=== PATIENT | male | born 1960 | race Caucasian/White ===

== ENCOUNTER 2016-06-17 09:37 | Inpatient (IN) | payer OTHER ==
[2016-06-17 11:39] LABS: Hematocrit 47 % (42-52); Hemoglobin 15.7 g/dl (14.0-18.0); Mean Corpuscular HGB Conc 33 g/dl (31-36); Mean Corpuscular Hemoglobin 30 pg (27-31); Mean Corpuscular Volume 91 fL (80-94); Mean Platelet Volume 9 um3 (7.4-10.4); Red Blood Count 5.21 10^6/ul (4.0-5.4); Red Cell Distribution Width 14 % (10.5-15)
[2016-06-17 11:49] LABS: Urine Bacteria Absent (Absent); Urine Bilirubin Negative (Negative); Urine Glucose 2+(150 mg/dL) (Negative); Urine Nitrite Negative (Negative); Urine Sperm Present (Absent)
[2016-06-17 11:50] LABS: BUN/Creatinine Ratio 20.6 (8-20); Calcium 9.5 mg/dL (8.6-10.3); EGFR African American 76.4 (>60); EGFR Non-African American 59.4 (>60); Globulin 3.2 g/dL (2-4); Potassium 3.8 mmol/L (3.5-5.0); Total Bilirubin 0.9 mg/dL (0.2-1.0); Total Protein 7.2 g/dL (6.4-8.9)
[2016-06-17] MEDS ORDERED: HYDROcodone/ACETAMIN 5-325 MG* 1 TAB PO ONE (11:52)
[2016-06-17] MEDS ORDERED: Vancomycin(*) 1,250 MG in NS 0.9% 250 ML* 250 ML IVPB ONE (11:52)
[2016-06-17] MEDS ORDERED: NS 0.9% 250 ML* 0 ML ONE (12:29)
[2016-06-17] MEDS ORDERED: Dextrose 50% Syringe 50 ML* 25 GM/50 ML SYRINGE IV PUSH PRN (15:23)
--- NOTE | 2016-06-17 15:52 | RAD ---
INDICATION: Diabetic foot. Multiple amputations COMPARISON: January 26, 2016 TECHNIQUE: AP, lateral, and oblique views were obtained. FINDINGS: The bony structures are very osteopenic. There are neuropathic changes about the midfoot. There is tibiotalar fusion. There are amputations of the fourth and fifth digits at the level of the mid metatarsals. The postsurgical and degenerative changes are stable.. IMPRESSION: DEGENERATIVE AND POSTSURGICAL CHANGES ABOUT THE FOOT. NO ACUTE PLAIN RADIOGRAPHIC FINDINGS
[2016-06-17] MEDS ORDERED: Vancomycin per Pharmacy* NOTE FOLLOW UP PRN (16:21)
[2016-06-17] MEDS ORDERED: Acetaminophen TAB* 325 MG PO PRN (17:07)
[2016-06-17] MEDS: Cefepime(*) 2 GM in NS 0.9% 50 ML* 50 ML IVPB SCH (17:16)
[2016-06-17] MEDS: Insulin GLARGINE(*) 1 UNITS UNIT SUBCUT SCH (18:17)
[2016-06-17] MEDS: Insulin LISPRO* 1 UNITS UNIT SUBCUT SCH (18:18)
[2016-06-17] MEDS: oxyCODONE/Acetamin 5/325 MG* TAB PO PRN (18:23)
[2016-06-17] MEDS: Vancomycin(*) 1,000 MG in NS 0.9% 250 ML* 250 ML IVPB SCH (20:38)
[2016-06-17] MEDS: Ticagrelor* 90 MG TAB PO SCH (20:38)
[2016-06-17] MEDS: Heparin VIAL(*) 5000 UNITS/ML VIAL (FIVE THOUSAND) SUBCUT SCH (22:05)
--- NOTE | 2016-06-18 00:03 | HP ---
HISTORY AND PHYSICAL: DATE OF ADMISSION: 06/17/16 PRIMARY CARE PROVIDER: Dr. Emiliano Clark. ATTENDING PHYSICIAN: Dr. Js Mccall *(dictated by Ni Kam NP). CHIEF COMPLAINT: Right foot wound with redness. HISTORY OF PRESENT ILLNESS: Mr. Kam is a 56-year-old male with past medical history significant for type 1 diabetes mellitus, hypothyroidism, peripheral neuropathy, Charcot foot on the right, hyperlipidemia, coronary artery disease, status post ST-elevated KS in May 2015 with stent placement, and peripheral artery disease who presents to the emergency department today with complaints of right foot redness. The patient states that he is being followed at the wound clinic regarding diabetic right foot wound since December 2015. The patient states that he was last seen last week at the wound clinic. The patient reports noticing that the top part of his foot was red yesterday and that he was having sore muscles especially in the right leg and generalized body aches. The patient denies any fever, chest pain, cough, shortness of breath, nausea, vomiting, or diarrhea. He reports chills, poor appetite, and generally not eating well recently due to not feeling well. Due to these findings, the patient started to present to the emergency room for further evaluation of his symptoms. While in the emergency room, the patient had labs that were significant for white blood cell count of 14.0, lactic acid of 1.3. He had a right foot x-ray showing degenerative and postsurgical changes about the foot with no acute plain film radiographic findings. The patient received vancomycin while in the emergency room. Due to concern that the patient's diabetic foot ulcer could represent osteomyelitis, the Hospitalists were asked to evaluate the patient for admission. PAST MEDICAL HISTORY: 1. Hypothyroidism. 2. Type 1 diabetes mellitus. 3. Peripheral neuropathy. 4. Charcot foot on the right. 5. Hyperlipidemia. 6. Peripheral artery disease. 7. Coronary artery disease, status post ST elevated KS in May 2015. PAST SURGICAL HISTORY: 1. Status post right common femoral artery angioplasty in January 2016. 2. Status post cardiac catheterization with stent placement in May 2015. 3. Status post right fourth and fifth toe amputation in 2013. 4. Status post ORIF of the left tib-fib in 2007. 5. Status post ankle fusion for Charcot foot in 1997. 6. Status post partial amputation of the right index finger as a child due to a traumatic injury. HOME MEDICATIONS: Include: 1. Lantus 60 units subcutaneous every evening. 2. Atorvastatin 80 mg oral daily. 3. Aspirin 81 mg oral daily. 4. Levothyroxine 225 mcg oral daily. 5. Lispro sliding scale subcutaneous 3 times daily. 6. Metoprolol succinate 100 mg oral daily. 7. Lisinopril 10 mg oral daily. 8. Brilinta 90 mg oral twice daily. 9. Nitro 0.4 mg sublingual every 5 minutes as needed for chest pain. ALLERGIES: The patient has a sensitivity to SIMVASTATIN. FAMILY HISTORY: The patient's father had a history of cerebrovascular accident. The patient's mother and 2 siblings have a history of diabetes mellitus. He denies family history of cancer or coronary artery disease. SOCIAL HISTORY: The patient is a former smoker. He quit smoking 6 weeks ago. Prior to that, he smoked a half a pack a day for the last 35 years. The patient occasionally drinks alcoholic beverages. He denies recreational drug use. He is disabled. He lives alone and is from his , but his , Maribel Kam, would be his surrogate decision maker in the event he is unable to make decisions for himself. REVIEW OF SYSTEMS: I performed a 14-point review of systems. All the pertinent positives and negatives are mentioned in the history of present illness. The remaining review of systems are negative. PHYSICAL EXAMINATION GENERAL APPEARANCE: The patient is alert, pleasant, and appears to be in no acute distress. VITAL SIGNS: Temperature 99.7, heart rate 90, respiratory rate 14, O2 sat 96% on room air, blood pressure 100/48. HEENT: Normocephalic, atraumatic. Pupils are equal and reactive to light. Extraocular movements are intact. NECK: Supple. There is no lymphadenopathy noted. RESPIRATORY: There is no accessory muscle use and the lungs are clear to auscultation bilaterally. CARDIOVASCULAR: Regular rate and rhythm. S1, S2 present. There are no murmurs , rubs, or gallops heard. ABDOMEN: Soft, nontender, nondistended. There are bowel sounds present x4. EXTREMITIES: There is no lower extremity edema. DP and PT pulses are 2+ and symmetric. The patient has a right fourth and fifth toe amputation. MUSCULOSKELETAL: There is no clubbing or cyanosis noted. The patient exhibits good strength in all extremities. NEUROLOGICAL: The patient is alert and oriented x4. Cranial nerves II through XII are grossly intact. PSYCHOLOGICAL: The patient is calm and cooperative. SKIN: The patient has a dressing to his right medial ankle. There is also a deep, open wound below the middle toe on the ball of the right foot. The top of the right foot has redness extending into the middle toe. There is also an intact blister noted on the second toe. DIAGNOSTIC STUDIES/LABORATORY DATA: Sodium 132, potassium 3.8, chloride 97, CO2 25, BUN 26, creatinine 1.26, glucose 173. Lactic acid 1.3. White blood cell count 14.0, hemoglobin 15.7, hematocrit 47, and platelet count 210. Right foot x-ray from today. Radiologist's impression: Degenerative and postsurgical changes about the foot. No acute plain radiographic findings. IMPRESSION: Mr. Kam is a 56-year-old male with past medical history significant for peripheral artery disease, coronary artery disease, Charcot foot on the right, peripheral neuropathy, and type 1 diabetes mellitus who has a chronic right foot wound and presents to the emergency room with redness and associated general body aches and chills. He will be admitted as an inpatient for diabetic foot ulcer and possible osteomyelitis. ASSESSMENT: 1. Right foot diabetic ulcer: Question whether this is osteomyelitis. At this time, we are unable to get an MRI due to an equipment issue. The patient did have a plain film x-ray of the right foot showing no acute findings. The patient received his first dose of vancomycin in the emergency room. We will continue him on vancomycin and cefepime. Blood cultures have been obtained. The patient also had a wound culture of his foot that had an MRSA and MSSA PCRs that were negative. The Gram stain shows 2+ neutrophils, 3+ epithelial cells, 3 + gram-positive cocci, 2+ gram- positive bacilli, and 1+ gram-negative bacilli. Final wound cultures are pending at this time. I have asked Infectious Disease to consult on the patient. For now, we will continue Santyl dressing changes daily to the right foot wound. SIRS criteria 0 and qSofa 0 at admission. 2. Acute kidney injury: I suspect this is related to the patient not eating or drinking well. We will give him IV fluids overnight. Recheck his labs in the morning. 3. History of coronary artery disease: The patient will be continued on his Brilinta, statin, aspirin, and metoprolol. 4. Diabetes mellitus: The patient will have fingersticks a.c. and h.s. He will be continued on his home dose of Lantus and we will place him on a lispro sliding scale. 5. Hypothyroidism: The patient will be continued on his home levothyroxine. 6. Fluids, electrolytes, and nutrition: The patient will be on a consistent carbohydrate and heart healthy diet. 7. Code status: Full code. 8. DVT prophylaxis: The patient is at moderate risk and will be placed on subcu heparin. 9. Disposition: Inpatient for diabetic foot ulcer. TIME SPENT: The time spent for this admission was 60 minutes and 35 minutes were spent [id number] with the patient, discussing past medical history, medications, and the events leading up to his arrival today and performing the physical examination. The case has been reviewed with the attending, Dr. Mccall, who agrees with the plan of care. Reviewed by ANMOL VERA-Zach 06/21/161955 CC: Dr. Emiliano Clark* [id number]/[facility] #: [id number] SARA
[2016-06-18] MEDS: Cefepime(*) 2 GM in NS 0.9% 50 ML* 50 ML IVPB SCH ×2 (04:42→17:41)
[2016-06-18] MEDS: Levothyroxine TAB* 100 MCG TAB PO SCH (05:29)
[2016-06-18] MEDS: Vancomycin(*) 1,000 MG in NS 0.9% 250 ML* 250 ML IVPB SCH ×3 (05:30→21:18)
[2016-06-18] MEDS: Heparin VIAL(*) 5000 UNITS/ML VIAL (FIVE THOUSAND) SUBCUT SCH ×3 (05:30→21:18)
[2016-06-18] MEDS: Levothyroxine TAB* 25 MCG TAB PO SCH (05:30)
[2016-06-18 07:18] LABS: Hematocrit 39 % (42-52); Hemoglobin 13.3 g/dl (14.0-18.0); Mean Corpuscular HGB Conc 34 g/dl (31-36); Mean Corpuscular Hemoglobin 31 pg (27-31); Mean Corpuscular Volume 90 fL (80-94); Mean Platelet Volume 9 um3 (7.4-10.4); Red Blood Count 4.36 10^6/ul (4.0-5.4); Red Cell Distribution Width 13 % (10.5-15); White Blood Count 6.3 10^3/ul (3.5-10.8)
[2016-06-18 07:36] LABS: Calcium 8.2 mg/dL (8.6-10.3); EGFR African American 99.8 (>60); EGFR Non-African American 77.6 (>60); Potassium 3.7 mmol/L (3.5-5.0)
[2016-06-18] MEDS: oxyCODONE/Acetamin 5/325 MG* TAB PO PRN ×3 (08:03→21:25)
[2016-06-18] MEDS: Ticagrelor* 90 MG TAB PO SCH ×2 (08:03→21:17)
[2016-06-18] MEDS: Aspirin EC Low Dose* 81 MG TAB.EC PO SCH (08:03)
[2016-06-18] MEDS: Metoprolol Succinate XL TAB* 100 MG PO SCH (08:03)
[2016-06-18] MEDS: Atorvastatin* 80 MG TAB PO SCH (08:03)
[2016-06-18] MEDS: Lisinopril TAB* 10 MG PO SCH (08:03)
[2016-06-18] MEDS: Insulin LISPRO* 1 UNITS UNIT SUBCUT SCH ×3 (08:28→18:23)
[2016-06-18] MEDS: NS 0.9% 1000 ML* 1,000 ML IV SCH (11:16)
[2016-06-18] MEDS ORDERED: Vancomycin Trough Check NOTE FOLLOW UP ONE (12:30)
[2016-06-18] MEDS ORDERED: Insulin LISPRO* 1 UNITS UNIT SUBCUT ONE ×2 (13:30→18:22)
[2016-06-18] MEDS ORDERED: Insulin REGULAR(*) 1 UNITS UNIT SUBCUT SCH (16:30)
[2016-06-18] MEDS: Insulin GLARGINE(*) 1 UNITS UNIT SUBCUT SCH (17:41)
[2016-06-18] MEDS: Collagenase 250 MG/GM OINT* 30 GM TOPICAL SCH (18:03)
[2016-06-19] MEDS: Vancomycin(*) 1,000 MG in NS 0.9% 250 ML* 250 ML IVPB SCH ×4 (02:35→20:50)
[2016-06-19] MEDS: Cefepime(*) 2 GM in NS 0.9% 50 ML* 50 ML IVPB SCH ×2 (04:21→17:17)
[2016-06-19] MEDS: Levothyroxine TAB* 25 MCG TAB PO SCH (05:28)
[2016-06-19] MEDS: Levothyroxine TAB* 100 MCG TAB PO SCH (05:28)
[2016-06-19] MEDS: Heparin VIAL(*) 5000 UNITS/ML VIAL (FIVE THOUSAND) SUBCUT SCH ×3 (05:28→20:54)
[2016-06-19] MEDS: NS 0.9% 1000 ML* 1,000 ML IV SCH (07:00)
[2016-06-19 08:20] LABS: BUN/Creatinine Ratio 16.7 (8-20); C Reactive Protein 91.87 mg/L (< 5.00); Calcium 8.6 mg/dL (8.6-10.3); EGFR African American 112.7 (>60); EGFR Non-African American 87.6 (>60); Potassium 3.2 mmol/L (3.5-5.0)
[2016-06-19] MEDS: oxyCODONE/Acetamin 5/325 MG* TAB PO PRN ×3 (09:18→21:02)
[2016-06-19] MEDS: Aspirin EC Low Dose* 81 MG TAB.EC PO SCH (09:18)
[2016-06-19] MEDS: Atorvastatin* 80 MG TAB PO SCH (09:19)
[2016-06-19] MEDS: Lisinopril TAB* 10 MG PO SCH (09:19)
[2016-06-19] MEDS: Ticagrelor* 90 MG TAB PO SCH ×2 (09:19→20:55)
[2016-06-19] MEDS: Metoprolol Succinate XL TAB* 100 MG PO SCH (09:19)
[2016-06-19] MEDS: Insulin LISPRO* 1 UNITS UNIT SUBCUT SCH ×3 (09:20→17:36)
[2016-06-19] MEDS: Collagenase 250 MG/GM OINT* 30 GM TOPICAL SCH (09:20)
[2016-06-19] MEDS: Potassium Chlor TAB* 20 MEQ TAB.ER PO SCH ×2 (15:19→20:55)
[2016-06-19] MEDS: Insulin GLARGINE(*) 1 UNITS UNIT SUBCUT SCH (17:35)
--- NOTE | 2016-06-20 00:50 | CONS ---
ORTHOPEDIC CONSULTATION: DATE OF CONSULT: 06/19/16 HISTORY OF PRESENT ILLNESS: Mr. Kam is a pleasant 56-year-old type 1 diabetic who has had some vasculopathy as well in the lower extremity. He is status post 4th and 5th ray excision of the right foot and now presents with recent gangrene of his middle toes in the same foot. He has also had a chronic half Dollar-sized ulcer in the forefoot area. This has been attended to at the Wound [facility], but they have been unable to achieve wound healing. At this point , Mr. Kam is in the hospital for IV antibiotics and further evaluation. Evidently back in January, he did have a vascular evaluation by Dr. Sanchez. We will try to update that evaluation or at least consultation with him, but at this point, Mr. Kam is interested in some type of definitive solution to the infection and ulceration of his right foot. He does run a [employer] and is interested in restoring function to the limb and becoming infection free. PAST MEDICAL HISTORY: He does have extensive issues including hypothyroidism, type 1 diabetes, peripheral neuropathy, hyperlipidemia, and peripheral artery disease. He had a STEMI previously. MEDICATIONS: Outlined in the chart. SOCIAL HISTORY: The patient quit smoking 6 weeks ago, but had an extensive pack year history before that. PHYSICAL EXAM: He is a pleasant, alert male. There is some calf atrophy. He has a small dime-sized superficial ulcer at the medial malleolus and then a half dollar-sized ulcer in the forefoot, which probes deep with serous drainage. There is erythema to the mid tarsal level. He has had a previous 4th and 5th ray amputation and he has gangrenous changes of his remaining toes. DIAGNOSTIC STUDIES/LAB DATA: His radiographs show that he has had an intramedullary hind foot arthrodesis, which he says was performed in [place] a decade ago, that appears well healed. IMPRESSION: Mr. Kam is a candidate either for Chopart disarticulation or transtibial amputation. He will need some imaging of the right tibia to see how far up the nail goes before we try to do the BK amputation, but I also have explained to him the advantages of possibly saving his heel and since he is already fused, he would not have issues with equinus or instability. He is going to have an MRI in the morning. I have asked him to be n.p.o. and also, we will try to touch base with Dr. Sanchez to get a vascular update or at least an opinion. [id number]/[facility] #: [id number] SARA
[2016-06-20] MEDS: Vancomycin(*) 1,000 MG in NS 0.9% 250 ML* 250 ML IVPB SCH ×4 (02:38→22:34)
[2016-06-20] MEDS: Cefepime(*) 2 GM in NS 0.9% 50 ML* 50 ML IVPB SCH ×2 (05:05→22:31)
[2016-06-20] MEDS: Heparin VIAL(*) 5000 UNITS/ML VIAL (FIVE THOUSAND) SUBCUT SCH ×3 (06:15→22:37)
[2016-06-20] MEDS: Levothyroxine TAB* 25 MCG TAB PO SCH (06:16)
[2016-06-20] MEDS: Levothyroxine TAB* 100 MCG TAB PO SCH (06:17)
--- NOTE | 2016-06-20 07:30 | PN ---
Subjective - Subjective Reason for Note: Progress Note History: Wenceslao Kam has been a patient at my office since 1993. He has had poorly controlled diabetes mellitus for most of that time and a Charcot joint right foot. In recent years he has had multiple corrective surgeries to the right foot, including amputation of the lateral 2 toes. He has attended the Wound Clinic for many months for ulceration and infection of this right foot. He presents with osteomyelitis. He is ready for a right below knee amputation as he believes this is inevitable and he is sick of going to the Wound Clinic and having chronic pain. This is the case even if there is a chance of salvage to the right heel. This morning he has no fevers/sweats. He has 5/10 pain which he feels is adequately addressed. He is otherwise feeling fine. He has not attended my medical office since 11/19/2015 and has not seen the panama hat blocker ("my neighbor") in 1 year. Active Problems: Active Problems Diabetic ulcer of right foot (Acute 10/02/13) E11.621, L97.519 Osteomyelitis of toe of right foot (Acute) M86.9 Charcot's joint of right foot (Chronic) M14.671 History of diabetic retinopathy (Chronic) Z86.39 History of myocardial infarction (Chronic) I25.2 Hypercholesterolemia (Chronic) E78.0 Peripheral neuropathy (Chronic) G62.9 Presence of stent in coronary artery (Chronic) Z95.5 Primary hypothyroidism (Chronic) E03.9 Type 1 diabetes mellitus with neurological manifestations, uncontrolled (Chronic ) E10.49, E10.65 Current Medications: Current Medications Acetaminophen (Tylenol Tab*) 650 mg PO Q4H PRN PRN Reason: FEVER/PAIN Aspirin (Aspirin Ec Low Dose*) 81 mg PO DAILY [facility] Last Admin: 06/19/16 09:18 Dose: 81 mg Atorvastatin Calcium (Lipitor*) 80 mg PO DAILY [facility] Last Admin: 06/19/16 09:19 Dose: 80 mg Collagenase (Santyl 250 Mg/Gm Oint*) 1 applic TOPICAL DAILY [facility] Last Admin: 06/19/16 09:20 Dose: 1 applic Dextrose (D50w Syringe 50 Ml*) 12.5 gm IV PUSH .FOR FS < 60 - SS PRN PRN Reason: FS < 60 Heparin Sodium (Porcine) (Heparin Vial(*)) 5,000 units SUBCUT Q8HR [facility] Last Admin: 06/20/16 06:15 Dose: Not Given Cefepime HCl 2 gm/ Sodium (Chloride) 50 mls @ 100 mls/hr IVPB Q12H [facility] Last Admin: 06/20/16 05:05 Dose: 100 mls/hr Vancomycin HCl 1,000 mg/ (Sodium Chloride) 250 mls @ 166.667 mls/hr IVPB Q6H [facility] PRN Reason: Protocol Last Admin: 06/20/16 02:38 Dose: 166.667 mls/hr Insulin Glargine (Lantus(*)) 60 units SUBCUT QPM [facility] Last Admin: 06/19/16 17:35 Dose: 60 unit Insulin Human Lispro (Humalog*) 0 - 10 units SUBCUT AC [facility] PRN Reason: Protocol Last Admin: 06/19/16 17:36 Dose: 4 unit Levothyroxine Sodium (Synthroid Tab*) 200 mcg PO DAILY@0600 [facility] Last Admin: 06/20/16 06:17 Dose: 200 mcg Levothyroxine Sodium (Synthroid Tab*) 25 mcg PO DAILY@0600 [facility] Last Admin: 06/20/16 06:16 Dose: 25 mcg Lisinopril (Prinivil Tab*) 10 mg PO DAILY [facility] Last Admin: 06/19/16 09:19 Dose: 10 mg Metoprolol Succinate (Toprol Xl Tab*) 100 mg PO DAILY [facility] Last Admin: 06/19/16 09:19 Dose: 100 mg Oxycodone/Acetaminophen (Percocet 5/325 Tab*) 1 tab PO Q4H PRN PRN Reason: PAIN - MILD TO MODERATE Last Admin: 06/19/16 15:13 Dose: 1 tab Oxycodone/Acetaminophen (Percocet 5/325 Tab*) 2 tab PO Q4H PRN PRN Reason: PAIN - MODERATE TO SEVERE Last Admin: 06/19/16 21:02 Dose: 2 tab Pharmacy Consult (Vancomycin Per Pharmacy*) 1 note FOLLOW UP . PRN PRN Reason: PER PROTOCOL Pharmacy Profile Note (Vancomycin Trough Check) 1 note FOLLOW UP ONCE ONE Stop: 06/20/16 08:31 Ticagrelor (Brilinta*) 90 mg PO BID [facility] Last Admin: 06/19/16 20:55 Dose: 90 mg - Review of Systems Constitutional Symptoms: No: Fever, Night Sweats Pulmonary: Negative: Cough, Sputum, Respiratory Distress, Home Oxygen Cardiology: Positive: Peripheral Vascular Dis Negative: Chest Pain, Shortness of Breath, Palpitations, Swelling of Ankles Gastroenterology: Negative: Abdominal Pain, Nausea, Vomiting, Difficulty Swallowing, Change in Bowel Habits - He has had a colonoscopy Genital - Urinary: Negative: Dysuria, Hematuria Home Medications: Home Medications Medication Instructions Recorded Confirmed Type Insulin Glargine [Lantus] 60 unit SUBCUT QPM #0 06/04/15 06/17/16 History Atorvastatin* [Lipitor 80 MG*] 80 mg PO DAILY #30 tab 06/07/15 06/17/16 Rx Lisinopril TAB* [Prinivil TAB 10 10 mg PO DAILY tab 06/07/15 06/17/16 Rx MG*] Metoprolol Succinate XL TAB* 100 mg PO DAILY #30 tab.xl 06/07/15 06/17/16 Rx [Toprol XL TAB*] Nitroglycerin TAB 0.4 MG* 0.4 mg SL Q5M PRN #20 tab 06/07/15 06/17/16 Rx Ticagrelor* [Brilinta 90 MG*] 90 mg PO BID #60 tab 06/07/15 06/17/16 Rx Aspirin EC Low Dose* [Ecotrin EC 81 mg PO DAILY 02/15/16 06/17/16 History Low Dose 81 MG*] Insulin Lispro [Humalog] 0 - 100 units SUBCUT TID 02/15/16 06/17/16 History Levothyroxine TAB* [Synthroid TAB*] 25 mcg PO DAILY 06/17/16 06/17/16 History Levothyroxine TAB* [Synthroid TAB*] 200 mcg PO DAILY 06/17/16 06/17/16 History Allergies: Allergies Allergy/AdvReac Type Severity Reaction Status Date / Time No Known Drug Allergy Allergy See Comment Verified 06/17/16 17:57 Simvastatin AdvReac Unknown Fatigue Verified 06/17/16 13:44 Objective - Vital Signs Vital Signs: Vital Signs 06/19/16 06/19/16 06/19/16 07:29 08:00 09:18 Temperature 98.4 F Pulse Rate 82 Respiratory 16 16 16 Rate Blood Pressure 125/66 (mmHg) O2 Sat by Pulse 95 97 Oximetry 06/19/16 06/19/16 06/19/16 11:31 15:13 15:33 Temperature 98.3 F 98.1 F Pulse Rate 78 81 Respiratory 16 16 16 Rate Blood Pressure 136/62 140/63 (mmHg) O2 Sat by Pulse 97 97 Oximetry 06/19/16 06/19/16 06/19/16 17:13 20:07 21:02 Temperature 98.1 F Pulse Rate 77 Respiratory 16 16 20 Rate Blood Pressure 134/67 (mmHg) O2 Sat by Pulse 98 Oximetry 06/19/16 06/19/16 06/19/16 21:15 22:52 23:28 Temperature 98.4 F Pulse Rate 73 Respiratory 20 20 16 Rate Blood Pressure 114/53 (mmHg) O2 Sat by Pulse 98 100 Oximetry - Intake and Output Intake and Output: Intake & Output 06/17/16 06/18/16 06/19/16 06/20/16 11:59 11:59 11:59 11:59 Intake Total 2655 3085 3145 Output Total 0 0 Balance 2655 3085 3145 Weight 191 lb Intake: IV Fluids 985 590 ABX - CEFEPIME 50 ABX - VANCOMYCIN 500 NS (0.9%) 985 40 IVPB 350 305 815 ABX - CEFEPIME 100 55 55 ABX - VANCOMYCIN 250 250 760 Oral 1320 2780 1740 Output: Urine 0 0 Other: Estimated Void Large # Bowel Movements 0 0 0 # Voids 3 2 2 ADLs: Meal Record Start: 06/17/16 16: 01 Freq: DAILY@0900,1400,1800 Status: Active Document 06/17/16 18:00 [id number] (Rec: 06/17/16 18:34 [id number] [facility]-M08) Document 06/18/16 09:00 [id number] (Rec: 06/18/16 09:45 [id number] MED-C11) Document 06/18/16 14:00 [id number] (Rec: 06/18/16 14:45 [id number] MED-C11) Document 06/18/16 18:00 [id number] (Rec: 06/18/16 18:28 [id number] MED-C09) Document 06/19/16 09:00 [id number] (Rec: 06/19/16 15:05 [id number] MED-C09) Document 06/19/16 14:00 [id number] (Rec: 06/19/16 15:06 [id number] MED-C09) Document 06/19/16 18:00 [id number] (Rec: 06/19/16 22:47 [id number] MED-C11) Intake and Output Start: 06/17/16 16: 01 Freq: DAILY@0600,1400,2200 Status: Active Document 06/17/16 21:54 [id number] (Rec: 06/17/16 21:55 [id number] MED-C11) Document 06/18/16 05:43 [id number] (Rec: 06/18/16 05:45 [id number] MED-C42) Document 06/18/16 14:00 [id number] (Rec: 06/18/16 14:46 [id number] MED-C11) Document 06/18/16 21:22 [id number] (Rec: 06/18/16 21:22 [id number] MED-C09) Document 06/19/16 06:00 [id number] (Rec: 06/19/16 06:11 [id number] MED-C26) Document 06/19/16 14:00 [id number] (Rec: 06/19/16 15:06 [id number] MED-C09) Document 06/19/16 22:00 [id number] (Rec: 06/19/16 22:47 [id number] MED-C11) Document 06/20/16 05:55 [id number] (Rec: 06/20/16 05:55 [id number] MED-C26) - Physical Exam General Physical Exam Comment: Right foot - red, swollen 2nd toe. Edema of proximal right foot. He has a mostly healed ulcer over left medial malleolus. Charcot right foot. Left foot - posterior tibial pulse present, dorsalis pedis absent. No ulcers, callouses or infections General: No Cyanosis, No Anemia, No Jaundice, No Clubbing Lungs and Chest: Yes: Chest Expansion Full, Chest Expansion Symetrica, Percussion Note Resonant, Vessicular Breath Sounds. No: Crackles, Wheezes Heart Rate and Rhythm: Regular JVP: Not Elevated Additional Cardiovascular: Yes: Normal Heart Sounds. No: Heart Murmur, Pedal Edema Abdominal Exam: Yes: Soft, Bowel Sounds Present. No: Distention, Abdominal Mass , Hepatomegaly, Abdominal Tenderness Results - Results Lab Results: Laboratory Results - last 24 hr 06/19/16 06/19/16 06/19/16 07:21 07:25 07:25 ESR 33 H Sodium 137 Potassium 3.2 L Chloride 105 Carbon Dioxide 24 Anion Gap 8 BUN 15 Creatinine 0.90 Est GFR ( Amer) 112.7 Est GFR (Non-Af Amer) 87.6 BUN/Creatinine Ratio 16.7 Glucose 61 L POC Glucose (mg/dL) 63 L Calcium 8.6 C-Reactive Protein 91.87 H 06/19/16 06/19/16 06/19/16 12:02 17:20 21:38 ESR Sodium Potassium Chloride Carbon Dioxide Anion Gap BUN Creatinine Est GFR ( Amer) Est GFR (Non-Af Amer) BUN/Creatinine Ratio Glucose POC Glucose (mg/dL) 295 H 155 H 145 H Calcium C-Reactive Protein Radiology Results: Patient Name: BRODY KAM Medical Record#: [id number] Ordering Physician: Agus Moon MD Acct.#: [id number] : 1960 Age: 56 Sex: M Location: EMERGENCY DEPARTMENT Exam Date: 06/17/161519 ADM Status: REG ER Order Information: FOOT RIGHT 3+ VWS Accession Number: [id number] CPT: 35033 INDICATION: Diabetic foot. Multiple amputations COMPARISON: January 26, 2016 TECHNIQUE: AP, lateral, and oblique views were obtained. FINDINGS: The bony structures are very osteopenic. There are neuropathic changes about the midfoot. There is tibiotalar fusion. There are amputations of the fourth and fifth digits at the level of the mid metatarsals. The postsurgical and degenerative changes are stable.. IMPRESSION: DEGENERATIVE AND POSTSURGICAL CHANGES ABOUT THE FOOT. NO ACUTE PLAIN RADIOGRAPHIC FINDINGS <Electronically signed by Jude Cardona MD in OV> 06/17/16 154 Dictated By: Jude Cardona MD Dictated Date/Time: 06/17/161548 Transcribed Date/Time: 06/17/161546 Copy to: CC:Emiliano Clark MD; Agus Moon MD Imaging - [facility] Imaging - [facility] Imaging - [facility] [address] [address] ph ([phone]) ph ([phone]) ph ([phone]) Assessment - Problem List Assessment: Patient Problems Diabetic ulcer of right foot (Acute 10/02/13) Osteomyelitis of toe of right foot (Acute) Charcot's joint of right foot (Chronic) History of diabetic retinopathy (Chronic) History of myocardial infarction (Chronic) Hypercholesterolemia (Chronic) Peripheral neuropathy (Chronic) Presence of stent in coronary artery (Chronic) Primary hypothyroidism (Chronic) Type 1 diabetes mellitus with neurological manifestations, uncontrolled (Chronic ) Plan: Diabetic ulcer of right foot (Acute 10/02/13)Osteomyelitis of toe of right foot (Acute)Charcot's joint of right foot (Chronic) I spoke to the patient and Dr. Lewis. He is having an MRI of the foot this morning. Dr. Lewis would like to consider surgery to spare his heel. Brody would like a below knee amputation. I will leave this to Dr. Lewis. He would like an opinion from Dr. Sanchez - his scientist electronics - as to the state of the peripheral vascular disease. History of diabetic retinopathy (Chronic) Due for ophthalmological examination. History of myocardial infarction (Chronic) for EKG Hypercholesterolemia (Chronic) continue current Rx Peripheral neuropathy (Chronic) ongoing Presence of stent in coronary artery (Chronic) Primary hypothyroidism (Chronic) secondary diagnosis Type 1 diabetes mellitus with neurological manifestations, uncontrolled (Chronic ) He has a high A1c. This morning his glucose is 67 mg/dl as he is NPO. I will start a D5/0.5 NS infusion. I discussed the above with the patient. He accepts the above plan, but remains skeptical of more conservative foot surgery.
[2016-06-20] MEDS: oxyCODONE/Acetamin 5/325 MG* TAB PO PRN ×3 (07:40→19:10)
[2016-06-20] MEDS: Aspirin EC Low Dose* 81 MG TAB.EC PO SCH (07:42)
[2016-06-20] MEDS: Metoprolol Succinate XL TAB* 100 MG PO SCH (07:42)
[2016-06-20] MEDS: Atorvastatin* 80 MG TAB PO SCH (07:42)
[2016-06-20] MEDS: Lisinopril TAB* 10 MG PO SCH (07:42)
[2016-06-20] MEDS: Insulin LISPRO* 1 UNITS UNIT SUBCUT SCH ×5 (07:54→22:30)
[2016-06-20] MEDS ORDERED: D5W 1/2 NS KCl 20 Meq 1000 ML* 1,000 ML IV SCH (08:00)
[2016-06-20] MEDS: Collagenase 250 MG/GM OINT* 30 GM TOPICAL SCH (08:01)
[2016-06-20] MEDS ORDERED: Vancomycin Trough Check NOTE FOLLOW UP ONE (08:30)
--- NOTE | 2016-06-20 10:37 | RAD ---
Indication: Diabetic with RIGHT foot ulcer. Previous partial RIGHT foot amputation. Previous ankle fusion. Assess for osteomyelitis. Comparison: June 17, 2016 radiographs demonstrating previous ankle fusion, advanced Charcot arthropathy, and amputation of the fourth and fifth digits at the level of the metatarsal diaphyses. February 05, 2016 MRI. Technique: [employer] 1.5 Iraida [id number] with GEM suite. Noncontrast MRI RIGHT ankle. Report: Artifact from talocrural joint effusion. Stigmata of advanced neuropathic arthropathy with intertarsal fusions. Post dilatation of the fourth and fifth digits at the level of the metatarsal diaphyses. Soft tissue ulcer along the plantar aspect of the foot centered inferior to the second metatarsal phalangeal joint. Grossly contiguous with the soft tissue ulcer there is circumferential soft tissue hyperintensity surrounding the second toe proximal phalanx and head of the second metatarsal. The middle and distal phalanges of the second toe are not included in the [id number]. There is a small region of T2 hyperintense marrow edema involving the plantar aspect of the head of the second metatarsal with corresponding decreased T1 marrow hyperintensity consistent with osteomyelitis. Only trace fluid at the second metatarsal phalangeal joint. No compelling additional region of osteomyelitis evident within the [id number]. Chronic postsurgical tract noted within the calcaneal tuberosity. IMPRESSION: Contiguous with the plantar soft tissue ulcer there is evidence for osteomyelitis involving the plantar aspect of the head of the IVC second metatarsal. This represents a new finding compared with the February 05, 2016 exam.
[2016-06-20] MEDS ORDERED: Midazolam* 1 MG/ML 2 ML VIAL (2 MG) ONE (14:58)
[2016-06-20] MEDS ORDERED: fentaNYL* 50 MCG/ML 2 ML VIAL (100 MCG VIAL) ONE ×2 (14:58→17:37)
[2016-06-20] MEDS ORDERED: Scopolamine 1.5 mg* PATCH ONE (14:59)
[2016-06-20] MEDS ORDERED: Bupivacaine 0.5% SDV PF* 30 ML VIAL ONE (15:37)
[2016-06-20] MEDS ORDERED: Vancomycin(*) 1,000 MG in NS 0.9% 250 ML* 250 ML IVPB SCH (16:00)
[2016-06-20] MEDS ORDERED: Lidocaine 2% PF * 5 ML VIAL ONE (16:23)
[2016-06-20] MEDS ORDERED: Propofol* 10 MG/ML 20 ML BTL IV PUSH ONE (16:23)
[2016-06-20] MEDS ORDERED: Dexamethasone IV* 4 MG/ML 1 ML (4 MG) ONE (16:23)
[2016-06-20] MEDS ORDERED: Ondansetron INJ* 2 MG/ML VIAL ONE (16:23)
[2016-06-20] MEDS ORDERED: Phenylephrine IV* 40 MCG/ML 10 ML SYRINGE ONE (16:34)
[2016-06-20] MEDS ORDERED: Metoclopramide IV* 5 MG/ML 2 ML VIAL IV PRN (17:29)
[2016-06-20] MEDS ORDERED: HYDROmorphone* 1 MG/ML 1 ML SYR ONE (17:37)
[2016-06-20] MEDS: fentaNYL* 50 MCG/ML 2 ML VIAL (100 MCG VIAL) IV PRN ×2 (17:38→17:44)
--- NOTE | 2016-06-20 17:47 | CONS ---
CONSULTATION REPORT: DATE OF CONSULT: 06/20/16 REQUESTING PHYSICIAN: Dr. Clark. CONSULTING SERVICE: Infectious Disease. REASON FOR CONSULT: Right foot infection. IMPRESSION: 1. Type 1 diabetes with neuropathy and bilateral Charcot joints in the ankle and foot, now with gangrene of the right second toe and associated cellulitis. 2. Chronic non-pressure related, diabetes-related plantar forefoot ulceration with underlying osteomyelitis of the second metatarsal head seen on MRI. This is a chronic osteomyelitis, the organisms that were cultured from the swab grew group B strep, klebsiella, and enterobacter. 3. Peripheral vascular disease, history of right below the knee angioplasty. RECOMMENDATION: Agree with broad-spectrum antibiotics while awaiting surgical therapy, which he is in favor of and he is going to pursue below the knee amputation. We discussed that he would not need long-term IV antibiotics after surgery where the site is so proximal to the area of active infection, but I agree that with underlying structural and hardware abnormalities of his ankle plus the chronic wound of his forefoot that more limited procedure is likely to lead to recurrence. HISTORY OF PRESENT ILLNESS: This is a 56-year-old male with neuropathy, micro and macrovascular disease, admitted with right foot infection. He has been following with the wound clinic for a plantar forefoot ulcer for the last few months, it first showed up in November, drains fluid from time to time. At the end of last week, he developed redness in forefoot and purplish discoloration of the second and third toes. He already has had amputation of the fourth and fifth toes. He had some chills and nausea along with the foot abnormality that led him seek care in the emergency room. He was started on vancomycin and cefepime. Culture was taken as above. Blood cultures taken were negative. An MRI was done today with findings as above. He has been seen by Dr. Lewis and plans for surgery. The redness is receding back down the foot towards the toes again. His chills and anorexia resolved. PAST MEDICAL HISTORY: 1. Type 1 diabetes with peripheral neuropathy. 2. Peripheral vascular disease, history of below the knee intervention, angioplasty, in 2015. 3. Charcot foot with right foot ankle fusion. 4. Hyperlipidemia. 5. Coronary artery disease, history of an DC in 2015. 6. Status post right fourth and fifth toe amputation, 2013. 7. Left ankle fracture, status post open reduction internal fixation of the left tibia and fibula, 2007. 8. Status post partial amputation of right index finger due to trauma. MEDICATIONS: 1. Tylenol. 2. Aspirin. 3. Lipitor. 4. Insulin glargine. 5. Levothyroxine. 6. Lisinopril. 7. Cefepime 2 g every 12 hours. 8. Vancomycin 1 g every 6 hours. ALLERGIES: SIMVASTATIN. FAMILY HISTORY: No recurrent infections. SOCIAL HISTORY: He lives in [place]. His work is in [employer]. REVIEW OF SYSTEMS: All negative except as noted above. PHYSICAL EXAM: Vitals Signs: Temperature 36, heart rate 70, respiratory rate 16, blood pressure 140/60, O2 sat 99% on room air. In general, he is awake, non - distressed. Neurologic: Oriented x3, follows all commands. No sensation to light touch in the feet bilaterally. HEENT: There is no conjunctival hemorrhage. Oropharynx is without lesions. Neck is supple without nuchal rigidity. Lymph Nodes: There is no cervical, supraclavicular, inguinal, axillary, or epitrochlear lymphadenopathy. Heart has regular rate and rhythm without murmurs, rubs, or gallops. Lungs are clear to auscultation bilaterally. Abdomen is soft, nontender, and nondistended. Skin: There is no rash or splinter hemorrhages. Musculoskeletal: In the right foot, there is no palpable pulse in the right foot, that is warm. There is a plantar forefoot 1.5-cm ulcer with underlying granulation tissue over the second metatarsal head , second toe is black and purple and edematous, the third toe is edematous with mild purplish discoloration, erythema at the base of the toes. There is no fluctuance or crepitus. LABORATORY DATA: Creatinine is 0.9. CRP 90. White blood cell count 6, hemoglobin 13, platelets 159. Please see impressions and recommendations as outlined above. Thanks for asking me to see Mr. Kam in consultation. [id number]/CPS #: [id number] MTDD
[2016-06-20] MEDS: HYDROmorphone* 1 MG/ML 1 ML SYR IV PRN ×5 (17:51→23:48)
[2016-06-20] MEDS ORDERED: Insulin LISPRO* 1 UNITS UNIT SUBCUT SCH ×2 (21:00→21:20)
[2016-06-20] MEDS: Insulin GLARGINE(*) 1 UNITS UNIT SUBCUT SCH (21:27)
[2016-06-21] MEDS: oxyCODONE/Acetamin 5/325 MG* TAB PO PRN ×5 (03:08→20:14)
[2016-06-21] MEDS: Vancomycin(*) 1,000 MG in NS 0.9% 250 ML* 250 ML IVPB SCH ×3 (04:56→10:19)
[2016-06-21] MEDS: HYDROmorphone* 1 MG/ML 1 ML SYR IV PRN ×9 (05:52→22:35)
[2016-06-21] MEDS: Heparin VIAL(*) 5000 UNITS/ML VIAL (FIVE THOUSAND) SUBCUT SCH ×3 (05:54→22:36)
[2016-06-21] MEDS: Levothyroxine TAB* 100 MCG TAB PO SCH (05:55)
[2016-06-21 05:56] LABS: Hematocrit 39 % (42-52); Mean Corpuscular HGB Conc 34 g/dl (31-36); Mean Corpuscular Hemoglobin 30 pg (27-31); Mean Corpuscular Volume 90 fL (80-94); Mean Platelet Volume 9 um3 (7.4-10.4); Red Blood Count 4.28 10^6/ul (4.0-5.4); Red Cell Distribution Width 13 % (10.5-15); White Blood Count 10.3 10^3/ul (3.5-10.8)
[2016-06-21] MEDS: Levothyroxine TAB* 25 MCG TAB PO SCH (05:56)
[2016-06-21 06:06] LABS: BUN/Creatinine Ratio 16.5 (8-20); Calcium 8.4 mg/dL (8.6-10.3); EGFR African American 111.2 (>60); EGFR Non-African American 86.5 (>60); Potassium 4.4 mmol/L (3.5-5.0)
[2016-06-21] MEDS: Cefepime(*) 2 GM in NS 0.9% 50 ML* 50 ML IVPB SCH ×2 (07:28→17:28)
[2016-06-21] MEDS: Lisinopril TAB* 10 MG PO SCH (08:14)
[2016-06-21] MEDS: Aspirin EC Low Dose* 81 MG TAB.EC PO SCH (08:14)
[2016-06-21] MEDS: Atorvastatin* 80 MG TAB PO SCH (08:14)
[2016-06-21] MEDS: Metoprolol Succinate XL TAB* 100 MG PO SCH (08:14)
[2016-06-21] MEDS: Insulin LISPRO* 1 UNITS UNIT SUBCUT SCH ×8 (08:18→21:45)
--- NOTE | 2016-06-21 08:48 | PN ---
Subjective - Subjective Reason for Note: Progress Note History: He is day 1 post right below knee amputation. He has 7/10 pain of amputation site - it was 5/10 prior to the amputation. He would like better pain control. He is managing well otherwise. His blood glucose has been running high. Otherwise, he has been stable. He ate a meal last night. He has no chest pain , palpitations or dyspnea. He has no nausea or vomiting or abdo pain, diarrhea. Active Problems: Active Problems Complete below knee amputation of right lower extremity (Acute) S88.111A History of diabetic retinopathy (Chronic) Z86.39 History of myocardial infarction (Chronic) I25.2 Hypercholesterolemia (Chronic) E78.0 Peripheral neuropathy (Chronic) G62.9 Presence of stent in coronary artery (Chronic) Z95.5 Primary hypothyroidism (Chronic) E03.9 Type 1 diabetes mellitus with neurological manifestations, uncontrolled (Chronic ) E10.49, E10.65 Current Medications: Current Medications Acetaminophen (Tylenol Tab*) 650 mg PO Q4H PRN PRN Reason: FEVER/PAIN Aspirin (Aspirin Ec Low Dose*) 81 mg PO DAILY [facility] Last Admin: 06/21/16 08:14 Dose: 81 mg Atorvastatin Calcium (Lipitor*) 80 mg PO DAILY [facility] Last Admin: 06/21/16 08:14 Dose: 80 mg Collagenase (Santyl 250 Mg/Gm Oint*) 1 applic TOPICAL DAILY [facility] Last Admin: 06/20/16 08:01 Dose: 1 applic Dextrose (D50w Syringe 50 Ml*) 12.5 gm IV PUSH .FOR FS < 60 - SS PRN PRN Reason: FS < 60 Heparin Sodium (Porcine) (Heparin Vial(*)) 5,000 units SUBCUT Q8HR [facility] Last Admin: 06/21/16 05:54 Dose: 5,000 units Hydromorphone HCl (Dilaudid Iv*) 1 mg IV Q2H PRN PRN Reason: PAIN Last Admin: 06/21/16 08:13 Dose: 1 mg Cefepime HCl 2 gm/ Sodium (Chloride) 50 mls @ 100 mls/hr IVPB Q12H [facility] Last Admin: 06/21/16 07:28 Dose: 100 mls/hr Potassium Chloride/Dextrose (D5w 1/2 Ns Kcl 20 Meq 1000 Ml*) 1,000 mls @ 100 mls/hr IV PER RATE [facility] Last Admin: 06/20/16 07:54 Dose: 100 mls/hr Vancomycin HCl 1,000 mg/ (Sodium Chloride) 250 mls @ 166.667 mls/hr IVPB Q6H [facility] PRN Reason: Protocol Last Admin: 06/21/16 04:56 Dose: 166.667 mls/hr Insulin Glargine (Lantus(*)) 60 units SUBCUT QPM [facility] Last Admin: 06/20/16 21:27 Dose: 60 unit Insulin Human Lispro (Humalog*) 0 units SUBCUT TID WITH MEALS [facility] PRN Reason: Protocol Insulin Human Lispro (Humalog*) 0 - 20 units SUBCUT 0730,1130,1630,2100 [facility] PRN Reason: Protocol Last Admin: 06/21/16 08:18 Dose: 16 unit Levothyroxine Sodium (Synthroid Tab*) 200 mcg PO DAILY@0600 [facility] Last Admin: 06/21/16 05:55 Dose: 200 mcg Levothyroxine Sodium (Synthroid Tab*) 25 mcg PO DAILY@0600 [facility] Last Admin: 06/21/16 05:56 Dose: 25 mcg Lisinopril (Prinivil Tab*) 10 mg PO DAILY [facility] Last Admin: 06/21/16 08:14 Dose: 10 mg Metoprolol Succinate (Toprol Xl Tab*) 100 mg PO DAILY [facility] Last Admin: 06/21/16 08:14 Dose: 100 mg Oxycodone/Acetaminophen (Percocet 5/325 Tab*) 1 tab PO Q4H PRN PRN Reason: PAIN - MILD TO MODERATE Last Admin: 06/19/16 15:13 Dose: 1 tab Oxycodone/Acetaminophen (Percocet 5/325 Tab*) 2 tab PO Q4H PRN PRN Reason: PAIN - MODERATE TO SEVERE Last Admin: 06/21/16 08:14 Dose: 2 tab Pharmacy Consult (Vancomycin Per Pharmacy*) 1 note FOLLOW UP . PRN PRN Reason: PER PROTOCOL Pharmacy Profile Note (Vancomycin Trough Check) 1 note FOLLOW UP 1530 ONE Stop: 06/21/16 15:31 Home Medications: Home Medications Medication Instructions Recorded Confirmed Type Insulin Glargine [Lantus] 60 unit SUBCUT QPM #0 06/04/15 06/17/16 History Atorvastatin* [Lipitor 80 MG*] 80 mg PO DAILY #30 tab 06/07/15 06/17/16 Rx Lisinopril TAB* [Prinivil TAB 10 10 mg PO DAILY tab 06/07/15 06/17/16 Rx MG*] Metoprolol Succinate XL TAB* 100 mg PO DAILY #30 tab.xl 06/07/15 06/17/16 Rx [Toprol XL TAB*] Nitroglycerin TAB 0.4 MG* 0.4 mg SL Q5M PRN #20 tab 06/07/15 06/17/16 Rx Ticagrelor* [Brilinta 90 MG*] 90 mg PO BID #60 tab 06/07/15 06/17/16 Rx Aspirin EC Low Dose* [Ecotrin EC 81 mg PO DAILY 02/15/16 06/17/16 History Low Dose 81 MG*] Insulin Lispro [Humalog] 0 - 100 units SUBCUT TID 02/15/16 06/17/16 History Levothyroxine TAB* [Synthroid TAB*] 25 mcg PO DAILY 06/17/16 06/17/16 History Levothyroxine TAB* [Synthroid TAB*] 200 mcg PO DAILY 06/17/16 06/17/16 History Allergies: Allergies Allergy/AdvReac Type Severity Reaction Status Date / Time No Known Drug Allergy Allergy See Comment Verified 06/17/16 17:57 Simvastatin AdvReac Unknown Fatigue Verified 06/17/16 13:44 Objective - Vital Signs Vital Signs: Vital Signs 06/20/16 06/20/16 06/20/16 11:51 12:23 17:30 Temperature 97.8 F 97.2 F Pulse Rate 68 72 Respiratory 16 16 16 Rate Blood Pressure 125/64 145/72 (mmHg) O2 Sat by Pulse 97 98 Oximetry 06/20/16 06/20/16 06/20/16 17:35 17:38 17:40 Temperature Pulse Rate 76 76 Respiratory 14 16 16 Rate Blood Pressure 140/69 147/74 (mmHg) O2 Sat by Pulse 98 98 Oximetry 06/20/16 06/20/16 06/20/16 17:44 17:45 17:51 Temperature Pulse Rate 68 Respiratory 16 16 16 Rate Blood Pressure 146/68 (mmHg) O2 Sat by Pulse 98 Oximetry 06/20/16 06/20/16 06/20/16 18:00 18:02 18:15 Temperature Pulse Rate 68 69 Respiratory 16 16 16 Rate Blood Pressure 147/73 131/71 (mmHg) O2 Sat by Pulse 97 95 Oximetry 06/20/16 06/20/16 06/20/16 18:21 18:30 18:38 Temperature Pulse Rate 68 Respiratory 16 16 16 Rate Blood Pressure 139/68 (mmHg) O2 Sat by Pulse 95 Oximetry 06/20/16 06/20/16 06/20/16 18:39 18:44 18:51 Temperature 97.7 F Pulse Rate 68 Respiratory 16 16 16 Rate Blood Pressure 127/68 (mmHg) O2 Sat by Pulse 98 Oximetry 06/20/16 06/20/16 06/20/16 19:02 19:10 19:21 Temperature Pulse Rate Respiratory 16 16 16 Rate Blood Pressure (mmHg) O2 Sat by Pulse Oximetry 06/20/16 06/20/16 06/20/16 19:43 20:00 20:38 Temperature 97.9 F 98.0 F Pulse Rate 70 74 Respiratory 16 16 16 Rate Blood Pressure 128/69 129/68 (mmHg) O2 Sat by Pulse 97 100 100 Oximetry 06/20/16 06/20/16 06/20/16 21:00 21:03 21:08 Temperature Pulse Rate Respiratory 16 16 16 Rate Blood Pressure (mmHg) O2 Sat by Pulse Oximetry 06/20/16 06/20/16 06/20/16 22:03 22:28 23:45 Temperature 97.6 F 97.9 F Pulse Rate 72 72 Respiratory 16 17 16 Rate Blood Pressure 120/66 119/64 (mmHg) O2 Sat by Pulse 92 96 Oximetry 06/20/16 06/21/16 06/21/16 23:48 00:48 03:08 Temperature Pulse Rate Respiratory 18 16 16 Rate Blood Pressure (mmHg) O2 Sat by Pulse Oximetry 06/21/16 06/21/16 06/21/16 03:42 05:08 05:52 Temperature 98.0 F Pulse Rate 70 Respiratory 16 16 16 Rate Blood Pressure 122/61 (mmHg) O2 Sat by Pulse 94 Oximetry 06/21/16 06/21/16 06/21/16 06:52 07:39 08:13 Temperature 98.1 F Pulse Rate 66 Respiratory 16 16 Rate Blood Pressure 111/52 (mmHg) O2 Sat by Pulse 91 Oximetry 06/21/16 08:14 Temperature Pulse Rate Respiratory 16 Rate Blood Pressure (mmHg) O2 Sat by Pulse Oximetry - Intake and Output Intake and Output: Intake & Output 06/18/16 06/19/16 06/20/16 06/21/16 11:59 11:59 11:59 11:59 Intake Total 2655 3085 3145 3335 Output Total 0 0 1575 Balance 2655 3085 3145 1760 Weight 191 lb 191 lb Intake: IV Fluids 188 619 5950 ABX - CEFEPIME 50 50 ABX - VANCOMYCIN 500 510 D5W 1/2 NS 20 meq KCL 595 LR 1200 NS (0.9%) 985 40 50 NS 250ML, Vancomycin 250 1000MG IVPB 350 305 815 ABX - CEFEPIME 100 55 55 ABX - VANCOMYCIN 250 250 760 Oral 1320 2780 1740 680 Output: Urine 0 0 1575 Other: Estimated Void Large Medium # Bowel Movements 0 0 0 0 # Voids 3 2 1 ADLs: Meal Record Start: 06/17/16 16: 01 Freq: DAILY@0900,1400,1800 Status: Inactive Document 06/17/16 18:00 [id number] (Rec: 06/17/16 18:34 [id number] [facility]-M08) Document 06/18/16 09:00 [id number] (Rec: 06/18/16 09:45 [id number] MED-C11) Document 06/18/16 14:00 [id number] (Rec: 06/18/16 14:45 [id number] MED-C11) Document 06/18/16 18:00 [id number] (Rec: 06/18/16 18:28 [id number] MED-C09) Document 06/19/16 09:00 [id number] (Rec: 06/19/16 15:05 [id number] MED-C09) Document 06/19/16 14:00 [id number] (Rec: 06/19/16 15:06 [id number] MED-C09) Document 06/19/16 18:00 [id number] (Rec: 06/19/16 22:47 [id number] MED-C11) Document 06/20/16 09:00 [id number] (Rec: 06/20/16 10:07 [id number] MED-C11) Document 06/20/16 13:44 [id number] (Rec: 06/20/16 13:44 [id number] MED-C11) ADLs: Meal Record Start: 06/20/16 18: 54 Freq: Status: Active Created 06/20/16 18:54 [id number] (Rec: 06/20/16 18:54 [id number] [facility]-M02) Intake and Output Start: 06/17/16 16: 01 Freq: DAILY@0600,1400,2200 Status: Inactive Document 06/17/16 21:54 [id number] (Rec: 06/17/16 21:55 [id number] MED-C11) Document 06/18/16 05:43 [id number] (Rec: 06/18/16 05:45 [id number] MED-C42) Document 06/18/16 14:00 [id number] (Rec: 06/18/16 14:46 [id number] MED-C11) Document 06/18/16 21:22 [id number] (Rec: 06/18/16 21:22 [id number] MED-C09) Document 06/19/16 06:00 [id number] (Rec: 06/19/16 06:11 [id number] MED-C26) Document 06/19/16 14:00 [id number] (Rec: 06/19/16 15:06 [id number] MED-C09) Document 06/19/16 22:00 [id number] (Rec: 06/19/16 22:47 [id number] MED-C11) Document 06/20/16 05:55 [id number] (Rec: 06/20/16 05:55 [id number] MED-C26) Document 06/20/16 10:58 [id number] (Rec: 06/20/16 10:59 [id number] MED-C11) Intake and Output Start: 06/20/16 18: 54 Freq: DAILY@0600,1400,2200 Status: Active Created 06/20/16 18:54 [id number] (Rec: 06/20/16 18:54 [id number] SSU-M02) Document 06/20/16 22:30 [id number] (Rec: 06/20/16 23:36 [id number] SSU-C12) Document 06/20/16 23:14 [id number] (Rec: 06/20/16 23:15 [id number] SSU-C19) Document 06/21/16 03:13 [id number] (Rec: 06/21/16 03:13 [id number] SSU-M02) Document 06/21/16 06:00 [id number] (Rec: 06/21/16 06:17 [id number] SSU-C11) - Physical Exam General: No Cyanosis, No Anemia, No Jaundice, No Clubbing Lungs and Chest: Yes: Chest Expansion Full, Chest Expansion Symetrica, Percussion Note Resonant, Vessicular Breath Sounds. No: Crackles, Wheezes Heart Rate and Rhythm: Regular Additional Cardiovascular: Yes: Normal Heart Sounds. No: Heart Murmur, Pedal Edema Abdominal Exam: Yes: Soft, Bowel Sounds Present. No: Distention, Abdominal Mass , Abdominal Tenderness - Neuro Orientation: A/O x3 Speech: Normal Results - Results Lab Results: Laboratory Results - last 24 hr 06/20/16 06/20/16 06/20/16 11:23 11:23 11:33 WBC RBC Hgb Hct MCV MCH MCHC RDW Plt Count MPV Neut % (Auto) Lymph % (Auto) [place] % (Auto) Eos % (Auto) Baso % (Auto) Absolute Neuts (auto) Absolute Lymphs (auto) Absolute Monos (auto) Absolute Eos (auto) Absolute Basos (auto) Absolute Nucleated RBC Nucleated RBC % Sodium Potassium Chloride Carbon Dioxide Anion Gap BUN Creatinine Est GFR ( Amer) Est GFR (Non-Af Amer) BUN/Creatinine Ratio Glucose POC Glucose (mg/dL) 131 H Hemoglobin A1c 10.9 H Calcium Vancomycin Trough 15.6 Random Vancomycin 06/20/16 06/20/16 06/20/16 14:20 17:33 19:39 WBC RBC Hgb Hct MCV MCH MCHC RDW Plt Count MPV Neut % (Auto) Lymph % (Auto) [place] % (Auto) Eos % (Auto) Baso % (Auto) Absolute Neuts (auto) Absolute Lymphs (auto) Absolute Monos (auto) Absolute Eos (auto) Absolute Basos (auto) Absolute Nucleated RBC Nucleated RBC % Sodium Potassium Chloride Carbon Dioxide Anion Gap BUN Creatinine Est GFR ( Amer) Est GFR (Non-Af Amer) BUN/Creatinine Ratio Glucose POC Glucose (mg/dL) 131 H 79 Hemoglobin A1c Calcium Vancomycin Trough Random Vancomycin 18.4 06/20/16 06/21/16 06/21/16 21:09 03:12 05:29 WBC 10.3 RBC 4.28 Hgb 13.0 L Hct 39 L MCV 90 MCH 30 MCHC 34 RDW 13 Plt Count 191 MPV 9 Neut % (Auto) 86.3 H Lymph % (Auto) 7.2 L [place] % (Auto) 6.0 Eos % (Auto) 0.1 Baso % (Auto) 0.4 Absolute Neuts (auto) 8.9 H Absolute Lymphs (auto) 0.7 L Absolute Monos (auto) 0.6 Absolute Eos (auto) 0 Absolute Basos (auto) 0 Absolute Nucleated RBC 0.01 Nucleated RBC % 0.1 Sodium Potassium Chloride Carbon Dioxide Anion Gap BUN Creatinine Est GFR ( Amer) Est GFR (Non-Af Amer) BUN/Creatinine Ratio Glucose POC Glucose (mg/dL) 380 H 301 H Hemoglobin A1c Calcium Vancomycin Trough Random Vancomycin 06/21/16 05:29 WBC RBC Hgb Hct MCV MCH MCHC RDW Plt Count MPV Neut % (Auto) Lymph % (Auto) [place] % (Auto) Eos % (Auto) Baso % (Auto) Absolute Neuts (auto) Absolute Lymphs (auto) Absolute Monos (auto) Absolute Eos (auto) Absolute Basos (auto) Absolute Nucleated RBC Nucleated RBC % Sodium 133 Potassium 4.4 Chloride 103 Carbon Dioxide 26 Anion Gap 4 BUN 15 Creatinine 0.91 Est GFR ( Amer) 111.2 Est GFR (Non-Af Amer) 86.5 BUN/Creatinine Ratio 16.5 Glucose 331 H POC Glucose (mg/dL) Hemoglobin A1c Calcium 8.4 L Vancomycin Trough Random Vancomycin Assessment - Problem List Assessment: Patient Problems Complete below knee amputation of right lower extremity (Acute) History of diabetic retinopathy (Chronic) History of myocardial infarction (Chronic) Hypercholesterolemia (Chronic) Peripheral neuropathy (Chronic) Presence of stent in coronary artery (Chronic) Primary hypothyroidism (Chronic) Type 1 diabetes mellitus with neurological manifestations, uncontrolled (Chronic ) Plan: Complete below knee amputation of right lower extremity (Acute) We are waiting to evaluate whether the infection from the foot is completely gone. He may have systemic infection. We will watch his CRP/CBC and diff. He has inadequate pain control - I will adjust his medication Type 1 diabetes mellitus with neurological manifestations, uncontrolled (Chronic ) for basal/bolus regimen History of diabetic retinopathy (Chronic) secondary diagnosis History of myocardial infarction (Chronic) no signs of any cardiac issues following surgery Hypercholesterolemia (Chronic) secondary diagnosis Peripheral neuropathy (Chronic) secondary diagnosis Presence of stent in coronary artery (Chronic) Primary hypothyroidism (Chronic) secondary diagnosis I discussed the above with the patient. He will need PT/OT for safe discharge.
[2016-06-21] MEDS ORDERED: HYDROmorphone PCA* 20 MG/20 ML PCA.SYRING PCA SCH (09:00)
[2016-06-21] MEDS: Collagenase 250 MG/GM OINT* 30 GM TOPICAL SCH (09:09)
[2016-06-21] MEDS ORDERED: Vancomycin Trough Check NOTE FOLLOW UP ONE (09:30)
--- NOTE | 2016-06-21 10:08 | PN ---
Progress Note - Progress Note SOAP: Subjective: []Patient seen OOB in chair. Pain better managed now on a regular schedule of Percocet and Dilaudid. He is understanding the need for IV abx treatment. Objective: [] Vital Signs Temp 98.1 F 06/21/16 07:39 Pulse 66 06/21/16 07:39 Resp 16 06/21/16 09:13 BP 111/52 06/21/16 07:39 Pulse Ox 91 06/21/16 07:39 Intake & Output 06/20/16 06/21/16 06/21/16 18:59 06:59 18:59 Intake Total 1450 1530 355 Output Total 1275 300 Balance 1450 255 55 Weight 191 lb Intake: IV Fluids 1450 850 355 ABX - CEFEPIME 50 ABX - VANCOMYCIN 255 255 D5W 1/2 NS 20 meq KCL 595 LR 1200 NS (0.9%) 50 NS 250ML, Vancomycin 250 1000MG Oral 0 680 Output: Urine 1275 300 Other: Estimated Void Medium # Bowel Movements 0 0 # Voids 1 Laboratory Results - last 24 hr 06/20/16 06/20/16 06/20/16 11:23 11:23 11:33 WBC RBC Hgb Hct MCV MCH MCHC RDW Plt Count MPV Neut % (Auto) Lymph % (Auto) [place] % (Auto) Eos % (Auto) Baso % (Auto) Absolute Neuts (auto) Absolute Lymphs (auto) Absolute Monos (auto) Absolute Eos (auto) Absolute Basos (auto) Absolute Nucleated RBC Nucleated RBC % Sodium Potassium Chloride Carbon Dioxide Anion Gap BUN Creatinine Est GFR ( Amer) Est GFR (Non-Af Amer) BUN/Creatinine Ratio Glucose POC Glucose (mg/dL) 131 H Hemoglobin A1c 10.9 H Calcium Vancomycin Trough 15.6 Random Vancomycin 06/20/16 06/20/16 06/20/16 14:20 17:33 19:39 WBC RBC Hgb Hct MCV MCH MCHC RDW Plt Count MPV Neut % (Auto) Lymph % (Auto) [place] % (Auto) Eos % (Auto) Baso % (Auto) Absolute Neuts (auto) Absolute Lymphs (auto) Absolute Monos (auto) Absolute Eos (auto) Absolute Basos (auto) Absolute Nucleated RBC Nucleated RBC % Sodium Potassium Chloride Carbon Dioxide Anion Gap BUN Creatinine Est GFR ( Amer) Est GFR (Non-Af Amer) BUN/Creatinine Ratio Glucose POC Glucose (mg/dL) 131 H 79 Hemoglobin A1c Calcium Vancomycin Trough Random Vancomycin 18.4 06/20/16 06/21/16 06/21/16 21:09 03:12 05:29 WBC 10.3 RBC 4.28 Hgb 13.0 L Hct 39 L MCV 90 MCH 30 MCHC 34 RDW 13 Plt Count 191 MPV 9 Neut % (Auto) 86.3 H Lymph % (Auto) 7.[address] [place] % (Auto) 6.0 Eos % (Auto) 0.1 Baso % (Auto) 0.4 Absolute Neuts (auto) 8.9 H Absolute Lymphs (auto) 0.7 L Absolute Monos (auto) 0.6 Absolute Eos (auto) 0 Absolute Basos (auto) 0 Absolute Nucleated RBC 0.01 Nucleated RBC % 0.1 Sodium Potassium Chloride Carbon Dioxide Anion Gap BUN Creatinine Est GFR ( Amer) Est GFR (Non-Af Amer) BUN/Creatinine Ratio Glucose POC Glucose (mg/dL) 380 H 301 H Hemoglobin A1c Calcium Vancomycin Trough Random Vancomycin 06/21/16 05:29 WBC RBC Hgb Hct MCV MCH MCHC RDW Plt Count MPV Neut % (Auto) Lymph % (Auto) [place] % (Auto) Eos % (Auto) Baso % (Auto) Absolute Neuts (auto) Absolute Lymphs (auto) Absolute Monos (auto) Absolute Eos (auto) Absolute Basos (auto) Absolute Nucleated RBC Nucleated RBC % Sodium 133 Potassium 4.4 Chloride 103 Carbon Dioxide 26 Anion Gap 4 BUN 15 Creatinine 0.91 Est GFR ( Amer) 111.2 Est GFR (Non-Af Amer) 86.5 BUN/Creatinine Ratio 16.5 Glucose 331 H POC Glucose (mg/dL) Hemoglobin A1c Calcium 8.4 L Vancomycin Trough Random Vancomycin Microbiology 06/20/16 16:50 Gram Stain - Final Wound - Right 06/17/16 12:13 Aerobic Blood Culture - Preliminary Blood Venous No Growth Day 3 Anaerobic Blood Culture - Preliminary No Growth Day 3 Blood Culture - Final 06/17/16 11:20 Aerobic Blood Culture - Preliminary Blood Venous No Growth Day 3 Anaerobic Blood Culture - Preliminary No Growth Day 3 Blood Culture - Final 06/17/16 12:18 Skin and Soft Tissue MRSA/MSSA (PCR - Final Foot Right Mrsa Negative S.aureus Negative Gram Stain - Final Wound Culture - Final Strep Agalactiae - (Group B) Klebsiella Oxytoca Enterobacter Cloacae Normal Vei 06/17/16 15:55 Nasal Screen MRSA (PCR)(CLEMENT) - Final Nasal Mrsa Negative right LE BKA stump/TRAVIS dressing is dry and intact Assessment: []s/p right BKA s/p prior ankle fusion/ longstanding infection, POD #1 Plan: []Currently on IV Cefepime and Vanco Continue to follow, final abx regimen per Dr. Hightower.
--- NOTE | 2016-06-21 13:55 | OP ---
DATE OF OPERATION: 06/20/16 - ROOM #352 DATE OF : 62 SURGEON: Paco Lewis MD [employer] M[employer]INE TENDER: Pamela Pablo PA-C ANESTHESIOLOGIST: Melonie Trinh MD ANESTHESIA: General PRE-OP DIAGNOSIS: Chronic osteomyelitis, right forefoot and midfoot. POST-OP DIAGNOSIS: Chronic osteomyelitis, right forefoot and midfoot. OPERATIVE PROCEDURE: Right transtibial amputation. DESCRIPTION OF PROCEDURE: The patient was taken to the operating room where a thigh tourniquet was employed. We isolated the right forefoot area with a Aristides bag and then made transverse fish mouth incision over the proximal portion of the mid calf. We divided the anterior soft tissues to allow visualization of the tibia and fibula at this level, which were divided a handbreadth below the tibial tubercle. I beveled the anterior aspect of the tibia and divided the fibula 1 cm proximally. By flexing through the osteotomy site, we were able to expose the posterior flap, which was divided with a 10 blade. The leg was then delivered to Pathology. Local cultures were sent from this level and 3 L irrigation performed. Local hemostasis was obtained with interrupted 0 Vicryl suture ligatures and then the front to back closure was performed using #1 Vicryl for the crural fascia, 2-0 Vicryl for the subcu, and then 2-0 Surgipro interrupted sutures for the skin, a compression dressing, plaster was then applied with the knee in extension. [id number] #: [id number] MTDD
[2016-06-21] MEDS: Insulin GLARGINE(*) 1 UNITS UNIT SUBCUT SCH (18:23)
[2016-06-22] MEDS: HYDROmorphone* 1 MG/ML 1 ML SYR IV PRN ×2 (04:19→06:30)
[2016-06-22] MEDS: Levothyroxine TAB* 100 MCG TAB PO SCH (05:34)
[2016-06-22] MEDS: Levothyroxine TAB* 25 MCG TAB PO SCH (05:34)
[2016-06-22] MEDS: Heparin VIAL(*) 5000 UNITS/ML VIAL (FIVE THOUSAND) SUBCUT SCH ×3 (05:36→21:41)
[2016-06-22] MEDS: Cefepime(*) 2 GM in NS 0.9% 50 ML* 50 ML IVPB SCH (05:42)
[2016-06-22 06:16] LABS: Hematocrit 36 % (42-52); Hemoglobin 12.3 g/dl (14.0-18.0); Mean Corpuscular HGB Conc 34 g/dl (31-36); Mean Corpuscular Hemoglobin 30 pg (27-31); Mean Corpuscular Volume 90 fL (80-94); Mean Platelet Volume 9 um3 (7.4-10.4); Red Blood Count 4.05 10^6/ul (4.0-5.4); Red Cell Distribution Width 14 % (10.5-15); White Blood Count 8.6 10^3/ul (3.5-10.8)
[2016-06-22] MEDS: oxyCODONE/Acetamin 5/325 MG* TAB PO PRN ×4 (06:27→20:47)
[2016-06-22 06:32] LABS: BUN/Creatinine Ratio 17.3 (8-20); C Reactive Protein 49.09 mg/L (< 5.00); Calcium 8.6 mg/dL (8.6-10.3); EGFR African American 95.4 (>60); EGFR Non-African American 74.1 (>60); Potassium 3.8 mmol/L (3.5-5.0)
--- NOTE | 2016-06-22 07:48 | PN ---
Subjective - Subjective Reason for Note: Progress Note History: He has had improved pain control and is feeling improved today. He has had no fevers and his right wound site is less painful. He denies dyspnea, cough, sputum, chest pain or palpitations. His appetite is good and his diabetes appears to be controlled. Active Problems: Active Problems Complete below knee amputation of right lower extremity (Acute) S88.111A History of diabetic retinopathy (Chronic) Z86.39 History of myocardial infarction (Chronic) I25.2 Hypercholesterolemia (Chronic) E78.0 Peripheral neuropathy (Chronic) G62.9 Presence of stent in coronary artery (Chronic) Z95.5 Primary hypothyroidism (Chronic) E03.9 Type 1 diabetes mellitus with neurological manifestations, uncontrolled (Chronic ) E10.49, E10.65 Current Medications: Current Medications Acetaminophen (Tylenol Tab*) 650 mg PO Q4H PRN PRN Reason: FEVER/PAIN Aspirin (Aspirin Ec Low Dose*) 81 mg PO DAILY [facility] Last Admin: 06/21/16 08:14 Dose: 81 mg Atorvastatin Calcium (Lipitor*) 80 mg PO DAILY [facility] Last Admin: 06/21/16 08:14 Dose: 80 mg Collagenase (Santyl 250 Mg/Gm Oint*) 1 applic TOPICAL DAILY [facility] Last Admin: 06/21/16 09:09 Dose: Not Given Dextrose (D50w Syringe 50 Ml*) 12.5 gm IV PUSH .FOR FS < 60 - SS PRN PRN Reason: FS < 60 Heparin Sodium (Porcine) (Heparin Vial(*)) 5,000 units SUBCUT Q8HR [facility] Last Admin: 06/22/16 05:36 Dose: 5,000 units Hydromorphone HCl (Dilaudid Iv*) 1 mg IV Q2H PRN PRN Reason: PAIN Last Admin: 06/22/16 06:30 Dose: 1 mg Cefepime HCl 2 gm/ Sodium (Chloride) 50 mls @ 100 mls/hr IVPB Q12H [facility] Last Admin: 06/22/16 05:42 Dose: 100 mls/hr Hydromorphone HCl (Dilaudid Manager New Product*) 20 mg in 20 mls @ 0 mls/hr [employer]IP[employer] CURATOR .change Q24H [facility]; Per Protocol PRN Reason: Protocol Insulin Glargine (Lantus(*)) 60 units SUBCUT QPM [facility] Last Admin: 06/21/16 18:23 Dose: 60 unit Insulin Human Lispro (Humalog*) 0 units SUBCUT TID WITH MEALS [facility] PRN Reason: Protocol Last Admin: 06/21/16 18:28 Dose: Not Given Insulin Human Lispro (Humalog*) 0 - 20 units SUBCUT 0730,1130,1630,2100 [facility] PRN Reason: Protocol Last Admin: 06/21/16 21:45 Dose: Not Given Levothyroxine Sodium (Synthroid Tab*) 200 mcg PO DAILY@0600 [facility] Last Admin: 06/22/16 05:34 Dose: 200 mcg Levothyroxine Sodium (Synthroid Tab*) 25 mcg PO DAILY@0600 [facility] Last Admin: 06/22/16 05:34 Dose: 25 mcg Lisinopril (Prinivil Tab*) 10 mg PO DAILY [facility] Last Admin: 06/21/16 08:14 Dose: 10 mg Metoprolol Succinate (Toprol Xl Tab*) 100 mg PO DAILY [facility] Last Admin: 06/21/16 08:14 Dose: 100 mg Oxycodone/Acetaminophen (Percocet 5/325 Tab*) 1 tab PO Q4H PRN PRN Reason: PAIN - MILD TO MODERATE Last Admin: 06/19/16 15:13 Dose: 1 tab Oxycodone/Acetaminophen (Percocet 5/325 Tab*) 2 tab PO Q4H PRN PRN Reason: PAIN - MODERATE TO SEVERE Last Admin: 06/22/16 06:27 Dose: 2 tab Home Medications: Home Medications Medication Instructions Recorded Confirmed Type Insulin Glargine [Lantus] 60 unit SUBCUT QPM #0 06/04/15 06/17/16 History Atorvastatin* [Lipitor 80 MG*] 80 mg PO DAILY #30 tab 06/07/15 06/17/16 Rx Lisinopril TAB* [Prinivil TAB 10 10 mg PO DAILY tab 06/07/15 06/17/16 Rx MG*] Metoprolol Succinate XL TAB* 100 mg PO DAILY #30 tab.xl 06/07/15 06/17/16 Rx [Toprol XL TAB*] Nitroglycerin TAB 0.4 MG* 0.4 mg SL Q5M PRN #20 tab 06/07/15 06/17/16 Rx Ticagrelor* [Brilinta 90 MG*] 90 mg PO BID #60 tab 06/07/15 06/17/16 Rx Aspirin EC Low Dose* [Ecotrin EC 81 mg PO DAILY 02/15/16 06/17/16 History Low Dose 81 MG*] Insulin Lispro [Humalog] 0 - 100 units SUBCUT TID 02/15/16 06/17/16 History Levothyroxine TAB* [Synthroid TAB*] 25 mcg PO DAILY 06/17/16 06/17/16 History Levothyroxine TAB* [Synthroid TAB*] 200 mcg PO DAILY 06/17/16 06/17/16 History Allergies: Allergies Allergy/AdvReac Type Severity Reaction Status Date / Time No Known Drug Allergy Allergy See Comment Verified 06/17/16 17:57 Simvastatin AdvReac Unknown Fatigue Verified 06/17/16 13:44 Objective - Vital Signs Vital Signs: Vital Signs 06/21/16 06/21/16 06/21/16 08:00 08:13 08:14 Temperature Pulse Rate Respiratory 16 16 16 Rate Blood Pressure (mmHg) O2 Sat by Pulse 91 Oximetry 06/21/16 06/21/16 06/21/16 09:13 10:14 10:19 Temperature Pulse Rate Respiratory 16 16 16 Rate Blood Pressure (mmHg) O2 Sat by Pulse Oximetry 06/21/16 06/21/16 06/21/16 11:19 11:32 12:18 Temperature 97.9 F Pulse Rate 65 Respiratory 16 13 16 Rate Blood Pressure 106/56 (mmHg) O2 Sat by Pulse 98 Oximetry 06/21/16 06/21/16 06/21/16 13:18 14:18 14:22 Temperature Pulse Rate Respiratory 16 16 16 Rate Blood Pressure (mmHg) O2 Sat by Pulse Oximetry 06/21/16 06/21/16 06/21/16 15:22 15:29 16:19 Temperature 97.7 F Pulse Rate 65 Respiratory 16 17 16 Rate Blood Pressure 114/60 (mmHg) O2 Sat by Pulse 93 Oximetry 06/21/16 06/21/16 06/21/16 17:19 18:19 18:25 Temperature Pulse Rate Respiratory 16 16 16 Rate Blood Pressure (mmHg) O2 Sat by Pulse Oximetry 06/21/16 06/21/16 06/21/16 19:25 19:31 20:00 Temperature 97.6 F Pulse Rate 64 Respiratory 16 14 16 Rate Blood Pressure 106/56 (mmHg) O2 Sat by Pulse 94 94 Oximetry 06/21/16 06/21/16 06/21/16 20:14 20:15 21:15 Temperature Pulse Rate Respiratory 16 16 16 Rate Blood Pressure (mmHg) O2 Sat by Pulse Oximetry 06/21/16 06/21/16 06/21/16 22:14 22:35 23:35 Temperature Pulse Rate Respiratory 16 16 16 Rate Blood Pressure (mmHg) O2 Sat by Pulse Oximetry 06/21/16 06/22/16 06/22/16 23:53 04:19 05:19 Temperature 97.9 F 98.2 F Pulse Rate 64 75 Respiratory 16 16 16 Rate Blood Pressure 116/60 137/67 (mmHg) O2 Sat by Pulse 97 96 Oximetry 06/22/16 06/22/16 06/22/16 06:27 06:30 07:30 Temperature Pulse Rate Respiratory 16 16 18 Rate Blood Pressure (mmHg) O2 Sat by Pulse Oximetry - Intake and Output Intake and Output: Intake & Output 06/19/16 06/20/16 06/21/16 06/22/16 11:59 11:59 11:59 11:59 Intake Total 3085 3145 3660 2470 Output Total 0 0 1575 800 Balance 3085 3145 2085 1670 Weight 191 lb Intake: IV Fluids 590 2655 80 ABX - CEFEPIME 50 50 55 ABX - VANCOMYCIN 500 510 D5W 1/2 NS 20 meq KCL 595 LR 1200 NS (0.9%) 40 50 25 NS 250ML, Vancomycin 250 1000MG IVPB 305 815 ABX - CEFEPIME 55 55 ABX - VANCOMYCIN 250 760 Oral 2780 1740 1005 2390 Output: Urine 0 0 1575 800 Other: Estimated Void Medium Large # Bowel Movements 0 0 0 1 Estimated Stool Amount Large # Voids 2 1 2 ADLs: Meal Record Start: 06/17/16 16: 01 Freq: DAILY@0900,1400,1800 Status: Inactive Document 06/17/16 18:00 [id number] (Rec: 06/17/16 18:34 [id number] [facility]-M08) Document 06/18/16 09:00 [id number] (Rec: 06/18/16 09:45 [id number] MED-C11) Document 06/18/16 14:00 [id number] (Rec: 06/18/16 14:45 [id number] MED-C11) Document 06/18/16 18:00 [id number] (Rec: 06/18/16 18:28 [id number] MED-C09) Document 06/19/16 09:00 [id number] (Rec: 06/19/16 15:05 [id number] MED-C09) Document 06/19/16 14:00 [id number] (Rec: 06/19/16 15:06 [id number] MED-C09) Document 06/19/16 18:00 [id number] (Rec: 06/19/16 22:47 [id number] MED-C11) Document 06/20/16 09:00 [id number] (Rec: 06/20/16 10:07 [id number] MED-C11) Document 06/20/16 13:44 [id number] (Rec: 06/20/16 13:44 [id number] MED-C11) ADLs: Meal Record Start: 06/20/16 18: 54 Freq: Status: Active Created 06/20/16 18:54 [id number] (Rec: 06/20/16 18:54 [id number] SSU-M02) Document 06/21/16 11:05 [id number] (Rec: 06/21/16 11:06 [id number] SSU-M03) Document 06/21/16 13:40 [id number] (Rec: 06/21/16 13:40 [id number] SSU-C01) Intake and Output Start: 06/17/16 16: 01 Freq: DAILY@0600,1400,2200 Status: Inactive Document 06/17/16 21:54 [id number] (Rec: 06/17/16 21:55 [id number] MED-C11) Document 06/18/16 05:43 [id number] (Rec: 06/18/16 05:45 [id number] MED-C42) Document 06/18/16 14:00 [id number] (Rec: 06/18/16 14:46 [id number] MED-C11) Document 06/18/16 21:22 [id number] (Rec: 06/18/16 21:22 [id number] MED-C09) Document 06/19/16 06:00 [id number] (Rec: 06/19/16 06:11 [id number] MED-C26) Document 06/19/16 14:00 [id number] (Rec: 06/19/16 15:06 [id number] MED-C09) Document 06/19/16 22:00 [id number] (Rec: 06/19/16 22:47 [id number] MED-C11) Document 06/20/16 05:55 [id number] (Rec: 06/20/16 05:55 [id number] MED-C26) Document 06/20/16 10:58 [id number] (Rec: 06/20/16 10:59 [id number] MED-C11) Intake and Output Start: 06/20/16 18: 54 Freq: DAILY@0600,1400,2200 Status: Active Created 06/20/16 18:54 [id number] (Rec: 06/20/16 18:54 [id number] SSU-M02) Document 06/20/16 22:30 [id number] (Rec: 06/20/16 23:36 [id number] SSU-C12) Document 06/20/16 23:14 [id number] (Rec: 06/20/16 23:15 [id number] SSU-C19) Document 06/21/16 03:13 [id number] (Rec: 06/21/16 03:13 [id number] SSU-M02) Document 06/21/16 06:00 [id number] (Rec: 06/21/16 06:17 [id number] SSU-C11) Document 06/21/16 14:00 [id number] (Rec: 06/21/16 14:03 [id number] SSU-M03) Document 06/21/16 14:24 [id number] (Rec: 06/21/16 14:25 [id number] SSU-C01) Document 06/21/16 22:38 [id number] (Rec: 06/21/16 22:41 [id number] SSU-C11) Document 06/22/16 06:00 [id number] (Rec: 06/22/16 06:17 [id number] SSU-C10) - Physical Exam General: No Cyanosis, No Anemia, No Jaundice, No Clubbing Lungs and Chest: Yes: Chest Expansion Full, Chest Expansion Symetrica, Percussion Note Resonant, Vessicular Breath Sounds. No: Crackles, Wheezes Heart Rate and Rhythm: Regular Additional Cardiovascular: Yes: Normal Heart Sounds. No: Heart Murmur, Pedal Edema Abdominal Exam: Yes: Soft, Bowel Sounds Present. No: Distention, Abdominal Mass , Abdominal Tenderness Results - Results Lab Results: Laboratory Results - last 24 hr 06/21/16 06/21/16 06/21/16 12:24 16:51 21:30 WBC RBC Hgb Hct MCV MCH MCHC RDW Plt Count MPV Neut % (Auto) Lymph % (Auto) [place] % (Auto) Eos % (Auto) Baso % (Auto) Absolute Neuts (auto) Absolute Lymphs (auto) Absolute Monos (auto) Absolute Eos (auto) Absolute Basos (auto) Absolute Nucleated RBC Nucleated RBC % Sodium Potassium Chloride Carbon Dioxide Anion Gap BUN Creatinine Est GFR ( Amer) Est GFR (Non-Af Amer) BUN/Creatinine Ratio Glucose POC Glucose (mg/dL) 157 H 72 L 149 H Calcium C-Reactive Protein 06/22/16 06/22/16 05:32 05:32 WBC 8.6 RBC 4.05 Hgb 12.3 L Hct 36 L MCV 90 MCH 30 MCHC 34 RDW 14 Plt Count 209 MPV 9 Neut % (Auto) 68.9 Lymph % (Auto) 20.2 L [place] % (Auto) 8.2 Eos % (Auto) 2.1 Baso % (Auto) 0.6 Absolute Neuts (auto) 5.9 Absolute Lymphs (auto) 1.7 Absolute Monos (auto) 0.7 Absolute Eos (auto) 0.2 Absolute Basos (auto) 0.1 Absolute Nucleated RBC 0 Nucleated RBC % 0 Sodium 136 Potassium 3.8 Chloride 102 Carbon Dioxide 29 Anion Gap 5 BUN 18 Creatinine 1.04 Est GFR ( Amer) 95.4 Est GFR (Non-Af Amer) 74.1 BUN/Creatinine Ratio 17.3 Glucose 207 H POC Glucose (mg/dL) Calcium 8.6 C-Reactive Protein 49.09 H Assessment - Problem List Assessment: Patient Problems Complete below knee amputation of right lower extremity (Acute) History of diabetic retinopathy (Chronic) History of myocardial infarction (Chronic) Hypercholesterolemia (Chronic) Peripheral neuropathy (Chronic) Presence of stent in coronary artery (Chronic) Primary hypothyroidism (Chronic) 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 I spoke with Dr. Lewis - there is no plan to take off the dressing for 1 week and he advises coverage with bactrim DS for 1 week. I therefore plan to mobilize him today, change him to oral analgesics only and discharge him tomorrow. He will require the following: * Bactrim DS prescription * Wheelchair for home * Training on transfers * Home PT/VNS * Outpatient follow up with Dr. Lewis He lives in a 2 story house - but plans to be on ground floor - has shower that has low lip and hence will work well. Has grab bars. History of diabetic retinopathy (Chronic) ongoing Type 1 diabetes mellitus with neurological manifestations, uncontrolled (Chronic ) Reasonably controlled - patient understands the importance of tight control I discussed the above with the patient, who agrees with the plan
--- NOTE | 2016-06-22 09:46 | PN ---
Progress Note - Progress Note SOAP: Subjective: DOS: 06/22/16 CC: right foot infection HPI: 56 yo diabetic w neuropathy and gangrene of right toes and cellulitis of forefoot, s/p BKA. Feels well, no fever, rash, or diarrhea. Objective: [] Vital Signs Temp 36.8 C 06/22/16 07:21 Pulse 71 06/22/16 07:21 Resp 18 06/22/16 08:27 BP 139/69 06/22/16 07:21 Pulse Ox 95 06/22/16 07:21 Intake & Output 06/21/16 06/22/16 06/22/16 18:59 06:59 18:59 Intake Total 1320 1830 Output Total 700 400 Balance 620 1430 Intake: IV Fluids 355 80 ABX - CEFEPIME 50 55 ABX - VANCOMYCIN 255 NS (0.9%) 50 25 Oral 965 1750 Output: Urine 700 400 Other: Estimated Void Medium Large Medium # Bowel Movements 1 Estimated Stool Amount Large # Voids 2 1 Gen:Awake, no distress HEENT:PERRL, MMM Neck:supple Heart:RRR no murmur Lungs:CTA BL Abd:+BS NTND soft Skin: No rash MSK: R stump wrapped Laboratory Results - last 24 hr 06/21/16 06/21/16 06/21/16 12:24 16:51 21:30 WBC RBC Hgb Hct MCV MCH MCHC RDW Plt Count MPV Neut % (Auto) Lymph % (Auto) [place] % (Auto) Eos % (Auto) Baso % (Auto) Absolute Neuts (auto) Absolute Lymphs (auto) Absolute Monos (auto) Absolute Eos (auto) Absolute Basos (auto) Absolute Nucleated RBC Nucleated RBC % Sodium Potassium Chloride Carbon Dioxide Anion Gap BUN Creatinine Est GFR ( Amer) Est GFR (Non-Af Amer) BUN/Creatinine Ratio Glucose POC Glucose (mg/dL) 157 H 72 L 149 H Calcium C-Reactive Protein 06/22/16 06/22/16 05:32 05:32 WBC 8.6 RBC 4.05 Hgb 12.3 L Hct 36 L MCV 90 MCH 30 MCHC 34 RDW 14 Plt Count 209 MPV 9 Neut % (Auto) 68.9 Lymph % (Auto) 20.2 L [place] % (Auto) 8.2 Eos % (Auto) 2.1 Baso % (Auto) 0.6 Absolute Neuts (auto) 5.9 Absolute Lymphs (auto) 1.7 Absolute Monos (auto) 0.7 Absolute Eos (auto) 0.2 Absolute Basos (auto) 0.1 Absolute Nucleated RBC 0 Nucleated RBC % 0 Sodium 136 Potassium 3.8 Chloride 102 Carbon Dioxide 29 Anion Gap 5 BUN 18 Creatinine 1.04 Est GFR ( Amer) 95.4 Est GFR (Non-Af Amer) 74.1 BUN/Creatinine Ratio 17.3 Glucose 207 H POC Glucose (mg/dL) Calcium 8.6 C-Reactive Protein 49.09 H Assessment: 1. Right foot chronic osteomyelitis, cellulitis, ganrene s/p BKA 2. IDDM with neuropathy 3. elevated CRP due to recent infection and surgery Plan: 1. change cefepime to ceftriaxone while here (ordered) and agree with short course oral antibiotics for discharge.
[2016-06-22] MEDS: Insulin LISPRO* 1 UNITS UNIT SUBCUT SCH ×7 (09:49→21:15)
[2016-06-22] MEDS: Lisinopril TAB* 10 MG PO SCH (09:50)
[2016-06-22] MEDS: Metoprolol Succinate XL TAB* 100 MG PO SCH (09:51)
[2016-06-22] MEDS: Atorvastatin* 80 MG TAB PO SCH (09:51)
[2016-06-22] MEDS: Aspirin EC Low Dose* 81 MG TAB.EC PO SCH (09:51)
[2016-06-22] MEDS ORDERED: Vancomycin Trough Check NOTE FOLLOW UP ONE (10:00)
[2016-06-22] MEDS: HYDROmorphone TAB* 2 MG PO PRN ×4 (10:30→23:56)
--- NOTE | 2016-06-22 10:40 | PN ---
Progress Note - Progress Note SOAP: Subjective: []Patient seen OOB in chair. Pain a little worse today after the IV dilaudid has been discontinued. He is willing to try the po dilaudid alternating with the percocet and determine po analgesic course on discharge Objective: [] Vital Signs Temp 98.2 F 06/22/16 07:21 Pulse 71 06/22/16 07:21 Resp 18 06/22/16 10:30 BP 139/69 06/22/16 07:21 Pulse Ox 95 06/22/16 07:21 Intake & Output 06/21/16 06/22/16 06/22/16 18:59 06:59 18:59 Intake Total 1320 1830 520 Output Total 700 400 Balance 620 1430 520 Intake: IV Fluids 355 80 ABX - CEFEPIME 50 55 ABX - VANCOMYCIN 255 NS (0.9%) 50 25 Oral 965 1750 520 Output: Urine 700 400 Other: Estimated Void Medium Large Medium # Bowel Movements 1 Estimated Stool Amount Large # Voids 2 1 Laboratory Results - last 24 hr 06/21/16 06/21/16 06/21/16 12:24 16:51 21:30 WBC RBC Hgb Hct MCV MCH MCHC RDW Plt Count MPV Neut % (Auto) Lymph % (Auto) [place] % (Auto) Eos % (Auto) Baso % (Auto) Absolute Neuts (auto) Absolute Lymphs (auto) Absolute Monos (auto) Absolute Eos (auto) Absolute Basos (auto) Absolute Nucleated RBC Nucleated RBC % Sodium Potassium Chloride Carbon Dioxide Anion Gap BUN Creatinine Est GFR ( Amer) Est GFR (Non-Af Amer) BUN/Creatinine Ratio Glucose POC Glucose (mg/dL) 157 H 72 L 149 H Calcium C-Reactive Protein 06/22/16 06/22/16 05:32 05:32 WBC 8.6 RBC 4.05 Hgb 12.3 L Hct 36 L MCV 90 MCH 30 MCHC 34 RDW 14 Plt Count 209 MPV 9 Neut % (Auto) 68.9 Lymph % (Auto) 20.2 L [place] % (Auto) 8.2 Eos % (Auto) 2.1 Baso % (Auto) 0.6 Absolute Neuts (auto) 5.9 Absolute Lymphs (auto) 1.7 Absolute Monos (auto) 0.7 Absolute Eos (auto) 0.2 Absolute Basos (auto) 0.1 Absolute Nucleated RBC 0 Nucleated RBC % 0 Sodium 136 Potassium 3.8 Chloride 102 Carbon Dioxide 29 Anion Gap 5 BUN 18 Creatinine 1.04 Est GFR ( Amer) 95.4 Est GFR (Non-Af Amer) 74.1 BUN/Creatinine Ratio 17.3 Glucose 207 H POC Glucose (mg/dL) Calcium 8.6 C-Reactive Protein 49.09 H Right LE stump dressing remains dry and intact Assessment: []s/p right BKA POD #2 Plan: []IV abx changed to Ceftriaxone, possibly home on PO Bactrim per Dr. Hightower Follow up with Dr. Lewis 7-10 days in office.
[2016-06-22] MEDS: Collagenase 250 MG/GM OINT* 30 GM TOPICAL SCH (10:49)
[2016-06-22] MEDS: Insulin GLARGINE(*) 1 UNITS UNIT SUBCUT SCH (20:12)
[2016-06-23] MEDS: oxyCODONE/Acetamin 5/325 MG* TAB PO PRN ×3 (03:53→15:50)
[2016-06-23] MEDS: Heparin VIAL(*) 5000 UNITS/ML VIAL (FIVE THOUSAND) SUBCUT SCH (05:29)
[2016-06-23] MEDS: Levothyroxine TAB* 100 MCG TAB PO SCH (05:29)
[2016-06-23] MEDS: Levothyroxine TAB* 25 MCG TAB PO SCH (05:29)
--- NOTE | 2016-06-23 08:50 | PN ---
Subjective - Subjective Reason for Note: Discharge Note History: He is feeling much improved - he is still requiring some opioid analgesia. No fevers, has some night sweats. Active Problems: Active Problems Complete below knee amputation of right lower extremity (Acute) S88.111A History of diabetic retinopathy (Chronic) Z86.39 History of myocardial infarction (Chronic) I25.2 Hypercholesterolemia (Chronic) E78.0 Peripheral neuropathy (Chronic) G62.9 Presence of stent in coronary artery (Chronic) Z95.5 Primary hypothyroidism (Chronic) E03.9 Type 1 diabetes mellitus with neurological manifestations, uncontrolled (Chronic ) E10.49, E10.65 Current Medications: Current Medications Acetaminophen (Tylenol Tab*) 650 mg PO Q4H PRN PRN Reason: FEVER/PAIN Aspirin (Aspirin Ec Low Dose*) 81 mg PO DAILY [facility] Last Admin: 06/22/16 09:51 Dose: 81 mg Atorvastatin Calcium (Lipitor*) 80 mg PO DAILY [facility] Last Admin: 06/22/16 09:51 Dose: 80 mg Collagenase (Santyl 250 Mg/Gm Oint*) 1 applic TOPICAL DAILY [facility] Last Admin: 06/22/16 10:49 Dose: Not Given Dextrose (D50w Syringe 50 Ml*) 12.5 gm IV PUSH .FOR FS < 60 - SS PRN PRN Reason: FS < 60 Hydromorphone HCl (Dilaudid Tab*) 2 mg PO Q4H PRN PRN Reason: PAIN Last Admin: 06/22/16 23:56 Dose: 2 mg Insulin Glargine (Lantus(*)) 60 units SUBCUT QPM [facility] Last Admin: 06/22/16 20:12 Dose: 60 unit Insulin Human Lispro (Humalog*) 0 units SUBCUT TID WITH MEALS [facility] PRN Reason: Protocol Last Admin: 06/22/16 20:16 Dose: 5 unit Insulin Human Lispro (Humalog*) 0 - 20 units SUBCUT 0730,1130,1630,2100 [facility] PRN Reason: Protocol Last Admin: 06/22/16 21:15 Dose: Not Given Levothyroxine Sodium (Synthroid Tab*) 200 mcg PO DAILY@0600 [facility] Last Admin: 06/23/16 05:29 Dose: 200 mcg Levothyroxine Sodium (Synthroid Tab*) 25 mcg PO DAILY@0600 [facility] Last Admin: 06/23/16 05:29 Dose: 25 mcg Lisinopril (Prinivil Tab*) 10 mg PO DAILY [facility] Last Admin: 06/22/16 09:50 Dose: 10 mg Metoprolol Succinate (Toprol Xl Tab*) 100 mg PO DAILY [facility] Last Admin: 06/22/16 09:51 Dose: 100 mg Oxycodone/Acetaminophen (Percocet 5/325 Tab*) 1 tab PO Q4H PRN PRN Reason: PAIN - MILD TO MODERATE Last Admin: 06/19/16 15:13 Dose: 1 tab Oxycodone/Acetaminophen (Percocet 5/325 Tab*) 2 tab PO Q4H PRN PRN Reason: PAIN - MODERATE TO SEVERE Last Admin: 06/23/16 03:53 Dose: 2 tab Trimethoprim/Sulfamethoxazole (Bactrim Ds 800/160 Tab*) 1 tab PO BID [facility] - Review of Systems Pulmonary: Negative: Cough, Sputum, Respiratory Distress, Shortness of Breath Cardiology: Negative: Chest Pain, Shortness of Breath, Palpitations Gastroenterology: Negative: Abdominal Pain, Nausea, Vomiting, Change in Bowel Habits Genital - Urinary: Negative: Dysuria, Hematuria Home Medications: Home Medications Medication Instructions Recorded Confirmed Type Insulin Glargine [Lantus] 60 unit SUBCUT QPM #0 06/04/15 06/17/16 History Atorvastatin* [Lipitor 80 MG*] 80 mg PO DAILY #30 tab 06/07/15 06/17/16 Rx Lisinopril TAB* [Prinivil TAB 10 10 mg PO DAILY tab 06/07/15 06/17/16 Rx MG*] Metoprolol Succinate XL TAB* 100 mg PO DAILY #30 tab.xl 06/07/15 06/17/16 Rx [Toprol XL TAB*] Nitroglycerin TAB 0.4 MG* 0.4 mg SL Q5M PRN #20 tab 06/07/15 06/17/16 Rx Ticagrelor* [Brilinta 90 MG*] 90 mg PO BID #60 tab 06/07/15 06/17/16 Rx Aspirin EC Low Dose* [Ecotrin EC 81 mg PO DAILY 02/15/16 06/17/16 History Low Dose 81 MG*] Insulin Lispro [Humalog] 0 - 100 units SUBCUT TID 02/15/16 06/17/16 History Levothyroxine TAB* [Synthroid 100 200 mcg PO DAILY 06/17/16 06/17/16 History MCG TAB*] Levothyroxine TAB* [Synthroid 25 25 mcg PO DAILY 06/17/16 06/17/16 History MCG TAB*] HYDROmorphone TAB* [Dilaudid TAB*] 2 mg PO Q4H PRN #0 tab MDD 6 06/23/16 Rx Sulfamethox/Trimethoprim DS* 1 tab PO BID #20 tab 06/23/16 Rx [Bactrim DS 800/160 TAB*] oxyCODONE/Acetamin 5/325 MG* 2 tab PO Q4H PRN #48 tab MDD 6 06/23/16 Rx [Percocet 5/325 TAB*] Allergies: Allergies Allergy/AdvReac Type Severity Reaction Status Date / Time No Known Drug Allergy Allergy See Comment Verified 06/17/16 17:57 Simvastatin AdvReac Unknown Fatigue Verified 06/17/16 13:44 Objective - Vital Signs Vital Signs: Vital Signs 06/22/16 06/22/16 06/22/16 10:30 11:40 12:30 Temperature 98.3 F Pulse Rate 70 Respiratory 18 16 18 Rate Blood Pressure 135/64 (mmHg) O2 Sat by Pulse 98 Oximetry 06/22/16 06/22/16 06/22/16 12:55 14:36 14:37 Temperature Pulse Rate Respiratory 18 18 18 Rate Blood Pressure (mmHg) O2 Sat by Pulse Oximetry 06/22/16 06/22/16 06/22/16 15:18 16:36 16:50 Temperature 98.7 F Pulse Rate 73 Respiratory 18 17 18 Rate Blood Pressure 125/62 (mmHg) O2 Sat by Pulse 96 Oximetry 06/22/16 06/22/16 06/22/16 18:49 18:50 18:52 Temperature Pulse Rate Respiratory 18 18 18 Rate Blood Pressure (mmHg) O2 Sat by Pulse Oximetry 06/22/16 06/22/16 06/22/16 19:34 20:47 20:49 Temperature 99.6 F Pulse Rate 72 Respiratory 15 18 18 Rate Blood Pressure 128/54 (mmHg) O2 Sat by Pulse 95 Oximetry 06/22/16 06/22/16 06/22/16 21:30 22:47 23:52 Temperature 98.7 F Pulse Rate 74 Respiratory 18 16 16 Rate Blood Pressure 119/57 (mmHg) O2 Sat by Pulse 95 Oximetry 06/22/16 06/23/16 06/23/16 23:56 01:56 03:34 Temperature 98.9 F Pulse Rate 76 Respiratory 16 16 18 Rate Blood Pressure 140/57 (mmHg) O2 Sat by Pulse 96 Oximetry 06/23/16 06/23/16 06/23/16 03:53 05:53 08:34 Temperature 98.5 F Pulse Rate 67 Respiratory 18 16 16 Rate Blood Pressure 130/62 (mmHg) O2 Sat by Pulse Oximetry - Intake and Output Intake and Output: Intake & Output 06/20/16 06/21/16 06/22/16 06/23/16 11:59 11:59 11:59 11:59 Intake Total 3145 3660 2990 1100 Output Total 0 1575 800 300 Balance 3145 2085 2190 800 Weight 191 lb Intake: IV Fluids 590 2655 80 30 ABX - CEFEPIME 50 50 55 30 ABX - VANCOMYCIN 500 510 D5W 1/2 NS 20 meq KCL 595 LR 1200 NS (0.9%) 40 50 25 NS 250ML, Vancomycin 250 1000MG IVPB 815 100 ABX - CEFEPIME 55 100 ABX - VANCOMYCIN 760 Oral 1740 1005 2910 970 Output: Urine 0 1575 800 300 Other: Estimated Void Medium Medium Medium # Bowel Movements 0 0 1 1 Estimated Stool Amount Large Medium # Voids 1 1 2 ADLs: Meal Record Start: 06/17/16 16: 01 Freq: DAILY@0900,1400,1800 Status: Inactive Document 06/17/16 18:00 [id number] (Rec: 06/17/16 18:34 [id number] [place] [id number]) Document 06/18/16 09:00 [id number] (Rec: 06/18/16 09:45 [id number] MED-C11) Document 06/18/16 14:00 [id number] (Rec: 06/18/16 14:45 [id number] MED-C11) Document 06/18/16 18:00 [id number] (Rec: 06/18/16 18:28 [id number] MED-C09) Document 06/19/16 09:00 [id number] (Rec: 06/19/16 15:05 [id number] MED-C09) Document 06/19/16 14:00 [id number] (Rec: 06/19/16 15:06 [id number] MED-C09) Document 06/19/16 18:00 [id number] (Rec: 06/19/16 22:47 [id number] MED-C11) Document 06/20/16 09:00 [id number] (Rec: 06/20/16 10:07 [id number] MED-C11) Document 06/20/16 13:44 [id number] (Rec: 06/20/16 13:44 [id number] MED-C11) ADLs: Meal Record Start: 06/20/16 18: 54 Freq: Status: Active Created 06/20/16 18:54 [id number] (Rec: 06/20/16 18:54 [id number] SSU-M02) Document 06/21/16 11:05 [id number] (Rec: 06/21/16 11:06 [id number] SSU-M03) Document 06/21/16 13:40 [id number] (Rec: 06/21/16 13:40 [id number] SSU-C01) Document 06/22/16 10:35 [id number] (Rec: 06/22/16 10:35 [id number] SSU-C01) Document 06/22/16 18:44 [id number] (Rec: 06/22/16 18:44 [id number] SSU-C19) Intake and Output Start: 06/17/16 16: 01 Freq: DAILY@0600,1400,2200 Status: Inactive Document 06/17/16 21:54 [id number] (Rec: 06/17/16 21:55 [id number] MED-C11) Document 06/18/16 05:43 [id number] (Rec: 06/18/16 05:45 [id number] MED-C42) Document 06/18/16 14:00 [id number] (Rec: 06/18/16 14:46 [id number] MED-C11) Document 06/18/16 21:22 [id number] (Rec: 06/18/16 21:22 [id number] MED-C09) Document 06/19/16 06:00 [id number] (Rec: 06/19/16 06:11 [id number] MED-C26) Document 06/19/16 14:00 [id number] (Rec: 06/19/16 15:06 [id number] MED-C09) Document 06/19/16 22:00 [id number] (Rec: 06/19/16 22:47 [id number] MED-C11) Document 06/20/16 05:55 [id number] (Rec: 06/20/16 05:55 [id number] MED-C26) Document 06/20/16 10:58 [id number] (Rec: 06/20/16 10:59 [id number] MED-C11) Intake and Output Start: 06/20/16 18: 54 Freq: DAILY@0600,1400,2200 Status: Active Created 06/20/16 18:54 [id number] (Rec: 06/20/16 18:54 [id number] SSU-M02) Document 06/20/16 22:30 [id number] (Rec: 06/20/16 23:36 [id number] SSU-C12) Document 06/20/16 23:14 [id number] (Rec: 06/20/16 23:15 [id number] SSU-C19) Document 06/21/16 03:13 [id number] (Rec: 06/21/16 03:13 [id number] SSU-M02) Document 06/21/16 06:00 [id number] (Rec: 06/21/16 06:17 [id number] SSU-C11) Document 06/21/16 14:00 [id number] (Rec: 06/21/16 14:03 [id number] SSU-M03) Document 06/21/16 14:24 [id number] (Rec: 06/21/16 14:25 [id number] SSU-C01) Document 06/21/16 22:38 [id number] (Rec: 06/21/16 22:41 WAS0001 SSU-C11) Document 06/22/16 06:00 UWN1054 (Rec: 06/22/16 06:17 [id number] SSU-C10) Document 06/22/16 13:59 [id number] (Rec: 06/22/16 14:00 [id number] SSU-C03) Document 06/22/16 21:30 [id number] (Rec: 06/23/16 00:28 [id number] SSU-C20) Document 06/22/16 21:30 [id number] (Rec: 06/23/16 00:34 [id number] SSU-C20) Document 06/23/16 04:58 [id number] (Rec: 06/23/16 04:58 [id number] SSU-C11) - Physical Exam General Physical Exam Comment: right amputation site dressed General: No Cyanosis, No Anemia, No Jaundice, No Clubbing Lungs and Chest: Yes: Chest Expansion Full, Chest Expansion Symetrica, Percussion Note Resonant, Vessicular Breath Sounds. No: Crackles, Wheezes Heart Rate and Rhythm: Regular JVP: Not Elevated Additional Cardiovascular: Yes: Normal Heart Sounds. No: Heart Murmur, Pedal Edema Abdominal Exam: Yes: Soft, Bowel Sounds Present. No: Distention, Abdominal Mass , Abdominal Tenderness Results - Results Lab Results: Laboratory Results - last 24 hr 06/22/16 06/23/16 17:32 08:34 POC Glucose (mg/dL) 145 H 49 L Assessment - Problem List Assessment: Patient Problems Complete below knee amputation of right lower extremity (Acute) History of diabetic retinopathy (Chronic) History of myocardial infarction (Chronic) Hypercholesterolemia (Chronic) Peripheral neuropathy (Chronic) Presence of stent in coronary artery (Chronic) Primary hypothyroidism (Chronic) Type 1 diabetes mellitus with neurological manifestations, uncontrolled (Chronic ) Plan: Complete below knee amputation of right lower extremity (Acute) Home today on bactrim DS twice daily for 10 days. Pain control. 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 I discussed the above with the patient and he agrees with the discharge plan
[2016-06-23] MEDS ORDERED: Sulfamethox/Trimethoprim DS 800/160* TAB PO SCH (09:00)
[2016-06-23] MEDS: Lisinopril TAB* 10 MG PO SCH (09:21)
[2016-06-23] MEDS: Metoprolol Succinate XL TAB* 100 MG PO SCH (09:21)
[2016-06-23] MEDS: Atorvastatin* 80 MG TAB PO SCH (09:22)
[2016-06-23] MEDS: HYDROmorphone TAB* 2 MG PO PRN (09:23)
[2016-06-23] MEDS: Aspirin EC Low Dose* 81 MG TAB.EC PO SCH (09:25)
[2016-06-23] MEDS: Insulin LISPRO* 1 UNITS UNIT SUBCUT SCH ×4 (10:16→14:14)
[2016-06-23] MEDS: Collagenase 250 MG/GM OINT* 30 GM TOPICAL SCH (10:17)
[2016-06-23 16:13] VITALS: BP 98/48
== END 2016-06-23 16:40 | disposition home health service (06) | DRG 617 ==
LOC: ED 09:37 → MED 13:10 → SSU 06-20 18:48
PROVIDERS: ADMIT Hospitalist; ATTEND Internal Medicine
PROC: 0Y6H0Z1 Detachment at Right Lower Leg, High, Open Approach (ICD-10-PCS; principal; 2016-06-17)
DX: E10.69 Type 1 diabetes mellitus with other specified complication (principal); E10.52 Type 1 diabetes mellitus with diabetic peripheral angiopathy with gangrene; N17.9 Acute kidney failure, unspecified; E10.40 Type 1 diabetes mellitus with diabetic neuropathy, unspecified; L03.115 Cellulitis of right lower limb; M86.671 Other chronic osteomyelitis, right ankle and foot; E10.621 Type 1 diabetes mellitus with foot ulcer; E10.51 Type 1 diabetes mellitus with diabetic peripheral angiopathy without gangrene; E03.9 Hypothyroidism, unspecified; E78.5 Hyperlipidemia, unspecified; I25.10 Atherosclerotic heart disease of native coronary artery without angina pectoris; I25.2 Old myocardial infarction; Z95.5 Presence of coronary angioplasty implant and graft; Z89.421 Acquired absence of other right toe(s); Z98.1 Arthrodesis status; Z89.021 Acquired absence of right finger(s); Z88.8 Allergy status to other drugs, medicaments and biological substances; Z83.3 Family history of diabetes mellitus; Z82.49 Family history of ischemic heart disease and other diseases of the circulatory system; Z82.3 Family history of stroke; E10.610 Type 1 diabetes mellitus with diabetic neuropathic arthropathy; E10.65 Type 1 diabetes mellitus with hyperglycemia; M85.871 Other specified disorders of bone density and structure, right ankle and foot; E10.319 Type 1 diabetes mellitus with unspecified diabetic retinopathy without macular edema; B95.1 Streptococcus, group B, as the cause of diseases classified elsewhere; B96.1 Klebsiella pneumoniae [K. pneumoniae] as the cause of diseases classified elsewhere; B96.89 Other specified bacterial agents as the cause of diseases classified elsewhere
CPT/HCPCS: 36415; 80048; 80053; 80202; 81003; 81015; 83036; 83605; 85025; 85610; 85652; 85730; 86140; 87040; 87070; 87073; 87077; 87184; 87186; 87205; 87640; 87641; 93005; A9270-GY; J0692; J0696; J1100; J1170; J1644; J2250; J2405; J2704; J3010; J3370

== ENCOUNTER 2017-03-20 16:55 | Inpatient (IN) | payer OTHER ==
[2017-03-20] MEDS ORDERED: Vancomycin(*) 1,500 MG in NS 0.9% 250 ML* 250 ML IVPB ONE ×2 (17:16→19:45)
[2017-03-20] MEDS ORDERED: Dextrose 50% Syringe 50 ML* 25 GM/50 ML SYRINGE IV PUSH PRN ×2 (17:22→17:24)
[2017-03-20] MEDS ORDERED: Piperacillin/Tazobac (*) 3.375 GM BAG IVPB SCH (18:00)
[2017-03-20] MEDS ORDERED: oxyCODONE TAB* 5 MG TAB ONE (18:30)
[2017-03-20] MEDS ORDERED: Zosyn per Pharmacy* NOTE FOLLOW UP PRN (19:35)
[2017-03-20 19:46] LABS: EGFR Non-African American 45.1 (>60)
[2017-03-20] MEDS ORDERED: ZOSYN 3.375 GM x ONE DOSE over 30 miuntes IVPB ×2 (21:15)
--- NOTE | 2017-03-20 21:42 | RAD ---
Indication: Evaluate for osteomyelitis. CT of the knee was obtained with evaluation of the stump. There is erosion of the inferior stump at the level of the mid tibia. There is soft tissue edema adjacent to this area. There is suggestion of edema extending into the bone marrow. Osteomyelitis should be considered. Additionally there is marked soft tissue swelling at the stump consistent with inflammatory change. Degenerative changes in the patellofemoral joint is noted. IMPRESSION: There is erosion of the tibial stump at the level of the amputation with suggestion of some edema extending into the bone marrow. This is consistent with osteomyelitis. Adjacent soft tissue swelling is present.
[2017-03-20] MEDS: oxyCODONE TAB* 5 MG TAB PO PRN (22:02)
[2017-03-20] MEDS: Atorvastatin* 40 MG TAB PO SCH (22:02)
[2017-03-20] MEDS: Insulin LISPRO* 1 UNITS UNIT SUBCUT SCH (22:03)
[2017-03-20] MEDS: Heparin VIAL(*) 5000 UNITS/ML VIAL (FIVE THOUSAND) SUBCUT SCH (22:03)
[2017-03-20] MEDS: Ticagrelor* 90 MG TAB PO SCH (22:04)
--- NOTE | 2017-03-20 22:42 | HP ---
HISTORY AND PHYSICAL: DATE OF ADMISSION: 03/20/[address] Clark's medical office. REASON FOR ADMISSION: Cellulitis of right below knee amputation stump secondary to abrasion from prosthesis plus possible collection, abscess or even osteomyelitis. HISTORY OF PRESENT ILLNESS: Mr. Wenceslao Kam a 56-year-old right-handed white male. 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 He presented to my outpatient office on 03/17/17 with a history of abrasion and cellulitis of his right below knee amputation site. At that time, I empirically started him on cefdinir and clindamycin as he wished to give this a chance of treatment with oral antibiotics, I also marked the area. At that time , we roxie blood and the investigations showed a C-reactive protein of 137.24, chemistry profile abnormals were sodium 132, potassium 94, glucose 172, alkaline phosphatase of 130. CBC showed a white count of 13.9, hemoglobin 15.7 , hematocrit 48, platelets 294 with coagulocyte percentage of 86.6%. He returned to my medical office today with worsening of his symptoms. He now has 8/10 pain in the right leg extending upwards from the knee. He also has had fevers, chills, sweats particularly at night. The swelling has increased in that leg, the discharge continues as a serosanguineous discharge from an eschar and it is extended over the site we marked at his previous visit. He is now asking to be admitted to the [facility] for parenteral antibiotics and investigation. PAST SURGICAL HISTORY: He had had multiple surgeries to both his legs resulting in a right below knee amputation. Right transtibial above knee amputation on 06/16/16. Prior to that, he had Charcot joint multiple procedures to try and spare his right foot. He has also had a surgery on his left leg in 2007 for fracture of his tibia and fibula. He has had arterial surgery January 2016 when he had a right common femoral artery angioplasty. CONTINUATION ADDENDUM: PREVIOUS MEDICAL HISTORY: Type 1 diabetes mellitus since childhood with complications including diabetic retinopathy with requiring laser photocoagulation, severe peripheral neuropathy with Charcot joint in his right joint, followed later by below knee amputation. He had a ST-elevation myocardial infarction followed by stent placements on 06/04/15 with drug- eluting stent. Peripheral vascular disease, hypercholesterolemia, primary hypothyroidism, history of below knee amputation of the right leg. CURRENT MEDICATIONS: 1. Aspirin 81 mg daily. 2. Atorvastatin 80 mg q.h.s. 3. Brilinta 90 mg twice daily. 4. Cefdinir 300 mg q.12 hours. 5. Clindamycin 300 mg q.6 hours. 6. Lantus insulin 46 units daily. 7. Levothyroxine 200 mcg daily. 8. Lisinopril 10 mg daily. 9. Metoprolol succinate extended release 100 mg daily. 10. Nitroglycerin 0.4 mg sublingual tablets as needed. ALLERGIES: SIMVASTATIN causes fatigue. FAMILY HISTORY: Mother, type 2 diabetes. Father, CVA and hypertension. SOCIAL HISTORY: He is disabled. Former tobacco user. Drinks occasional alcohol. from his . He has a son. REVIEW OF SYSTEMS: Review of systems x14: Cardiovascular System: No chest pain, shortness of breath, or palpitations. Respiratory System: No productive cough or hemoptysis. Gastrointestinal System: Anorexia for 2 weeks. No nausea , vomiting. He has had some loose stools since starting the antibiotics. Genitourinary Systems: No problems. Nervous System: Occasional headache, change in his vision. No symptoms of stroke or seizures. PHYSICAL EXAMINATION GENERAL: No cyanosis, anemia, jaundice, clubbing, or lymphadenopathy. VITAL SIGNS: 6 feet 2 inches, weight when last recorded on 01/04/17, 206 pounds. Blood pressure 110/68, temperature 99.5 degrees Fahrenheit, pulse 80. RESPIRATORY SYSTEM: Chest expansion full and symmetrical. Percussion note resonant. Breath sounds vesicular. No crackles or wheezes. CARDIOVASCULAR SYSTEM: Pulse regular, normal character and volume. Venous pressure not elevated. Heart sounds normal. He had a soft systolic murmurs. No edema of the left leg. No carotid bruits. ABDOMINAL EXAMINATION: No distention, masses, tenderness, or organomegaly. EXTREMITIES: Examination of right lower extremity, he has had a right below knee amputation. There is an extensive area of erythema and swelling and warmth looking like cellulitis. It is extended beyond the margines from his last office visit particularly proximally. The area is around 12 cm in its maximum dimension and extends into the popliteal fossa. There is essential eschar, which is draining serosanguineous fluid. NERVOUS SYSTEM: He is alert and oriented. Conjugate eye movements. Fundi showed previous laser photocoagulation scars. Cranial nerves II through XII are intact. Arms and legs, full power, normal tone. Left foot examination, no ulcers, calluses, or infections, diminished pedal pulses. ASSESSMENT AND PLAN: 1. Cellulitis and swelling of the right below knee amputation stump. He has an extending cellulitis. Swelling is fairly marked. There is a serosanguineous drainage from an eschar. This could represent an abscess or even osteomyelitis. He has had failed outpatient treatments with cefdinir and clindamycin. He requires inpatient management. I am directly admitting him from my medical office. I will check both Gram stain and culture of the purulent drainage from his wound and also perform blood cultures. We will start him on IV vancomycin and Zosyn. I will obtain a CAT scan of his right amputation stump area to look for abscesses and osteomyelitis and they had to order either a 3-phase bone scan or an MRI depending upon the results from the CT scan. Depending on the response to antibiotic treatment, may require Infectious Disease consultation, plus or minus General Surgery to debride the area if indeed there is an abscess. He needs pain relief. He has 8/10 pain in that leg. I will give him oxycodone 10 mg for mild to moderate pain and hydromorphone 2 mg every 4 hours for severe pain. He will be on bed rest. 2. Type 1 diabetes mellitus, poor control. His A1c in the medical office was 10.6%, but his fingerstick glucose was 175 mg/dL. He feels dehydrated, so I will give him some IV lactated Ringer's solution overnight. I will draw blood for CMP, CBC. He will receive his usual insulin basal bolus regimen and we will place him on a consisting carbohydrate diet. 3. Coronary artery disease. He has no symptoms suggestive of an acute ischemic insult. I will check an EKG. I will maintain his usual antiplatelet therapy. 4. Primary hypothyroidism. We will continue on his current medication. 5. He agrees to DVT prophylaxis with subcutaneous heparin and graduated support hose on his left leg. 6. He wishes to be full code. [id number]/CPS #: [id number]/CPS #: [id number] SARA
--- NOTE | 2017-03-20 23:24 | HP ---
HISTORY AND PHYSICAL: ADDENDUM: PREVIOUS MEDICAL HISTORY: Type 1 diabetes mellitus since childhood with complications including diabetic retinopathy with requiring laser photocoagulation, severe peripheral neuropathy with Charcot joint in his right joint, followed later by below knee amputation. He had a ST-elevation myocardial infarction followed by stent placements on 06/04/15 with drug- eluting stent. Peripheral vascular disease, hypercholesterolemia, primary hypothyroidism, history of below knee amputation of the right leg. CURRENT MEDICATIONS: 1. Aspirin 81 mg daily. 2. Atorvastatin 80 mg q.h.s. 3. Brilinta 90 mg twice daily. 4. Cefdinir 300 mg q.12 hours. 5. Clindamycin 300 mg q.6 hours. 6. Lantus insulin 46 units daily. 7. Levothyroxine 200 mcg daily. 8. Lisinopril 10 mg daily. 9. Metoprolol succinate extended release 100 mg daily. 10. Nitroglycerin 0.4 mg sublingual tablets as needed. ALLERGIES: SIMVASTATIN causes fatigue. FAMILY HISTORY: Mother, type 2 diabetes. Father, CVA and hypertension. SOCIAL HISTORY: He is disabled. Former tobacco user. Drinks occasional alcohol. from his . He has a son. REVIEW OF SYSTEMS: Review of systems x14: Cardiovascular System: No chest pain, shortness of breath, or palpitations. Respiratory System: No productive cough or hemoptysis. Gastrointestinal System: Anorexia for 2 weeks. No nausea , vomiting. He has had some loose stools since starting the antibiotics. Genitourinary Systems: No problems. Nervous System: Occasional headache, change in his vision. No symptoms of stroke or seizures. PHYSICAL EXAMINATION GENERAL: No cyanosis, anemia, jaundice, clubbing, or lymphadenopathy. VITAL SIGNS: 6 feet 2 inches, weight when last recorded on 01/04/17, 206 pounds. Blood pressure 110/68, temperature 99.5 degrees Fahrenheit, pulse 80. RESPIRATORY SYSTEM: Chest expansion full and symmetrical. Percussion note resonant. Breath sounds vesicular. No crackles or wheezes. CARDIOVASCULAR SYSTEM: Pulse regular, normal character and volume. Venous pressure not elevated. Heart sounds normal. He had a soft systolic murmurs. No edema of the left leg. No carotid bruits. ABDOMINAL EXAMINATION: No distention, masses, tenderness, or organomegaly. EXTREMITIES: Examination of right lower extremity, he has had a right below knee amputation. There is an extensive area of erythema and swelling and warmth looking like cellulitis. It is extended beyond the margines from his last office visit particularly proximally. The area is around 12 cm in its maximum dimension and extends into the popliteal fossa. There is essential eschar, which is draining serosanguineous fluid. NERVOUS SYSTEM: He is alert and oriented. Conjugate eye movements. Fundi showed previous laser photocoagulation scars. Cranial nerves II through XII are intact. Arms and legs, full power, normal tone. Left foot examination, no ulcers, calluses, or infections, diminished pedal pulses. ASSESSMENT AND PLAN: 1. Cellulitis and swelling of the right below knee amputation stump. He has an extending cellulitis. Swelling is fairly marked. There is a serosanguineous drainage from an eschar. This could represent an abscess or even osteomyelitis. He has had failed outpatient treatments with cefdinir and clindamycin. He requires inpatient management. I am directly admitting him from my medical office. I will check both Gram stain and culture of the purulent drainage from his wound and also perform blood cultures. We will start him on IV vancomycin and Zosyn. I will obtain a CAT scan of his right amputation stump area to look for abscesses and osteomyelitis and they had to order either a 3-phase bone scan or an MRI depending upon the results from the CT scan. Depending on the response to antibiotic treatment, may require Infectious Disease consultation, plus or minus General Surgery to debride the area if indeed there is an abscess. He needs pain relief. He has 8/10 pain in that leg. I will give him oxycodone 10 mg for mild to moderate pain and hydromorphone 2 mg every 4 hours for severe pain. He will be on bed rest. 2. Type 1 diabetes mellitus, poor control. His A1c in the medical office was 10.6%, but his fingerstick glucose was 175 mg/dL. He feels dehydrated, so I will give him some IV night. I will draw blood for CMP, CBC. He will receive his usual insulin basal bolus regimen and we will place him on a consisting carbohydrate diet. 3. Coronary artery disease. He has no symptoms suggestive of an acute ischemic insult. I will check an EKG. I will maintain his usual antiplatelet therapy. 4. Primary hypothyroidism. We will continue on his current medication. 5. He agrees to DVT prophylaxis with subcutaneous heparin and graduated support hose on his left leg. 6. He wishes to be full code. [id number]/CPS #: [id number] SARA
[2017-03-21] MEDS: ZOSYN 3.375 GM Q8H per EXTENDED INFUSION IVPB SCH ×6 (01:18→17:40)
[2017-03-21] MEDS: oxyCODONE TAB* 5 MG TAB PO PRN ×6 (02:07→21:14)
[2017-03-21 05:24] LABS: ABS Basophils 0.1 10^3/ul (0-0.2); ABS Eosinophils 0.1 10^3/ul (0-0.6); ABS Lymphocytes 1.1 10^3/ul (1.0-4.8); ABS Monocytes 1.1 10^3/ul (0-0.8); ABS Neutrophils 9.9 10^3/ul (1.5-7.7); ABS Nucleated RBC 0 10^3/ul; Eosinophil % 0.6 % (0-6); Hematocrit 40 % (42-52); Hemoglobin 13.2 g/dl (14.0-18.0); Lymphocyte % 9.1 % (25-47); Mean Corpuscular HGB Conc 33 g/dl (31-36); Mean Corpuscular Hemoglobin 30 pg (27-31); Mean Corpuscular Volume 90 fL (80-94); Mean Platelet Volume 9 um3 (7.4-10.4); Nucleated Red Blood Cells % 0; Platelet Count 277 10^3/ul (150-450); Red Cell Distribution Width 13 % (10.5-15); White Blood Count 12.2 10^3/ul (3.5-10.8)
[2017-03-21] MEDS: HYDROmorphone INJ* 2 MG/ML CARPUJECT SYRINGE IV SLOW PU PRN ×2 (05:36→22:02)
[2017-03-21] MEDS: Levothyroxine TAB* 100 MCG TAB PO SCH (05:36)
[2017-03-21] MEDS: Heparin VIAL(*) 5000 UNITS/ML VIAL (FIVE THOUSAND) SUBCUT SCH ×3 (05:38→22:01)
[2017-03-21] MEDS ORDERED: Insulin GLARGINE(*) 1 UNITS UNIT SUBCUT ONE (07:00)
--- NOTE | 2017-03-21 08:15 | PN ---
Subjective - Subjective Reason for Note: Progress Note History: He has had continued pain in his right BKA site and drainage. His glucose levels are running high and he is thirsty. He has no other new symptoms. 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, uncontrolled (Chronic ) E10.49, E10.65 Current Medications: Current Medications Aspirin (Aspirin Ec Low Dose*) 81 mg PO DAILY [facility] Atorvastatin Calcium (Lipitor*) 80 mg PO 2100 [facility] Last Admin: 03/20/17 22:02 Dose: 80 mg Dextrose (D50w Syringe 50 Ml*) 12.5 gm IV PUSH .FOR FS < 60 - SS PRN PRN Reason: FS < 60 Heparin Sodium (Porcine) (Heparin Vial(*)) 5,000 units SUBCUT Q8HR [facility] Last Admin: 03/21/17 05:38 Dose: 5,000 units Hydromorphone HCl (Dilaudid Inj*) 2 mg IV SLOW PU Q4H PRN PRN Reason: PAIN Last Admin: 03/21/17 05:36 Dose: 2 mg Piperacillin Sod/Tazobactam (Sod 3.375 gm/ Sodium Chloride) 100 mls @ 25 mls/ hr IVPB Q8H [facility] Last Admin: 03/21/17 01:18 Dose: 25 mls/hr Lactated Ringer's (Lactated Ringers 1000 Ml Bag*) 500 mls @ 75 mls/hr IV PER RATE [facility] Insulin Human Lispro (Humalog*) 0 units SUBCUT AC [facility] PRN Reason: Protocol Insulin Human Lispro (Humalog*) 0 - 10 units SUBCUT ACHS [facility] PRN Reason: Protocol Last Admin: 03/20/17 22:03 Dose: 8 units Levothyroxine Sodium (Synthroid Tab*) 200 mcg PO DAILY@0600 [facility] Last Admin: 03/21/17 05:36 Dose: 200 mcg Lisinopril (Prinivil Tab*) 10 mg PO DAILY [facility] Metoprolol Succinate (Toprol Xl Tab*) 100 mg PO DAILY [facility] Oxycodone HCl (Roxycodone Tab*) 10 mg PO Q4H PRN PRN Reason: PAIN - MILD TO MODERATE Last Admin: 03/21/17 06:50 Dose: 10 mg Pharmacy Consult ([place] Per Pharmacy*) 1 note FOLLOW UP . PRN PRN Reason: PER PROTOCOL Ticagrelor (Brilinta*) 90 mg PO BID [facility] Last Admin: 03/20/17 22:04 Dose: 90 mg Home Medications: Home Medications Medication Instructions Recorded Confirmed Type Insulin Glargine [Lantus] 60 unit SUBCUT QPM #0 06/04/15 06/17/16 History Atorvastatin* [Lipitor 80 MG*] 80 mg PO DAILY #30 tab 06/07/15 06/17/16 Rx Lisinopril TAB* [Prinivil TAB 10 10 mg PO DAILY tab 06/07/15 06/17/16 Rx MG*] Metoprolol Succinate XL TAB* 100 mg PO DAILY #30 tab.xl 06/07/15 06/17/16 Rx [Toprol XL TAB*] Nitroglycerin TAB 0.4 MG* 0.4 mg SL Q5M PRN #20 tab 06/07/15 06/17/16 Rx Ticagrelor* [Brilinta 90 MG*] 90 mg PO BID #60 tab 06/07/15 06/17/16 Rx Aspirin EC Low Dose* [Ecotrin EC 81 mg PO DAILY 02/15/16 06/17/16 History Low Dose 81 MG*] Insulin Lispro [Humalog] 0 - 100 units SUBCUT TID 02/15/16 06/17/16 History Levothyroxine TAB* [Synthroid 100 200 mcg PO DAILY 06/17/16 06/17/16 History MCG TAB*] Levothyroxine TAB* [Synthroid 25 25 mcg PO DAILY 06/17/16 06/17/16 History MCG TAB*] HYDROmorphone TAB* [Dilaudid TAB*] 2 mg PO Q4H PRN #0 tab MDD 6 06/23/16 Rx Sulfamethox/Trimethoprim DS* 1 tab PO BID #20 tab 06/23/16 Rx [Bactrim DS 800/160 TAB*] oxyCODONE/Acetamin 5/325 MG* 2 tab PO Q4H PRN #48 tab MDD 6 06/23/16 Rx [Percocet 5/325 TAB*] Allergies: Allergies Allergy/AdvReac Type Severity Reaction Status Date / Time No Known Drug Allergy Allergy See Comment Verified 06/17/16 17:57 Objective - Vital Signs Vital Signs: Vital Signs 03/20/17 03/20/17 03/20/17 18:24 18:25 18:36 Temperature 99.4 F 99.4 F Pulse Rate 88 88 Respiratory 16 16 16 Rate Blood Pressure 106/69 106/69 (mmHg) O2 Sat by Pulse 99 99 Oximetry 03/20/17 03/20/17 03/20/17 18:38 20:00 22:02 Temperature Pulse Rate Respiratory 16 16 18 Rate Blood Pressure (mmHg) O2 Sat by Pulse Oximetry 03/20/17 03/21/17 03/21/17 22:08 01:20 02:07 Temperature 99.2 F Pulse Rate 87 Respiratory 18 16 16 Rate Blood Pressure 114/49 (mmHg) O2 Sat by Pulse 99 Oximetry 03/21/17 03/21/17 03/21/17 03:13 04:17 05:36 Temperature 100.1 F Pulse Rate 89 Respiratory 16 16 16 Rate Blood Pressure 110/52 (mmHg) O2 Sat by Pulse 90 Oximetry 03/21/17 03/21/17 03/21/17 05:45 06:50 07:31 Temperature 99.3 F 98.5 F Pulse Rate 83 Respiratory 16 17 Rate Blood Pressure 123/57 (mmHg) O2 Sat by Pulse 95 Oximetry 03/21/17 07:42 Temperature Pulse Rate Respiratory 17 Rate Blood Pressure (mmHg) O2 Sat by Pulse 95 Oximetry - Intake and Output Intake and Output: Intake & Output 03/18/17 03/19/17 03/20/17 03/21/17 11:59 11:59 11:59 11:59 Intake Total 200 Output Total 550 Balance -350 Weight 205 lb Intake: Oral 200 Output: Urine 550 Other: # Bowel Movements 0 ADLs: Meal Record Start: 03/20/17 18: 06 Freq: Status: Active Protocol: Created 03/20/17 18:06 System (Rec: 03/20/17 18:06 System [id number]) Intake and Output Start: 03/20/17 18: 06 Freq: DAILY@0600,1400,2200 Status: Active Protocol: Created 03/20/17 18:06 System (Rec: 03/20/17 18:06 System [id number]) Document 03/20/17 22:00 [id number] (Rec: 03/20/17 22:27 [id number]) Document 03/21/17 04:22 [id number] (Rec: 03/21/17 04:22 [id number] [id number]) Document 03/21/17 05:26 [id number] (Rec: 03/21/17 05:26 [id number] [id number]) - Physical Exam General Physical Exam Comment: He has drainage from the ulcer over the amputation site, the cellulitis/tissue swelling remains unchanged from yesterday General: No Cyanosis, No Anemia, No Jaundice, No Clubbing Lungs and Chest: Yes: Chest Expansion Full, Chest Expansion Symetrica, Percussion Note Resonant, Vessicular Breath Sounds. No: Crackles, Wheezes Heart Rate and Rhythm: Regular JVP: Not Elevated Additional Cardiovascular: Yes: Normal Heart Sounds. No: Heart Murmur, Pedal Edema Abdominal Exam: Yes: Soft, Bowel Sounds Present. No: Distention, Abdominal Mass , Abdominal Tenderness - Extremities Cranial Nerves II-XII Intact: Yes Limbs: Normal Power, Normal Tone - Neuro Orientation: A/O x3 Speech: Normal Results - Results Lab Results: Laboratory Results - last 24 hr 03/20/17 03/20/17 03/21/17 18:40 21:32 05:07 WBC 12.2 H RBC 4.40 Hgb 13.2 L Hct 40 L MCV 90 MCH 30 MCHC 33 RDW 13 Plt Count 277 MPV 9 Neut % (Auto) 80.7 Lymph % (Auto) 9.1 L [place] % (Auto) 8.8 Eos % (Auto) 0.6 Baso % (Auto) 0.8 Absolute Neuts (auto) 9.9 H Absolute Lymphs (auto) 1.1 Absolute Monos (auto) 1.1 H Absolute Eos (auto) 0.1 Absolute Basos (auto) 0.1 Absolute Nucleated RBC 0 Nucleated RBC % 0 Sodium 130 L Potassium 3.8 Chloride 96 L Carbon Dioxide 26 Anion Gap 8 BUN 30 H Creatinine 1.60 H Est GFR ( Amer) 58.0 Est GFR (Non-Af Amer) 45.1 BUN/Creatinine Ratio 18.8 Glucose 253 H POC Glucose (mg/dL) 310 H Calcium 8.4 L Total Bilirubin 0.90 AST 40 H ALT 30 Alkaline Phosphatase 168 H C-Reactive Protein 151.60 H Total Protein 5.6 L Albumin 2.6 L Globulin 3.0 Albumin/Globulin Ratio 0.9 L Radiology Results: Patient Name: ILYA BAIN Medical Record#: [id number] Ordering Physician: Emiliano Clark MD Acct.#: [id number] : 1960 Age: 56 Sex: M Location: SURGICAL STAY UNIT Exam Date: 03/20/171711 ADM Status: ADM IN Order Information: CT EXTREMITY LOWER RIGHT W/O Accession Number: [id number] CPT: 05496 Indication: Evaluate for osteomyelitis. CT of the knee was obtained with evaluation of the stump. There is erosion of the inferior stump at the level of the mid tibia. There is soft tissue edema adjacent to this area. There is suggestion of edema extending into the bone marrow. Osteomyelitis should be considered. Additionally there is marked soft tissue swelling at the stump consistent with inflammatory change. Degenerative changes in the patellofemoral joint is noted. IMPRESSION: There is erosion of the tibial stump at the level of the amputation with suggestion of some edema extending into the bone marrow. This is consistent with osteomyelitis. Adjacent soft tissue swelling is present. <Electronically signed by Therese Marks MD in OV> 03/20/172137 Dictated By: Therese Marks MD Dictated Date/Time: 03/20/172137 Transcribed Date/Time: 03/20/172131 Copy to: CC:Emiliano Clark MD Imaging - [facility] Imaging - [facility] Imaging - [facility] [address] [address] ph [phone]) ph ([phone]) ph ([phone]) 1 of 1 EKG Report: Sinus rhythm: 86 RI 139 QTc 444 QRS axis [address]-T wave changes Other Results/Reports: RUN DATE: 03/21/17 [facility] LAB LIVE PAGE 1 RUN TIME: [address] [place] [id number] Specimen Inquiry Name: ILYA BAIN : [address]: Emiliano Clark MD Acct: [id number] Unit: [id number] AGE: 56 Location: [place] [address] Re03/20/17 SEX: M Status: ADM IN SPEC: [id number] DESIRAE: 03/20/17-[address]: Emiliano Clark MD REQ: [id number] RECD: 03/20/17 _ STATUS: RES SOURCE: LEG, RIGHT SPDESC: ORDERED: MRSA/SA SSTI, Culture & Stain COMMENTS: Verbal to [id number] by [id number] at 2142 on 03/20/17. Results read back accurately. Procedure Result Reported Site MRSA/S. aureus SSTI PCR Final 03/20/17- 2141 ML Organism 1 MRSA NEGATIVE Organism 2 S.AUREUS POSITIVE Wound/Misc Gram Stain Final 03/21/17- 735 ML 3+ Neutrophils 2+ Epithelial Cells 2+ Gram Positive Cocci in Clusters, resembling Staph Wound/Misc Culture PENDING * ML - MAIN LAB (PSC1) . END OF REPORT * ML = Testing performed at Main Lab DEPARTMENT OF PATHOLOGY, [address] [place] [address] Gamal Zaldivar M.D. 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 I spoke with Dr. Paco Lewis who performed the original right BKA. He advises an MRI for better definition. He will consult. I will maintain zosyn for the moment in case of a polymicrobial infection, as this will also cover Staph aureus. 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 I will up his lantus insulin to 40 units twice daily History of myocardial infarction (Chronic) Presence of stent in coronary artery (Chronic)He has no symptoms and his EKG shows normal sinus rhythm Hypercholesterolemia (Chronic) continue current Rx Peripheral neuropathy (Chronic) comorbidity Primary hypothyroidism (Chronic) continue current Rx I spoke with the patient and he agrees with the management plan
[2017-03-21] MEDS: Ticagrelor* 90 MG TAB PO SCH ×2 (09:13→22:01)
[2017-03-21] MEDS: Lisinopril TAB* 10 MG PO SCH (09:13)
[2017-03-21] MEDS: Aspirin EC Low Dose* 81 MG TAB.EC PO SCH (09:13)
[2017-03-21] MEDS: Metoprolol Succinate XL TAB* 100 MG PO SCH (09:13)
[2017-03-21] MEDS: Insulin GLARGINE(*) 1 UNITS UNIT SUBCUT SCH ×2 (09:17→22:02)
[2017-03-21] MEDS: Insulin LISPRO* 1 UNITS UNIT SUBCUT SCH ×7 (09:59→22:10)
--- NOTE | 2017-03-21 12:16 | RAD ---
Indication: Type I diabetic with severe peripheral neuropathy and peripheral vascular disease post RIGHT transtibial below-knee amputation June 16, 2016. Cellulitis at the level of the RIGHT below-knee amputation stump secondary to abrasion from prosthesis. Assess for abscess and potential osteomyelitis. Comparison: March 20, [address] Technique: Noncontrast MRI of the RIGHT lower extremity with the [id number] extending from the subtrochanteric region of the femur through the below-knee amputation stump distally. [email or web address] 1.5 [place] [id number] with GEM suite. Report: There is bone marrow edema at the level of the amputation stump at the proximal diaphysis of the RIGHT tibia with extension cephalad along the anterior aspect to the tibial plateau with associated partial loss of normal T1 marrow hyperintensity. Normal bone marrow signal at the adjacent fibula. Additional bone marrow edema at the lateral tibial plateau, lateral femoral condyle, and RIGHT femoral condyle supracondylar region without significant loss of normal T1 marrow hyperintensity. Extensive edema within the subcutaneous tissue plane as well as skeletal musculature about the stump and extending as far proximal as the pelvis with involvement of the hamstring muscles. Infiltrative T2 hyperintense fluid extends from the level of the knee to the hamstring tendon origins along the peripheral fascia plane of the biceps femoris measuring up to 6.4 cm AP by 1.6 cm transverse by 40 cm cephalocaudal. While well marginated this collection without a suspicious thickened wall to strongly favor abscess. Smaller loculated fluid collection with fluid fluid level at the medial margin of the stump measures up to 2.4 cm AP by 2.3 cm transverse by 2.8 cm cephalocaudal and also fails to demonstrate a suspicious thickened wall. Small knee joint effusion. The contralateral lower extremity including the [id number] on the coronal series is remarkable for internal fixation hardware at the proximal tibia and subcutaneous edema laterally. IMPRESSION: 1. The constellation of findings is consistent with extensive cellulitis involving the superficial and deep soft tissue planes as well as a dominant loculated although thin-walled fluid collection extending from level of the RIGHT below-knee amputation stump to the proximal thigh with early abscess collection not excluded. The differential includes postoperative seroma or hematoma. Additional smaller loculated fluid collection at the medial margin of the stump may represent an additional abscess collection. The fluid collections are unchanged compared with the CT of one day prior. 2. Noted bone marrow signal changes at the residual tibia and represent reactive edema or early osteomyelitis. Correlate with clinical and laboratory data. Ultimately tissue sampling may be needed for Gram stain and culture.
--- NOTE | 2017-03-21 21:06 | CONS ---
ORTHOPEDIC CONSULTATION: DATE OF CONSULT: 03/21/17 REQUESTING SERVICE: Medical. CONSULTING SERVICE: Orthopedics. CHIEF COMPLAINT: Right leg pain and infection. HISTORY OF PRESENT ILLNESS: Brody is a 56-year-old man with type 1 diabetes, who previously had a right below the knee amputation on 06/20/[address] Lewis. He is doing well, but thinks his prosthesis is not fitting correctly and he thinks that because of this he developed an ulcer around the right lateral stump. This was about a week ago. He started having pain, drainage, and redness around the area of the skin break, so he came in for an evaluation to his primary care doctor. He was then admitted to the hospital. Orthopedics was consulted for help with care of this infection. He reports that the pain is daily, moderate, burning, and is located in the lateral leg. It is worse with dependency and improved with elevation. PAST MEDICAL HISTORY: Type 1 diabetes, diabetic retinopathy, peripheral neuropathy, coronary artery disease, and peripheral vascular disease. PAST SURGICAL HISTORY: Right BKA by Dr. Lewis in 2017 as above, he also had surgery on his left leg in the past, he had right-sided vascular surgery in 2016. MEDICATIONS: 1. Aspirin. 2. Atorvastatin. 3. Brilinta. 4. Cefdinir. 5. Clindamycin. 6. Lantus. 7. Levothyroxine. 8. Lisinopril. 9. Metoprolol. 10. Nitroglycerin. ALLERGIES: SIMVASTATIN. FAMILY HISTORY: Diabetes, cardiovascular disease, and hypertension. SOCIAL HISTORY: Former tobacco user. He is not working. He is disabled. Occasional alcohol use. REVIEW OF SYSTEMS: Negative for recent changes in vision, difficulty swallowing , chest pain, shortness of breath, abdominal pain, hematuria, easy bruising, diffuse weakness, or lack of coordination or diffuse rash. PHYSICAL EXAM: General: He is well-appearing today, and in no apparent distress. Vital Signs: 98.1 temperature, pulse rate 74, respiratory rate 16, oxygen saturation 95% on room air, blood pressure 112/54. Cardiovascular: Pulse examination reveals palpable radial pulses and no varicosities in the legs. Lymphatic: No lymphadenopathy appreciated. Skin: Bilateral upper and contralateral lower extremity did not reveal ulcerative lesions. Psychiatric/ Neurological: Alert and oriented to person, place, and time. Appropriate affect. No significant abnormality in coordination appreciated. Normal reflexes with deep tendon reflex in the affected extremity. Musculoskeletal: Bilateral upper extremity and contralateral lower extremity show full range of motion without evidence of instability and no tenderness to palpation and 5/5 strength. There is no gross deformity. He has good strength with knee flexion and extension and no pain with knee range of motion. He does have a break in the skin and 2 small ulcers at the lateral leg with surrounding erythema and induration. No active drainage at this time. The BKA wound is well-healed without any erythema or opening. There is no focal tenderness to palpation distally, but there is tenderness around the ulcers. DIAGNOSTIC STUDIES/LAB DATA: Imaging: MRI was reviewed and does show fluid collection, which is concerning for an abscess as well as osteomyelitis of the distal fibula stump. Labs: CRP 151. White blood count 12.2. IMPRESSION AND PLAN: A 56-year-old man with a right below knee amputation stump infection. I had a long discussion with him about this today, we discussed both operative and nonoperative options at length. Given the fluid collection and osteomyelitis in the distal fibula stump, I did recommend an irrigation and debridement to decompress this area as well as a likely revision below knee amputation to remove some of the osteomyelitic stump. We discussed the pros/cons, and risks/benefits of both of this as well as nonoperative treatment simply by using antibiotics. He did express his desire to move forward with the surgery and I will discuss with Dr. Lewis and coordinate this for him. In the mean-time, he should continue on the IV antibiotics as directed by the infectious disease service and remain nonweightbearing on the right lower extremity. [id number]/[facility] #: [id number] SARA
[2017-03-21] MEDS: Atorvastatin* 40 MG TAB PO SCH (22:00)
[2017-03-22] MEDS: oxyCODONE TAB* 5 MG TAB PO PRN ×6 (00:14→18:54)
[2017-03-22] MEDS: ZOSYN 3.375 GM Q8H per EXTENDED INFUSION IVPB SCH ×4 (01:48→10:01)
[2017-03-22 04:46] LABS: ABS Basophils 0.1 10^3/ul (0-0.2); ABS Eosinophils 0.3 10^3/ul (0-0.6); ABS Lymphocytes 1.7 10^3/ul (1.0-4.8); ABS Monocytes 1.2 10^3/ul (0-0.8); ABS Nucleated RBC 0 10^3/ul; Eosinophil % 2.1 % (0-6); Hematocrit 42 % (42-52); Hemoglobin 14.1 g/dl (14.0-18.0); Mean Corpuscular HGB Conc 34 g/dl (31-36); Mean Corpuscular Hemoglobin 31 pg (27-31); Mean Corpuscular Volume 90 fL (80-94); Mean Platelet Volume 9 um3 (7.4-10.4); Nucleated Red Blood Cells % 0; Platelet Count 337 10^3/ul (150-450); Red Blood Count 4.61 10^6/ul (4.0-5.4); Red Cell Distribution Width 13 % (10.5-15); White Blood Count 14.2 10^3/ul (3.5-10.8)
[2017-03-22 05:21] LABS: EGFR Non-African American 38.4 (>60)
[2017-03-22] MEDS: Levothyroxine TAB* 100 MCG TAB PO SCH (06:17)
[2017-03-22] MEDS: Heparin VIAL(*) 5000 UNITS/ML VIAL (FIVE THOUSAND) SUBCUT SCH ×3 (06:17→21:13)
--- NOTE | 2017-03-22 07:56 | PN ---
Subjective - Subjective Reason for Note: Progress Note History: I spoke with Dr. Paco Lewis and reviewed Dr. Royce Joshua's consultation note. Brody Kam agrees with their plan for surgical correction of the osteomyelitis and debridement of this infection. His pain is well controlled. He has had no further chills or night sweats. He is tolerating the zosyn well and has not had a bowel movement. His major concern is the pain that he feels up the lateral aspect of his right thigh. He had hypoglycemia yesterday after having been hyperglycemic. He has labile diabetic control usually. 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, uncontrolled (Chronic ) E10.49, E10.65 Current Medications: Current Medications Aspirin (Aspirin Ec Low Dose*) 81 mg PO DAILY [facility] Last Admin: 03/21/17 09:13 Dose: 81 mg Atorvastatin Calcium (Lipitor*) 80 mg PO 2100 [facility] Last Admin: 03/21/17 22:00 Dose: 80 mg Dextrose (D50w Syringe 50 Ml*) 12.5 gm IV PUSH .FOR FS < 60 - SS PRN PRN Reason: FS < 60 Heparin Sodium (Porcine) (Heparin Vial(*)) 5,000 units SUBCUT Q8HR [facility] Last Admin: 03/22/17 06:17 Dose: 5,000 units Hydromorphone HCl (Dilaudid Inj*) 2 mg IV SLOW PU Q4H PRN PRN Reason: PAIN Last Admin: 03/21/17 22:02 Dose: 2 mg Piperacillin Sod/Tazobactam (Sod 3.375 gm/ Sodium Chloride) 100 mls @ 25 mls/ hr IVPB Q8H [facility] Last Admin: 03/22/17 01:48 Dose: 25 mls/hr Insulin Glargine (Lantus(*)) 40 units SUBCUT Q12H [facility] Last Admin: 03/21/17 22:02 Dose: 40 units Insulin Human Lispro (Humalog*) 0 units SUBCUT AC [facility] PRN Reason: Protocol Last Admin: 03/21/17 18:47 Dose: Not Given Insulin Human Lispro (Humalog*) 0 - 10 units SUBCUT ACHS [facility] PRN Reason: Protocol Last Admin: 03/21/17 22:10 Dose: Not Given Levothyroxine Sodium (Synthroid Tab*) 200 mcg PO DAILY@0600 [facility] Last Admin: 03/22/17 06:17 Dose: 200 mcg Lisinopril (Prinivil Tab*) 10 mg PO DAILY [facility] Last Admin: 03/21/17 09:13 Dose: 10 mg Metoprolol Succinate (Toprol Xl Tab*) 100 mg PO DAILY [facility] Last Admin: 03/21/17 09:13 Dose: 100 mg Oxycodone HCl (Roxycodone Tab*) 10 mg PO Q3H PRN PRN Reason: PAIN - MILD TO MODERATE Last Admin: 03/22/17 06:30 Dose: 10 mg Pharmacy Consult ([facility] Per Pharmacy*) 1 note FOLLOW UP . PRN PRN Reason: PER PROTOCOL Ticagrelor (Brilinta*) 90 mg PO BID [facility] Last Admin: 03/21/17 22:01 Dose: 90 mg Home Medications: Home Medications Medication Instructions Recorded Confirmed Type Insulin Glargine [Lantus] 60 unit SUBCUT QPM #0 06/04/15 06/17/16 History Atorvastatin* [Lipitor 80 MG*] 80 mg PO DAILY #30 tab 06/07/15 06/17/16 Rx Lisinopril TAB* [Prinivil TAB 10 10 mg PO DAILY tab 06/07/15 06/17/16 Rx MG*] Metoprolol Succinate XL TAB* 100 mg PO DAILY #30 tab.xl 06/07/15 06/17/16 Rx [Toprol XL TAB*] Nitroglycerin TAB 0.4 MG* 0.4 mg SL Q5M PRN #20 tab 06/07/15 06/17/16 Rx Ticagrelor* [Brilinta 90 MG*] 90 mg PO BID #60 tab 06/07/15 06/17/16 Rx Aspirin EC Low Dose* [Ecotrin EC 81 mg PO DAILY 02/15/16 06/17/16 History Low Dose 81 MG*] Insulin Lispro [Humalog] 0 - 100 units SUBCUT TID 02/15/16 06/17/16 History Levothyroxine TAB* [Synthroid 100 200 mcg PO DAILY 06/17/16 06/17/16 History MCG TAB*] Levothyroxine TAB* [Synthroid 25 25 mcg PO DAILY 06/17/16 06/17/16 History MCG TAB*] HYDROmorphone TAB* [Dilaudid TAB*] 2 mg PO Q4H PRN #0 tab MDD 6 06/23/16 Rx Sulfamethox/Trimethoprim DS* 1 tab PO BID #20 tab 06/23/16 Rx [Bactrim DS 800/160 TAB*] oxyCODONE/Acetamin 5/325 MG* 2 tab PO Q4H PRN #48 tab MDD 6 06/23/16 Rx [Percocet 5/325 TAB*] Allergies: Allergies Allergy/AdvReac Type Severity Reaction Status Date / Time No Known Drug Allergy Allergy See Comment Verified 06/17/16 17:57 Objective - Vital Signs Vital Signs: Vital Signs 03/21/17 03/21/17 03/21/17 09:12 10:11 12:19 Temperature 98.4 F Pulse Rate 77 Respiratory 18 18 17 Rate Blood Pressure 109/57 (mmHg) O2 Sat by Pulse 96 Oximetry 03/21/17 03/21/17 03/21/17 12:55 13:44 15:38 Temperature 98.1 F Pulse Rate 74 Respiratory 18 18 16 Rate Blood Pressure 112/54 (mmHg) O2 Sat by Pulse 95 Oximetry 03/21/17 03/21/17 03/21/17 16:16 17:40 19:38 Temperature 97.8 F Pulse Rate 80 Respiratory 18 20 18 Rate Blood Pressure 117/49 (mmHg) O2 Sat by Pulse 96 Oximetry 03/21/17 03/21/17 03/21/17 21:14 21:15 22:02 Temperature Pulse Rate Respiratory 20 20 18 Rate Blood Pressure (mmHg) O2 Sat by Pulse Oximetry 03/21/17 03/21/17 03/22/17 22:12 23:34 00:06 Temperature 98.0 F Pulse Rate 76 Respiratory 19 16 16 Rate Blood Pressure 114/54 (mmHg) O2 Sat by Pulse 96 93 Oximetry 03/22/17 03/22/17 03/22/17 00:07 00:14 03:23 Temperature 98.6 F Pulse Rate 79 Respiratory 16 17 16 Rate Blood Pressure 128/60 (mmHg) O2 Sat by Pulse 93 Oximetry 03/22/17 03/22/17 03/22/17 03:30 04:28 06:19 Temperature Pulse Rate Respiratory 17 15 19 Rate Blood Pressure (mmHg) O2 Sat by Pulse Oximetry 03/22/17 06:30 Temperature Pulse Rate Respiratory 18 Rate Blood Pressure (mmHg) O2 Sat by Pulse Oximetry - Intake and Output Intake and Output: Intake & Output 03/19/17 03/20/17 03/21/17 03/22/17 11:59 11:59 11:59 11:59 Intake Total 425 1945 Output Total 750 1250 Balance -325 695 Weight 205 lb Intake: Oral 425 1945 Output: Urine 750 1250 Other: # Bowel Movements 0 ADLs: Meal Record Start: 03/20/17 18: 06 Freq: Status: Active Protocol: Created 03/20/17 18:06 System (Rec: 03/20/17 18:06 System [id number]) Document 03/21/17 14:00 [id number] (Rec: 03/21/17 14:24 [id number] SSU-C03) Document 03/21/17 20:42 [id number] (Rec: 03/21/17 20:43 [id number] SSU-C22) Intake and Output Start: 03/20/17 18: 06 Freq: DAILY@0600,1400,2200 Status: Active Protocol: Created 03/20/17 18:06 System (Rec: 03/20/17 18:06 System SSU-C05) Document 03/20/17 22:00 [id number] (Rec: 03/20/17 22:27 [id number] SSU-C06) Document 03/21/17 04:22 [id number] (Rec: 03/21/17 04:22 [id number] SSU-C12) Document 03/21/17 05:26 [id number] (Rec: 03/21/17 05:26 [id number] SSU-C01) Document 03/21/17 08:14 [id number] (Rec: 03/21/17 08:15 [id number] SSU-C03) Document 03/21/17 14:00 [id number] (Rec: 03/21/17 14:23 [id number] [facility]-C03) Document 03/21/17 15:40 [id number] (Rec: 03/21/17 15:47 [id number] U-C09) Document 03/21/17 22:00 [id number] (Rec: 03/21/17 22:42 [id number] SSU-C09) Document 03/22/17 01:51 [id number] (Rec: 03/22/17 01:51 [id number] U-M14) Document 03/22/17 04:52 [id number] (Rec: 03/22/17 04:52 [id number] [facility]-C09) - Physical Exam General Physical Exam Comment: The cellulitis has regressed to well within the marked area. General: No Cyanosis, No Anemia, No Jaundice, No Clubbing Lungs and Chest: Yes: Chest Expansion Full, Chest Expansion Symetrica, Percussion Note Resonant, Vessicular Breath Sounds. No: Crackles, Wheezes Heart Rate and Rhythm: Regular Additional Cardiovascular: Yes: Normal Heart Sounds. No: Heart Murmur, Pedal Edema Abdominal Exam: Yes: Soft, Bowel Sounds Present. No: Distention, Hepatomegaly, Abdominal Tenderness Results - Results Lab Results: Laboratory Results - last 24 hr 03/21/17 03/21/17 03/21/17 07:56 12:09 17:34 WBC RBC Hgb Hct MCV MCH MCHC RDW Plt Count MPV Neut % (Auto) Lymph % (Auto) [place] % (Auto) Eos % (Auto) Baso % (Auto) Absolute Neuts (auto) Absolute Lymphs (auto) Absolute Monos (auto) Absolute Eos (auto) Absolute Basos (auto) Absolute Nucleated RBC Nucleated RBC % Sodium Potassium Chloride Carbon Dioxide Anion Gap BUN Creatinine Est GFR ( Amer) Est GFR (Non-Af Amer) BUN/Creatinine Ratio Glucose POC Glucose (mg/dL) 290 H 233 H 68 L Calcium C-Reactive Protein 03/21/17 03/21/17 03/21/17 17:58 18:19 18:42 WBC RBC Hgb Hct MCV MCH MCHC RDW Plt Count MPV Neut % (Auto) Lymph % (Auto) [place] % (Auto) Eos % (Auto) Baso % (Auto) Absolute Neuts (auto) Absolute Lymphs (auto) Absolute Monos (auto) Absolute Eos (auto) Absolute Basos (auto) Absolute Nucleated RBC Nucleated RBC % Sodium Potassium Chloride Carbon Dioxide Anion Gap BUN Creatinine Est GFR ( Amer) Est GFR (Non-Af Amer) BUN/Creatinine Ratio Glucose POC Glucose (mg/dL) 58 L 53 L 63 L Calcium C-Reactive Protein 03/21/17 03/21/17 03/22/17 19:15 21:25 04:34 WBC 14.2 H RBC 4.61 Hgb 14.1 Hct 42 MCV 90 MCH 31 MCHC 34 RDW 13 Plt Count 337 MPV 9 Neut % (Auto) 77.1 Lymph % (Auto) 12.0 L [place] % (Auto) 8.2 Eos % (Auto) 2.1 Baso % (Auto) 0.6 Absolute Neuts (auto) 11.0 H Absolute Lymphs (auto) 1.7 Absolute Monos (auto) 1.2 H Absolute Eos (auto) 0.3 Absolute Basos (auto) 0.1 Absolute Nucleated RBC 0 Nucleated RBC % 0 Sodium Potassium Chloride Carbon Dioxide Anion Gap BUN Creatinine Est GFR ( Amer) Est GFR (Non-Af Amer) BUN/Creatinine Ratio Glucose POC Glucose (mg/dL) 81 168 H Calcium C-Reactive Protein 03/22/17 04:34 WBC RBC Hgb Hct MCV MCH MCHC RDW Plt Count MPV Neut % (Auto) Lymph % (Auto) [place] % (Auto) Eos % (Auto) Baso % (Auto) Absolute Neuts (auto) Absolute Lymphs (auto) Absolute Monos (auto) Absolute Eos (auto) Absolute Basos (auto) Absolute Nucleated RBC Nucleated RBC % Sodium 131 L Potassium 3.9 Chloride 97 L Carbon Dioxide 28 Anion Gap 6 BUN 42 H Creatinine 1.84 H Est GFR ( Amer) 49.4 Est GFR (Non-Af Amer) 38.4 BUN/Creatinine Ratio 22.8 H Glucose 162 H POC Glucose (mg/dL) Calcium 8.6 C-Reactive Protein 183.23 H Radiology Results: Patient Name: BRODY KAM Medical Record#: [id number] Ordering Physician: Emiliano Clark MD Acct.#: [id number] : 1960 Age: 56 Sex: M Location: SURGICAL STAY UNIT Exam Date: 03/21/17825 ADM Status: ADM IN Order Information: MRI LOWER EXTREMITY RIGHT W/O Accession Number: [id number] CPT: 60095 Indication: Type I diabetic with severe peripheral neuropathy and peripheral vascular disease post RIGHT transtibial below-knee amputation June 16, 2016. Cellulitis at the level of the RIGHT below-knee amputation stump secondary to abrasion from prosthesis. Assess for abscess and potential osteomyelitis. Comparison: March 20, [address] Technique: Noncontrast MRI of the RIGHT lower extremity with the [id number] extending from the subtrochanteric region of the femur through the below-knee amputation stump distally. Mobilioa 1.5 Iraida BL282G with GEM suite. Report: There is bone marrow edema at the level of the amputation stump at the proximal diaphysis of the RIGHT tibia with extension cephalad along the anterior aspect to the tibial plateau with associated partial loss of normal T1 marrow hyperintensity. Normal bone marrow signal at the adjacent fibula. Additional bone marrow edema at the lateral tibial plateau, lateral femoral condyle, and RIGHT femoral condyle supracondylar region without significant loss of normal T1 marrow hyperintensity. Extensive edema within the subcutaneous tissue plane as well as skeletal musculature about the stump and extending as far proximal as the pelvis with involvement of the hamstring muscles. Infiltrative T2 hyperintense fluid extends from the level of the knee to the hamstring tendon origins along the peripheral fascia plane of the biceps femoris measuring up to 6.4 cm AP by 1.6 cm transverse by 40 cm cephalocaudal. While well marginated this collection without a suspicious thickened wall to strongly favor abscess. Smaller loculated fluid collection with fluid fluid level at the medial margin of the stump measures up to 2.4 cm AP by 2.3 cm transverse by 2.8 cm cephalocaudal and also fails to demonstrate a suspicious thickened wall. Small knee joint effusion. The contralateral lower extremity including the [id number] on the coronal series is remarkable for internal fixation hardware at the proximal tibia and subcutaneous edema laterally. IMPRESSION: 1. The constellation of findings is consistent with extensive cellulitis involving the superficial and deep soft tissue planes as well as a dominant loculated although thin-walled fluid collection extending from level of the RIGHT below-knee amputation stump to the proximal thigh with early abscess collection not excluded. The differential includes postoperative seroma or hematoma. Additional smaller loculated fluid collection at the medial margin of the stump may represent an additional abscess collection. The fluid collections are unchanged compared with the CT of one day prior. 2. Noted bone marrow signal changes at the residual tibia and represent reactive edema or early osteomyelitis. Correlate with clinical and laboratory data. Ultimately tissue sampling may be needed for Gram stain and culture. <Electronically signed by Uriel Mckay MD in [place]> 03/21/17 1213 Dictated By: Uriel Mckay MD Dictated Date/Time: 03/21/17 1213 Transcribed Date/Time: 03/21/17 1154 1 of 2 Assessment - Problem List Assessment: Patient Problems Acute renal failure (Acute) MSSA (methicillin susceptible Staphylococcus aureus) infection (Acute) Osteomyelitis of right tibia (Acute) Status post below knee amputation of right lower extremity (Acute) History of diabetic retinopathy (Chronic) History of myocardial infarction (Chronic) Hypercholesterolemia (Chronic) Peripheral neuropathy (Chronic) Presence of stent in coronary artery (Chronic) Primary hypothyroidism (Chronic) 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 He will have surgery tomorrow with Dr. Lewis to drain, debride and revise the affected soft tissue and bone. Brody Kam understands this and agrees to the procedure. He was concerned we have chosen the correct antibacterial - I will ask for Dr. 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 He will have D5/0.5 NS before his procedure. Acute renal failure - he is thirsty and drinking plenty of fluid. I will check his fractional sodium excretion and also check his urine for eosinophils in case of an interstitial nephritis. History of myocardial infarction (Chronic)/Presence of stent in coronary artery (Chronic) I note he is taking ticagrelor (brilinta). I will stop this until after the surgery. I discussed the above with the patient and he agrees with the management plan.
[2017-03-22] MEDS ORDERED: Insulin LISPRO* 1 UNITS UNIT SUBCUT SCH (08:11)
[2017-03-22] MEDS: Insulin LISPRO* 1 UNITS UNIT SUBCUT SCH ×7 (09:48→20:50)
[2017-03-22] MEDS: Metoprolol Succinate XL TAB* 100 MG PO SCH (10:01)
[2017-03-22] MEDS: Aspirin EC Low Dose* 81 MG TAB.EC PO SCH (10:01)
[2017-03-22] MEDS: Lisinopril TAB* 10 MG PO SCH (10:01)
[2017-03-22] MEDS: Insulin GLARGINE(*) 1 UNITS UNIT SUBCUT SCH ×2 (10:02→21:13)
--- NOTE | 2017-03-22 12:18 | PN ---
Progress Note - Progress Note Date of Service: 03/22/17 SOAP: Subjective: []Patient seen OOB in chir. Fever and chills resolved last night. Confirms continued RLE pain that starts at the distal aspect of his stump and radiates up the lateral aspect of his leg. Objective: []General: OOB in chair. Well appearing, NAD. RLE: Hx right BKA. Dressing soaked through with purulent drainage. Dressing changed, two < 1 cm ulcerations of the distal lateral leg with purulent drainage and surrounding erythema. Fluctuance of distal posterior aspect. Tenderness of distal RLE Vital Signs Temp 98.1 F 03/22/17 11:16 Pulse 80 03/22/17 11:16 Resp 15 03/22/17 11:16 BP 107/64 03/22/17 11:16 Pulse Ox 95 03/22/17 11:16 Intake & Output 03/21/17 03/22/17 03/22/17 18:59 06:59 18:59 Intake Total 770 1400 450 Output Total 1000 450 400 Balance -230 950 50 Weight 205 lb Intake: Oral 770 1400 450 Output: Urine 1000 450 400 Laboratory Last Values WBC 14.2 10^3/ul (3.5-10.8) H 03/22/17 04:34 RBC 4.61 10^6/ul (4.0-5.4) 03/22/17 04:34 Hgb 14.1 g/dl (14.0-18.0) 03/22/17 04:34 Hct 42 % (42-52) 03/22/17 04:34 MCV 90 fL (80-94) 03/22/17 04:34 MCH 31 pg (27-31) 03/22/17 04:34 MCHC 34 g/dl (31-36) 03/22/17 04:34 RDW 13 % (10.5-15) 03/22/17 04:34 Plt Count 337 10^3/ul (150-450) 03/22/17 04:34 MPV 9 um3 (7.4-10.4) 03/22/17 04:34 Neut % (Auto) 77.1 % (38-83) 03/22/17 04:34 Lymph % (Auto) 12.0 % (25-47) L 03/22/17 04:34 [place] % (Auto) 8.2 % (1-9) 03/22/17 04:34 Eos % (Auto) 2.1 % (0-6) 03/22/17 04:34 Baso % (Auto) 0.6 % (0-2) 03/22/17 04:34 Absolute Neuts (auto) 11.0 10^3/ul (1.5-7.7) H 03/22/17 04:34 Absolute Lymphs (auto) 1.7 10^3/ul (1.0-4.8) 03/22/17 04:34 Absolute Monos (auto) 1.2 10^3/ul (0-0.8) H 03/22/17 04:34 Absolute Eos (auto) 0.3 10^3/ul (0-0.6) 03/22/17 04:34 Absolute Basos (auto) 0.1 10^3/ul (0-0.2) 03/22/17 04:34 Absolute Nucleated RBC 0 10^3/ul 03/22/17 04:34 Nucleated RBC % 0 03/22/17 04:34 Eosinophil Smear None seen 03/22/17 10:40 Sodium 133 mmol/L (133-145) 03/22/17 10:40 Potassium 3.9 mmol/L (3.5-5.0) 03/22/17 04:34 Chloride 97 mmol/L (101-111) L 03/22/17 04:34 Carbon Dioxide 28 mmol/L (22-32) 03/22/17 04:34 Anion Gap 6 mmol/L (2-11) 03/22/17 04:34 BUN 42 mg/dL (6-24) H 03/22/17 04:34 Creatinine 1.77 mg/dL (0.51-0.95) H 03/22/17 10:40 Est GFR ( Amer) 49.4 (>60) 03/22/17 04:34 Est GFR (Non-Af Amer) 38.4 (>60) 03/22/17 04:34 BUN/Creatinine Ratio 22.8 (8-20) H 03/22/17 04:34 Glucose 162 mg/dL (70-100) H 03/22/17 04:34 POC Glucose (mg/dL) 87 mg/dL (70-100) 03/22/17 11:44 Calcium 8.6 mg/dL (8.6-10.3) 03/22/17 04:34 Total Bilirubin 0.90 mg/dL (0.2-1.0) 03/20/17 18:40 AST 40 U/L (13-39) H 03/20/17 18:40 ALT 30 U/L (7-52) 03/20/17 18:40 Alkaline Phosphatase 168 U/L (34-104) H 03/20/17 18:40 C-Reactive Protein 183.23 mg/L (< 5.00) H 03/22/17 04:34 Total Protein 5.6 g/dL (6.4-8.9) L 03/20/17 18:40 Albumin 2.6 g/dL (3.2-5.2) L 03/20/17 18:40 Globulin 3.0 g/dL (2-4) 03/20/17 18:40 Albumin/Globulin Ratio 0.9 (1-3) L 03/20/17 18:40 Ur Random Creatinine 222.97 mg/dL 03/22/17 10:40 Ur Random Sodium 19 mmol/L 03/22/17 10:40 Renal Sodium Excretion 0.11 % 03/22/17 10:40 Assessment: []RLE osteomyelitis of distal stump Plan: []NWB RLE IV abx per ID Plan for RLE I&D, stump revision 03/[address] Joshua. Hold heparin and NPO after midnight
[2017-03-22] MEDS ORDERED: Buffered Lidocaine 0.9% SYRIN* 5 ML/SYR SYRINGE INTRADERM ONE (12:37)
[2017-03-22] MEDS: Piperacillin/Tazobactam 13.5 GM IV 24 hour continuous infusion IVPB SCH ×2 (17:15)
--- NOTE | 2017-03-22 17:57 | CONS ---
CONSULTATION REPORT: DATE OF CONSULT: 03/22/17 HISTORY OF PRESENT ILLNESS: Brody is a pleasant 56-year-old gentleman with type 1 diabetes who is status post right below knee amputation. He did quite well but claims that he has had a new prosthetic fitting and now has broken down the stump. The breakdown is unusual. It is not so much at the distal end. It is more along the lateral proximal leg, sort of perifibular, and this is where his drainage is and he complains of pain up the lateral thigh. Indeed, his exam is similar with erythema and swelling laterally. He does have a small soft tissue collection near the end of the stump on the MRI and some uptake in the distal tibia at the cut, but I will have review the MRI to more carefully assess this more lateral proximal extension. At any rate, he is going to need revision of this and will be scheduled tomorrow. I hope to achieve this after my office hours. I cannot guarantee how much of the leg we are going to keep for him but we will have to open up this lateral extent to see if there is tracking or any involvement of the fibula itself. [id number]/[facility] #: [id number] SARA
--- NOTE | 2017-03-22 19:04 | CONS ---
CONSULTATION REPORT: DATE OF CONSULT: 03/22/17 REQUESTING PHYSICIAN: Dr. Clark. CONSULTING SERVICE: Infectious Disease. REASON FOR CONSULT: Right leg infection. IMPRESSION: 1. History of right below the knee amputation, May 2016, now with a lateral lower leg ulcer and associated cellulitis and abscess up into the upper leg confirmed by MRI as well as acute osteomyelitis of the distal tibia. A wound culture was taken and Gram-stain showed gram-positive cocci with PCR for methicillin-resistant Staphylococcus aureus was positive. It could be polymicrobial, but I suspect Staphylococcus aureus is the main pathogen here. 2. Type 1 diabetes with severe neuropathy, history of right Charcot foot, right lower extremity infection, eventual below the knee amputation. 3. Coronary disease and history of myocardial infarction. 4. Peripheral vascular disease. RECOMMENDATION: Agree with Zosyn which will be continuous infusion and I suspect a reasonably long course of IV antibiotics will be important for eradicating any remaining infection after the surgery. We will await operative cultures before making any final decisions on discharge antibiotics. HISTORY OF PRESENT ILLNESS: This is a 56-year-old diabetic with a history of right tqlsv-fhk-tamh amputation. He has had a couple of weeks of wound on the lateral amputation site, which otherwise has been well healed. He thinks maybe there was a rubbing from his prosthesis initially. It was about a dime-sized wound. He developed some swelling and pain around it, saw Dr. Clark, and was started on cefdinir and clindamycin. Despite that, he had progression of pain and swelling up into his upper leg in the lateral area of the leg. He developed some chills and fevers at home. Because of the progression of the symptoms, he came to the hospital on 03/20/17, was seen by Dr. Clark, who started him on Zosyn, obtained an MRI that showed likely osteomyelitis of the tibia, diffuse cellulitis, and loculated thin-walled collection from the right bunion amputation to the proximal thigh. Since he has been here, he has had only low- grade fevers. His appetite is good. No diarrhea. He is going to have incision and debridement this week. PAST MEDICAL HISTORY: 1. Type 1 diabetes, complicated by neuropathy, retinopathy. 2. Coronary disease, history of an AR. 3. Peripheral vascular disease. 4. Status post right above the knee amputation, May 2016. 5. Left ankle reduction and fixation in 2007. 6. Status post right common femoral angioplasty, January 2016. 7. Hyperlipidemia. 8. Hypothyroidism. 9. Chronic kidney disease. MEDICATIONS: 1. Aspirin. 2. Lipitor. 3. Heparin subcutaneous injection. 4. Dilaudid as needed. 5. Insulin lispro. 6. Levothyroxine. 7. Lisinopril. 8. Zosyn 3.375 g. ALLERGIES: SIMVASTATIN. FAMILY HISTORY: Mother had type 2 diabetes. Father with stroke and hypertension. SOCIAL HISTORY: He lives in [place]. He is a past smoker. Occasional alcohol use. He is . REVIEW OF SYSTEMS: A 14-point review of systems was negative except as noted above in history of present illness. PHYSICAL EXAM: Vital Signs: Temperature 36.6, heart rate 78, respiratory rate 15, blood pressure 126/56, oxygen saturation 95% on room air. In general, he is awake, not in distress. Neurologic: He is oriented x3. Moves all extremities. Answer questions appropriately. HEENT: There is no conjunctival hemorrhage. Oropharynx without lesions. Neck: Supple. Lymph Nodes: There is no inguinal, axillary, or epitrochlear lymphadenopathy. Heart has regular rate and rhythm without murmurs, rubs, or gallops. Lungs: Clear to auscultation bilaterally. Abdomen: Soft, nontender, nondistended. There are bowel sounds present. Skin: There is no rash or splinter hemorrhages. Musculoskeletal: There is a right below the knee amputation site, which is well healed, but lateral and proximal to that, there is a 1.5-cm ulceration with some serous drainage and from there up until the distal thigh, there is diffuse warmth, tenderness, and edema. There is no crepitus or fluctuance. LABORATORY DATA: White blood cell count 14, hemoglobin 14, platelets 337. Creatinine is 1.8. CRP 183. Thank you for asking me to see Mr. Kam in consultation. [id number]/[facility] #: [id number] SARA
[2017-03-22] MEDS: HYDROmorphone INJ* 2 MG/ML CARPUJECT SYRINGE IV SLOW PU PRN (21:12)
[2017-03-22] MEDS: Atorvastatin* 40 MG TAB PO SCH (21:13)
[2017-03-22] MEDS ORDERED: D5W 1/2 NS KCl 20 Meq 1000 ML* 1,000 ML IV SCH (22:00)
[2017-03-23] MEDS: HYDROmorphone INJ* 2 MG/ML CARPUJECT SYRINGE IV SLOW PU PRN ×4 (02:29→22:29)
[2017-03-23 05:27] LABS: ABS Basophils 0 10^3/ul (0-0.2); ABS Eosinophils 0.2 10^3/ul (0-0.6); ABS Lymphocytes 1.3 10^3/ul (1.0-4.8); ABS Monocytes 1.3 10^3/ul (0-0.8); ABS Neutrophils 9.2 10^3/ul (1.5-7.7); ABS Nucleated RBC 0 10^3/ul; Eosinophil % 1.8 % (0-6); Hematocrit 39 % (42-52); Lymphocyte % 10.6 % (25-47); Mean Corpuscular HGB Conc 34 g/dl (31-36); Mean Corpuscular Hemoglobin 30 pg (27-31); Mean Corpuscular Volume 90 fL (80-94); Mean Platelet Volume 9 um3 (7.4-10.4); Nucleated Red Blood Cells % 0.1; Platelet Count 311 10^3/ul (150-450); Red Blood Count 4.31 10^6/ul (4.0-5.4); Red Cell Distribution Width 13 % (10.5-15); White Blood Count 11.9 10^3/ul (3.5-10.8)
[2017-03-23] MEDS: Levothyroxine TAB* 100 MCG TAB PO SCH (05:34)
[2017-03-23] MEDS: Heparin VIAL(*) 5000 UNITS/ML VIAL (FIVE THOUSAND) SUBCUT SCH ×3 (05:34→22:25)
[2017-03-23 05:42] LABS: EGFR Non-African American 42.1 (>60)
[2017-03-23] MEDS ORDERED: Sodium Citrate/Citric Acid* 15 ML UDC PO ONE (06:00)
[2017-03-23] MEDS ORDERED: Acetaminophen IV 1GM/100ML * 1,000 MG/100 ML VIAL IVPB ONE (06:00)
[2017-03-23] MEDS: Insulin LISPRO* 1 UNITS UNIT SUBCUT SCH ×7 (07:25→21:42)
--- NOTE | 2017-03-23 07:49 | PN ---
Subjective - Subjective Reason for Note: Progress Note History: He is NPO and finds the 3 hour limit on oxymorphone too infrequent for pain control. He has had no fevers/sweats. He continues to feel dry. His glycemic control has been on target. 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, uncontrolled (Chronic ) E10.49, E10.65 Current Medications: Current Medications Aspirin (Aspirin Ec Low Dose*) 81 mg PO DAILY [facility] Last Admin: 03/22/17 10:01 Dose: 81 mg Atorvastatin Calcium (Lipitor*) 80 mg PO 2100 [facility] Last Admin: 03/22/17 21:13 Dose: 80 mg Dextrose (D50w Syringe 50 Ml*) 12.5 gm IV PUSH .FOR FS < 60 - SS PRN PRN Reason: FS < 60 Heparin Sodium (Porcine) (Heparin Vial(*)) 5,000 units SUBCUT Q8HR [facility] Last Admin: 03/23/17 05:34 Dose: Not Given Hydromorphone HCl (Dilaudid Inj*) 2 mg IV SLOW PU Q4H PRN PRN Reason: PAIN Last Admin: 03/23/17 02:29 Dose: 2 mg Potassium Chloride/Dextrose (D5w 1/2 Ns Kcl 20 Meq 1000 Ml*) 1,000 mls @ 100 mls/hr IV PER RATE [facility] Last Admin: 03/23/17 02:37 Dose: 100 mls/hr Piperacillin Sod/Tazobactam (Sod 13.5 gm/ Sodium Chloride) 500 mls @ 20.833 mls /hr IVPB Q24H [facility] Last Admin: 03/22/17 17:15 Dose: 20.833 mls/hr Lactated Ringer's (Lactated Ringers 1000 Ml Bag*) 1,000 mls @ 125 mls/hr IV PER RATE [facility] Insulin Glargine (Lantus(*)) 30 units SUBCUT Q12H [facility] Last Admin: 03/22/17 21:13 Dose: 30 units Insulin Human Lispro (Humalog*) 0 - 10 units SUBCUT ACHS [facility] PRN Reason: Protocol Last Admin: 03/23/17 07:25 Dose: Not Given Insulin Human Lispro (Humalog*) 0 units SUBCUT AC [facility] PRN Reason: Protocol Last Admin: 03/23/17 07:26 Dose: Not Given Levothyroxine Sodium (Synthroid Tab*) 200 mcg PO DAILY@0600 [facility] Last Admin: 03/23/17 05:34 Dose: 200 mcg Lisinopril (Prinivil Tab*) 10 mg PO DAILY [facility] Last Admin: 03/22/17 10:01 Dose: 10 mg Metoprolol Succinate (Toprol Xl Tab*) 100 mg PO DAILY [facility] Last Admin: 03/22/17 10:01 Dose: 100 mg Oxycodone HCl (Roxycodone Tab*) 10 mg PO Q3H PRN PRN Reason: PAIN - MILD TO MODERATE Last Admin: 03/22/17 18:54 Dose: 10 mg Pharmacy Consult ([place] Per Pharmacy*) 1 note FOLLOW UP . PRN PRN Reason: PER PROTOCOL Home Medications: Home Medications Medication Instructions Recorded Confirmed Type Insulin Glargine [Lantus] 60 unit SUBCUT QPM #0 06/04/15 06/17/16 History Atorvastatin* [Lipitor 80 MG*] 80 mg PO DAILY #30 tab 06/07/15 06/17/16 Rx Lisinopril TAB* [Prinivil TAB 10 10 mg PO DAILY tab 06/07/15 06/17/16 Rx MG*] Metoprolol Succinate XL TAB* 100 mg PO DAILY #30 tab.xl 06/07/15 06/17/16 Rx [Toprol XL TAB*] Nitroglycerin TAB 0.4 MG* 0.4 mg SL Q5M PRN #20 tab 06/07/15 06/17/16 Rx Ticagrelor* [Brilinta 90 MG*] 90 mg PO BID #60 tab 06/07/15 06/17/16 Rx Aspirin EC Low Dose* [Ecotrin EC 81 mg PO DAILY 02/15/16 06/17/16 History Low Dose 81 MG*] Insulin Lispro [Humalog] 0 - 100 units SUBCUT TID 02/15/16 06/17/16 History Levothyroxine TAB* [Synthroid 100 200 mcg PO DAILY 06/17/16 06/17/16 History MCG TAB*] Levothyroxine TAB* [Synthroid 25 25 mcg PO DAILY 06/17/16 06/17/16 History MCG TAB*] HYDROmorphone TAB* [Dilaudid TAB*] 2 mg PO Q4H PRN #0 tab MDD 6 06/23/16 Rx Sulfamethox/Trimethoprim DS* 1 tab PO BID #20 tab 06/23/16 Rx [Bactrim DS 800/160 TAB*] oxyCODONE/Acetamin 5/325 MG* 2 tab PO Q4H PRN #48 tab MDD 6 06/23/16 Rx [Percocet 5/325 TAB*] Allergies: Allergies Allergy/AdvReac Type Severity Reaction Status Date / Time No Known Drug Allergy Allergy See Comment Verified 06/17/16 17:57 Objective - Vital Signs Vital Signs: Vital Signs 03/22/17 03/22/17 03/22/17 08:00 10:10 10:17 Temperature Pulse Rate Respiratory 18 20 18 Rate Blood Pressure (mmHg) O2 Sat by Pulse Oximetry 03/22/17 03/22/17 03/22/17 11:16 14:13 15:19 Temperature 98.1 F Pulse Rate 80 Respiratory 15 18 18 Rate Blood Pressure 107/64 (mmHg) O2 Sat by Pulse 95 Oximetry 03/22/17 03/22/17 03/22/17 15:24 16:24 18:54 Temperature 98.5 F Pulse Rate 77 Respiratory 16 18 18 Rate Blood Pressure 128/69 (mmHg) O2 Sat by Pulse 96 Oximetry 03/22/17 03/22/17 03/22/17 19:20 20:50 21:12 Temperature 99.2 F Pulse Rate 77 Respiratory 20 18 18 Rate Blood Pressure 124/61 (mmHg) O2 Sat by Pulse 97 Oximetry 03/22/17 03/22/17 03/22/17 21:26 22:02 23:30 Temperature 98.6 F Pulse Rate 74 Respiratory 18 16 15 Rate Blood Pressure 106/56 (mmHg) O2 Sat by Pulse 94 Oximetry 03/23/17 03/23/17 03/23/17 02:29 03:19 03:37 Temperature 98.8 F Pulse Rate 74 Respiratory 16 14 18 Rate Blood Pressure 132/65 (mmHg) O2 Sat by Pulse 98 Oximetry - Intake and Output Intake and Output: Intake & Output 03/20/17 03/21/17 03/22/17 03/23/17 11:59 11:59 11:59 11:59 Intake Total 425 2395 850 Output Total 750 1650 500 Balance -325 745 350 Weight 205 lb Intake: Oral 425 2395 850 Output: Urine 750 1650 500 Other: # Bowel Movements 0 ADLs: Meal Record Start: 03/20/17 18: 06 Freq: Status: Active Protocol: Created 03/20/17 18:06 System (Rec: 03/20/17 18:06 System SSU-C05) Document 03/21/17 14:00 [id number] (Rec: 03/21/17 14:24 [id number] SSU-C03) Document 03/21/17 20:42 [id number] (Rec: 03/21/17 20:43 [id number] SSU-C22) Document 03/22/17 10:13 [id number] (Rec: 03/22/17 10:13 [id number] SSU-C08) Intake and Output Start: 03/20/17 18: 06 Freq: DAILY@0600,1400,2200 Status: Active Protocol: Created 03/20/17 18:06 System (Rec: 03/20/17 18:06 System SSU-C05) Document 03/20/17 22:00 [id number] (Rec: 03/20/17 22:27 [id number] S[facility]-C06) Document 03/21/17 04:22 [id number] (Rec: 03/21/17 04:22 [id number] SSU-C12) Document 03/21/17 05:26 [id number] (Rec: 03/21/17 05:26 [id number] [facility]-C01) Document 03/21/17 08:14 [id number] (Rec: 03/21/17 08:15 [id number] SSU-C03) Document 03/21/17 14:00 [id number] (Rec: 03/21/17 14:23 [id number] SSU-C03) Document 03/21/17 15:40 [id number] (Rec: 03/21/17 15:47 [id number] SSU-C09) Document 03/21/17 22:00 [id number] (Rec: 03/21/17 22:42 [id number] U-C09) Document 03/22/17 01:51 [id number] (Rec: 03/22/17 01:51 [id number] U-M14) Document 03/22/17 04:52 [id number] (Rec: 03/22/17 04:52 [id number] [facility]-C09) Document 03/22/17 11:45 [id number] (Rec: 03/22/17 11:45 [id number] U-C08) Document 03/22/17 17:20 [id number] (Rec: 03/22/17 17:20 [id number] U-M07) Document 03/22/17 22:00 [id number] (Rec: 03/22/17 22:02 [id number] U-C01) Document 03/23/17 06:34 [id number] (Rec: 03/23/17 06:34 [id number] U-C08) - Physical Exam General: No Cyanosis, No Anemia, No Jaundice, No Clubbing Lungs and Chest: Yes: Chest Expansion Full, Chest Expansion Symetrica, Percussion Note Resonant, Vessicular Breath Sounds. No: Crackles, Wheezes Heart Rate and Rhythm: Regular JVP: Not Elevated Additional Cardiovascular: Yes: Normal Heart Sounds. No: Heart Murmur, Pedal Edema Abdominal Exam: Yes: Soft. No: Distention, Abdominal Tenderness Results - Results Lab Results: Laboratory Results - last 24 hr 03/22/17 03/22/17 03/22/17 07:46 10:40 10:40 WBC RBC Hgb Hct MCV MCH MCHC RDW Plt Count MPV Neut % (Auto) Lymph % (Auto) Stevens % (Auto) Eos % (Auto) Baso % (Auto) Absolute Neuts (auto) Absolute Lymphs (auto) Absolute Monos (auto) Absolute Eos (auto) Absolute Basos (auto) Absolute Nucleated RBC Nucleated RBC % Eosinophil Smear None seen Sodium 133 Potassium Chloride Carbon Dioxide Anion Gap BUN Creatinine 1.77 H Est GFR ( Amer) Est GFR (Non-Af Amer) BUN/Creatinine Ratio Glucose POC Glucose (mg/dL) 122 H Calcium C-Reactive Protein Ur Random Creatinine 222.97 Ur Random Sodium 19 Renal Sodium Excretion 0.11 03/22/17 03/22/17 03/22/17 11:44 17:15 20:57 WBC RBC Hgb Hct MCV MCH MCHC RDW Plt Count MPV Neut % (Auto) Lymph % (Auto) Stevens % (Auto) Eos % (Auto) Baso % (Auto) Absolute Neuts (auto) Absolute Lymphs (auto) Absolute Monos (auto) Absolute Eos (auto) Absolute Basos (auto) Absolute Nucleated RBC Nucleated RBC % Eosinophil Smear Sodium Potassium Chloride Carbon Dioxide Anion Gap BUN Creatinine Est GFR ( Amer) Est GFR (Non-Af Amer) BUN/Creatinine Ratio Glucose POC Glucose (mg/dL) 87 102 H 75 Calcium C-Reactive Protein Ur Random Creatinine Ur Random Sodium Renal Sodium Excretion 03/23/17 03/23/17 05:05 05:05 WBC 11.9 H RBC 4.31 Hgb 13.0 L Hct 39 L MCV 90 MCH 30 MCHC 34 RDW 13 Plt Count 311 MPV 9 Neut % (Auto) 76.6 Lymph % (Auto) 10.6 L Stevens % (Auto) 10.7 H Eos % (Auto) 1.8 Baso % (Auto) 0.3 Absolute Neuts (auto) 9.2 H Absolute Lymphs (auto) 1.3 Absolute Monos (auto) 1.3 H Absolute Eos (auto) 0.2 Absolute Basos (auto) 0 Absolute Nucleated RBC 0 Nucleated RBC % 0.1 Eosinophil Smear Sodium 132 L Potassium 3.9 Chloride 99 L Carbon Dioxide 27 Anion Gap 6 BUN 43 H Creatinine 1.70 H Est GFR ( Amer) 54.1 Est GFR (Non-Af Amer) 42.1 BUN/Creatinine Ratio 25.3 H Glucose 116 H POC Glucose (mg/dL) Calcium 8.4 L C-Reactive Protein 121.73 H Ur Random Creatinine Ur Random Sodium Renal Sodium Excretion Assessment - Problem List Assessment: Patient Problems Acute renal failure (Acute) MSSA (methicillin susceptible Staphylococcus aureus) infection (Acute) Osteomyelitis of right tibia (Acute) Status post below knee amputation of right lower extremity (Acute) History of diabetic retinopathy (Chronic) History of myocardial infarction (Chronic) Hypercholesterolemia (Chronic) Peripheral neuropathy (Chronic) Presence of stent in coronary artery (Chronic) Primary hypothyroidism (Chronic) 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 I reviewed Dr. Hightower's consultation note - I will follow his lead. Acute renal failure (Acute) The fractional sodium excretion shows this is pre- renal. I will add some extra LF to his current IVF Status post below knee amputation of right lower extremity (Acute) History of diabetic retinopathy (Chronic) Type 1 diabetes mellitus with neurological manifestations, uncontrolled (Chronic) Tightly controlled - currently on IVF of 5% dextrose/0.5 NS at 100 mls per hour I discussed the above with the patient. From the medical point of view he is optimized for surgery
[2017-03-23] MEDS: Metoprolol Succinate XL TAB* 100 MG PO SCH (08:48)
[2017-03-23] MEDS: Lisinopril TAB* 10 MG PO SCH (08:48)
[2017-03-23] MEDS: Insulin GLARGINE(*) 1 UNITS UNIT SUBCUT SCH ×2 (08:48→20:09)
[2017-03-23] MEDS: Aspirin EC Low Dose* 81 MG TAB.EC PO SCH (08:48)
[2017-03-23] MEDS: oxyCODONE TAB* 5 MG TAB PO PRN ×3 (09:32→23:02)
[2017-03-23] MEDS ORDERED: Lidocaine 2% PF * 5 ML VIAL ONE (12:43)
[2017-03-23] MEDS ORDERED: Propofol* 10 MG/ML 20 ML BTL IV PUSH ONE (12:45)
[2017-03-23] MEDS ORDERED: Midazolam* 1 MG/ML 2 ML VIAL (2 MG) ONE (12:46)
[2017-03-23] MEDS ORDERED: fentaNYL* 50 MCG/ML 2 ML VIAL (100 MCG VIAL) ONE ×4 (12:46→16:49)
[2017-03-23] MEDS ORDERED: Esmolol* 10 MG/ML 10 ML (100 mg) ONE (12:54)
[2017-03-23] MEDS ORDERED: Famotidine IV* 10 MG/ML 2 ML (20 mg) ONE (13:52)
[2017-03-23] MEDS ORDERED: Scopolamine 1.5 mg* PATCH ONE (13:52)
[2017-03-23] MEDS ORDERED: Ondansetron INJ* 2 MG/ML VIAL ONE (13:52)
[2017-03-23] MEDS ORDERED: HYDROmorphone INJ* 1 MG/ML CARPUJECT SYRINGE IV PRN (13:54)
[2017-03-23] MEDS ORDERED: oxyCODONE/Acetamin 5/325 MG* TAB PO PRN (13:54)
[2017-03-23] MEDS ORDERED: HYDROcodone/ACETAMIN 5-325 MG* 1 TAB PO PRN (13:54)
[2017-03-23] MEDS ORDERED: Ondansetron INJ* 2 MG/ML VIAL IV PRN (13:54)
[2017-03-23] MEDS ORDERED: Naloxone* 0.4 MG/ML 1 ML VIAL IV PRN (13:54)
[2017-03-23] MEDS ORDERED: PROCHLORPERAZINE INJ 5 MG/ML 2 ML VIAL IV PRN (13:54)
[2017-03-23] MEDS ORDERED: EPHEDrine (Pressors)* 50 MG/ML VIAL ONE (14:46)
[2017-03-23] MEDS: fentaNYL* 50 MCG/ML 2 ML VIAL (100 MCG VIAL) IV PRN ×3 (16:12→16:50)
[2017-03-23] MEDS: Piperacillin/Tazobactam 13.5 GM IV 24 hour continuous infusion IVPB SCH ×2 (17:36)
[2017-03-23] MEDS: Atorvastatin* 80 MG TAB PO SCH (20:07)
--- NOTE | 2017-03-24 04:16 | OP ---
DATE OF OPERATION: 03/23/17 - ROOM #332 DATE OF : 62 ATTENDING SURGEON: Paco Lewis MD DIRECTOR ELECTRONICS: Pamela Pablo PA-C. ANESTHESIOLOGIST: Jasmyn Daigle MD ANESTHESIA: General PRE-OP DIAGNOSES: Right below knee amputation, sepsis, and dehiscence. POST-OP DIAGNOSES: Right below knee amputation, sepsis and dehiscence with large abscess all the way up to the mid thigh. DESCRIPTION OF PROCEDURE: The patient was taken to the operating room where we opened up along the anterior transverse incision at the BKA stump, but then tracing to an abscess which was pretty much near the fibular head. Gross purulence was obtained from this area, which was free flowing. This was sent for culture. We incised then along the lateral thigh tracing this large abscess which to the mid thigh along the posterior and lateral area of the thigh itself. We also raised the flap off the anterior aspect of the tibial crest and removed 3 cm of distal tibia as well as fibula to be sent for pathology. We dropped the tourniquet to allow us then to further irrigate the proximal thigh. Hemostasis was obtained with some suture ligatures, but also electrocautery. 9 L of pulsatile lavage was used to clean the area. We did close with #1 PDS sutures and an interrupted 0 Prolene for the skin. There was a Hemovac placed along the lateral thigh wound. Compression dressing was then applied. Blood loss was about 200 cc. [id number]/CPS #: [id number] MTDD
[2017-03-24] MEDS: Levothyroxine TAB* 100 MCG TAB PO SCH (06:08)
[2017-03-24] MEDS: Heparin VIAL(*) 5000 UNITS/ML VIAL (FIVE THOUSAND) SUBCUT SCH ×3 (06:13→22:11)
[2017-03-24] MEDS: Insulin LISPRO* 1 UNITS UNIT SUBCUT SCH ×7 (08:07→22:04)
[2017-03-24] MEDS: Metoprolol Succinate XL TAB* 100 MG PO SCH (08:12)
[2017-03-24] MEDS: oxyCODONE TAB* 5 MG TAB PO PRN ×3 (08:12→23:20)
[2017-03-24] MEDS: Aspirin EC Low Dose* 81 MG TAB.EC PO SCH (08:12)
[2017-03-24] MEDS: Lisinopril TAB* 10 MG PO SCH (08:12)
--- NOTE | 2017-03-24 08:31 | PN ---
Progress Note - Progress Note Date of Service: 03/24/17 SOAP: Subjective: 56 y/o male s/p R BKA by Dr. Lewis 03/23. VSS afebrile overnight. Patient reports feeling well, no complaints. Objective: General- Well appearing, NAD, sitting comfortably in bed. MSK- Dressing on stump c/d/i, no odor, drain with serousang output, dark red, no induration of upper thigh. Vital Signs Temp 98.9 F 03/24/17 11:12 Pulse 85 03/24/17 11:12 Resp 18 03/24/17 11:12 BP 108/45 03/24/17 11:12 Pulse Ox 92 03/24/17 11:12 Intake & Output 03/23/17 03/24/17 03/24/17 18:59 06:59 18:59 Intake Total 1842 680 240 Output Total 750 280 400 Balance 1092 400 -160 Intake: IV Fluids 1692 D5W 1/2 NS 20 meq KCL 586 LR 1106 IVPB 100 D5W 1/2 NS 20 meq KCL 100 Oral 50 680 240 Output: Urine 500 280 400 Estimated Blood Loss 250 Other: # Bowel Movements 0 Assessment: Stable 56 y/o male s/p R BKA by Dr. Lewis 03/23. Plan: - creatining 1.70 stable, - IV- Zosyn - DVT prophylaxis- heparin - CRP continuing to decrease, follow loosely Active Medications Generic Name Dose Route Start Last Admin Trade Name Freq PRN Reason Stop Dose Admin Aspirin 81 mg 03/21/17 09:00 03/24/17 08:12 Aspirin Ec Low Dose* PO 81 mg DAILY [facility] Administration Atorvastatin Calcium 80 mg 03/23/17 21:00 03/23/17 20:07 Lipitor* PO 80 mg 2100 [facility] Administration Dextrose 12.5 gm 03/20/17 17:24 D50w Syringe 50 Ml* IV PUSH .FOR FS < 60 - SS PRN FS < 60 Heparin Sodium (Porcine) 5,000 units 03/20/17 22:00 03/24/17 06:13 Heparin Vial(*) SUBCUT 5,000 units Q8HR [facility] Administration Hydromorphone HCl 2 mg 03/20/17 17:30 03/23/17 22:29 Dilaudid Inj* IV SLOW PU 2 mg Q4H PRN Administration PAIN Potassium Chloride/Dextrose 1,000 mls @ 100 mls/hr 03/22/17 22:00 03/23/17 02 :37 D5w 1/2 Ns Kcl 20 Meq 1000 Ml* IV 100 mls/hr PER RATE [facility] Administration Piperacillin Sod/Tazobactam 500 mls @ 20.833 mls/hr 03/22/17 17:15 03/23/17 17:36 Sod 13.5 gm/ Sodium Chloride IVPB 20.833 mls/hr Q24H [facility] Administration Insulin Glargine 20 units 03/24/17 08:30 03/24/17 09:26 Lantus(*) SUBCUT 20 unit Q12H [facility] Administration Insulin Human Lispro 0 - 10 units 03/20/17 22:00 03/24/17 12:07 Humalog* SUBCUT Not Given ACHS [facility] Protocol Insulin Human Lispro 0 units 03/22/17 08:13 03/24/17 09:53 Humalog* SUBCUT Not Given AC [facility] Protocol Levothyroxine Sodium 200 mcg 03/21/17 06:00 03/24/17 06:08 Synthroid Tab* PO 200 mcg DAILY@0600 [facility] Administration Lisinopril 10 mg 03/21/17 09:00 03/24/17 08:12 Prinivil Tab* PO 10 mg DAILY [facility] Administration Metoprolol Succinate 100 mg 03/21/17 09:00 03/24/17 08:12 Toprol Xl Tab* PO 100 mg DAILY [facility] Administration Oxycodone HCl 10 mg 03/21/17 08:30 03/24/17 08:12 Roxycodone Tab* PO 10 mg Q3H PRN Administration PAIN - MILD TO MODERATE Pharmacy Consult 1 note 03/20/17 19:35 Zosyn Per Pharmacy* FOLLOW UP . PRN PER PROTOCOL Ticagrelor 90 mg 03/24/17 09:00 03/24/17 09:22 Brilinta* PO 90 mg BID [facility] Administration
--- NOTE | 2017-03-24 08:36 | PN ---
Subjective - Subjective Reason for Note: Progress Note History: He tolerated surgery well and has had good pain control since. He is eating and drinking - continues to feel thirsty. His glycemic control is very tight - no hypoglycemia. He has no cough, sputum or dyspnea. His has an appetite and a call to stool today. No other new symptoms of adverse effects to zosyn. 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, uncontrolled (Chronic ) E10.49, E10.65 Current Medications: Current Medications Aspirin (Aspirin Ec Low Dose*) 81 mg PO DAILY [facility] Last Admin: 03/24/17 08:12 Dose: 81 mg Atorvastatin Calcium (Lipitor*) 80 mg PO 2100 [facility] Last Admin: 03/23/17 20:07 Dose: 80 mg Dextrose (D50w Syringe 50 Ml*) 12.5 gm IV PUSH .FOR FS < 60 - SS PRN PRN Reason: FS < 60 Heparin Sodium (Porcine) (Heparin Vial(*)) 5,000 units SUBCUT Q8HR [facility] Last Admin: 03/24/17 06:13 Dose: 5,000 units Hydromorphone HCl (Dilaudid Inj*) 2 mg IV SLOW PU Q4H PRN PRN Reason: PAIN Last Admin: 03/23/17 22:29 Dose: 2 mg Potassium Chloride/Dextrose (D5w 1/2 Ns Kcl 20 Meq 1000 Ml*) 1,000 mls @ 100 mls/hr IV PER RATE [facility] Last Admin: 03/23/17 02:37 Dose: 100 mls/hr Piperacillin Sod/Tazobactam (Sod 13.5 gm/ Sodium Chloride) 500 mls @ 20.833 mls /hr IVPB Q24H [facility] Last Admin: 03/23/17 17:36 Dose: 20.833 mls/hr Insulin Glargine (Lantus(*)) 30 units SUBCUT Q12H [facility] Last Admin: 03/23/17 20:09 Dose: 30 units Insulin Human Lispro (Humalog*) 0 - 10 units SUBCUT ACHS [facility] PRN Reason: Protocol Last Admin: 03/24/17 08:07 Dose: Not Given Insulin Human Lispro (Humalog*) 0 units SUBCUT AC [facility] PRN Reason: Protocol Last Admin: 03/23/17 17:31 Dose: Not Given Levothyroxine Sodium (Synthroid Tab*) 200 mcg PO DAILY@0600 [facility] Last Admin: 03/24/17 06:08 Dose: 200 mcg Lisinopril (Prinivil Tab*) 10 mg PO DAILY [facility] Last Admin: 03/24/17 08:12 Dose: 10 mg Metoprolol Succinate (Toprol Xl Tab*) 100 mg PO DAILY [facility] Last Admin: 03/24/17 08:12 Dose: 100 mg Oxycodone HCl (Roxycodone Tab*) 10 mg PO Q3H PRN PRN Reason: PAIN - MILD TO MODERATE Last Admin: 03/24/17 08:12 Dose: 10 mg Pharmacy Consult ([facility] Per Pharmacy*) 1 note FOLLOW UP . PRN PRN Reason: PER PROTOCOL Home Medications: Home Medications Medication Instructions Recorded Confirmed Type Insulin Glargine [Lantus] 60 unit SUBCUT QPM #0 06/04/15 06/17/16 History Atorvastatin* [Lipitor 80 MG*] 80 mg PO DAILY #30 tab 06/07/15 06/17/16 Rx Lisinopril TAB* [Prinivil TAB 10 10 mg PO DAILY tab 06/07/15 06/17/16 Rx MG*] Metoprolol Succinate XL TAB* 100 mg PO DAILY #30 tab.xl 06/07/15 06/17/16 Rx [Toprol XL TAB*] Nitroglycerin TAB 0.4 MG* 0.4 mg SL Q5M PRN #20 tab 06/07/15 06/17/16 Rx Ticagrelor* [Brilinta 90 MG*] 90 mg PO BID #60 tab 06/07/15 06/17/16 Rx Aspirin EC Low Dose* [Ecotrin EC 81 mg PO DAILY 02/15/16 06/17/16 History Low Dose 81 MG*] Insulin Lispro [Humalog] 0 - 100 units SUBCUT TID 02/15/16 06/17/16 History Levothyroxine TAB* [Synthroid 100 200 mcg PO DAILY 06/17/16 06/17/16 History MCG TAB*] Levothyroxine TAB* [Synthroid 25 25 mcg PO DAILY 06/17/16 06/17/16 History MCG TAB*] HYDROmorphone TAB* [Dilaudid TAB*] 2 mg PO Q4H PRN #0 tab MDD 6 06/23/16 Rx Sulfamethox/Trimethoprim DS* 1 tab PO BID #20 tab 06/23/16 Rx [Bactrim DS 800/160 TAB*] oxyCODONE/Acetamin 5/325 MG* 2 tab PO Q4H PRN #48 tab MDD 6 06/23/16 Rx [Percocet 5/325 TAB*] Allergies: Allergies Allergy/AdvReac Type Severity Reaction Status Date / Time Atorvastatin Allergy Fatigue Verified 03/23/17 10:30 Objective - Vital Signs Vital Signs: Vital Signs 03/23/17 03/23/17 03/23/17 08:45 08:47 09:32 Temperature Pulse Rate Respiratory 16 16 16 Rate Blood Pressure (mmHg) O2 Sat by Pulse Oximetry 03/23/17 03/23/17 03/23/17 10:28 11:27 12:24 Temperature 97.6 F Pulse Rate 71 Respiratory 16 17 16 Rate Blood Pressure 139/72 (mmHg) O2 Sat by Pulse 99 Oximetry 03/23/17 03/23/17 03/23/17 15:50 15:55 16:00 Temperature 97.0 F Pulse Rate 88 86 88 Respiratory 16 13 12 Rate Blood Pressure 145/75 154/72 156/76 (mmHg) O2 Sat by Pulse 97 96 96 Oximetry 03/23/17 03/23/17 03/23/17 16:05 16:12 16:15 Temperature Pulse Rate 86 82 Respiratory 12 14 12 Rate Blood Pressure 142/75 156/72 (mmHg) O2 Sat by Pulse 95 96 Oximetry 03/23/17 03/23/17 03/23/17 16:30 16:32 16:45 Temperature Pulse Rate 83 82 Respiratory 14 12 12 Rate Blood Pressure 153/74 144/75 (mmHg) O2 Sat by Pulse 96 96 Oximetry 03/23/17 03/23/17 03/23/17 16:50 17:25 17:26 Temperature 98.1 F 98.1 F Pulse Rate 87 87 Respiratory 14 16 16 Rate Blood Pressure 153/75 153/75 (mmHg) O2 Sat by Pulse 98 98 Oximetry 03/23/17 03/23/17 03/23/17 17:32 17:35 18:24 Temperature Pulse Rate Respiratory 16 16 16 Rate Blood Pressure (mmHg) O2 Sat by Pulse Oximetry 03/23/17 03/23/17 03/23/17 18:46 19:29 20:12 Temperature 98.3 F 98.7 F Pulse Rate 81 82 Respiratory 16 18 16 Rate Blood Pressure 123/66 114/57 (mmHg) O2 Sat by Pulse 95 97 Oximetry 03/23/17 03/23/17 03/23/17 21:23 22:29 23:02 Temperature 98.8 F Pulse Rate 87 Respiratory 18 16 16 Rate Blood Pressure 130/67 (mmHg) O2 Sat by Pulse 94 Oximetry 03/23/17 03/24/17 03/24/17 23:21 03:20 07:31 Temperature 99.4 F 98.1 F 98.6 F Pulse Rate 89 91 84 Respiratory 16 16 18 Rate Blood Pressure 122/53 122/52 119/55 (mmHg) O2 Sat by Pulse 96 96 94 Oximetry 03/24/17 08:12 Temperature Pulse Rate Respiratory 18 Rate Blood Pressure (mmHg) O2 Sat by Pulse Oximetry - Intake and Output Intake and Output: Intake & Output 03/21/17 03/22/17 03/23/17 03/24/17 11:59 11:59 11:59 11:59 Intake Total 425 2395 1536 1836 Output Total 750 9786 442 5348 Balance -325 745 986 456 Weight 205 lb Intake: IV Fluids 586 1106 D5W 1/2 NS 20 meq KCL 586 LR 1106 IVPB 100 D5W 1/2 NS 20 meq KCL 100 Oral 425 2395 850 730 Output: Urine 750 4931 739 3929 Estimated Blood Loss 250 Other: # Bowel Movements 0 0 ADLs: Meal Record Start: 03/20/17 18: 06 Freq: Status: Active Protocol: Created 03/20/17 18:06 System (Rec: 03/20/17 18:06 System SSU-C05) Document 03/21/17 14:00 [id number] (Rec: 03/21/17 14:24 SSU-C03) Document 03/21/17 20:42 [id number] (Rec: 03/21/17 20:43 [id number] SSU-C22) Document 03/22/17 10:13 [id number] (Rec: 03/22/17 10:13 [id number] SSU-C08) Intake and Output Start: 03/20/17 18: 06 Freq: DAILY@0600,1400,2200 Status: Active Protocol: Created 03/20/17 18:06 System (Rec: 03/20/17 18:06 System SSU-C05) Document 03/20/17 22:00 [id number] (Rec: 03/20/17 22:27 [id number] SSU-C06) Document 03/21/17 04:22 [id number] (Rec: 03/21/17 04:22 [id number] SSU-C12) Document 03/21/17 05:26 [id number] (Rec: 03/21/17 05:26 [id number] SSU-C01) Document 03/21/17 08:14 [id number] (Rec: 03/21/17 08:15 [id number] SSU-C03) Document 03/21/17 14:00 [id number] (Rec: 03/21/17 14:23 [id number] SSU-C03) Document 03/21/17 15:40 [id number] (Rec: 03/21/17 15:47 [id number] SSU-C09) Document 03/21/17 22:00 [id number] (Rec: 03/21/17 22:42 [id number] SSU-C09) Document 03/22/17 01:51 [id number] (Rec: 03/22/17 01:51 [id number] SSU-M14) Document 03/22/17 04:52 [id number] (Rec: 03/22/17 04:52 [id number] SSU-C09) Document 03/22/17 11:45 [id number] (Rec: 03/22/17 11:45 [id number] SSU-C08) Document 03/22/17 17:20 [id number] (Rec: 03/22/17 17:20 [id number] SSU-M07) Document 03/22/17 22:00 [id number] (Rec: 03/22/17 22:02 [id number] SSU-C01) Document 03/23/17 06:34 [id number] (Rec: 03/23/17 06:34 [id number] SSU-C08) Document 03/23/17 22:31 [id number] (Rec: 03/23/17 22:33 [id number] SSU-M12) Document 03/24/17 05:30 [id number] (Rec: 03/24/17 05:30 [id number] U-C08) - Physical Exam General: No Cyanosis, No Anemia, No Jaundice, No Clubbing Lungs and Chest: Yes: Chest Expansion Full, Chest Expansion Symetrica, Percussion Note Resonant, Vessicular Breath Sounds, Crackles - some scattered fine crackles . No: Wheezes, Respiratory Distress, Use of Accessory Muscles Heart Rate and Rhythm: Regular JVP: Not Elevated Additional Cardiovascular: Yes: Normal Heart Sounds. No: Heart Murmur, Pedal Edema Abdominal Exam: Yes: Soft. No: Distention, Abdominal Tenderness - Neuro Orientation: A/O x3 Speech: Normal Results - Results Lab Results: Laboratory Results - last 24 hr 03/23/17 03/23/17 03/23/17 04:15 12:09 12:53 POC Glucose (mg/dL) 127 H 163 H 162 H 03/23/17 03/23/17 03/24/17 16:03 20:46 08:06 POC Glucose (mg/dL) 167 H 117 H 79 Assessment - Problem List Assessment: Patient Problems Acute renal failure (Acute) MSSA (methicillin susceptible Staphylococcus aureus) infection (Acute) Osteomyelitis of right tibia (Acute) Status post below knee amputation of right lower extremity (Acute) History of diabetic retinopathy (Chronic) History of myocardial infarction (Chronic) Hypercholesterolemia (Chronic) Peripheral neuropathy (Chronic) Presence of stent in coronary artery (Chronic) Primary hypothyroidism (Chronic) 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 Paco Lewis's operative note. He found a large abscess near the fibula head with purulent, free flowing fluid and he cultured this. He resected 3 cm of fibula and tibia. He has left a drain in situ. Today, he continues his zosyn antibacterial treatment. We are awaiting C and S to establish if this is a polymicrobial infection (or at least whether there are some non-fastidious other bacteria that culture indicating a polymicrobial infection). We will maintain the zosyn for wide coverage. I will draw blood cultures tomorrow and if these are negative place a PICC in a couple of days. Acute renal failure (Acute) I will recheck his BMP tomorrow. Status post below knee amputation of right lower extremity (Acute) see above Type 1 diabetes mellitus - I will reduce his lantus as his glycemic control is a little too tight. I discussed the above with the patient and he agrees to this management plan
[2017-03-24] MEDS: Insulin GLARGINE(*) 1 UNITS UNIT SUBCUT SCH ×3 (08:43→20:20)
[2017-03-24] MEDS: Ticagrelor* 90 MG TAB PO SCH ×2 (09:22→22:09)
[2017-03-24] MEDS: HYDROmorphone INJ* 2 MG/ML CARPUJECT SYRINGE IV SLOW PU PRN ×2 (13:02→20:21)
--- NOTE | 2017-03-24 14:55 | PN ---
Progress Note - Progress Note Date of Service: 03/24/17 SOAP: Subjective: CC: leg infection HPI: 56 year old diabetic man with hx R BKA admitted with stump site wound and leg pain/swelling, had I&D 03/23 which he tolerated well. Leg pain improved. No fever, rash, or diarrhea. Objective: Vital Signs Temp 37.2 C 03/24/17 11:12 Pulse 85 03/24/17 11:12 Resp 18 03/24/17 14:14 BP 108/45 03/24/17 11:12 Pulse Ox 92 03/24/17 11:12 Intake & Output 03/23/17 03/24/17 03/24/17 18:59 06:59 18:59 Intake Total 4050 309 7314 Output Total 750 280 400 Balance 1092 400 939 Intake: IV Fluids 1692 D5W 1/2 NS 20 meq KCL 586 LR 1106 IVPB 100 869 ABX - ZOSYN 869 D5W 1/2 NS 20 meq KCL 100 Oral 50 680 470 Output: Urine 500 280 400 Estimated Blood Loss 250 Other: # Bowel Movements 0 Gen:awake, no distress HEENT:PERRL, MMM Heart:RRR no murmur Lungs:CTA BL Abd:+BS NTND soft Skin: no rash MSK: R leg casted Laboratory Results - last 24 hr 03/23/17 03/23/17 03/24/17 16:03 20:46 08:06 POC Glucose (mg/dL) 167 H 117 H 79 03/24/17 12:02 POC Glucose (mg/dL) 140 H Assessment: 1. MSSA Right leg chronic osteomyelitis and abscess 2. s/p R BKA 3. T1DM Plan: 1. change zosyn to ancef 2 gm IV Q8hrs, will plan on 4 weeks of IV antibiotics via PICC with weekly cbc, cmp, crp
[2017-03-24] MEDS: Atorvastatin* 80 MG TAB PO SCH (22:09)
[2017-03-24] MEDS: ceFAZolin 2 GM PREMIX (*) 2 GM/50 ML BAG IVPB SCH (23:15)
[2017-03-25] MEDS: HYDROmorphone INJ* 2 MG/ML CARPUJECT SYRINGE IV SLOW PU PRN ×4 (00:30→21:42)
[2017-03-25 05:00] LABS: Hematocrit 32 % (42-52); Hemoglobin 10.4 g/dl (14.0-18.0); Mean Corpuscular HGB Conc 33 g/dl (31-36); Mean Corpuscular Hemoglobin 30 pg (27-31); Mean Corpuscular Volume 90 fL (80-94); Mean Platelet Volume 9 um3 (7.4-10.4); Platelet Count 399 10^3/ul (150-450); Red Blood Count 3.53 10^6/ul (4.0-5.4); Red Cell Distribution Width 13 % (10.5-15); White Blood Count 15.6 10^3/ul (3.5-10.8)
[2017-03-25 05:07] LABS: ABS Basophils 0 10^3/ul (0-0.2); ABS Eosinophils 0.2 10^3/ul (0-0.6); ABS Lymphocytes 1.3 10^3/ul (1.0-4.8); ABS Monocytes 1.7 10^3/ul (0-0.8); ABS Neutrophils 12.3 10^3/ul (1.5-7.7); ABS Nucleated RBC 0 10^3/ul; Eosinophil % 1.1 % (0-6); Lymphocyte % 8.6 % (25-47); Nucleated Red Blood Cells % 0
[2017-03-25 05:16] LABS: EGFR Non-African American 38.4 (>60)
[2017-03-25] MEDS: Levothyroxine TAB* 100 MCG TAB PO SCH (06:08)
[2017-03-25] MEDS: Heparin VIAL(*) 5000 UNITS/ML VIAL (FIVE THOUSAND) SUBCUT SCH ×3 (06:09→21:42)
[2017-03-25] MEDS: ceFAZolin 2 GM PREMIX (*) 2 GM/50 ML BAG IVPB SCH ×3 (06:09→23:54)
[2017-03-25] MEDS ORDERED: HYDROmorphone INJ* 2 MG/ML CARPUJECT SYRINGE IV SLOW PU PRN (07:44)
[2017-03-25] MEDS: Insulin LISPRO* 1 UNITS UNIT SUBCUT SCH ×7 (07:47→21:40)
[2017-03-25] MEDS: Metoprolol Succinate XL TAB* 100 MG PO SCH (07:53)
[2017-03-25] MEDS: Lisinopril TAB* 10 MG PO SCH (07:53)
[2017-03-25] MEDS: Aspirin EC Low Dose* 81 MG TAB.EC PO SCH (07:53)
[2017-03-25] MEDS: Ticagrelor* 90 MG TAB PO SCH ×2 (07:53→21:42)
[2017-03-25] MEDS: oxyCODONE TAB* 5 MG TAB PO PRN ×3 (07:53→19:35)
--- NOTE | 2017-03-25 08:01 | PN ---
Progress Note - Progress Note Date of Service: 03/25/17 SOAP: Subjective: patient resting comfortably with no complaints, pain controlled with current regimen Objective: Vital Signs Temp Pulse Resp BP Pulse Ox 98.5 F 83 18 109/55 92 03/25/17 07:29 03/25/17 07:29 03/25/17 07:53 03/25/17 07:29 03/25/17 07:29 Laboratory Last Values WBC 15.6 10^3/ul (3.5-10.8) H 03/25/17 04:41 RBC 3.53 10^6/ul (4.0-5.4) L 03/25/17 04:41 Hgb 10.4 g/dl (14.0-18.0) L 03/25/17 04:41 Hct 32 % (42-52) L 03/25/17 04:41 MCV 90 fL (80-94) 03/25/17 04:41 MCH 30 pg (27-31) 03/25/17 04:41 MCHC 33 g/dl (31-36) 03/25/17 04:41 RDW 13 % (10.5-15) 03/25/17 04:41 Plt Count 399 10^3/ul (150-450) 03/25/17 04:41 MPV 9 um3 (7.4-10.4) 03/25/17 04:41 Neut % (Auto) 78.9 % (38-83) 03/25/17 04:41 Lymph % (Auto) 8.6 % (25-47) L 03/25/17 04:41 Davison % (Auto) 11.1 % (1-9) H 03/25/17 04:41 Eos % (Auto) 1.1 % (0-6) 03/25/17 04:41 Baso % (Auto) 0.3 % (0-2) 03/25/17 04:41 Absolute Neuts (auto) 12.3 10^3/ul (1.5-7.7) H 03/25/17 04:41 Absolute Lymphs (auto) 1.3 10^3/ul (1.0-4.8) 03/25/17 04:41 Absolute Monos (auto) 1.7 10^3/ul (0-0.8) H 03/25/17 04:41 Absolute Eos (auto) 0.2 10^3/ul (0-0.6) 03/25/17 04:41 Absolute Basos (auto) 0 10^3/ul (0-0.2) 03/25/17 04:41 Absolute Nucleated RBC 0 10^3/ul 03/25/17 04:41 Nucleated RBC % 0 03/25/17 04:41 Eosinophil Smear None seen 03/22/17 10:40 Sodium 132 mmol/L (133-145) L 03/25/17 04:41 Potassium 4.0 mmol/L (3.5-5.0) 03/25/17 04:41 Chloride 102 mmol/L (101-111) 03/25/17 04:41 Carbon Dioxide 25 mmol/L (22-32) 03/25/17 04:41 Anion Gap 5 mmol/L (2-11) 03/25/17 04:41 BUN 46 mg/dL (6-24) H 03/25/17 04:41 Creatinine 1.84 mg/dL (0.67-1.17) H 03/25/17 04:41 Est GFR ( Amer) 49.4 (>60) 03/25/17 04:41 Est GFR (Non-Af Amer) 38.4 (>60) 03/25/17 04:41 BUN/Creatinine Ratio 25.0 (8-20) H 03/25/17 04:41 Glucose 62 mg/dL (70-100) L 03/25/17 04:41 POC Glucose (mg/dL) 81 mg/dL (70-100) 03/25/17 07:41 Calcium 8.0 mg/dL (8.6-10.3) L 03/25/17 04:41 Total Bilirubin 0.90 mg/dL (0.2-1.0) 03/20/17 18:40 AST 40 U/L (13-39) H 03/20/17 18:40 ALT 30 U/L (7-52) 03/20/17 18:40 Alkaline Phosphatase 168 U/L (34-104) H 03/20/17 18:40 C-Reactive Protein 208.67 mg/L (< 5.00) H 03/25/17 04:41 Total Protein 5.6 g/dL (6.4-8.9) L 03/20/17 18:40 Albumin 2.6 g/dL (3.2-5.2) L 03/20/17 18:40 Globulin 3.0 g/dL (2-4) 03/20/17 18:40 Albumin/Globulin Ratio 0.9 (1-3) L 03/20/17 18:40 Ur Random Creatinine 222.97 mg/dL 03/22/17 10:40 Ur Random Sodium 19 mmol/L 03/22/17 10:40 Renal Sodium Excretion 0.11 % 03/22/17 10:40 incision: c/d/i; drain intact Assessment: s/p revision right BKA Plan: 1) Dr. Clark following 2) Abx per ID 3) continue DVT prophylaxis 4) keep drain until Monday
--- NOTE | 2017-03-25 09:18 | PN ---
Subjective - Subjective Reason for Note: Progress Note History: He is having problems voiding urine, he is constipated and has a poor appetite. He acknowledges these symptoms may relate to opioids. His pain control is good, but he is not sleeping at night. He had one hypoglycemic episode of 62 mg /dl, otherwise tightly controlled despite trimming back well below his usual domestic basal insulin dose. 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, uncontrolled (Chronic ) E10.49, E10.65 Current Medications: Current Medications Aspirin (Aspirin Ec Low Dose*) 81 mg PO DAILY [facility] Last Admin: 03/25/17 07:53 Dose: 81 mg Atorvastatin Calcium (Lipitor*) 80 mg PO 2100 [facility] Last Admin: 03/24/17 22:09 Dose: 80 mg Dextrose (D50w Syringe 50 Ml*) 12.5 gm IV PUSH .FOR FS < 60 - SS PRN PRN Reason: FS < 60 Heparin Sodium (Porcine) (Heparin Vial(*)) 5,000 units SUBCUT Q8HR [facility] Last Admin: 03/25/17 06:09 Dose: 5,000 units Hydromorphone HCl (Dilaudid Inj*) 1 mg IV SLOW PU Q4H PRN PRN Reason: PAIN Potassium Chloride/Dextrose (D5w 1/2 Ns Kcl 20 Meq 1000 Ml*) 1,000 mls @ 100 mls/hr IV PER RATE [facility] Last Admin: 03/23/17 02:37 Dose: 100 mls/hr Cefazolin Sodium/Dextrose (Kefzol 2 Gm Premix(*)) 2 gm in 50 mls @ 100 mls/hr IVPB Q8H [facility] Last Admin: 03/25/17 06:09 Dose: 100 mls/hr Insulin Glargine (Lantus(*)) 20 units SUBCUT Q12H [facility] Last Admin: 03/24/17 20:20 Dose: 20 unit Insulin Human Lispro (Humalog*) 0 - 10 units SUBCUT ACHS [facility] PRN Reason: Protocol Last Admin: 03/25/17 07:47 Dose: Not Given Insulin Human Lispro (Humalog*) 0 units SUBCUT AC [facility] PRN Reason: Protocol Last Admin: 03/24/17 18:30 Dose: 3 units Levothyroxine Sodium (Synthroid Tab*) 200 mcg PO DAILY@0600 [facility] Last Admin: 03/25/17 06:08 Dose: 200 mcg Lisinopril (Prinivil Tab*) 10 mg PO DAILY [facility] Last Admin: 03/25/17 07:53 Dose: 10 mg Metoprolol Succinate (Toprol Xl Tab*) 100 mg PO DAILY [facility] Last Admin: 03/25/17 07:53 Dose: 100 mg Oxycodone HCl (Roxycodone Tab*) 10 mg PO Q3H PRN PRN Reason: PAIN - MILD TO MODERATE Last Admin: 03/25/17 07:53 Dose: 10 mg Pharmacy Consult (Shimasyn Per Pharmacy*) 1 note FOLLOW UP . PRN PRN Reason: PER PROTOCOL Ticagrelor (Brilinta*) 90 mg PO BID [facility] Last Admin: 03/25/17 07:53 Dose: 90 mg Home Medications: Home Medications Medication Instructions Recorded Confirmed Type Insulin Glargine [Lantus] 60 unit SUBCUT QPM #0 06/04/15 06/17/16 History Atorvastatin* [Lipitor 80 MG*] 80 mg PO DAILY #30 tab 06/07/15 06/17/16 Rx Lisinopril TAB* [Prinivil TAB 10 10 mg PO DAILY tab 06/07/15 06/17/16 Rx MG*] Metoprolol Succinate XL TAB* 100 mg PO DAILY #30 tab.xl 06/07/15 06/17/16 Rx [Toprol XL TAB*] Nitroglycerin TAB 0.4 MG* 0.4 mg SL Q5M PRN #20 tab 06/07/15 06/17/16 Rx Ticagrelor* [Brilinta 90 MG*] 90 mg PO BID #60 tab 06/07/15 06/17/16 Rx Aspirin EC Low Dose* [Ecotrin EC 81 mg PO DAILY 02/15/16 06/17/16 History Low Dose 81 MG*] Insulin Lispro [Humalog] 0 - 100 units SUBCUT TID 02/15/16 06/17/16 History Levothyroxine TAB* [Synthroid 100 200 mcg PO DAILY 06/17/16 06/17/16 History MCG TAB*] Levothyroxine TAB* [Synthroid 25 25 mcg PO DAILY 06/17/16 06/17/16 History MCG TAB*] HYDROmorphone TAB* [Dilaudid TAB*] 2 mg PO Q4H PRN #0 tab MDD 6 06/23/16 Rx Sulfamethox/Trimethoprim DS* 1 tab PO BID #20 tab 06/23/16 Rx [Bactrim DS 800/160 TAB*] oxyCODONE/Acetamin 5/325 MG* 2 tab PO Q4H PRN #48 tab MDD 6 06/23/16 Rx [Percocet 5/325 TAB*] Allergies: Allergies Allergy/AdvReac Type Severity Reaction Status Date / Time Atorvastatin Allergy Fatigue Verified 03/23/17 10:30 Objective - Vital Signs Vital Signs: Vital Signs 03/24/17 03/24/17 03/24/17 10:06 11:11 11:12 Temperature 98.9 F Pulse Rate 84 85 Respiratory 18 18 Rate Blood Pressure 108/45 (mmHg) O2 Sat by Pulse 92 92 Oximetry 03/24/17 03/24/17 03/24/17 13:02 14:14 15:13 Temperature Pulse Rate Respiratory 18 18 18 Rate Blood Pressure (mmHg) O2 Sat by Pulse Oximetry 03/24/17 03/24/17 03/24/17 15:48 15:56 17:26 Temperature 98.6 F Pulse Rate 85 Respiratory 18 18 Rate Blood Pressure 118/48 (mmHg) O2 Sat by Pulse 94 94 Oximetry 03/24/17 03/24/17 03/24/17 19:25 20:21 20:29 Temperature 98.9 F Pulse Rate 87 Respiratory 16 18 18 Rate Blood Pressure 117/57 (mmHg) O2 Sat by Pulse 92 Oximetry 03/24/17 03/24/17 03/24/17 22:10 23:20 23:34 Temperature 98.1 F Pulse Rate 84 Respiratory 18 19 16 Rate Blood Pressure 113/50 (mmHg) O2 Sat by Pulse 94 Oximetry 03/25/17 03/25/17 03/25/17 00:30 02:41 02:42 Temperature Pulse Rate Respiratory 18 15 16 Rate Blood Pressure (mmHg) O2 Sat by Pulse Oximetry 03/25/17 03/25/17 03/25/17 04:28 04:42 06:14 Temperature 98.0 F Pulse Rate 80 Respiratory 16 16 19 Rate Blood Pressure 113/52 (mmHg) O2 Sat by Pulse 94 Oximetry 03/25/17 03/25/17 07:29 07:53 Temperature 98.5 F Pulse Rate 83 Respiratory 18 18 Rate Blood Pressure 109/55 (mmHg) O2 Sat by Pulse 92 Oximetry - Intake and Output Intake and Output: Intake & Output 03/22/17 03/23/17 03/24/17 03/25/17 11:59 11:59 11:59 11:59 Intake Total 2395 1536 2076 1864 Output Total 0222 241 4614 675 Balance 745 162 853 4062 Intake: IV Fluids 586 1106 133 D5W 1/2 NS 20 meq KCL 586 LR 1106 133 IVPB 100 951 ABX - CEFAZOLIN 66 ABX - ZOSYN 885 D5W 1/2 NS 20 meq KCL 100 Oral 2395 850 970 780 Output: Urine 7077 193 0977 675 Estimated Blood Loss 250 Other: # Bowel Movements 0 ADLs: Meal Record Start: 03/20/17 18: 06 Freq: Status: Active Protocol: Created 03/20/17 18:06 System (Rec: 03/20/17 18:06 System SSU-C05) Document 03/21/17 14:00 [id number] (Rec: 03/21/17 14:24 [id number] SSU-C03) Document 03/21/17 20:42 [id number] (Rec: 03/21/17 20:43 [id number] SSU-C22) Document 03/22/17 10:13 [id number] (Rec: 03/22/17 10:13 [id number] SSU-C08) Document 03/24/17 10:31 [id number] (Rec: 03/24/17 10:31 [id number] SSU-C03) Document 03/24/17 18:42 [id number] (Rec: 03/24/17 18:43 [id number] SSU-C08) Intake and Output Start: 03/20/17 18: 06 Freq: DAILY@0600,1400,2200 Status: Active Protocol: Created 03/20/17 18:06 System (Rec: 03/20/17 18:06 System SSU-C05) Document 03/20/17 22:00 [id number] (Rec: 03/20/17 22:27 [id number] SSU-C06) Document 03/21/17 04:22 [id number] (Rec: 03/21/17 04:22 [id number] SSU-C12) Document 03/21/17 05:26 [id number] (Rec: 03/21/17 05:26 [id number] SSU-C01) Document 03/21/17 08:14 [id number] (Rec: 03/21/17 08:15 [id number] SSU-C03) Document 03/21/17 14:00 [id number] (Rec: 03/21/17 14:23 [id number] SSU-C03) Document 03/21/17 15:40 [id number] (Rec: 03/21/17 15:47 [id number] SSU-C09) Document 03/21/17 22:00 [id number] (Rec: 03/21/17 22:42 [id number] SSU-C09) Document 03/22/17 01:51 [id number] (Rec: 03/22/17 01:51 [id number] SSU-M14) Document 03/22/17 04:52 [id number] (Rec: 03/22/17 04:52 [id number] SSU-C09) Document 03/22/17 11:45 [id number] (Rec: 03/22/17 11:45 [id number] SSU-C08) Document 03/22/17 17:20 [id number] (Rec: 03/22/17 17:20 [id number] SSU-M07) Document 03/22/17 22:00 [id number] (Rec: 03/22/17 22:02 [id number] SSU-C01) Document 03/23/17 06:34 [id number] (Rec: 03/23/17 06:34 [id number] SSU-C08) Document 03/23/17 22:31 [id number] (Rec: 03/23/17 22:33 [id number] SSU-M12) Document 03/24/17 05:30 [id number] (Rec: 03/24/17 05:30 [id number] U-C08) Document 03/24/17 14:00 [id number] (Rec: 03/24/17 14:08 [id number] U-C03) Document 03/24/17 22:52 [id number] (Rec: 03/24/17 22:52 [id number] U-C08) Document 03/25/17 07:46 [id number] (Rec: 03/25/17 07:46 [id number] U-M14) - Physical Exam General: No Cyanosis, No Anemia, No Jaundice Lungs and Chest: Yes: Chest Expansion Full, Chest Expansion Symetrica, Percussion Note Resonant, Vessicular Breath Sounds. No: Crackles, Wheezes Heart Rate and Rhythm: Regular JVP: Not Elevated Additional Cardiovascular: Yes: Normal Heart Sounds, Heart Murmur - 2/7 [place] LSE. No: Pedal Edema Abdominal Exam: Yes: Soft. No: Distention, Abdominal Tenderness Results - Results Lab Results: Laboratory Results - last 24 hr 03/24/17 03/24/17 03/24/17 12:02 17:02 20:12 WBC RBC Hgb Hct MCV MCH MCHC RDW Plt Count MPV Neut % (Auto) Lymph % (Auto) Murray % (Auto) Eos % (Auto) Baso % (Auto) Absolute Neuts (auto) Absolute Lymphs (auto) Absolute Monos (auto) Absolute Eos (auto) Absolute Basos (auto) Absolute Nucleated RBC Nucleated RBC % Sodium Potassium Chloride Carbon Dioxide Anion Gap BUN Creatinine Est GFR ( Amer) Est GFR (Non-Af Amer) BUN/Creatinine Ratio Glucose POC Glucose (mg/dL) 140 H 104 H 119 H Calcium C-Reactive Protein 03/25/17 03/25/17 03/25/17 04:41 04:41 07:41 WBC 15.6 H RBC 3.53 L Hgb 10.4 L Hct 32 L MCV 90 MCH 30 MCHC 33 RDW 13 Plt Count 399 MPV 9 Neut % (Auto) 78.9 Lymph % (Auto) 8.6 L Murray % (Auto) 11.1 H Eos % (Auto) 1.1 Baso % (Auto) 0.3 Absolute Neuts (auto) 12.3 H Absolute Lymphs (auto) 1.3 Absolute Monos (auto) 1.7 H Absolute Eos (auto) 0.2 Absolute Basos (auto) 0 Absolute Nucleated RBC 0 Nucleated RBC % 0 Sodium 132 L Potassium 4.0 Chloride 102 Carbon Dioxide 25 Anion Gap 5 BUN 46 H Creatinine 1.84 H Est GFR ( Amer) 49.4 Est GFR (Non-Af Amer) 38.4 BUN/Creatinine Ratio 25.0 H Glucose 62 L POC Glucose (mg/dL) 81 Calcium 8.0 L C-Reactive Protein 208.67 H Assessment - Problem List Assessment: Patient Problems Acute renal failure (Acute) MSSA (methicillin susceptible Staphylococcus aureus) infection (Acute) Obstructive uropathy (Acute) Osteomyelitis of right tibia (Acute) Status post below knee amputation of right lower extremity (Acute) History of diabetic retinopathy (Chronic) History of myocardial infarction (Chronic) Hypercholesterolemia (Chronic) Peripheral neuropathy (Chronic) Presence of stent in coronary artery (Chronic) Primary hypothyroidism (Chronic) Type 1 diabetes mellitus with neurological manifestations, uncontrolled (Chronic ) Plan: Osteomyelitis of right tibia (Acute)MSSA (methicillin susceptible Staphylococcus aureus) infection (Acute) 2 day post drainage of large abscess, revision left BKA. His CRP/WBC are higher, % neuts slightly higher, no fever. I think this is secondary to surgery. Dr. Hightower has switched him to [facility]. We await cultures from abscess - negative thus far. For PICC line if todays blood cultures negative. Acute renal failure (Acute)/Obstructive uropathy (Acute) BUN/CR remain high. He had 1,000 mls bladder this morning, 400 mls when he tried to void. There is likely a combination of pre and post renal azotemia. I will give him some tamsulosin and reduce the opioid strength. 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 I will cut back his insulin once again as he is too tightly controlled I discussed the above with the patient and he agrees to management plan.
[2017-03-25] MEDS ORDERED: Codeine TAB* 30 MG PO PRN (09:23)
[2017-03-25] MEDS ORDERED: Temazepam CAP* 15 MG PO PRN (09:24)
[2017-03-25] MEDS: Insulin GLARGINE(*) 1 UNITS UNIT SUBCUT SCH ×2 (09:30→21:41)
[2017-03-25] MEDS: Tamsulosin CAP* 0.4 MG PO SCH (09:58)
[2017-03-25] MEDS: Atorvastatin* 80 MG TAB PO SCH (21:42)
[2017-03-26] MEDS: Levothyroxine TAB* 100 MCG TAB PO SCH (05:57)
[2017-03-26] MEDS: Heparin VIAL(*) 5000 UNITS/ML VIAL (FIVE THOUSAND) SUBCUT SCH ×3 (05:58→20:37)
[2017-03-26 06:00] LABS: ABS Basophils 0.1 10^3/ul (0-0.2); ABS Eosinophils 0.1 10^3/ul (0-0.6); ABS Lymphocytes 0.9 10^3/ul (1.0-4.8); ABS Monocytes 1.4 10^3/ul (0-0.8); ABS Neutrophils 12.2 10^3/ul (1.5-7.7); ABS Nucleated RBC 0 10^3/ul; Hematocrit 29 % (42-52); Hemoglobin 9.8 g/dl (14.0-18.0); Lymphocyte % 6.1 % (25-47); Mean Corpuscular HGB Conc 34 g/dl (31-36); Mean Corpuscular Hemoglobin 30 pg (27-31); Mean Corpuscular Volume 90 fL (80-94); Mean Platelet Volume 9 um3 (7.4-10.4); Nucleated Red Blood Cells % 0; Platelet Count 413 10^3/ul (150-450); Red Blood Count 3.25 10^6/ul (4.0-5.4); Red Cell Distribution Width 13 % (10.5-15); White Blood Count 14.7 10^3/ul (3.5-10.8)
[2017-03-26 06:16] LABS: EGFR Non-African American 48.2 (>60)
[2017-03-26] MEDS: ceFAZolin 2 GM PREMIX (*) 2 GM/50 ML BAG IVPB SCH ×3 (07:13→22:52)
[2017-03-26] MEDS: Insulin LISPRO* 1 UNITS UNIT SUBCUT SCH ×7 (09:25→20:38)
[2017-03-26] MEDS: Aspirin EC Low Dose* 81 MG TAB.EC PO SCH ×2 (09:35→16:45)
[2017-03-26] MEDS: Ticagrelor* 90 MG TAB PO SCH ×3 (09:35→20:38)
[2017-03-26] MEDS: Tamsulosin CAP* 0.4 MG PO SCH ×2 (09:35→16:45)
[2017-03-26] MEDS: Ondansetron INJ* 2 MG/ML VIAL IV PRN ×2 (11:06→15:25)
[2017-03-26] MEDS: Metoprolol Succinate XL TAB* 100 MG PO SCH (13:42)
[2017-03-26] MEDS: Lisinopril TAB* 10 MG PO SCH (13:42)
[2017-03-26] MEDS: PROCHLORPERAZINE INJ 5 MG/ML 2 ML VIAL IV PRN ×2 (14:06→20:38)
[2017-03-26] MEDS: D5NS 0.9% 1000 ML BAG* 1,000 ML IV SCH (15:25)
--- NOTE | 2017-03-26 16:29 | PN ---
Progress Note - Progress Note Date of Service: 03/26/17 SOAP: Subjective: Pt c/o of N/V since 4 am this morning. No c/o pain. Vital Signs: Temp Pulse Resp BP Pulse Ox 98.6 F 87 13 145/58 96 03/26/17 15:24 03/26/17 15:24 03/26/17 15:24 03/26/17 15:24 03/26/17 15:24 Laboratory Last Values WBC 14.7 10^3/ul (3.5-10.8) H 03/26/17 05:27 RBC 3.25 10^6/ul (4.0-5.4) L 03/26/17 05:27 Hgb 9.8 g/dl (14.0-18.0) L 03/26/17 05:27 Hct 29 % (42-52) L 03/26/17 05:27 MCV 90 fL (80-94) 03/26/17 05:27 MCH 30 pg (27-31) 03/26/17 05:27 MCHC 34 g/dl (31-36) 03/26/17 05:27 RDW 13 % (10.5-15) 03/26/17 05:27 Plt Count 413 10^3/ul (150-450) 03/26/17 05:27 MPV 9 um3 (7.4-10.4) 03/26/17 05:27 Neut % (Auto) 83.0 % (38-83) 03/26/17 05:27 Lymph % (Auto) 6.1 % (25-47) L 03/26/17 05:27 [place] % (Auto) 9.5 % (1-9) H 03/26/17 05:27 Eos % (Auto) 1.0 % (0-6) 03/26/17 05:27 Baso % (Auto) 0.4 % (0-2) 03/26/17 05:27 Absolute Neuts (auto) 12.2 10^3/ul (1.5-7.7) H 03/26/17 05:27 Absolute Lymphs (auto) 0.9 10^3/ul (1.0-4.8) L 03/26/17 05:27 Absolute Monos (auto) 1.4 10^3/ul (0-0.8) H 03/26/17 05:27 Absolute Eos (auto) 0.1 10^3/ul (0-0.6) 03/26/17 05:27 Absolute Basos (auto) 0.1 10^3/ul (0-0.2) 03/26/17 05:27 Absolute Nucleated RBC 0 10^3/ul 03/26/17 05:27 Nucleated RBC % 0 03/26/17 05:27 Eosinophil Smear None seen 03/22/17 10:40 Sodium 128 mmol/L (133-145) L 03/26/17 05:27 Potassium 4.1 mmol/L (3.5-5.0) 03/26/17 05:27 Chloride 100 mmol/L (101-111) L 03/26/17 05:27 Carbon Dioxide 22 mmol/L (22-32) 03/26/17 05:27 Anion Gap 6 mmol/L (2-11) 03/26/17 05:27 BUN 52 mg/dL (6-24) H 03/26/17 05:27 Creatinine 1.51 mg/dL (0.67-1.17) H 03/26/17 05:27 Est GFR ( Amer) 62.0 (>60) 03/26/17 05:27 Est GFR (Non-Af Amer) 48.2 (>60) 03/26/17 05:27 BUN/Creatinine Ratio 34.4 (8-20) H 03/26/17 05:27 Glucose 115 mg/dL (70-100) H 03/26/17 05:27 POC Glucose (mg/dL) 160 mg/dL (70-100) H 03/26/17 11:43 Calcium 8.1 mg/dL (8.6-10.3) L 03/26/17 05:27 Total Bilirubin 0.90 mg/dL (0.2-1.0) 03/20/17 18:40 AST 40 U/L (13-39) H 03/20/17 18:40 ALT 30 U/L (7-52) 03/20/17 18:40 Alkaline Phosphatase 168 U/L (34-104) H 03/20/17 18:40 C-Reactive Protein 196.65 mg/L (< 5.00) H 03/26/17 05:27 Total Protein 5.6 g/dL (6.4-8.9) L 03/20/17 18:40 Albumin 2.6 g/dL (3.2-5.2) L 03/20/17 18:40 Globulin 3.0 g/dL (2-4) 03/20/17 18:40 Albumin/Globulin Ratio 0.9 (1-3) L 03/20/17 18:40 Ur Random Creatinine 222.97 mg/dL 03/22/17 10:40 Ur Random Sodium 19 mmol/L 03/22/17 10:40 Renal Sodium Excretion 0.11 % 03/22/17 10:40 Objective: Drain intact. Dressing C/D/I Assessment: s/p revision right BKA Plan: Abx per ID Dr. Clark following DVT prophylaxis Drain in until Monday Added zofran for N/V
[2017-03-26] MEDS: Pantoprazole IV* 40 MG IV SCH (16:33)
[2017-03-26] MEDS: Atorvastatin* 80 MG TAB PO SCH (20:37)
[2017-03-26] MEDS: Insulin GLARGINE(*) 1 UNITS UNIT SUBCUT SCH (20:38)
--- NOTE | 2017-03-26 20:43 | CONS ---
CONSULTATION REPORT: DATE OF CONSULT: 03/26/17 HISTORY: Brody is now day 3 after extensive debridement right thigh, knee and distal stump right tibia. He has been having a lot of nausea and vomiting since this morning, but he has been relatively afebrile. His BUN and creatinine have climbed a bit, so he may be dehydrated. I came in to check his leg to be sure that there was no flaring of his infection. His leg is very benign looking. Actually his wound and swelling have resolved miraculously and he is relatively nontender in the limb as well. I re-wrapped this with a sterile compressive dressing. Dr. Doe was covering for him and we switched to clears and gave some IV hydration, cut back on the narcotics. Hopefully this will start his bowels moving more normally. [id number]/[facility] [place] #: [id number] MTDD
[2017-03-27] MEDS: D5NS 0.9% 1000 ML BAG* 1,000 ML IV SCH (02:01)
[2017-03-27] MEDS: PROCHLORPERAZINE INJ 5 MG/ML 2 ML VIAL IV PRN ×2 (05:45→11:49)
[2017-03-27] MEDS: Heparin VIAL(*) 5000 UNITS/ML VIAL (FIVE THOUSAND) SUBCUT SCH ×3 (05:46→21:28)
[2017-03-27] MEDS: Levothyroxine TAB* 100 MCG TAB PO SCH (05:46)
[2017-03-27 06:43] LABS: Hematocrit 29 % (42-52); Hemoglobin 9.9 g/dl (14.0-18.0); Mean Corpuscular HGB Conc 34 g/dl (31-36); Mean Corpuscular Hemoglobin 30 pg (27-31); Mean Corpuscular Volume 89 fL (80-94); Mean Platelet Volume 9 um3 (7.4-10.4); Platelet Count 511 10^3/ul (150-450); Red Blood Count 3.29 10^6/ul (4.0-5.4); Red Cell Distribution Width 13 % (10.5-15)
[2017-03-27] MEDS: ceFAZolin 2 GM PREMIX (*) 2 GM/50 ML BAG IVPB SCH ×3 (06:53→23:05)
[2017-03-27 07:05] LABS: EGFR Non-African American 45.4 (>60)
--- NOTE | 2017-03-27 08:15 | PN ---
Subjective - Subjective Reason for Note: Progress Note History: I reviewed the events of the past 24 hours with the patient and reviewed Dr. Brittani Doe's note. He developed acute nausea and vomiting. Dr. Brittani Doe thought this was due to an ileus. He had a couple of bowel movements during the day - but no diarrhea. He responded to IV zofran/compazine. He developed marked hyperglycemia. He had no abdominal pain or other pain associated with this. Today, he is feeling much improved. He has passed flatus and has no further nausea or vomiting. Active Problems: Active Problems Acute renal failure (Acute) MSSA (methicillin susceptible Staphylococcus aureus) infection (Acute) A49.01 Obstructive uropathy (Acute) N13.9 Osteomyelitis of right tibia (Acute) M86.9 Status post below knee amputation of right lower extremity (Acute) Z89.511 Vomiting (Acute) R11.10 History of diabetic retinopathy (Chronic) Z86.39 History of myocardial infarction (Chronic) I25.2 Hypercholesterolemia (Chronic) E78.0 Peripheral neuropathy (Chronic) G62.9 Presence of stent in coronary artery (Chronic) Z95.5 Primary hypothyroidism (Chronic) E03.9 Type 1 diabetes mellitus with neurological manifestations, uncontrolled (Chronic ) E10.49, E10.65 Current Medications: Current Medications Aspirin (Aspirin Ec Low Dose*) 81 mg PO DAILY [facility] Last Admin: 03/26/17 16:45 Dose: Not Given Atorvastatin Calcium (Lipitor*) 80 mg PO 2100 [facility] Last Admin: 03/26/17 20:37 Dose: 80 mg Codeine Sulfate (Codeine Tab*) 30 mg PO Q3H PRN PRN Reason: PAIN - MILD TO MODERATE Last Admin: 03/25/17 09:58 Dose: 30 mg Dextrose (D50w Syringe 50 Ml*) 12.5 gm IV PUSH .FOR FS < 60 - SS PRN PRN Reason: FS < 60 Heparin Sodium (Porcine) (Heparin Vial(*)) 5,000 units SUBCUT Q8HR [facility] Last Admin: 03/27/17 05:46 Dose: 5,000 units Hydromorphone HCl (Dilaudid Inj*) 1 mg IV SLOW PU Q4H PRN PRN Reason: PAIN - SEVERE Last Admin: 03/25/17 21:42 Dose: 1 mg Cefazolin Sodium/Dextrose (Kefzol 2 Gm Premix(*)) 2 gm in 50 mls @ 100 mls/hr IVPB Q8H [facility] Last Admin: 03/27/17 06:53 Dose: 100 mls/hr Dextrose/Sodium Chloride (D5ns 0.9% 1000 Ml Bag*) 1,000 mls @ 100 mls/hr IV .PER RATE [facility] Last Admin: 03/27/17 02:01 Dose: 100 mls/hr Insulin Glargine (Lantus(*)) 25 units SUBCUT Q24H [facility] Last Admin: 03/26/17 20:38 Dose: 25 units Insulin Human Lispro (Humalog*) 0 - 10 units SUBCUT ACHS [facility] PRN Reason: Protocol Last Admin: 03/26/17 20:38 Dose: 4 units Insulin Human Lispro (Humalog*) 1 units SUBCUT AC [facility] PRN Reason: Protocol Last Admin: 03/26/17 17:49 Dose: Not Given Levothyroxine Sodium (Synthroid Tab*) 200 mcg PO DAILY@0600 [facility] Last Admin: 03/27/17 05:46 Dose: 200 mcg Lisinopril (Prinivil Tab*) 10 mg PO DAILY [facility] Last Admin: 03/26/17 13:42 Dose: Not Given Metoprolol Succinate (Toprol Xl Tab*) 100 mg PO DAILY [facility] Last Admin: 03/26/17 13:42 Dose: Not Given Ondansetron HCl (Zofran Inj*) 4 mg IV Q4H PRN PRN Reason: NAUSEA Last Admin: 03/26/17 15:25 Dose: 4 mg Oxycodone HCl (Roxycodone Tab*) 10 mg PO Q3H PRN PRN Reason: PAIN - MODERATE TO SEVERE Last Admin: 03/25/17 19:35 Dose: 10 mg Pantoprazole Sodium (Protonix Iv*) 40 mg IV DAILY@1600 [facility] Last Admin: 03/26/17 16:33 Dose: 40 mg Prochlorperazine Edisylate (Compazine Inj*) 10 mg IV Q6H PRN PRN Reason: ALTERNATE WITH ZOFRAN Last Admin: 03/27/17 05:45 Dose: 10 mg Tamsulosin HCl (Flomax Cap*) 0.4 mg PO DAILY [facility] Last Admin: 03/26/17 16:45 Dose: Not Given Temazepam (Restoril Cap*) 15 mg PO BEDTIME PRN PRN Reason: INSOMNIA Ticagrelor (Brilinta*) 90 mg PO BID [facility] Last Admin: 03/26/17 20:38 Dose: 90 mg Home Medications: Home Medications Medication Instructions Recorded Confirmed Type Insulin Glargine [Lantus] 60 unit SUBCUT QPM #0 06/04/15 06/17/16 History Atorvastatin* [Lipitor 80 MG*] 80 mg PO DAILY #30 tab 06/07/15 06/17/16 Rx Lisinopril TAB* [Prinivil TAB 10 10 mg PO DAILY tab 06/07/15 06/17/16 Rx MG*] Metoprolol Succinate XL TAB* 100 mg PO DAILY #30 tab.xl 06/07/15 06/17/16 Rx [Toprol XL TAB*] Nitroglycerin TAB 0.4 MG* 0.4 mg SL Q5M PRN #20 tab 06/07/15 06/17/16 Rx Ticagrelor* [Brilinta 90 MG*] 90 mg PO BID #60 tab 06/07/15 06/17/16 Rx Aspirin EC Low Dose* [Ecotrin EC 81 mg PO DAILY 02/15/16 06/17/16 History Low Dose 81 MG*] Insulin Lispro [Humalog] 0 - 100 units SUBCUT TID 02/15/16 06/17/16 History Levothyroxine TAB* [Synthroid 100 200 mcg PO DAILY 06/17/16 06/17/16 History MCG TAB*] Levothyroxine TAB* [Synthroid 25 25 mcg PO DAILY 06/17/16 06/17/16 History MCG TAB*] HYDROmorphone TAB* [Dilaudid TAB*] 2 mg PO Q4H PRN #0 tab MDD 6 06/23/16 Rx Sulfamethox/Trimethoprim DS* 1 tab PO BID #20 tab 06/23/16 Rx [Bactrim DS 800/160 TAB*] oxyCODONE/Acetamin 5/325 MG* 2 tab PO Q4H PRN #48 tab MDD 6 06/23/16 Rx [Percocet 5/325 TAB*] Allergies: Allergies Allergy/AdvReac Type Severity Reaction Status Date / Time Atorvastatin Allergy Fatigue Verified 03/23/17 10:30 Objective - Vital Signs Vital Signs: Vital Signs 03/26/17 03/26/17 03/26/17 11:21 15:24 19:21 Temperature 98.7 F 98.6 F 99.4 F Pulse Rate 81 87 90 Respiratory 18 13 20 Rate Blood Pressure 134/48 145/58 122/53 (mmHg) O2 Sat by Pulse 95 96 92 Oximetry 03/26/17 03/26/17 03/27/17 20:49 23:26 03:27 Temperature 98.7 F 98.4 F Pulse Rate 90 88 Respiratory 14 16 16 Rate Blood Pressure 116/42 137/54 (mmHg) O2 Sat by Pulse 93 94 Oximetry 03/27/17 07:26 Temperature 98.9 F Pulse Rate 90 Respiratory 18 Rate Blood Pressure 148/53 (mmHg) O2 Sat by Pulse 96 Oximetry - Intake and Output Intake and Output: Intake & Output 03/24/17 03/25/17 03/26/17 03/27/17 11:59 11:59 11:59 11:59 Intake Total 2076 1984 1498 1922 Output Total 6855 964 7517 500 Balance 696 1309 -577 1422 Intake: IV Fluids 1106 344 870 3881 ABX - CEFAZOLIN 108 105 D5W NS (0.9%) 1327 LR 1106 133 NS (0.9%) 90 IVPB 951 50 ABX - CEFAZOLIN 66 50 ABX - ZOSYN 885 Oral 379 492 8595 490 Output: Urine 9860 342 5558 0 Emesis 200 500 Estimated Blood Loss 250 Other: Estimated Void Medium Small # Bowel Movements 0 Estimated Stool Amount Small ADLs: Meal Record Start: 03/20/17 18: 06 Freq: Status: Active Protocol: Created 03/20/17 18:06 System (Rec: 03/20/17 18:06 System U-C05) Document 03/21/17 14:00 [id number] (Rec: 03/21/17 14:24 [id number] SSU-C03) Document 03/21/17 20:42 [id number] (Rec: 03/21/17 20:43 [id number] SSU-C22) Document 03/22/17 10:13 [id number] (Rec: 03/22/17 10:13 [id number] SSU-C08) Document 03/24/17 10:31 [id number] (Rec: 03/24/17 10:31 [id number] SSU-C03) Document 03/24/17 18:42 [id number] (Rec: 03/24/17 18:43 [id number] SSU-C08) Document 03/25/17 10:14 [id number] (Rec: 03/25/17 10:15 [id number] SSU-C01) Document 03/26/17 13:45 [id number] (Rec: 03/26/17 13:45 [id number] SSU-C01) Intake and Output Start: 03/20/17 18: 06 Freq: DAILY@0600,1400,2200 Status: Active Protocol: Created 03/20/17 18:06 System (Rec: 03/20/17 18:06 System SSU-C05) Document 03/20/17 22:00 [id number] (Rec: 03/20/17 22:27 [id number] SSU-C06) Document 03/21/17 04:22 [id number] (Rec: 03/21/17 04:22 [id number] SSU-C12) Document 03/21/17 05:26 [id number] (Rec: 03/21/17 05:26 [id number] SSU-C01) Document 03/21/17 08:14 [id number] (Rec: 03/21/17 08:15 IEW2099 SSU-C03) Document 03/21/17 14:00 [id number] (Rec: 03/21/17 14:23 [id number] SSU-C03) Document 03/21/17 15:40 [id number] (Rec: 03/21/17 15:47 [id number] SSU-C09) Document 03/21/17 22:00 [id number] (Rec: 03/21/17 22:42 [id number] SSU-C09) Document 03/22/17 01:51 [id number] (Rec: 03/22/17 01:51 [id number] SSU-M14) Document 03/22/17 04:52 [id number] (Rec: 03/22/17 04:52 [id number] SSU-C09) Document 03/22/17 11:45 [id number] (Rec: 03/22/17 11:45 [id number] SSU-C08) Document 03/22/17 17:20 [id number] (Rec: 03/22/17 17:20 [id number] SSU-M07) Document 03/22/17 22:00 [id number] (Rec: 03/22/17 22:02 [id number] SSU-C01) Document 03/23/17 06:34 [id number] (Rec: 03/23/17 06:34 [id number] SSU-C08) Document 03/23/17 22:31 [id number] (Rec: 03/23/17 22:33 [id number] SSU-M12) Document 03/24/17 05:30 [id number] (Rec: 03/24/17 05:30 [id number] SSU-C08) Document 03/24/17 14:00 [id number] (Rec: 03/24/17 14:08 [id number] SSU-C03) Document 03/24/17 22:52 [id number] (Rec: 03/24/17 22:52 [id number] SSU-C08) Document 03/25/17 07:46 [id number] (Rec: 03/25/17 07:46 [id number] SSU-M14) Document 03/25/17 14:00 [id number] (Rec: 03/25/17 14:17 [id number] SSU-C01) Document 03/25/17 18:30 [id number] (Rec: 03/25/17 18:30 [id number] SSU-C11) Document 03/25/17 19:27 [id number] (Rec: 03/25/17 19:28 [id number] SSU-M02) Document 03/25/17 22:14 [id number] (Rec: 03/25/17 22:14 [id number] SSU-C04) Document 03/26/17 05:24 [id number] (Rec: 03/26/17 05:25 [id number] SSU-C08) Document 03/26/17 08:06 [id number] (Rec: 03/26/17 08:06 [id number] SSU-M15) Document 03/26/17 11:05 [id number] (Rec: 03/27/17 01:37 [id number] SSU-C01) Document 03/26/17 13:46 [id number] (Rec: 03/26/17 13:46 [id number] SSU-C01) Document 03/26/17 14:12 [id number] (Rec: 03/26/17 14:12 [id number] SSU-M15) Document 03/26/17 15:23 [id number] (Rec: 03/26/17 15:23 [id number] SSU-M15) Document 03/26/17 16:37 [id number] (Rec: 03/26/17 16:37 [id number] SSU-M15) Document 03/26/17 19:15 [id number] (Rec: 03/26/17 19:15 [id number] SSU-C11) Document 03/26/17 23:00 [id number] (Rec: 03/26/17 23:00 [id number] SSU-C01) Document 03/27/17 05:32 [id number] (Rec: 03/27/17 05:32 [id number] SSU-C01) Document 03/27/17 07:00 [id number] (Rec: 03/27/17 07:00 [id number] SSU-C01) - Physical Exam General Physical Exam Comment: Warm and well perfused, in no distress General: No Cyanosis, No Anemia, No Jaundice, No Clubbing Lungs and Chest: Yes: Chest Expansion Full, Chest Expansion Symetrica, Percussion Note Resonant, Vessicular Breath Sounds. No: Crackles, Wheezes Heart Rate and Rhythm: Regular JVP: Not Elevated Additional Cardiovascular: Yes: Normal Heart Sounds. No: Heart Murmur, Pedal Edema Abdominal Exam: Yes: Soft, Abdominal Mass, Hepatomegaly, Bowel Sounds Present. No: Distention, Abdominal Tenderness Results - Results Lab Results: Laboratory Results - last 24 hr 03/26/17 03/26/17 03/26/17 11:43 16:36 20:24 WBC RBC Hgb Hct MCV MCH MCHC RDW Plt Count MPV Sodium Potassium Chloride Carbon Dioxide Anion Gap BUN Creatinine Est GFR ( Amer) Est GFR (Non-Af Amer) BUN/Creatinine Ratio Glucose POC Glucose (mg/dL) 160 H 305 H 349 H Calcium Total Bilirubin AST ALT Alkaline Phosphatase C-Reactive Protein Total Protein Albumin Globulin Albumin/Globulin Ratio 03/27/17 03/27/17 06:18 06:18 WBC 16.0 H RBC 3.29 L Hgb 9.9 L Hct 29 L MCV 89 MCH 30 MCHC 34 RDW 13 Plt Count 511 H D MPV 9 Sodium 128 L Potassium 4.4 Chloride 98 L Carbon Dioxide 22 Anion Gap 8 BUN 57 H Creatinine 1.59 H Est GFR ( Amer) 58.4 Est GFR (Non-Af Amer) 45.4 BUN/Creatinine Ratio 35.8 H Glucose 454 H POC Glucose (mg/dL) Calcium 7.8 L Total Bilirubin 0.50 AST 45 H ALT 21 Alkaline Phosphatase 210 H C-Reactive Protein 121.16 H Total Protein 4.7 L Albumin 1.9 L Globulin 2.8 Albumin/Globulin Ratio 0.7 L Assessment - Problem List Assessment: Patient Problems Acute renal failure (Acute) MSSA (methicillin susceptible Staphylococcus aureus) infection (Acute) Obstructive uropathy (Acute) Osteomyelitis of right tibia (Acute) Status post below knee amputation of right lower extremity (Acute) Vomiting (Acute) History of diabetic retinopathy (Chronic) History of myocardial infarction (Chronic) Hypercholesterolemia (Chronic) Peripheral neuropathy (Chronic) Presence of stent in coronary artery (Chronic) Primary hypothyroidism (Chronic) Type 1 diabetes mellitus with neurological manifestations, uncontrolled (Chronic ) Plan: Vomiting (Acute) He had been eating and drinking/having bowel movements prior to this starting. It was not associated with any pain or other distress. It now seems to be resolving. Possibilities include paralytic ileus, viral enteritis, drug reaction, silent TN. I will check an EKG and troponin I. I will advance his diet. Acute renal failure (Acute) His BUN/Cr remain much the same. MSSA (methicillin susceptible Staphylococcus aureus) infection (Acute) Osteomyelitis of right tibia (Acute) ongoing treatment with ancef. I will place a PICC line today Obstructive uropathy (Acute) He has responded well to flomax Status post below knee amputation of right lower extremity (Acute) Type 1 diabetes mellitus with neurological manifestations, uncontrolled (Chronic ) He developed marked hyperglycemia yesterday. I will increase his insulin today - I am at risk of over-correction. I discussed the above with the patient and he agrees with the plan.
[2017-03-27] MEDS ORDERED: Insulin LISPRO* 1 UNITS UNIT SUBCUT SCH ×2 (08:17→08:25)
[2017-03-27] MEDS: Aspirin EC Low Dose* 81 MG TAB.EC PO SCH (09:22)
[2017-03-27] MEDS: Metoprolol Succinate XL TAB* 100 MG PO SCH (09:22)
[2017-03-27] MEDS: Tamsulosin CAP* 0.4 MG PO SCH (09:22)
[2017-03-27] MEDS: Lisinopril TAB* 10 MG PO SCH (09:22)
[2017-03-27] MEDS: Ticagrelor* 90 MG TAB PO SCH ×2 (09:22→21:32)
[2017-03-27] MEDS: Insulin GLARGINE(*) 1 UNITS UNIT SUBCUT SCH ×2 (09:24→21:26)
--- NOTE | 2017-03-27 10:17 | PN ---
Progress Note - Progress Note Date of Service: 03/27/17 SOAP: Subjective: 56 y/o male with h/o sepsis, Right thigh abscess s/p I&D, debridement by Dr. Lewis 03/23. Patient with N/v over weekend, states improved however continues to feel unwell with mild nausea. Seen by. Dr. Clark this AM Objective: General- mild ill appearing, NAD, sitting in bed comfortably. MSK- dressing intact, no drainage, odor, non-tender to light touch, thigh about dressing non-indurated, no erythema, non-tender. Vital Signs Temp 98.9 F 03/27/17 07:26 Pulse 90 03/27/17 07:26 Resp 18 03/27/17 08:27 BP 148/53 03/27/17 07:26 Pulse Ox 96 03/27/17 07:26 Intake & Output 03/26/17 03/27/17 03/27/17 18:59 06:59 18:59 Intake Total 80 1672 609 Output Total 1375 50 Balance -1295 1622 609 Intake: IV Fluids 30 1432 359 ABX - CEFAZOLIN 105 D5W NS (0.9%) 1327 359 LR 0 NS (0.9%) 30 IVPB 50 ABX - CEFAZOLIN 50 Oral 0 240 250 Output: Urine 725 0 Emesis 650 50 Other: Estimated Void Small Estimated Stool Amount Small Assessment: Stable I&D, debridement R thigh Plan: - r/o cardiac source of n/v- elevated troponins, however increased in past. EKG WNLs - Renal injury stable - Tolerated CLD - Dressing change by Dr Lewis yesterday showed intact wound with good healing, drain removed. - PICC today after neg bld cxs from 03/25 for retirement IV ABX - cefazolin currently per ID recs - Possible D/C to home - elevated glucose- correction scale tightened by Dr. Clark - DVT prophyl- heparin Active Medications Generic Name Dose Route Start Last Admin Trade Name Freq PRN Reason Stop Dose Admin Aspirin 81 mg 03/21/17 09:00 03/27/17 09:22 Aspirin Ec Low Dose* PO 81 mg DAILY [facility] Administration Atorvastatin Calcium 80 mg 03/23/17 21:00 03/26/17 20:37 Lipitor* PO 80 mg 2100 DGINA Administration Codeine Sulfate 30 mg 03/25/17 09:23 03/25/17 09:58 Codeine Tab* PO 30 mg Q3H PRN Administration PAIN - MILD TO MODERATE Dextrose 12.5 gm 03/20/17 17:24 D50w Syringe 50 Ml* IV PUSH .FOR FS < 60 - SS PRN FS < 60 Heparin Sodium (Porcine) 5,000 units 03/20/17 22:00 03/27/17 05:46 Heparin Vial(*) SUBCUT 5,000 units Q8HR [facility] Administration Hydromorphone HCl 1 mg 03/25/17 09:22 03/25/17 21:42 Dilaudid Inj* IV SLOW PU 1 mg Q4H PRN Administration PAIN - SEVERE Cefazolin Sodium/Dextrose 2 gm in 50 mls @ 100 mls/hr 03/24/17 23:00 06:53 Kefzol 2 Gm Premix(*) IVPB 100 mls/hr Q8H [facility] Administration Lactated Ringer's 1,000 mls @ 100 mls/hr 03/27/17 08:21 03/27/17 09:25 Lactated Ringers 1000 Ml Bag* IV 03/27/17 18:20 100 mls/hr ONCE ONE Administration Insulin Glargine 25 units 03/27/17 09:00 03/27/17 09:24 Lantus(*) SUBCUT 25 units Q12H [facility] Administration Insulin Human Lispro 1 units 03/27/17 08:18 Humalog* SUBCUT AC [facility] Protocol Insulin Human Lispro 0 - 12 units 03/27/17 10:08 Humalog* SUBCUT ACHS [facility] Protocol Levothyroxine Sodium 200 mcg 03/21/17 06:00 03/27/17 05:46 Synthroid Tab* PO 200 mcg DAILY@0600 [facility] Administration Lisinopril 10 mg 03/21/17 09:00 03/27/17 09:22 Prinivil Tab* PO 10 mg DAILY [facility] Administration Metoprolol Succinate 100 mg 03/21/17 09:00 03/27/17 09:22 Toprol Xl Tab* PO 100 mg DAILY [facility] Administration Ondansetron HCl 4 mg 03/26/17 10:51 03/26/17 15:25 Zofran Inj* IV 4 mg Q4H PRN Administration NAUSEA Oxycodone HCl 10 mg 03/25/17 09:24 03/25/17 19:35 Roxycodone Tab* PO 10 mg Q3H PRN Administration PAIN - MODERATE TO SEVERE Pantoprazole Sodium 40 mg 03/26/17 16:00 03/26/17 16:33 Protonix Iv* IV 40 mg DAILY@1600 [facility] Administration Prochlorperazine Edisylate 10 mg 03/26/17 13:50 03/27/17 05:45 Compazine Inj* IV 10 mg Q6H PRN Administration ALTERNATE WITH ZOFRAN Tamsulosin HCl 0.4 mg 03/25/17 10:00 03/27/17 09:22 Flomax Cap* PO 0.4 mg DAILY [facility] Administration Temazepam 15 mg 03/25/17 09:24 Restoril Cap* PO BEDTIME PRN INSOMNIA Ticagrelor 90 mg 03/24/17 09:00 03/27/17 09:22 Brilinta* PO 90 mg BID [facility] Administration
[2017-03-27] MEDS: Insulin LISPRO* 1 UNITS UNIT SUBCUT SCH ×8 (10:26→21:26)
[2017-03-27] MEDS: Pantoprazole IV* 40 MG IV SCH (15:17)
[2017-03-27] MEDS: Atorvastatin* 80 MG TAB PO SCH (21:29)
[2017-03-28] MEDS: ceFAZolin 2 GM PREMIX (*) 2 GM/50 ML BAG IVPB SCH ×3 (06:40→23:28)
[2017-03-28] MEDS: Heparin VIAL(*) 5000 UNITS/ML VIAL (FIVE THOUSAND) SUBCUT SCH ×3 (06:45→21:50)
[2017-03-28] MEDS: Levothyroxine TAB* 100 MCG TAB PO SCH (06:47)
[2017-03-28 07:04] LABS: ABS Basophils 0.1 10^3/ul (0-0.2); ABS Eosinophils 0.1 10^3/ul (0-0.6); ABS Lymphocytes 1.9 10^3/ul (1.0-4.8); ABS Monocytes 0.9 10^3/ul (0-0.8); ABS Neutrophils 7.6 10^3/ul (1.5-7.7); ABS Nucleated RBC 0 10^3/ul; Eosinophil % 0.8 % (0-6); Hematocrit 28 % (42-52); Hemoglobin 9.8 g/dl (14.0-18.0); Lymphocyte % 18.1 % (25-47); Mean Corpuscular HGB Conc 35 g/dl (31-36); Mean Corpuscular Hemoglobin 31 pg (27-31); Mean Corpuscular Volume 89 fL (80-94); Mean Platelet Volume 8 um3 (7.4-10.4); Nucleated Red Blood Cells % 0; Platelet Count 506 10^3/ul (150-450); Red Blood Count 3.21 10^6/ul (4.0-5.4); Red Cell Distribution Width 13 % (10.5-15); White Blood Count 10.5 10^3/ul (3.5-10.8)
[2017-03-28 07:14] LABS: EGFR Non-African American 61.1 (>60)
--- NOTE | 2017-03-28 08:51 | PN ---
Subjective - Subjective Reason for Note: Progress Note History: He has had no further nausea or vomiting and he is now eating his breakfast with appetite. He has not used further opioids for analgesia. He had a hypoglycemic episode this morning. Active Problems: Active Problems Acute renal failure (Acute) MSSA (methicillin susceptible Staphylococcus aureus) infection (Acute) A49.01 Obstructive uropathy (Acute) N13.9 Osteomyelitis of right tibia (Acute) M86.9 Status post below knee amputation of right lower extremity (Acute) Z89.511 Vomiting (Acute) R11.10 History of diabetic retinopathy (Chronic) Z86.39 History of myocardial infarction (Chronic) I25.2 Hypercholesterolemia (Chronic) E78.0 Peripheral neuropathy (Chronic) G62.9 Presence of stent in coronary artery (Chronic) Z95.5 Primary hypothyroidism (Chronic) E03.9 Type 1 diabetes mellitus with neurological manifestations, uncontrolled (Chronic ) E10.49, E10.65 Current Medications: Current Medications Aspirin (Aspirin Ec Low Dose*) 81 mg PO DAILY PENDING SALE TO [facility] Last Admin: 03/27/17 09:22 Dose: 81 mg Atorvastatin Calcium (Lipitor*) 80 mg PO 2100 PENDING SALE TO [facility] Last Admin: 03/27/17 21:29 Dose: 80 mg Codeine Sulfate (Codeine Tab*) 30 mg PO Q3H PRN PRN Reason: PAIN - MILD TO MODERATE Last Admin: 03/25/17 09:58 Dose: 30 mg Dextrose (D50w Syringe 50 Ml*) 12.5 gm IV PUSH .FOR FS < 60 - SS PRN PRN Reason: FS < 60 Heparin Sodium (Porcine) (Heparin Vial(*)) 5,000 units SUBCUT Q8HR PENDING SALE TO [facility] Last Admin: 03/28/17 06:45 Dose: 5,000 units Hydromorphone HCl (Dilaudid Inj*) 1 mg IV SLOW PU Q4H PRN PRN Reason: PAIN - SEVERE Last Admin: 03/25/17 21:42 Dose: 1 mg Cefazolin Sodium/Dextrose (Kefzol 2 Gm Premix(*)) 2 gm in 50 mls @ 100 mls/hr IVPB Q8H PENDING SALE TO [facility] Last Admin: 03/28/17 06:40 Dose: 100 mls/hr Lactated Ringer's (Lactated Ringers 1000 Ml Bag*) 1,000 mls @ 100 mls/hr IV PER RATE PENDING SALE TO [facility] Last Admin: 03/28/17 06:45 Dose: 100 mls/hr Insulin Glargine (Lantus(*)) 25 units SUBCUT Q12H PENDING SALE TO [facility] Last Admin: 03/27/17 21:26 Dose: 25 units Insulin Human Lispro (Humalog*) 1 units SUBCUT AC PENDING SALE TO [facility] PRN Reason: Protocol Last Admin: 03/27/17 18:36 Dose: 1 unit Insulin Human Lispro (Humalog*) 0 - 12 units SUBCUT ACHS PENDING SALE TO [facility] PRN Reason: Protocol Last Admin: 03/27/17 21:26 Dose: 2 units Levothyroxine Sodium (Synthroid Tab*) 200 mcg PO DAILY@0600 PENDING SALE TO [facility] Last Admin: 03/28/17 06:47 Dose: 200 mcg Lisinopril (Prinivil Tab*) 10 mg PO DAILY PENDING SALE TO [facility] Last Admin: 03/27/17 09:22 Dose: 10 mg Metoprolol Succinate (Toprol Xl Tab*) 100 mg PO DAILY PENDING SALE TO [facility] Last Admin: 03/27/17 09:22 Dose: 100 mg Ondansetron HCl (Zofran Inj*) 4 mg IV Q4H PRN PRN Reason: NAUSEA Last Admin: 03/26/17 15:25 Dose: 4 mg Oxycodone HCl (Roxycodone Tab*) 10 mg PO Q3H PRN PRN Reason: PAIN - MODERATE TO SEVERE Last Admin: 03/25/17 19:35 Dose: 10 mg Pantoprazole Sodium (Protonix Iv*) 40 mg IV DAILY@1600 PENDING SALE TO [facility] Last Admin: 03/27/17 15:17 Dose: Not Given Prochlorperazine Edisylate (Compazine Inj*) 10 mg IV Q6H PRN PRN Reason: ALTERNATE WITH ZOFRAN Last Admin: 03/27/17 11:49 Dose: 10 mg Tamsulosin HCl (Flomax Cap*) 0.4 mg PO DAILY PENDING SALE TO [facility] Last Admin: 03/27/17 09:22 Dose: 0.4 mg Temazepam (Restoril Cap*) 15 mg PO BEDTIME PRN PRN Reason: INSOMNIA Ticagrelor (Brilinta*) 90 mg PO BID PENDING SALE TO [facility] Last Admin: 03/27/17 21:32 Dose: 90 mg Home Medications: Home Medications Medication Instructions Recorded Confirmed Type Insulin Glargine [Lantus] 60 unit SUBCUT QPM #0 06/04/15 06/17/16 History Atorvastatin* [Lipitor 80 MG*] 80 mg PO DAILY #30 tab 06/07/15 06/17/16 Rx Lisinopril TAB* [Prinivil TAB 10 10 mg PO DAILY tab 06/07/15 06/17/16 Rx MG*] Metoprolol Succinate XL TAB* 100 mg PO DAILY #30 tab.xl 06/07/15 06/17/16 Rx [Toprol XL TAB*] Nitroglycerin TAB 0.4 MG* 0.4 mg SL Q5M PRN #20 tab 06/07/15 06/17/16 Rx Ticagrelor* [Brilinta 90 MG*] 90 mg PO BID #60 tab 06/07/15 06/17/16 Rx Aspirin EC Low Dose* [Ecotrin EC 81 mg PO DAILY 02/15/16 06/17/16 History Low Dose 81 MG*] Insulin Lispro [Humalog] 0 - 100 units SUBCUT TID 02/15/16 06/17/16 History Levothyroxine TAB* [Synthroid 100 200 mcg PO DAILY 06/17/16 06/17/16 History MCG TAB*] Levothyroxine TAB* [Synthroid 25 25 mcg PO DAILY 06/17/16 06/17/16 History MCG TAB*] HYDROmorphone TAB* [Dilaudid TAB*] 2 mg PO Q4H PRN #0 tab MDD 6 06/23/16 Rx Sulfamethox/Trimethoprim DS* 1 tab PO BID #20 tab 06/23/16 Rx [Bactrim DS 800/160 TAB*] oxyCODONE/Acetamin 5/325 MG* 2 tab PO Q4H PRN #48 tab MDD 6 06/23/16 Rx [Percocet 5/325 TAB*] Allergies: Allergies Allergy/AdvReac Type Severity Reaction Status Date / Time Atorvastatin Allergy Fatigue Verified 03/23/17 10:30 Objective - Vital Signs Vital Signs: Vital Signs 03/27/17 03/27/17 03/27/17 11:31 15:36 19:32 Temperature 99.0 F 97.9 F Pulse Rate 85 81 Respiratory 18 16 16 Rate Blood Pressure 137/59 123/51 (mmHg) O2 Sat by Pulse 95 92 Oximetry 03/27/17 03/27/17 03/28/17 19:51 23:33 03:31 Temperature 98.4 F 98.7 F 97.5 F Pulse Rate 79 77 75 Respiratory 16 16 Rate Blood Pressure 121/43 132/57 (mmHg) O2 Sat by Pulse 98 96 100 Oximetry 03/28/17 07:28 Temperature 97.8 F Pulse Rate 73 Respiratory 16 Rate Blood Pressure 140/56 (mmHg) O2 Sat by Pulse 97 Oximetry - Intake and Output Intake and Output: Intake & Output 03/25/17 03/26/17 03/27/17 03/28/17 11:59 11:59 11:59 11:59 Intake Total 1984 1498 2401 2509 Output Total 675 2075 900 1575 Balance 1309 -577 1501 934 Intake: IV Fluids 216 305 0076 2039 ABX - CEFAZOLIN 108 105 55 ABX - ZOSYN 60 D5W NS (0.9%) 1686 LR 133 0 1924 NS (0.9%) 90 IVPB 951 50 ABX - CEFAZOLIN 66 50 ABX - ZOSYN 885 Oral 900 1250 610 470 Output: Urine 675 9806 045 3992 Emesis 200 500 Other: Estimated Void Medium Small Estimated Stool Amount Small ADLs: Meal Record Start: 03/20/17 18: 06 Freq: Status: Active Protocol: Created 03/20/17 18:06 System (Rec: 03/20/17 18:06 System SSU-C05) Document 03/21/17 14:00 [id number] (Rec: 03/21/17 14:24 [id number] SSU-C03) Document 03/21/17 20:42 [id number] (Rec: 03/21/17 20:43 [id number] SSU-C22) Document 03/22/17 10:13 [id number] (Rec: 03/22/17 10:13 [id number] SSU-C08) Document 03/24/17 10:31 [id number] (Rec: 03/24/17 10:31 [id number] SSU-C03) Document 03/24/17 18:42 [id number] (Rec: 03/24/17 18:43 [id number] SSU-C08) Document 03/25/17 10:14 [id number] (Rec: 03/25/17 10:15 [id number] SSU-C01) Document 03/26/17 13:45 WOD1136 (Rec: 03/26/17 13:45 [id number] SSU-C01) Document 03/27/17 10:28 EXH0550 (Rec: 03/27/17 10:28 [id number] SSU-M06) Document 03/27/17 13:41 LKQ9162 (Rec: 03/27/17 13:41 [id number] SSU-M07) Intake and Output Start: 03/20/17 18: 06 Freq: DAILY@0600,1400,2200 Status: Active Protocol: Created 03/20/17 18:06 System (Rec: 03/20/17 18:06 System SSU-C05) Document 03/20/17 22:00 [id number] (Rec: 03/20/17 22:27 [id number] SSU-C06) Document 03/21/17 04:22 MIH9102 (Rec: 03/21/17 04:22 FYC0370 SSU-C12) Document 03/21/17 05:26 [id number] (Rec: 03/21/17 05:26 [id number] SSU-C01) Document 03/21/17 08:14 QGH7649 (Rec: 03/21/17 08:15 [id number] SSU-C03) Document 03/21/17 14:00 CLZ0591 (Rec: 03/21/17 14:23 [id number] SSU-C03) Document 03/21/17 15:40 VMV0188 (Rec: 03/21/17 15:47 [id number] SSU-C09) Document 03/21/17 22:00 SLI9535 (Rec: 03/21/17 22:42 [id number] SSU-C09) Document 03/22/17 01:51 WSQ9094 (Rec: 03/22/17 01:51 QJC8917 SSU-M14) Document 03/22/17 04:52 ESE9356 (Rec: 03/22/17 04:52 [id number] SSU-C09) Document 03/22/17 11:45 XLX1011 (Rec: 03/22/17 11:45 JEY3802 SSU-C08) Document 03/22/17 17:20 ORU2569 (Rec: 03/22/17 17:20 [id number] SSU-M07) Document 03/22/17 22:00 YEV8748 (Rec: 03/22/17 22:02 [id number] SSU-C01) Document 03/23/17 06:34 KRE6192 (Rec: 03/23/17 06:34 AHQ1199 SSU-C08) Document 03/23/17 22:31 ORM7315 (Rec: 03/23/17 22:33 AFR5693 SSU-M12) Document 03/24/17 05:30 TYB1116 (Rec: 03/24/17 05:30 AMJ1953 SSU-C08) Document 03/24/17 14:00 WDB5161 (Rec: 03/24/17 14:08 [id number] SSU-C03) Document 03/24/17 22:52 NWV6849 (Rec: 03/24/17 22:52 ZGC1795 SSU-C08) Document 03/25/17 07:46 KDL1906 (Rec: 03/25/17 07:46 EMH8301 SSU-M14) Document 03/25/17 14:00 LME9632 (Rec: 03/25/17 14:17 FNZ5168 SSU-C01) Document 03/25/17 18:30 KGP8941 (Rec: 03/25/17 18:30 WYC7943 SSU-C11) Document 03/25/17 19:27 KIT6148 (Rec: 03/25/17 19:28 [id number] SSU-M02) Document 03/25/17 22:14 LIT1756 (Rec: 03/25/17 22:14 YJF2076 SSU-C04) Document 03/26/17 05:24 EEP3030 (Rec: 03/26/17 05:25 [id number] SSU-C08) Document 03/26/17 08:06 LPR7877 (Rec: 03/26/17 08:06 [id number] SSU-M15) Document 03/26/17 11:05 SZJ0796 (Rec: 03/27/17 01:37 ASH1356 SSU-C01) Document 03/26/17 13:46 SBG0625 (Rec: 03/26/17 13:46 [id number] SSU-C01) Document 03/26/17 14:12 OPJ2302 (Rec: 03/26/17 14:12 SKW5426 SSU-M15) Document 03/26/17 15:23 ATZ7150 (Rec: 03/26/17 15:23 QVG1731 SSU-M15) Document 03/26/17 16:37 FCG1326 (Rec: 03/26/17 16:37 QLC2720 SSU-M15) Document 03/26/17 19:15 LEA2210 (Rec: 03/26/17 19:15 [id number] SSU-C11) Document 03/26/17 23:00 ZBF2595 (Rec: 03/26/17 23:00 OUX2780 SSU-C01) Document 03/27/17 05:32 FWA1404 (Rec: 03/27/17 05:32 [id number] SSU-C01) Document 03/27/17 07:00 MSK5611 (Rec: 03/27/17 07:00 ZUK4114 SSU-C01) Document 03/27/17 12:44 ZGM8719 (Rec: 03/27/17 12:44 GOI6153 SSU-C09) Document 03/27/17 13:52 WWP7687 (Rec: 03/27/17 13:53 VSR2512 SSU-C03) Document 03/27/17 22:28 HAY1996 (Rec: 03/27/17 22:28 [id number] SSU-C10) Document 03/27/17 23:15 [id number] (Rec: 03/27/17 23:15 [id number] SSU-C03) Document 03/28/17 06:05 JMC3401 (Rec: 03/28/17 06:05 [id number] SSU-C03) Document 03/28/17 07:37 [id number] (Rec: 03/28/17 07:37 OIC1173 SSU-C19) - Physical Exam General: No Cyanosis, No Anemia, No Jaundice, No Clubbing Lungs and Chest: Yes: Chest Expansion Full, Chest Expansion Symetrica, Percussion Note Resonant, Vessicular Breath Sounds. No: Crackles, Wheezes Heart Rate and Rhythm: Regular JVP: Not Elevated Additional Cardiovascular: Yes: Normal Heart Sounds. No: Pedal Edema Abdominal Exam: Yes: Soft, Bowel Sounds Present. No: Distention, Abdominal Tenderness Results - Results Lab Results: Laboratory Results - last 24 hr 03/27/17 03/27/17 03/27/17 07:33 08:59 08:59 WBC RBC Hgb Hct MCV MCH MCHC RDW Plt Count MPV Neut % (Auto) Lymph % (Auto) [place] % (Auto) Eos % (Auto) Baso % (Auto) Absolute Neuts (auto) Absolute Lymphs (auto) Absolute Monos (auto) Absolute Eos (auto) Absolute Basos (auto) Absolute Nucleated RBC Nucleated RBC % Sodium Potassium Chloride Carbon Dioxide Anion Gap BUN Creatinine Est GFR ( Amer) Est GFR (Non-Af Amer) BUN/Creatinine Ratio Glucose 480 H POC Glucose (mg/dL) > 444 H* Calcium Troponin I 0.08 H* C-Reactive Protein 03/27/17 03/27/17 03/27/17 11:47 12:24 16:42 WBC RBC Hgb Hct MCV MCH MCHC RDW Plt Count MPV Neut % (Auto) Lymph % (Auto) [place] % (Auto) Eos % (Auto) Baso % (Auto) Absolute Neuts (auto) Absolute Lymphs (auto) Absolute Monos (auto) Absolute Eos (auto) Absolute Basos (auto) Absolute Nucleated RBC Nucleated RBC % Sodium Potassium Chloride Carbon Dioxide Anion Gap BUN Creatinine Est GFR ( Amer) Est GFR (Non-Af Amer) BUN/Creatinine Ratio Glucose 396 H POC Glucose (mg/dL) > 444 H* 280 H Calcium Troponin I C-Reactive Protein 03/27/17 03/28/17 03/28/17 21:13 06:40 06:40 WBC 10.5 RBC 3.21 L Hgb 9.8 L Hct 28 L MCV 89 MCH 31 MCHC 35 RDW 13 Plt Count 506 H MPV 8 Neut % (Auto) 72.5 Lymph % (Auto) 18.1 L [place] % (Auto) 8.1 Eos % (Auto) 0.8 Baso % (Auto) 0.5 Absolute Neuts (auto) 7.6 Absolute Lymphs (auto) 1.9 Absolute Monos (auto) 0.9 H Absolute Eos (auto) 0.1 Absolute Basos (auto) 0.1 Absolute Nucleated RBC 0 Nucleated RBC % 0 Sodium 135 Potassium 3.9 Chloride 104 Carbon Dioxide 26 Anion Gap 5 BUN 39 H Creatinine 1.23 H Est GFR ( Amer) 78.6 Est GFR (Non-Af Amer) 61.1 BUN/Creatinine Ratio 31.7 H Glucose 58 L POC Glucose (mg/dL) 196 H Calcium 8.0 L Troponin I C-Reactive Protein 61.55 H 03/28/17 07:51 WBC RBC Hgb Hct MCV MCH MCHC RDW Plt Count MPV Neut % (Auto) Lymph % (Auto) [place] % (Auto) Eos % (Auto) Baso % (Auto) Absolute Neuts (auto) Absolute Lymphs (auto) Absolute Monos (auto) Absolute Eos (auto) Absolute Basos (auto) Absolute Nucleated RBC Nucleated RBC % Sodium Potassium Chloride Carbon Dioxide Anion Gap BUN Creatinine Est GFR ( Amer) Est GFR (Non-Af Amer) BUN/Creatinine Ratio Glucose POC Glucose (mg/dL) 80 Calcium Troponin I C-Reactive Protein Assessment - Problem List Assessment: Patient Problems Acute renal failure (Acute) MSSA (methicillin susceptible Staphylococcus aureus) infection (Acute) Obstructive uropathy (Acute) Osteomyelitis of right tibia (Acute) Status post below knee amputation of right lower extremity (Acute) Vomiting (Acute) History of diabetic retinopathy (Chronic) History of myocardial infarction (Chronic) Hypercholesterolemia (Chronic) Peripheral neuropathy (Chronic) Presence of stent in coronary artery (Chronic) Primary hypothyroidism (Chronic) 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 He is tolerating the ancef and the CRP is coming down. Acute renal failure (Acute)Obstructive uropathy (Acute) His BUN/CR are improving. He is voiding. I will discontinue the flomax to see if he can void without it now that he is no longer using opioids Vomiting (Acute) This has resolved. I have suggested he avoids further opioids and uses acetaminophen for pain control History of diabetic retinopathy (Chronic) secondary diagnosis History of myocardial infarction (Chronic) I checked an EKG and troponin I to ensure the vomiting was not secondary to a silent NV - no evidence for this. I think the troponin I is too low for this. Hypercholesterolemia (Chronic) secondary diagnosis Peripheral neuropathy (Chronic) secondary diagnosis Presence of stent in coronary artery (Chronic) Primary hypothyroidism (Chronic) secondary diagnosis Type 1 diabetes mellitus with neurological manifestations, uncontrolled (Chronic ) I will cut back the lantus insulin/coverage again now he is more insulin sensitive I discussed the above with the patient.
[2017-03-28] MEDS: Insulin LISPRO* 1 UNITS UNIT SUBCUT SCH ×8 (09:12→21:49)
[2017-03-28] MEDS: Tamsulosin CAP* 0.4 MG PO SCH (09:39)
[2017-03-28] MEDS: Metoprolol Succinate XL TAB* 100 MG PO SCH (09:39)
[2017-03-28] MEDS: Ticagrelor* 90 MG TAB PO SCH ×2 (09:39→21:49)
[2017-03-28] MEDS: Lisinopril TAB* 10 MG PO SCH (09:39)
[2017-03-28] MEDS: Aspirin EC Low Dose* 81 MG TAB.EC PO SCH (09:39)
[2017-03-28] MEDS: Acetaminophen TAB* 325 MG PO PRN ×4 (10:45→23:28)
[2017-03-28] MEDS: Pantoprazole IV* 40 MG IV SCH (15:25)
--- NOTE | 2017-03-28 15:35 | PN ---
Progress Note - Progress Note Date of Service: 03/28/17 SOAP: Subjective: []Patient seen OOB in chair. He is comfortable and denies RLE pain, fever, chills, SOB, CP. Objective: [] Vital Signs Temp 97.5 F 03/28/17 10:56 Pulse 76 03/28/17 10:56 Resp 16 03/28/17 10:56 BP 131/57 03/28/17 10:56 Pulse Ox 97 03/28/17 10:56 Intake & Output 03/27/17 03/28/17 03/28/17 18:59 06:59 18:59 Intake Total 999 2239 815 Output Total 650 950 675 Balance 349 1289 140 Intake: IV Fluids 359 2039 295 ABX - CEFAZOLIN 55 58 ABX - ZOSYN 60 D5W NS (0.9%) 359 237 LR 0 1924 Oral 640 200 520 Output: Urine 650 950 675 Laboratory Last Values WBC 10.5 10^3/ul (3.5-10.8) 03/28/17 06:40 RBC 3.21 10^6/ul (4.0-5.4) L 03/28/17 06:40 Hgb 9.8 g/dl (14.0-18.0) L 03/28/17 06:40 Hct 28 % (42-52) L 03/28/17 06:40 MCV 89 fL (80-94) 03/28/17 06:40 MCH 31 pg (27-31) 03/28/17 06:40 MCHC 35 g/dl (31-36) 03/28/17 06:40 RDW 13 % (10.5-15) 03/28/17 06:40 Plt Count 506 10^3/ul (150-450) H 03/28/17 06:40 MPV 8 um3 (7.4-10.4) 03/28/17 06:40 Neut % (Auto) 72.5 % (38-83) 03/28/17 06:40 Lymph % (Auto) 18.1 % (25-47) L 03/28/17 06:40 [place] % (Auto) 8.1 % (1-9) 03/28/17 06:40 Eos % (Auto) 0.8 % (0-6) 03/28/17 06:40 Baso % (Auto) 0.5 % (0-2) 03/28/17 06:40 Absolute Neuts (auto) 7.6 10^3/ul (1.5-7.7) 03/28/17 06:40 Absolute Lymphs (auto) 1.9 10^3/ul (1.0-4.8) 03/28/17 06:40 Absolute Monos (auto) 0.9 10^3/ul (0-0.8) H 03/28/17 06:40 Absolute Eos (auto) 0.1 10^3/ul (0-0.6) 03/28/17 06:40 Absolute Basos (auto) 0.1 10^3/ul (0-0.2) 03/28/17 06:40 Absolute Nucleated RBC 0 10^3/ul 03/28/17 06:40 Nucleated RBC % 0 03/28/17 06:40 Eosinophil Smear None seen 03/22/17 10:40 Sodium 135 mmol/L (133-145) 03/28/17 06:40 Potassium 3.9 mmol/L (3.5-5.0) 03/28/17 06:40 Chloride 104 mmol/L (101-111) 03/28/17 06:40 Carbon Dioxide 26 mmol/L (22-32) 03/28/17 06:40 Anion Gap 5 mmol/L (2-11) 03/28/17 06:40 BUN 39 mg/dL (6-24) H 03/28/17 06:40 Creatinine 1.23 mg/dL (0.67-1.17) H 03/28/17 06:40 Est GFR ( Amer) 78.6 (>60) 03/28/17 06:40 Est GFR (Non-Af Amer) 61.1 (>60) 03/28/17 06:40 BUN/Creatinine Ratio 31.7 (8-20) H 03/28/17 06:40 Glucose 58 mg/dL (70-100) L 03/28/17 06:40 POC Glucose (mg/dL) 129 mg/dL (70-100) H 03/28/17 12:20 Calcium 8.0 mg/dL (8.6-10.3) L 03/28/17 06:40 Total Bilirubin 0.50 mg/dL (0.2-1.0) 03/27/17 06:18 AST 45 U/L (13-39) H 03/27/17 06:18 ALT 21 U/L (7-52) 03/27/17 06:18 Alkaline Phosphatase 210 U/L (34-104) H 03/27/17 06:18 Troponin I 0.08 ng/mL (<0.04) H* 03/27/17 08:59 C-Reactive Protein 61.55 mg/L (< 5.00) H 03/28/17 06:40 Total Protein 4.7 g/dL (6.4-8.9) L 03/27/17 06:18 Albumin 1.9 g/dL (3.2-5.2) L 03/27/17 06:18 Globulin 2.8 g/dL (2-4) 03/27/17 06:18 Albumin/Globulin Ratio 0.7 (1-3) L 03/27/17 06:18 Ur Random Creatinine 222.97 mg/dL 03/22/17 10:40 Ur Random Sodium 19 mmol/L 03/22/17 10:40 Renal Sodium Excretion 0.11 % 03/22/17 10:40 General: Well appearing, NAD RLE: Dressing CDI. No drainage or odor. Non-tender to light touch, thigh proximal to dressing is non-indurated, non-erythematous, non-tender. Assessment: []S/P I&D, debridement right thigh Plan: - Dressing to remain CDI - NWB RLE - D/C to home once PICC placed and medically stable to DC
[2017-03-28] MEDS: Atorvastatin* 80 MG TAB PO SCH (21:48)
[2017-03-28] MEDS ORDERED: Insulin GLARGINE(*) 1 UNITS UNIT SUBCUT SCH (22:00)
[2017-03-29] MEDS: Heparin VIAL(*) 5000 UNITS/ML VIAL (FIVE THOUSAND) SUBCUT SCH (05:43)
[2017-03-29] MEDS: Levothyroxine TAB* 100 MCG TAB PO SCH (05:43)
[2017-03-29 05:58] LABS: ABS Basophils 0.1 10^3/ul (0-0.2); ABS Eosinophils 0.1 10^3/ul (0-0.6); ABS Lymphocytes 1.6 10^3/ul (1.0-4.8); ABS Monocytes 0.6 10^3/ul (0-0.8); ABS Neutrophils 5.7 10^3/ul (1.5-7.7); ABS Nucleated RBC 0 10^3/ul; Eosinophil % 1.3 % (0-6); Hematocrit 26 % (42-52); Hemoglobin 9.2 g/dl (14.0-18.0); Lymphocyte % 19.5 % (25-47); Mean Corpuscular HGB Conc 35 g/dl (31-36); Mean Corpuscular Hemoglobin 31 pg (27-31); Mean Corpuscular Volume 89 fL (80-94); Mean Platelet Volume 8 um3 (7.4-10.4); Nucleated Red Blood Cells % 0; Platelet Count 465 10^3/ul (150-450); Red Blood Count 2.99 10^6/ul (4.0-5.4); Red Cell Distribution Width 13 % (10.5-15); White Blood Count 8.1 10^3/ul (3.5-10.8)
[2017-03-29] MEDS: ceFAZolin 2 GM PREMIX (*) 2 GM/50 ML BAG IVPB SCH (06:21)
[2017-03-29 08:15] VITALS: BP 140/59
[2017-03-29] MEDS: Acetaminophen TAB* 325 MG PO PRN (08:22)
[2017-03-29] MEDS: Ticagrelor* 90 MG TAB PO SCH (08:22)
[2017-03-29] MEDS: Metoprolol Succinate XL TAB* 100 MG PO SCH (08:22)
[2017-03-29] MEDS: Tamsulosin CAP* 0.4 MG PO SCH (08:22)
[2017-03-29] MEDS: Lisinopril TAB* 10 MG PO SCH (08:22)
[2017-03-29] MEDS: Aspirin EC Low Dose* 81 MG TAB.EC PO SCH (08:22)
--- NOTE | 2017-03-29 08:35 | PN ---
Subjective - Subjective Reason for Note: Discharge Note History: He tolerated the PICC line insertion. He has had no fevers/sweats. The pain in his right revised BKA is tolerable with acetaminophen and no opioids. He is regaining his appetite. He has had small BM yesterday. Urination is normal again. Glycemic control is adequate Active Problems: Active Problems Acute renal failure (Acute) MSSA (methicillin susceptible Staphylococcus aureus) infection (Acute) A49.01 Obstructive uropathy (Acute) N13.9 Osteomyelitis of right tibia (Acute) M86.9 Status post below knee amputation of right lower extremity (Acute) Z89.511 Vomiting (Acute) R11.10 History of diabetic retinopathy (Chronic) Z86.39 History of myocardial infarction (Chronic) I25.2 Hypercholesterolemia (Chronic) E78.0 Peripheral neuropathy (Chronic) G62.9 Presence of stent in coronary artery (Chronic) Z95.5 Primary hypothyroidism (Chronic) E03.9 Type 1 diabetes mellitus with neurological manifestations, uncontrolled (Chronic ) E10.49, E10.65 Current Medications: Current Medications Acetaminophen (Tylenol Tab*) 650 mg PO Q4H PRN PRN Reason: PAIN Last Admin: 03/29/17 08:22 Dose: 650 mg Aspirin (Aspirin Ec Low Dose*) 81 mg PO DAILY [facility] Last Admin: 03/29/17 08:22 Dose: 81 mg Atorvastatin Calcium (Lipitor*) 80 mg PO 2100 [facility] Last Admin: 03/28/17 21:48 Dose: 80 mg Codeine Sulfate (Codeine Tab*) 30 mg PO Q3H PRN PRN Reason: PAIN - MILD TO MODERATE Last Admin: 03/25/17 09:58 Dose: 30 mg Dextrose (D50w Syringe 50 Ml*) 12.5 gm IV PUSH .FOR FS < 60 - SS PRN PRN Reason: FS < 60 Heparin Sodium (Porcine) (Heparin Vial(*)) 5,000 units SUBCUT Q8HR [facility] Last Admin: 03/29/17 05:43 Dose: 5,000 units Heparin Sodium (Porcine) (Heparin Flush Picc/Ml/Cvc(*)) 1 - 3 ml FLUSH 0600, 1800 [facility] PRN Reason: Protocol Last Admin: 03/29/17 08:02 Dose: 1 ml Hydromorphone HCl (Dilaudid Inj*) 1 mg IV SLOW PU Q4H PRN PRN Reason: PAIN - SEVERE Last Admin: 03/25/17 21:42 Dose: 1 mg Cefazolin Sodium/Dextrose (Kefzol 2 Gm Premix(*)) 2 gm in 50 mls @ 100 mls/hr IVPB Q8H [facility] Last Admin: 03/29/17 06:21 Dose: 100 mls/hr Insulin Glargine (Lantus(*)) 30 units SUBCUT Q24H [facility] Last Admin: 03/28/17 21:49 Dose: 30 units Insulin Human Lispro (Humalog*) 0 - 12 units SUBCUT ACHS [facility] PRN Reason: Protocol Last Admin: 03/28/17 21:49 Dose: 4 units Insulin Human Lispro (Humalog*) 0 units SUBCUT AC [facility] PRN Reason: Protocol Last Admin: 03/28/17 18:40 Dose: 1 unit Levothyroxine Sodium (Synthroid Tab*) 200 mcg PO DAILY@0600 [facility] Last Admin: 03/29/17 05:43 Dose: 200 mcg Lisinopril (Prinivil Tab*) 10 mg PO DAILY [facility] Last Admin: 03/29/17 08:22 Dose: 10 mg Metoprolol Succinate (Toprol Xl Tab*) 100 mg PO DAILY [facility] Last Admin: 03/29/17 08:22 Dose: 100 mg Ondansetron HCl (Zofran Inj*) 4 mg IV Q4H PRN PRN Reason: NAUSEA Last Admin: 03/26/17 15:25 Dose: 4 mg Oxycodone HCl (Roxycodone Tab*) 10 mg PO Q3H PRN PRN Reason: PAIN - MODERATE TO SEVERE Last Admin: 03/25/17 19:35 Dose: 10 mg Pantoprazole Sodium (Protonix Iv*) 40 mg IV DAILY@1600 [facility] Last Admin: 03/28/17 15:25 Dose: Not Given Prochlorperazine Edisylate (Compazine Inj*) 10 mg IV Q6H PRN PRN Reason: ALTERNATE WITH ZOFRAN Last Admin: 03/27/17 11:49 Dose: 10 mg Tamsulosin HCl (Flomax Cap*) 0.4 mg PO DAILY [facility] Last Admin: 03/29/17 08:22 Dose: 0.4 mg Temazepam (Restoril Cap*) 15 mg PO BEDTIME PRN PRN Reason: INSOMNIA Ticagrelor (Brilinta*) 90 mg PO BID [facility] Last Admin: 03/29/17 08:22 Dose: 90 mg Home Medications: Home Medications Medication Instructions Recorded Confirmed Type Insulin Glargine [Lantus] 60 unit SUBCUT QPM #0 06/04/15 06/17/16 History Atorvastatin* [Lipitor 80 MG*] 80 mg PO DAILY #30 tab 06/07/15 06/17/16 Rx Lisinopril TAB* [Prinivil TAB 10 10 mg PO DAILY tab 06/07/15 06/17/16 Rx MG*] Metoprolol Succinate XL TAB* 100 mg PO DAILY #30 tab.xl 06/07/15 06/17/16 Rx [Toprol XL TAB*] Nitroglycerin TAB 0.4 MG* 0.4 mg SL Q5M PRN #20 tab 06/07/15 06/17/16 Rx Ticagrelor* [Brilinta 90 MG*] 90 mg PO BID #60 tab 06/07/15 06/17/16 Rx Aspirin EC Low Dose* [Ecotrin EC 81 mg PO DAILY 02/15/16 06/17/16 History Low Dose 81 MG*] Insulin Lispro [Humalog] 0 - 100 units SUBCUT TID 02/15/16 06/17/16 History Levothyroxine TAB* [Synthroid 100 200 mcg PO DAILY 06/17/16 06/17/16 History MCG TAB*] Levothyroxine TAB* [Synthroid 25 25 mcg PO DAILY 06/17/16 06/17/16 History MCG TAB*] HYDROmorphone TAB* [Dilaudid TAB*] 2 mg PO Q4H PRN #0 tab MDD 6 06/23/16 Rx Sulfamethox/Trimethoprim DS* 1 tab PO BID #20 tab 06/23/16 Rx [Bactrim DS 800/160 TAB*] oxyCODONE/Acetamin 5/325 MG* 2 tab PO Q4H PRN #48 tab MDD 6 06/23/16 Rx [Percocet 5/325 TAB*] Allergies: Allergies Allergy/AdvReac Type Severity Reaction Status Date / Time MS Atorvastatin Allergy Fatigue Verified 03/23/17 10:30 [Atorvastatin] Objective - Vital Signs Vital Signs: Vital Signs 03/28/17 03/28/17 03/28/17 10:56 15:50 19:16 Temperature 97.5 F 98.2 F 99.0 F Pulse Rate 76 77 74 Respiratory 16 16 20 Rate Blood Pressure 131/57 136/65 147/63 (mmHg) O2 Sat by Pulse 97 95 93 Oximetry 03/28/17 03/28/17 03/29/17 19:34 23:34 03:21 Temperature 99.0 F 98.1 F Pulse Rate 73 69 Respiratory 17 16 16 Rate Blood Pressure 122/56 140/62 (mmHg) O2 Sat by Pulse 93 95 Oximetry 03/29/17 07:32 Temperature 98.2 F Pulse Rate 72 Respiratory 16 Rate Blood Pressure 140/59 (mmHg) O2 Sat by Pulse 95 Oximetry - Intake and Output Intake and Output: Intake & Output 03/26/17 03/27/17 03/28/17 03/29/17 11:59 11:59 11:59 11:59 Intake Total 1498 2401 2829 1585 Output Total 2075 900 1575 1300 Balance -577 1501 1254 285 Intake: IV Fluids 198 1791 2039 345 ABX - CEFAZOLIN 108 105 55 108 ABX - ZOSYN 60 D5W NS (0.9%) 1686 237 LR 0 1924 NS (0.9%) 90 IVPB 50 ABX - CEFAZOLIN 50 Oral 1250 194 367 0624 Output: Urine 9714 951 6276 1300 Emesis 200 500 Other: Estimated Void Medium Small Estimated Stool Amount Small ADLs: Meal Record Start: 03/20/17 18: 06 Freq: Status: Active Protocol: Created 03/20/17 18:06 System (Rec: 03/20/17 18:06 System SSU-C05) Document 03/21/17 14:00 [id number] (Rec: 03/21/17 14:24 U-C03) Document 03/21/17 20:42 QTG0502 (Rec: 03/21/17 20:43 [id number] U-C22) Document 03/22/17 10:13 PJQ7651 (Rec: 03/22/17 10:13 SSU-C08) Document 03/24/17 10:31 XTG3217 (Rec: 03/24/17 10:31 [id number] SSU-C03) Document 03/24/17 18:42 IAE3715 (Rec: 03/24/17 18:43 QZE3386 SSU-C08) Document 03/25/17 10:14 VHZ7401 (Rec: 03/25/17 10:15 HAH1562 SSU-C01) Document 03/26/17 13:45 HPC9813 (Rec: 03/26/17 13:45 MWR1875 SSU-C01) Document 03/27/17 10:28 NHU3979 (Rec: 03/27/17 10:28 VQL1052 SSU-M06) Document 03/27/17 13:41 GKM9017 (Rec: 03/27/17 13:41 ROU7266 SSU-M07) Document 03/28/17 09:08 BKL1008 (Rec: 03/28/17 09:08 WAC2608 SSU-C19) Document 03/28/17 19:00 IUT3766 (Rec: 03/28/17 22:32 [id number] SSU-M07) Intake and Output Start: 03/20/17 18: 06 Freq: DAILY@0600,1400,2200 Status: Active Protocol: Created 03/20/17 18:06 System (Rec: 03/20/17 18:06 System SSU-C05) Document 03/20/17 22:00 XCE4951 (Rec: 03/20/17 22:27 QEQ9009 SSU-C06) Document 03/21/17 04:22 DIW6170 (Rec: 03/21/17 04:22 BNA5664 SSU-C12) Document 03/21/17 05:26 LXT5026 (Rec: 03/21/17 05:26 YTG5535 SSU-C01) Document 03/21/17 08:14 MYB7141 (Rec: 03/21/17 08:15 TXM1449 SSU-C03) Document 03/21/17 14:00 HXC1401 (Rec: 03/21/17 14:23 KQD4949 SSU-C03) Document 03/21/17 15:40 QEK9674 (Rec: 03/21/17 15:47 YQM0323 SSU-C09) Document 03/21/17 22:00 IWT7191 (Rec: 03/21/17 22:42 AUD2005 SSU-C09) Document 03/22/17 01:51 DIL5793 (Rec: 03/22/17 01:51 AFW3773 SSU-M14) Document 03/22/17 04:52 PWU1125 (Rec: 03/22/17 04:52 YCO5722 SSU-C09) Document 03/22/17 11:45 CBS4367 (Rec: 03/22/17 11:45 XBS5438 SSU-C08) Document 03/22/17 17:20 EAC3232 (Rec: 03/22/17 17:20 QCA0334 SSU-M07) Document 03/22/17 22:00 RGE6438 (Rec: 03/22/17 22:02 YAN7907 SSU-C01) Document 03/23/17 06:34 KUT3919 (Rec: 03/23/17 06:34 ZIW9322 SSU-C08) Document 03/23/17 22:31 VZO6060 (Rec: 03/23/17 22:33 AMI8138 SSU-M12) Document 03/24/17 05:30 OBK2905 (Rec: 03/24/17 05:30 JED4221 SSU-C08) Document 03/24/17 14:00 RAP4280 (Rec: 03/24/17 14:08 BSN1858 SSU-C03) Document 03/24/17 22:52 IHV3381 (Rec: 03/24/17 22:52 GPJ3759 SSU-C08) Document 03/25/17 07:46 TVD3658 (Rec: 03/25/17 07:46 LAT8738 SSU-M14) Document 03/25/17 14:00 IQI4955 (Rec: 03/25/17 14:17 TQN0024 SSU-C01) Document 03/25/17 18:30 FRU5849 (Rec: 03/25/17 18:30 ZZX7085 SSU-C11) Document 03/25/17 19:27 VQJ1844 (Rec: 03/25/17 19:28 MDK2410 SSU-M02) Document 03/25/17 22:14 GTW6561 (Rec: 03/25/17 22:14 FSM1908 SSU-C04) Document 03/26/17 05:24 YSH3439 (Rec: 03/26/17 05:25 NXP6008 SSU-C08) Document 03/26/17 08:06 NQZ2792 (Rec: 03/26/17 08:06 UMD9274 SSU-M15) Document 03/26/17 11:05 UYS2374 (Rec: 03/27/17 01:37 CPK4494 SSU-C01) Document 03/26/17 13:46 EKA4885 (Rec: 03/26/17 13:46 JBZ6923 SSU-C01) Document 03/26/17 14:12 EJW8148 (Rec: 03/26/17 14:12 BQZ2200 SSU-M15) Document 03/26/17 15:23 WDD3040 (Rec: 03/26/17 15:23 KKF2754 SSU-M15) Document 03/26/17 16:37 NIK2081 (Rec: 03/26/17 16:37 PZP6539 SSU-M15) Document 03/26/17 19:15 ETB6312 (Rec: 03/26/17 19:15 RDE7939 SSU-C11) Document 03/26/17 23:00 ADJ7097 (Rec: 03/26/17 23:00 QZV5909 SSU-C01) Document 03/27/17 05:32 ZEU4746 (Rec: 03/27/17 05:32 TNY0892 SSU-C01) Document 03/27/17 07:00 HOO8560 (Rec: 03/27/17 07:00 WRZ5212 SSU-C01) Document 03/27/17 12:44 LNA6128 (Rec: 03/27/17 12:44 KDE6472 SSU-C09) Document 03/27/17 13:52 SDE6610 (Rec: 03/27/17 13:53 CKX3314 SSU-C03) Document 03/27/17 22:28 EDL1689 (Rec: 03/27/17 22:28 CFG0082 SSU-C10) Document 03/27/17 23:15 MBI7906 (Rec: 03/27/17 23:15 OYC2222 SSU-C03) Document 03/28/17 06:05 KAY3036 (Rec: 03/28/17 06:05 JZD2417 SSU-C03) Document 03/28/17 07:37 LMZ2532 (Rec: 03/28/17 07:37 SKF1860 SSU-C19) Document 03/28/17 14:04 QLW4351 (Rec: 03/28/17 14:05 JMY7330 SSU-C19) Document 03/28/17 22:33 YGL7936 (Rec: 03/28/17 22:33 GEZ1731 SSU-M07) Document 03/29/17 03:09 PBP5646 (Rec: 03/29/17 03:09 VYM2655 SSU-C03) Document 03/29/17 06:00 UKA4285 (Rec: 03/29/17 06:15 [id number] SSU-C03) - Physical Exam General Physical Exam Comment: Dressing over right BKA site. General: No Cyanosis, Yes Anemia, No Jaundice, No Clubbing Lungs and Chest: Yes: Chest Expansion Full, Chest Expansion Symetrica, Percussion Note Resonant, Vessicular Breath Sounds. No: Crackles, Wheezes Heart Rate and Rhythm: Regular JVP: Not Elevated Additional Cardiovascular: Yes: Normal Heart Sounds, Pedal Edema. No: Heart Murmur Abdominal Exam: Yes: Distention, Bowel Sounds Present. No: Soft, Abdominal Tenderness Results - Results Lab Results: Laboratory Results - last 24 hr 03/28/17 03/28/17 03/28/17 12:20 16:30 21:27 WBC RBC Hgb Hct MCV MCH MCHC RDW Plt Count MPV Neut % (Auto) Lymph % (Auto) [place] % (Auto) Eos % (Auto) Baso % (Auto) Absolute Neuts (auto) Absolute Lymphs (auto) Absolute Monos (auto) Absolute Eos (auto) Absolute Basos (auto) Absolute Nucleated RBC Nucleated RBC % Sodium Potassium Chloride Carbon Dioxide Anion Gap BUN Creatinine Est GFR ( Amer) Est GFR (Non-Af Amer) BUN/Creatinine Ratio Glucose POC Glucose (mg/dL) 129 H 149 H 216 H Calcium C-Reactive Protein 03/29/17 03/29/17 03/29/17 05:40 05:40 08:09 WBC 8.1 RBC 2.99 L Hgb 9.2 L Hct 26 L MCV 89 MCH 31 MCHC 35 RDW 13 Plt Count 465 H MPV 8 Neut % (Auto) 70.8 Lymph % (Auto) 19.5 L [place] % (Auto) 7.5 Eos % (Auto) 1.3 Baso % (Auto) 0.9 Absolute Neuts (auto) 5.7 Absolute Lymphs (auto) 1.6 Absolute Monos (auto) 0.6 Absolute Eos (auto) 0.1 Absolute Basos (auto) 0.1 Absolute Nucleated RBC 0 Nucleated RBC % 0 Sodium 136 Potassium 4.3 Chloride 106 Carbon Dioxide 27 Anion Gap 3 BUN 28 H Creatinine 1.15 Est GFR ( Amer) 84.9 Est GFR (Non-Af Amer) 66.0 BUN/Creatinine Ratio 24.3 H Glucose 132 H POC Glucose (mg/dL) 143 H Calcium 7.8 L C-Reactive Protein 33.87 H Assessment - Problem List Assessment: Patient Problems Acute renal failure (Acute) MSSA (methicillin susceptible Staphylococcus aureus) infection (Acute) Obstructive uropathy (Acute) Osteomyelitis of right tibia (Acute) Status post below knee amputation of right lower extremity (Acute) Vomiting (Acute) History of diabetic retinopathy (Chronic) History of myocardial infarction (Chronic) Hypercholesterolemia (Chronic) Peripheral neuropathy (Chronic) Presence of stent in coronary artery (Chronic) Primary hypothyroidism (Chronic) 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 He is responding well to the IV ancef. 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 I discussed the above with the patient, he will follow up with my office next week and also with Dr. Lewis as an outpatient
[2017-03-29] MEDS: Insulin LISPRO* 1 UNITS UNIT SUBCUT SCH ×4 (09:15→13:09)
--- NOTE | 2017-03-29 11:32 | PN ---
Progress Note - Progress Note Date of Service: 03/29/17 SOAP: Subjective: Patient is seen laying comfortably in bed, fully dressed in street clothing. States he is very ready to go home. He is comfortable, denies PRE pain, fever, chills, SOB, CP. Objective: Temp Pulse Resp BP Pulse Ox 98.2 F 72 20 140/59 95 03/29/17 07:32 03/29/17 07:32 03/29/17 08:00 03/29/17 07:32 03/29/17 07:32 Laboratory Results - last 24 hr 03/28/17 03/28/17 03/28/17 12:20 16:30 21:27 WBC RBC Hgb Hct MCV MCH MCHC RDW Plt Count MPV Neut % (Auto) Lymph % (Auto) [place] % (Auto) Eos % (Auto) Baso % (Auto) Absolute Neuts (auto) Absolute Lymphs (auto) Absolute Monos (auto) Absolute Eos (auto) Absolute Basos (auto) Absolute Nucleated RBC Nucleated RBC % Sodium Potassium Chloride Carbon Dioxide Anion Gap BUN Creatinine Est GFR ( Amer) Est GFR (Non-Af Amer) BUN/Creatinine Ratio Glucose POC Glucose (mg/dL) 129 H 149 H 216 H Calcium C-Reactive Protein 03/29/17 03/29/17 03/29/17 05:40 05:40 08:09 WBC 8.1 RBC 2.99 L Hgb 9.2 L Hct 26 L MCV 89 MCH 31 MCHC 35 RDW 13 Plt Count 465 H MPV 8 Neut % (Auto) 70.8 Lymph % (Auto) 19.5 L [place] % (Auto) 7.5 Eos % (Auto) 1.3 Baso % (Auto) 0.9 Absolute Neuts (auto) 5.7 Absolute Lymphs (auto) 1.6 Absolute Monos (auto) 0.6 Absolute Eos (auto) 0.1 Absolute Basos (auto) 0.1 Absolute Nucleated RBC 0 Nucleated RBC % 0 Sodium 136 Potassium 4.3 Chloride 106 Carbon Dioxide 27 Anion Gap 3 BUN 28 H Creatinine 1.15 Est GFR ( Amer) 84.9 Est GFR (Non-Af Amer) 66.0 BUN/Creatinine Ratio 24.3 H Glucose 132 H POC Glucose (mg/dL) 143 H Calcium 7.8 L C-Reactive Protein 33.87 H General: Well appearing, NAD RLE: Dressing CDI. No drainage or odor. Skin clean, dry, slight erythema and induration. No warmth, no fluctuance. Non-tender to light touch, thigh proximally is non-indurated, non-erythematous, non-tender. Assessment: P/O day 6, S/P I&D, debridement right thigh on 03/23/[address] Lewis Plan: - D/C to home today with [facility] - NWB RLE - PICC in place
--- NOTE | 2017-03-30 00:20 | DS ---
CC: Dr. Paco Lewis; Dr. Oziel Hightower * DISCHARGE SUMMARY: DATE OF ADMISSION: 03/20/17 DATE OF DISCHARGE: 03/29/17 DISCHARGE DIAGNOSIS: Infection of right below-knee amputation site including osteomyelitis abscess formation and extensive cellulitis. PROCEDURE: 03/23/17, Dr. Paco Lewis performed revision of the right below- knee amputation site with resection of distal tibia-fibula, drainage of large collection/abscess and debridement. Bacteriology, MSSA. COMORBIDITIES: 1. Type 1 diabetes mellitus with poor chronic control, microvascular complications of diabetes including peripheral neuropathy, nephropathy, and retinopathy. 2. Acute renal insufficiency prerenal with an obstructive component secondary to opioid use. 3. An episode of vomiting secondary to opioid use. SECONDARY DIAGNOSES: 1. Coronary artery disease, post myocardial infarction and stent placement. 2. Type 1 diabetes mellitus with microvascular complications as noted above. 3. Hypertension. 4. Dyslipidemia. 5. Chronic poor glycemic control. 6. Primary hypothyroidism. 7. Hypercholesterolemia. 8. Essential hypertension. HISTORY: Wenceslao Kam is a 56-year-old right-handed white male with longstanding type 1 diabetes mellitus with microvascular complications, retinopathy, nephropathy, peripheral neuropathy with a history of Charcot joint and right below-knee amputation and macrovascular disease with a history of coronary artery disease and myocardial infarction and stent placement. His presentation is documented in my admitting history and physical. He saw me in my outpatient office and I directly admitted him from there. In short, on 06/16, he had a right transtibial above-knee amputation. He presented to my office on 03/17/17 with an abrasion and cellulitis of his right below-knee amputation site. He did not wish at that time to go to the hospital. I treated him as an outpatient with cefdinir and clindamycin. He returned to my office on the day of presentation, 03/20/17. His labs at the time of his first visit showed a C-reactive protein of 137 and neutrophil percentage of 86.6%. He had had fevers, chills, and shakes with sweats and severe pain in his right leg surprisingly to him extending to mid thigh. PHYSICAL EXAMINATION IN MY OFFICE: Vital Signs: He is 6 feet 2 inches, 206 pounds. Blood pressure 110/68, temperature 99.5 degrees, pulse 80. Cardiovascular: Benign. Respiratory System: Benign. Abdominal Examination: Benign. Extremities: He had a right below-knee amputation, extensive area of erythema, swelling, and warmth looking like cellulitis extending beyond the margins of the marked area from his previous visit about 12 in maximum dimension. There was an eschar, which was draining serosanguineous fluid. INITIAL IMPRESSION: Cellulitis, possible osteomyelitis and admitted him directly to the hospital. INITIAL INVESTIGATIONS AT PRESENTATION: Sodium 130, potassium 3.8, chloride 96 , bicarbonate 26, BUN 30, creatinine 1.6, glucose 253. Normal liver function tests. CRP 152. Total protein 5.6. Albumin 2.6. CBC at presentation, white count 12.2, hemoglobin 13.2, hematocrit 40, platelets 277, and neutrophil percent 80.7. I started him empirically on vancomycin and Zosyn. Cultures were taken of the wound and blood cultures. He was seen in consultation by Orthopedics by Dr. Royce Joshua on 03/21/17 whose note is part of the electronic medical record. His impression was a right below- knee amputation, stump infection, and discussed operative and nonoperative procedures. Dr. Lewis saw him the following day. He was the surgeon of the initial amputation. He reviewed CT scan and MRI and noted that he would need surgical revision. He was also seen on 03/22/[address] Oziel Hightower. His consultation note is part of the electronic medical record. He noted that there was PCR for methicillin-resistant Staphylococcus aureus. He was concerned about polymicrobial infection, stopped the vancomycin and maintained Zosyn coverage initially. INVESTIGATIONS DURING HOSPITALIZATION: His white count peaked on 03/25/17 at 15.6. He developed anemia. On 03/26/17, his hemoglobin was 9.8. He had an episode of prerenal insufficiency. His creatinine peaked at 1.84 and on the day of discharge, it was 1.15. Urine testing at that time was negative for eosinophils and on 03/22/17, his renal sodium excretion was 0.11 pointing to a prerenal cause. IMAGING: Right lower extremity CT scan on 03/20/17 erosion of distal tibial stump at the level of the amputation was suggestion of edema extending into the bone marrow consistent with osteomyelitis. On 03/21/17 MRI, extensive cellulitis, superficial and deep soft tissue planes, loculated thin walled fluid collection extending to the proximal thigh, evidence of earlier osteomyelitis. MICROBIOLOGY: As noted above. He had PCR of positive for MSSA. He grew Staph aureus, which was sensitive to all antibiotics and Staph lugdunensis, which was resistant to penicillin and tetracycline, but sensitive to all other antibacterials. No gram negative or anaerobic organisms were cultured by the time of discharge. PROCEDURE: As noted in the summary on 03/23/17. Dr. Paco Lewis performed a revision of the right below-knee amputation, drainage of large abscess, removal of distal 3 cm of tibia and fibula. Pathology demonstrated gangrenous ischemic necrosis, chronic ischemia, chronic osteomyelitis. Vessels were patent at margins of resection. HOSPITAL COURSE: Brody Kam tolerated his surgical procedure. Subsequent to surgery, he did show signs of both renal failure and some obstructive uropathy, the latter due to opioid treatment and responded to Flomax during the hospitalization, this recovered. He also had 24 hours also of acute nausea and vomiting likely triggered by opioid use. This vanished when we stopped his opioids. He had improvement of all indices of inflammation including C- reactive protein, WBC, and percent neutrophil count. On the date of discharge, he was tolerating the pain in his right below-knee amputation site with the use of acetaminophen. The pain was much less than presentation and he did not want to take any further opioids. His glycemic control has remained acceptable during his hospitalization. He is tolerating antibacterial treatment. The PICC line was placed on his penultimate day in the hospital without complication in his right brachial vein. PHYSICAL EXAMINATION ON THE DAY OF DISCHARGE: Vital Signs: Temperature 98.2, pulse 72, respirations 16, oxygen saturation 95% on room air, blood pressure 140 /59. No cyanosis, anemia, jaundice, clubbing, or adenopathy. Cardiovascular System: Pulse regular. Normal character and volume. Venous pressure not elevated. Heart sounds were normal. No added sounds or murmurs. No left- sided pedal edema. No carotid bruits. Chest: Clear. Abdomen: Soft and nondistended. No masses or organomegaly. Nervous System: Alert and oriented. Normal speech. Moving arms and legs normally. ASSESSMENT AND PLAN: 1. Revision of right below-knee amputation with MSSA infection, osteomyelitis, abscess drainage. He has tolerated the procedure well. He is going to require IV antibiotics with cefazolin for 4 to [address] Hightower and Dr. Paco Lewis. He has had no problems thus far with the antibacterial and visiting nurse will supervise his treatment as an outpatient. Dr. Paco Lewis will dictate the dressing changes. 2. Type 1 diabetes mellitus. His glycemic control will require slow increase of his Lantus insulin as his usual diet is resumed as his appetite recovers. 3. Coronary artery disease. He is going to continue on all of his medications to protect his stents and also his multi-risk factor intervention to reduce progression of coronary artery disease. 4. Acute renal insufficiency. This has resolved. 5. Obstructive uropathy. This resolved with stopping the opioids. 6. Hypertension. He will resume his usual antihypertensive medications. 7. Microvascular disease. His retinopathy, nephropathy, and peripheral neuropathy will be managed as per usual. 8. Hypercholesterolemia. Continue current medications. 9. Primary hypothyroidism. Continue current medications. DISCHARGE MEDICATIONS: 1. Glargine insulin starting at 30 units q.h.s. and then increasing to baseline 60 units q.h.s. 2. Humalog insulin by carbohydrate counting as per usual. 3. Ticagrelor 90 mg twice daily. 4. Atorvastatin 80 mg q.h.s. 5. Nitroglycerin 0.4 mg sublingually every 5 minutes maximum x3 for angina. 6. Lisinopril 10 mg daily. 7. Metoprolol XL 100 mg daily. 8. Aspirin 81 mg daily. 9. Levothyroxine 225 mcg daily. 10. Ancef as ordered by Dr. Hightower and dressing changes per Dr. Lewis. FOLLOWUP: He will follow up as outpatient in all 3 offices, my own next week and with Dr. Hightower and Dr. Lewis as per the orders. [id number]/[facility] #: [id number] [facility]
--- NOTE | 2017-04-29 03:48 | OP ---
ADDENDUM: DATE OF SURGERY: 03/23/17 Mr. Kam was taken to the operating room on 03/23/17 for debridement of his right below knee amputat ion site and extensive lateral thigh and knee abscess. The procedure should be titled as revision of right below knee amputation stump and excision and drai nage of abscess right thigh. Rest of the operative note is accurate. [id number]/[facility] #: [id number]
== END 2017-03-29 12:05 | disposition home or self-care (01) | DRG 475 ==
LOC: EDSTATUS 16:56 → SSU 17:54
PROVIDERS: ADMIT Internal Medicine; ATTEND Internal Medicine
PROC: 0J9N0ZZ Drainage of Right Lower Leg Subcutaneous Tissue and Fascia, Open Approach (ICD-10-PCS; 2017-03-23)
PROC: 0Y6H0Z1 Detachment at Right Lower Leg, High, Open Approach (ICD-10-PCS; principal; 2017-03-23 13:00)
PROC: 02HV33Z Insertion of Infusion Device into Superior Vena Cava, Percutaneous Approach (ICD-10-PCS; 2017-03-28)
DX: T87.43 Infection of amputation stump, right lower extremity (principal); N17.9 Acute kidney failure, unspecified; E10.21 Type 1 diabetes mellitus with diabetic nephropathy; E10.319 Type 1 diabetes mellitus with unspecified diabetic retinopathy without macular edema; I96 Gangrene, not elsewhere classified; K56.7 Ileus, unspecified; M86.661 Other chronic osteomyelitis, right tibia and fibula; E10.52 Type 1 diabetes mellitus with diabetic peripheral angiopathy with gangrene; L02.415 Cutaneous abscess of right lower limb; N13.8 Other obstructive and reflux uropathy; L03.115 Cellulitis of right lower limb; E10.69 Type 1 diabetes mellitus with other specified complication; B95.61 Methicillin susceptible Staphylococcus aureus infection as the cause of diseases classified elsewhere; E10.42 Type 1 diabetes mellitus with diabetic polyneuropathy; I13.10 Hypertensive heart and chronic kidney disease without heart failure, with stage 1 through stage 4 chronic kidney disease, or unspecified chronic kidney disease; E10.22 Type 1 diabetes mellitus with diabetic chronic kidney disease; T87.81 Dehiscence of amputation stump; N18.9 Chronic kidney disease, unspecified; I25.10 Atherosclerotic heart disease of native coronary artery without angina pectoris; E78.5 Hyperlipidemia, unspecified; E03.9 Hypothyroidism, unspecified; E78.00 Pure hypercholesterolemia, unspecified; E10.65 Type 1 diabetes mellitus with hyperglycemia; Z95.5 Presence of coronary angioplasty implant and graft; Z79.82 Long term (current) use of aspirin; Z79.4 Long term (current) use of insulin; Z79.899 Other long term (current) drug therapy; Z88.8 Allergy status to other drugs, medicaments and biological substances; Z82.49 Family history of ischemic heart disease and other diseases of the circulatory system; Z87.891 Personal history of nicotine dependence; I25.2 Old myocardial infarction; X58.XXXA Exposure to other specified factors, initial encounter
CPT/HCPCS: 36415; 80048; 80053; 82570; 82947; 84300; 84484; 85025; 85027; 86140; 87040; 87070; 87073; 87077; 87186; 87205; 87640; 87641; 88304; 88311; 89190; 93005; A9270-GY; J0690; J0780; J1170; J1644; J2250; J2405; J2543; J2704; J3010; J3370

== ENCOUNTER 2017-03-31 16:28 | Emergency (ER) | payer OTHER ==
[2017-03-31 20:03] VITALS: BP 140/63
--- NOTE | 2017-03-31 20:18 | ED ---
Lower Extremity - HPI Summary HPI Summary: Patient presents to the ED with right BKA wound dehiscence and drainage since early this morning. Due to diabetes and infection, right BKA last May. March 23, 2017, Dr. Lewis (orthopedics) performed another surgery to the stump which took off a few more inches per patient. Since that time, he feels the leg has been healing well without drainage. Currently has a PICC line in place, but cannot remember the antibiotic. Wound care provided by visiting nurses, with last visit this morning who noticed excessive drainage. He states the drainage is dark blood which has soaked through his gauze and Josh wraps. - History of Current Complaint Chief Complaint: EDExtremityLower Stated Complaint: POST OP/RT LEG DRAINAGE Time Seen by Provider: 03/31/17 18:07 Hx Obtained From: Patient Mechanism Of Injury: Other - Flexion of the knee causing a dehiscence of the wound Pain Intensity: 4 Pain Scale Used: 0-10 Numeric Able to Bear Weight: No - Risk Factors Gout Risk Factors: Male, Diabetes Septic Arthritis Risk Factor: Negative - Allergies/Home Medications Allergies/Adverse Reactions: Allergies Allergy/AdvReac Type Severity Reaction Status Date / Time MS Atorvastatin Allergy Fatigue Verified 03/23/17 10:30 [Atorvastatin] PMH/Surg Hx/FS Hx/Imm Hx Previously Healthy: Yes Endocrine/Hematology History: Reports: Hx Diabetes - DM I, Hx Anemia Cardiovascular History: Reports: Hx Peripheral Vascular Disease Denies: Hx Pacemaker/ICD Comment Only: Hx Hypertension - on medication Respiratory History: Reports: Hx Pneumonia, Other Respiratory Problems/ Disorders - PNA GI History: Denies: Hx Jaundice History: Denies: Hx Dialysis, Hx Renal Disease Musculoskeletal History: Reports: Other Musculoskeletal History - right foot amputation 2013, Left figer amputation as teenager Sensory History: Reports: Hx Contacts or Glasses Denies: Hx Hearing Aid Opthamlomology History: Reports: Hx Contacts or Glasses Neurological History: Reports: Hx Headaches Psychiatric History: Denies: Hx Panic Disorder - Surgical History Surgery Procedure, Year, and Place: Right ankle fusion. left leg pinning. Partial right foot amputation. Left index finger partial amputation. cardiac stent. below knee amputation right leg Hx Anesthesia Reactions: No - Immunization History Hx Pertussis Vaccination: No Immunizations Up to Date: Unable to Obtain/Confirm Infectious Disease History: No Infectious Disease History: Reports: Hx of Known/Suspected MRSA Denies: Traveled Outside the [place] in Last 30 Days - Family History Family History: No gastrointestinal malignancy - Social History Occupation: Unemployed Lives: With Family Alcohol Use: None Alcohol Amount: socially Hx Substance Use: No Substance Use Type: Reports: None Hx Tobacco Use: Yes Smoking Status (MU): Former Smoker Type: Cigarettes Length of Time of Smoking/Using Tobacco: 25 years Have You Smoked in the Last Year: Yes Review of Systems Constitutional: Negative Negative: Fever, Chills, Fatigue, Skin Diaphoresis ENT: Negative Genitourinary: Negative Positive: no symptoms reported, see HPI Musculoskeletal: Negative Positive: Other - wound dehiscence 3 areas all extending approximately 2 cm Neurological: Negative Psychological: Normal All Other Systems Reviewed And Are Negative: Yes Physical Exam Triage Information Reviewed: Yes Vital Signs On Initial Exam: Initial Vitals Temp Pulse Resp BP Pulse Ox 98.3 F 77 18 141/55 98 03/31/17 16:37 03/31/17 16:37 03/31/17 16:37 03/31/17 16:37 03/31/17 16:37 Vital Signs Reviewed: Yes Appearance: Positive: Well-Appearing, Well-Nourished Skin: Positive: Warm, Skin Color Reflects Adequate Perfusion, Other - Wound dehiscence to the right lateral thigh Head/Face: Positive: Normal Head/Face Inspection Eyes: Positive: EOMI, CLEMENTE Neck: Positive: Supple Respiratory/Lung Sounds: Positive: Clear to Auscultation, Breath Sounds Present Cardiovascular: Positive: Pulses are Symmetrical in both Upper and Lower Extremities Musculoskeletal: Positive: Normal, Strength/ROM Intact Neurological: Positive: Speech Normal Psychiatric: Positive: Affect/Mood Appropriate Procedures - Laceration/Wound Repair 1 Location: lower extremity Description: Linear Betadine Prep?: Yes Laceration/Wound Explored: clean Closure: Single Layer Debridement: minimal Suture Type: Prolene - 3-0 Layer Closure?: No Sterile Dressing Applied?: No Diagnostics - Vital Signs Vital Signs Temp Pulse Resp BP Pulse Ox 03/31/17 20:00 98.7 F 81 16 140/63 97 03/31/17 19:52 140/63 03/31/17 19:27 26 03/31/17 19:00 14 161/79 03/31/17 18:30 14 154/66 03/31/17 18:00 76 10 152/69 98 03/31/17 17:58 79 12 98 03/31/17 17:56 152/66 03/31/17 16:37 98.3 F 77 18 141/55 98 - Laboratory Lab Statement: Any lab studies that have been ordered have been reviewed, and results considered in the medical decision making process. Lower Extremity Course/Dx - Course Course Of Treatment: Right lateral incision just above the knee shows two wound dehiscence likely with a failure of suture to remain anchored or suture breakage as the patient continues to be able to flex and extend about the knee. Right lateral incision continuing below the knee with 1 dehiscence possibly with too much tension of the sutures. He denies any popping sensation. There is little to no serosanguineous drainage, and most drainage appears to be darkened blood. As the sutures are not in the fascia, I do not believe a repeat wound exploration is warranted at this time. The wound otherwise appears clean dry and intact without surrounding erythema or warmth suggestive of infection. Dr. Lewis is currently not family preservation caseworker. I have called Dr. Khoury ( orthopedics) who is unaware of the patient. I have explained about the dehiscence and that I believe I am able to suture up the areas that are dehisced. Dr. Khoury is okay with this plan and will refer a message over to Dr. Lewis. I have cleaned the wound well, used 3-0 18 inch Prolene sutures. Placed 5 sutures to the lateral incision above the knee and 3 sutures below the knee with good control of bleeding. Xeroform occlusive gauze patch to the wound with an abdominal pad and wrapped with Kerlix gauze and Josh wrap well. I have offered a splint to immobilize the knee as patient feels the stitches have dehisced due to his ability to move about the knee. He declines at this time and will speak with Dr. Lewis at his Monday appointment. Vital signs stable at discharge. He is given return precautions for any worsening drainage of the area. - Diagnoses Provider Diagnoses: Wound dehiscence Discharge - Discharge Plan Condition: Stable Disposition: HOME Patient Education Materials: Wound Dehiscence (ED) Referrals: Emiliano Clark MD [Primary Care Provider] - Paco Lewis MD [Medical Doctor] - Additional Instructions: Please follow up with Dr. Lewis on Monday as scheduled You do not need to unwrap the wound until you see Dr. Lewis If you develop drainage from the area again not controlled with the gauze and josh bandages, return to the ED
== END 2017-03-31 20:00 | disposition home or self-care (01) ==
LOC: ED 16:28
DX: T87.81 Dehiscence of amputation stump (principal); E11.9 Type 2 diabetes mellitus without complications; Z88.8 Allergy status to other drugs, medicaments and biological substances
CPT/HCPCS: 12020; 99283

== ENCOUNTER 2018-06-18 11:07 | Observation (INO) | payer MEDICARE, OTHER ==
--- OUTSIDE RECORDS SUMMARY | 2018-06-18 11:25 | XMS REPORT | Continuity of Care Document ---
:1960 External Reference #:[id number] Author Name Susanne Ware Care Team Providers Name Role Phone Emiliano Clark MD Primary Care Physician Unavailable Payers Date Identification Numbers Payment Provider Subscriber Policy Number: [id number] [employer] Maribel Kam Group Number: [id number] [address] Group Name: [place] [address] PayID: [id number] Expires: 2018 Policy Number: [id number] Of CLARENCE Kam PayID: [id number] [address] [address] [place] [address] Advance Directives Description No Information Available Problems Date Description Provider Status Onset: 02/10/2016 Ulcer of foot Brown Sanchez MD, [facility], Active [facility] Onset: 02/10/2016 Acute myocardial infarction Brown Sanchez MD, [facility], Active [facility] Onset: 07/04/2016 Old myocardial infarction Brown Sanchez MD, [facility], Active [facility] Onset: 07/04/2016 Peripheral vascular disease Brown Sanchez MD, [facility], Active [facility] Family History Date Family Member(s) Observation Comments General Diabetes Social History Type Date Description Comments Sex Unknown Lives With Alone Occupation Disabled Tobacco Use Start: Unknown End: Former Cigarette Smoker Unknown Smoking Status Reviewed: 05/24/18 Former Cigarette Smoker ETOH Use Denies alcohol use Tobacco Use Start: Unknown End: Patient is a former quit 06/04/15, smoked Unknown smoker on and off since age 17yrs, less than 1PPD Recreational Drug Use Denies Drug Use Exercise Type/Frequency Does not exercise Allergies, Adverse Reactions, Alerts Date Description Reaction Status Severity Comments 06/17/2015 Simvastatin Active Medications Medication Date Status Form Strength Qnty SIG Indications Ordering Provider Levaquin 05/24/ Active Tablets 500mg 7tabs Take 1 tab Paco 2018 per day x Joshua, 1 week. M.D. Cephalexin 05/10/ Active Tablets 500mg 63tabs take 1 by Paco 2018 mouth 3 Joshua, times a M.D. day x 3 weeks Brilinta 01/24/ Active Tablets 60mg 180tab 1 tab by Roberto Aceves 2017 s mouth Feliciano, twice a DO [facility] day Aspirin / Active Tablets DR 81mg 90tabs 1 by mouth Roberto S. 0000 every day Feliciano, DO [facility] Atorvastatin / Active Tablets 80mg 90tabs 1 by mouth Roberto S. Calcium 0000 every day Feliciano, DO [facility] Nitrostat / Active Tablets 0.4mg 30tabs one sl Marcis T. 0000 Sub q5min up Sodums, to 3 doses NATASHA ANGELA, as needed [facility] Lisinopril / Active Tablets 10mg 90tabs 1 by mouth Roberto S. 0000 every day Feliciano, DO FACC Metoprolol / Active Tablets ER 100mg 90tabs 1 by mouth Roberto S. Succinate ER 0000 24HR every day Feliciano, DO [facility] Levothyroxine / Active Tablets 200mcg 1 by mouth Unknown Sodium 0000 every day Lantus / Active Solution 100Unit/ML 60 units Unknown 0000 subcut qPM Humalog / Active Solution 100Unit/ML sliding Unknown 0000 scale Gabapentin 07/01/ Hx Capsules 300mg 30caps 1 by mouth Paco 2016 - twice a Joshua, 07/30/ day M.D. 2017 Percocet 07/01/ Hx Tablets 5-325mg 20tabs take 1 tab Paco 2016 - po bid prn Joshua, 07/30/ pain M.D. 2016 Brilinta / Hx Tablets 90mg 180tab 1 tab by Brown Condon 0000 - s mouth Sodums, 01/24/ twice a NATASHA ANGELA, 2016 [facility] Nicotine / Hx as Unknown 0000 - directed 2015 Acetaminophen-C / Hx prn Unknown odeine 0000 - 2016 Levothyroxine / Hx Tablets 25mcg 1 by mouth Unknown Sodium 0000 - every day 2016 Bactrim DS / Hx Tablets 800-160mg 28tabs 1 by mouth Paco 0000 - twice a Joshua, day M.DLi 2016 Dilaudid / Hx Tablets 2mg 1-2 tabs Unknown 0000 - by mouth 07/30/ every 6 2017 hours as needed pain Cefazolin / Hx Solution 2gm IV q 8 hrs Unknown Sodium 0000 - Rec through 05/04/172017 [facility] Immunizations Description No Information Available Vital Signs Date Vital Result Comment 05/24/2018 8:46am Height 74 inches 6'2" Weight 180.00 lb Heart Rate 62 /min BP Systolic Sitting 150 mmHg BP Diastolic Sitting 90 mmHg Respiratory Rate 18 /min Pain Level 0 BMI (Body Mass Index) 23.1 kg/m2 05/10/2018 11:05am Height 74 inches 6'2" Weight 180.00 lb Heart Rate 91 /min BP Systolic 182 mmHg BP Diastolic 90 mmHg Respiratory Rate 16 /min Body Temperature 97.4 F Pain Level 1 BMI (Body Mass Index) 23.1 kg/m2 03/15/2018 11:24am Height 74 inches 6'2" Weight 198.00 lb with shoes Heart Rate 78 /min BP Systolic Sitting 150 mmHg lue reg cuff BP Diastolic Sitting 78 mmHg lue reg cuff BP Systolic Standing 152 mmHg lue reg cuff BP Diastolic Standing 80 mmHg lue reg cuff Respiratory Rate 14 /min BMI (Body Mass Index) 25.4 kg/m2 09/21/2017 9:11am Height 74 inches 6'2" Heart Rate 72 /min BP Systolic Sitting 102 mmHg BP Diastolic Sitting 86 mmHg Respiratory Rate 20 /min Body Temperature 97.4 F Pain Level 0 08/31/2017 8:57am Height 74 inches 6'2" Weight 197.00 lb w/ shoes Heart Rate 78 /min BP Systolic Sitting 110 mmHg lue lg cuff BP Diastolic Sitting 64 mmHg lue lg cuff BP Systolic Standing 122 mmHg lue lg cuff BP Diastolic Standing 72 mmHg lue lg cuff Respiratory Rate 18 /min BMI (Body Mass Index) 25.3 kg/m2 Ejection Fraction no echo ss 08/10/2017 10:46am Height 74 inches 6'2" BP Systolic 122 mmHg BP Diastolic 72 mmHg Respiratory Rate 16 /min Pain Level 0 07/04/2017 10:38am Heart Rate 73 /min BP Systolic 138 mmHg BP Diastolic 78 mmHg Respiratory Rate 16 /min Body Temperature 97.0 F Pain Level 0 06/13/2017 9:40am Heart Rate 80 /min BP Systolic 140 mmHg BP Diastolic 72 mmHg Respiratory Rate 20 /min Body Temperature 96.9 F Pain Level 0 05/30/2017 9:18am Height 74 inches 6'2" Heart Rate 78 /min BP Systolic 160 mmHg BP Diastolic 78 mmHg Respiratory Rate 18 /min 05/16/2017 8:17am Height 74 inches 6'2" Weight 205.00 lb Heart Rate 73 /min Respiratory Rate 14 /min Pain Level 0 BMI (Body Mass Index) 26.3 kg/m2 05/09/2017 8:25am Height 74 inches 6'2" Weight 205.00 lb Respiratory Rate 16 /min Pain Level 1 BMI (Body Mass Index) 26.3 kg/m2 05/02/2017 10:00am Height 74 inches 6'2" Weight 205.00 lb Heart Rate 81 /min Respiratory Rate 16 /min Body Temperature 97.8 F Pain Level 0 BMI (Body Mass Index) 26.3 kg/m2 04/25/2017 10:35am Height 74 inches 6'2" Heart Rate 84 /min BP Systolic Sitting 148 mmHg BP Diastolic Sitting 84 mmHg Respiratory Rate 14 /min Body Temperature 97.4 F 04/18/2017 1:34pm Height 74 inches 6'2" Weight 205.00 lb BP Systolic 144 mmHg BP Diastolic 90 mmHg Respiratory Rate 17 /min Body Temperature 96.8 F Pain Level 0 BMI (Body Mass Index) 26.3 kg/m2 04/13/2017 9:09am Height 74 inches 6'2" Weight 205.00 lb Heart Rate 80 /min Respiratory Rate 17 /min Body Temperature 98.0 F Pain Level 2 BMI (Body Mass Index) 26.3 kg/m2 04/04/2017 11:37am Height 74 inches 6'2" Weight 205.00 lb Heart Rate 72 /min BP Systolic Sitting 144 mmHg BP Diastolic Sitting 70 mmHg Respiratory Rate 14 /min Body Temperature 98.0 F BMI (Body Mass Index) 26.3 kg/m2 04/04/2017 10:38am Height 74 inches 6'2" Heart Rate 86 /min BP Systolic 142 mmHg BP Diastolic 68 mmHg Respiratory Rate 16 /min Body Temperature 98.0 F Pain Level 4 01/16/2017 8:32am Height 74 inches 6'2" Weight 202.00 lb w/ shoes Heart Rate 74 /min apical BP Systolic Sitting 110 mmHg rue reg cuff BP Diastolic Sitting 62 mmHg rue reg cuff BP Systolic Standing 118 mmHg rue reg cuff BP Diastolic Standing 62 mmHg rue reg cuff Respiratory Rate 18 /min BMI (Body Mass Index) 25.9 kg/m2 08/09/2016 10:18am Height 74 inches 6'2" Weight 192.00 lb Heart Rate 76 /min BP Systolic 120 mmHg BP Diastolic 70 mmHg Respiratory Rate 19 /min Body Temperature 97.5 F Pain Level 0 BMI (Body Mass Index) 24.6 kg/m2 07/08/2016 2:09pm Height 74 inches 6'2" Weight 192.00 lb Heart Rate 76 /min BP Systolic 126 mmHg BP Diastolic 73 mmHg Body Temperature 97.4 F Pain Level 3 BMI (Body Mass Index) 24.6 kg/m2 07/04/2016 9:13am Height 74 inches 6'2" Weight 192.00 lb per pt Heart Rate 62 /min reg BP Systolic Sitting 130 mmHg Rue, reg cuff BP Diastolic Sitting 80 mmHg Rue, reg cuff Respiratory Rate 16 /min BMI (Body Mass Index) 24.6 kg/m2 Ejection Fraction 60% as of 05/2015 cath 07/01/2016 10:45am Height 74 inches 6'2" BP Systolic 106 mmHg BP Diastolic 72 mmHg Respiratory Rate 18 /min Body Temperature 97.2 F Pain Level 4 02/10/2016 2:39pm Height 74 inches 6'2" Weight 199.00 lb Heart Rate 78 /min BP Systolic Sitting 138 mmHg left arm, reg cuff BP Diastolic Sitting 86 mmHg left arm, reg cuff BMI (Body Mass Index) 25.5 kg/m2 08/17/2015 9:18am Height 74 inches 6'2" Weight 209.00 lb Heart Rate 78 /min 76 BP Systolic Sitting 158 mmHg right arm, reg cuff BP Diastolic Sitting 96 mmHg right arm, reg cuff BP Systolic Standing 148 mmHg right arm, reg cuff BP Diastolic Standing 82 mmHg right arm, reg cuff Respiratory Rate 16 /min BMI (Body Mass Index) 26.8 kg/m2 Ejection Fraction 60% 06/05/15 Cath 06/17/2015 3:56pm Height 74 inches 6'2" Weight 211.00 lb Heart Rate 68 /min 76 BP Systolic Sitting 118 mmHg left arm, reg cuff BP Diastolic Sitting 70 mmHg left arm, reg cuff BP Systolic Standing 86 mmHg left arm, reg cuff BP Diastolic Standing 52 mmHg left arm, reg cuff Respiratory Rate 14 /min BMI (Body Mass Index) 27.1 kg/m2 Results Test Date Facility Test Result H/L Range Note Wound 05/10/2018 [facility] Wound/Misc SEE RESULT 1, 2 Culture/Sensi [address] [place] [address] Stain [phone] Laboratory test 09/21/2017 [facility] Erythrocyte Sed 16 mm/Hr N 0-[address] [place], [place] [id number] [phone] C Reactive Protein 7.04 mg/L N <8.01 Iron & Iron Binding 05/12/2017 [facility] Iron 65 g/dL N 50- [address] [place] [address] [phone] Unsaturated Iron Binding 183 g/dL Total Iron Binding Capacity 248 g/dL Low 250-450 Transferrin 177 mg/dL Low 203-362 % Iron Saturation 26 % N 15-55 Laboratory test 05/12/2017 [facility] Ferritin 114.7 ng/mL N 24-336 4 finding [address] [place] [address] [phone] Folic Acid (Folate) > 20.00 ng/mL >3.99 5 Vitamin B12 474 pg/mL N 180-914 6 Comp Metabolic Panel 05/01/2017 [facility] Sodium 138 mmol/L N 133-145 7 [address] [place] [address] [phone] Potassium 4.0 mmol/L N 3.5-5.0 Chloride 106 mmol/L N 101-111 Co2 Carbon Dioxide 28 mmol/L N 22-32 Anion Gap 4 mmol/L N 2-11 Glucose 211 mg/dL High 70-100 Blood Urea Nitrogen 18 mg/dL N 6-24 Creatinine 0.91 mg/dL N 0.67-1.17 BUN/Creatinine Ratio 19.8 N 8-20 Calcium 8.8 mg/dL N 8.6-10.3 Total Protein 5.8 g/dL Low 6.4-8.9 Albumin 3.5 g/dL N 3.2-5.2 Globulin 2.3 g/dL N 2-4 Albumin/Globulin Ratio 1.5 N 1-3 Total Bilirubin 0.60 mg/dL N 0.2-1.0 Alkaline Phosphatase 76 U/L N 34-104 Alt 6 U/L Low 7-52 Ast 21 U/L N 13-39 Egfr Non- 86.5 >60 Egfr 111.2 >60 8 Laboratory test 05/01/2017 [facility] C Reactive 7.99 mg/L High < 5.00 [address] [place] [address] [phone] CBC Auto Diff 05/01/2017 [facility] White Blood 5.7 N 3.5- 10.[address] Count 10^3/[place] [address] [phone] Red Blood Count 3.71 10^6/uL Low 4.0-5.4 Hemoglobin 11.8 g/dL Low 14.0-18.0 Hematocrit 35 % Low 42-52 Mean Corpuscular Volume 95 fL High 80-94 Mean Corpuscular Hemoglobin 32 pg High 27-31 Mean Corpuscular HGB Conc 33 g/dL N 31-36 Red Cell Distribution Width 17 % High 10.5-15 Platelet Count 145 10^3/uL Low 150-450 Mean Platelet Volume 10 um3 N 7.4-10.4 Abs Neutrophils 3.4 10^3/uL N 1.5-7.7 Abs Lymphocytes 1.6 10^3/uL N 1.0-4.8 Abs Monocytes 0.4 10^3/uL N 0-0.8 Abs Eosinophils 0.2 10^3/uL N 0-0.6 Abs Basophils 0.1 10^3/uL N 0-0.2 Abs Nucleated RBC 0 10^3/uL Granulocyte % 60.1 % N 38-83 Lymphocyte % 27.5 % N 25-47 Monocyte % 7.6 % High 0-7 Eosinophil % 3.8 % N 0-6 Basophil % 1.0 % N 0-2 Nucleated Red Blood Cells % 0 CBC Auto Diff 04/24/2017 [facility] White Blood 6.7 10^3/uL N 3.5-10.[address] [place] [address] [phone] Red Blood Count 3.69 10^6/uL Low 4.0-5.4 Hemoglobin 11.9 g/dL Low 14.0-18.0 Hematocrit 35 % Low 42-52 Mean Corpuscular Volume 94 fL N 80-94 Mean Corpuscular Hemoglobin 32 pg High 27-31 Mean Corpuscular HGB Conc 34 g/dL N 31-36 Red Cell Distribution Width 18 % High 10.5-15 Platelet Count 188 10^3/uL N 150-450 Mean Platelet Volume 9 um3 N 7.4-10.4 Abs Neutrophils 4.6 10^3/uL N 1.5-7.7 Abs Lymphocytes 1.5 10^3/uL N 1.0-4.8 Abs Monocytes 0.4 10^3/uL N 0-0.8 Abs Eosinophils 0.2 10^3/uL N 0-0.6 Abs Basophils 0.1 10^3/uL N 0-0.2 Abs Nucleated RBC 0 10^3/uL Granulocyte % 68.3 % N 38-83 Lymphocyte % 21.8 % Low 25-47 Monocyte % 6.7 % N 0-7 Eosinophil % 2.4 % N 0-6 Basophil % 0.8 % N 0-2 Nucleated Red Blood Cells % 0 Comp Metabolic Panel 04/24/2017 [facility] Sodium 138 mmol/L N 133-145 [address] [place] [address] [phone] Potassium 4.4 mmol/L N 3.5-5.0 Chloride 105 mmol/L N 101-111 Co2 Carbon Dioxide 28 mmol/L N 22-32 Anion Gap 5 mmol/L N 2-11 Glucose 199 mg/dL High 70-100 Blood Urea Nitrogen 19 mg/dL N 6-24 Creatinine 0.84 mg/dL N 0.67-1.17 BUN/Creatinine Ratio 22.6 High 8-20 Calcium 9.0 mg/dL N 8.6-10.3 Total Protein 6.0 g/dL Low 6.4-8.9 Albumin 3.5 g/dL N 3.2-5.2 Globulin 2.5 g/dL N 2-4 Albumin/Globulin Ratio 1.4 N 1-3 Total Bilirubin 0.50 mg/dL N 0.2-1.0 Alkaline Phosphatase 78 U/L N 34-104 Alt 6 U/L Low 7-52 Ast 20 U/L N 13-39 Egfr Non- 94.9 >60 Egfr 122.0 >60 11 Laboratory test 04/24/2017 [facility] C Reactive 3.59 mg/L N < 5.00 [address] [place] [address] [phone] CBC Auto Diff 04/17/2017 [facility] White Blood 6.2 N 3.5- 10.[address] Count 10^3/[place] [address] [phone] Red Blood Count 3.55 10^6/uL Low 4.0-5.4 Hemoglobin 11.2 g/dL Low 14.0-18.0 Hematocrit 33 % Low 42-52 Mean Corpuscular Volume 94 fL N 80-94 Mean Corpuscular Hemoglobin 32 pg High 27-31 Mean Corpuscular HGB Conc 34 g/dL N 31-36 Red Cell Distribution Width 19 % High 10.5-15 Platelet Count 278 10^3/uL N 150-450 Mean Platelet Volume 9 um3 N 7.4-10.4 Abs Neutrophils 4.0 10^3/uL N 1.5-7.7 Abs Lymphocytes 1.5 10^3/uL N 1.0-4.8 Abs Monocytes 0.5 10^3/uL N 0-0.8 Abs Eosinophils 0.2 10^3/uL N 0-0.6 Abs Basophils 0 10^3/uL N 0-0.2 Abs Nucleated RBC 0 10^3/uL Granulocyte % 64.4 % N 38-83 Lymphocyte % 23.9 % Low 25-47 Monocyte % 7.9 % N 1-9 Eosinophil % 3.1 % N 0-6 Basophil % 0.7 % N 0-2 Nucleated Red Blood Cells % 0.1 Comp Metabolic Panel 04/17/2017 [facility] Sodium 138 mmol/L N 133-[address] [place] [address] [phone] Potassium 4.2 mmol/L N 3.5-5.0 Chloride 106 mmol/L N 101-111 Co2 Carbon Dioxide 28 mmol/L N 22-32 Anion Gap 4 mmol/L N 2-11 Glucose 66 mg/dL Low 70-100 Blood Urea Nitrogen 16 mg/dL N 6-24 Creatinine 0.76 mg/dL N 0.67-1.17 BUN/Creatinine Ratio 21.1 High 8-20 Calcium 9.1 mg/dL N 8.6-10.3 Total Protein 5.8 g/dL Low 6.4-8.9 Albumin 3.2 g/dL N 3.2-5.2 Globulin 2.6 g/dL N 2-4 Albumin/Globulin Ratio 1.2 N 1-3 Total Bilirubin 0.50 mg/dL N 0.2-1.0 Alkaline Phosphatase 86 U/L N 34-104 Alt 5 U/L Low 7-52 Ast 22 U/L N 13-39 Egfr Non- 106.5 >60 Egfr 136.9 >60 14 Laboratory test 04/17/2017 [facility] C Reactive 2.44 mg/L N < 5.00 [address] [place] [address] [phone] CBC Auto Diff 04/10/2017 [facility] White Blood 8.2 N 3.5- 10.[address] Count 10^3/[place] [address] [phone] Red Blood Count 3.00 10^6/uL Low 4.0-5.4 Hemoglobin 9.5 g/dL Low 14.0-18.0 Hematocrit 28 % Low 42-52 Mean Corpuscular Volume 93 fL N 80-94 Mean Corpuscular Hemoglobin 32 pg High 27-31 Mean Corpuscular HGB Conc 34 g/dL N 31-36 Red Cell Distribution Width 17 % High 10.5-15 Platelet Count 318 10^3/uL N 150-450 Mean Platelet Volume 9 um3 N 7.4-10.4 Abs Neutrophils 6.1 10^3/uL N 1.5-7.7 Abs Lymphocytes 1.4 10^3/uL N 1.0-4.8 Abs Monocytes 0.5 10^3/uL N 0-0.8 Abs Eosinophils 0.2 10^3/uL N 0-0.6 Abs Basophils 0.1 10^3/uL N 0-0.2 Abs Nucleated RBC 0 10^3/uL Granulocyte % 74.4 % N 38-83 Lymphocyte % 16.7 % Low 25-47 Monocyte % 5.7 % N 1-9 Eosinophil % 2.5 % N 0-6 Basophil % 0.7 % N 0-2 Nucleated Red Blood Cells % 0.1 Comp Metabolic Panel 04/10/2017 [facility] Sodium 140 mmol/L N 133-145 [address] [place] [address] [phone] Potassium 4.4 mmol/L N 3.5-5.0 Chloride 109 mmol/L N 101-111 Co2 Carbon Dioxide 28 mmol/L N 22-32 Anion Gap 3 mmol/L N 2-11 Glucose 84 mg/dL N 70-100 Blood Urea Nitrogen 13 mg/dL N 6-24 Creatinine 0.80 mg/dL N 0.67-1.17 BUN/Creatinine Ratio 16.3 N 8-20 Calcium 8.1 mg/dL Low 8.6-10.3 Total Protein 4.9 g/dL Low 6.4-8.9 Albumin 2.6 g/dL Low 3.2-5.2 Globulin 2.3 g/dL N 2-4 Albumin/Globulin Ratio 1.1 N 1-3 Total Bilirubin 0.50 mg/dL N 0.2-1.0 Alkaline Phosphatase 105 U/L High 34-104 Alt 6 U/L Low 7-52 Ast 20 U/L N 13-39 Egfr Non- 100.4 >60 Egfr 129.1 >60 17 Laboratory test 04/10/2017 [facility] C Reactive 4.99 mg/L N < 5.[address] [place] [address] [phone] Comp Metabolic 04/03/2017 [facility] Sodium 134 mmol/L N 133- 145 19 Panel [address] [place] [address] [phone] Potassium 4.7 mmol/L N 3.5-5.0 Chloride 105 mmol/L N 101-111 Co2 Carbon Dioxide 24 mmol/L N 22-32 Anion Gap 5 mmol/L N 2-11 Glucose 186 mg/dL High 70-100 Blood Urea Nitrogen 21 mg/dL N 6-24 Creatinine 0.91 mg/dL N 0.67-1.17 BUN/Creatinine Ratio 23.1 High 8-20 Calcium 8.1 mg/dL Low 8.6-10.3 Total Protein 4.7 g/dL Low 6.4-8.9 Albumin 2.3 g/dL Low 3.2-5.2 Globulin 2.4 g/dL N 2-4 Albumin/Globulin Ratio 1.0 N 1-3 Total Bilirubin 0.40 mg/dL N 0.2-1.0 Alkaline Phosphatase 147 U/L High 34-104 Alt 13 U/L N 7-52 Ast 47 U/L High 13-39 Egfr Non- 86.5 >60 Egfr 111.2 >60 20 Laboratory test 04/03/2017 [facility] C Reactive 32.87 mg/L High < 5.00 [address] [place] [address] [phone] CBC Auto Diff 04/03/2017 [facility] White Blood 8.9 N 3.5- 10.[address] Count 10^3/[place] [address] [phone] Red Blood Count 2.82 10^6/uL Low 4.0-5.4 Hemoglobin 8.6 g/dL Low 14.0-18.0 Hematocrit 26 % Low 42-52 Mean Corpuscular Volume 91 fL N 80-94 Mean Corpuscular Hemoglobin 31 pg N 27-31 Mean Corpuscular HGB Conc 34 g/dL N 31-36 Red Cell Distribution Width 14 % N 10.5-15 Platelet Count 403 10^3/uL N 150-450 Mean Platelet Volume 9 um3 N 7.4-10.4 Abs Neutrophils 6.4 10^3/uL N 1.5-7.7 Abs Lymphocytes 1.5 10^3/uL N 1.0-4.8 Abs Monocytes 0.8 10^3/uL N 0-0.8 Abs Eosinophils 0.1 10^3/uL N 0-0.6 Abs Basophils 0.1 10^3/uL N 0-0.2 Abs Nucleated RBC 0 10^3/uL Granulocyte % 72.3 % N 38-83 Lymphocyte % 16.7 % Low 25-47 Monocyte % 8.4 % N 1-9 Eosinophil % 1.4 % N 0-6 Basophil % 1.2 % N 0-2 Nucleated Red Blood Cells % 0.1 Laboratory test 04/14/2016 [facility] Hemoglobin A1c 10.8 % High Less [address] (Glyco HGB) than 6.0 [place] [address] [phone] Basic Metabolic 02/20/2016 [facility] Sodium 138 N 133-[address] mmol/[place] [address] [phone] Potassium 4.0 mmol/L N 3.5-5.0 Chloride 106 mmol/L N 101-111 Co2 Carbon Dioxide 28 mmol/L N 22-32 Anion Gap 4 mmol/L N 2-11 Glucose 156 mg/dL High 70-100 Blood Urea Nitrogen 18 mg/dL N 6-24 Creatinine 1.02 mg/dL N 0.67-1.17 BUN/Creatinine Ratio 17.6 N 8-20 Calcium 9.2 mg/dL N 8.6-10.3 Egfr Non- 76.1 N >60 Egfr 97.9 N >60 23 CBC Auto Diff 02/20/2016 [facility] White Blood 8.6 10^3/uL N 3.5-10.[address] [place] [address] [phone] Red Blood Count 5.12 10^6/uL N 4.0-5.4 Hemoglobin 15.8 g/dL N 14.0-18.0 Hematocrit 47 % N 42-52 Mean Corpuscular Volume 92 fL N 80-94 Mean Corpuscular Hemoglobin 31 pg N 27-31 Mean Corpuscular HGB Conc 34 g/dL N 31-36 Red Cell Distribution Width 13 % N 10.5-15 Platelet Count 170 10^3/uL N 150-450 Mean Platelet Volume 10 um3 N 7.4-10.4 Abs Neutrophils 5.5 10^3/uL N 1.5-7.7 Abs Lymphocytes 1.9 10^3/uL N 1.0-4.8 Abs Monocytes 0.7 10^3/uL N 0-0.8 Abs Eosinophils 0.3 10^3/uL N 0-0.6 Abs Basophils 0.1 10^3/uL N 0-0.2 Abs Nucleated RBC 0 10^3/uL N Granulocyte % 64.1 % N 38-83 Lymphocyte % 22.4 % Low 25-47 Monocyte % 8.5 % N 1-9 Eosinophil % 3.9 % N 0-6 Basophil % 1.1 % N 0-2 Nucleated Red Blood Cells % 0 N Wound 02/16/2016 [facility] Wound/Misc SEE RESULT 24 Culture/Sensi [address] [place] [address] Stain [phone] Basic Metabolic 02/09/2016 [facility] Sodium 138 mmol/L N 133 - Panel [address] [place] [address] [phone] Potassium 4.0 mmol/L N 3.5-5.0 Chloride 107 mmol/L N 101-111 Co2 Carbon Dioxide 28 mmol/L N 22-32 Anion Gap 3 mmol/L N 2-11 Glucose 160 mg/dL High 70-100 Blood Urea Nitrogen 17 mg/dL N 6-24 Creatinine 1.07 mg/dL N 0.67-1.17 BUN/Creatinine Ratio 15.9 N 8-20 Calcium 9.3 mg/dL N 8.6-10.3 Egfr Non- 72.0 N >60 Egfr 92.6 N >60 25 Creatinine 02/05/2016 [facility] Creatinine 1.07 mg/dL N 0.67- 1.[address] [place] [address] [phone] Egfr Non- 72.0 N >60 Egfr 92.6 N >60 26 1 [id number] SEE RESULT BELOW Name: ILYA KAM : [address]: Garyr BURGER Acct: [id number] Unit: [id number] AGE: 57 Location: [facility] Re05/10/18 SEX: M Status: REG REF SPEC: [id number] DESIRAE: 05/10/18-[address]: Garry BURGER REQ: [id number] RECD: 05/10/18 STATUS: COMP _ SOURCE: MISC SOURC SPDESC: ORDERED: Culture Stain COMMENTS: [id number] QUERIES: Specimen Description WOUND Procedure Result Reported Site Wound/Misc Gram Stain Final 05/11/18- 0715 ML No Neutrophils Observed 4+ Epithelial Cells 4+ Gram Positive Bacilli 3+ Gram Positive Cocci Wound/Misc Culture Final 05/13/18- 0856 ML Organism 1 NORMAL EDE Quantity 3+ * ML - Main Lab . END OF REPORT DEPARTMENT OF PATHOLOGY, [address] [place] [address] Gamal Zaldivar M.D. Director [facility] # [id number] 3 [id number] 4 [id number] 5 [id number] 6 Normal Range 180 to 914 Indeterminate Range 145 to 180 Deficient Range <145 7 [id number] Because ethnic data is not always readily available, this report includes an eGFR for both -Americans and non- Americans. The National Kidney Disease Education Program (NKDEP) does not endorse the use of the MDRD equation for patients that are not between the ages of 18 and 70, are , have extremes of body size, muscle mass, or nutritional status, or are non- or non-. According to the National Kidney Foundation, irrespective of diagnosis, the stage of the disease is based on the level of kidney function: Stage Description GFR(mL/min/1.73 m(2)) 1 Kidney damage with normal or decreased GFR 90 2 Kidney damage with mild decrease in GFR 60-89 3 Moderate decrease in GFR 30-59 4 Severe decrease in GFR 15-29 5 Kidney failure <15 (or dialysis) 9 Acute inflammation: >10.00 10 [id number] 11 Because ethnic data is not always readily available, this report includes an eGFR for both -Americans and non- Americans. The National Kidney Disease Education Program (NKDEP) does not endorse the use of the MDRD equation for patients that are not between the ages of 18 and 70, are , have extremes of body size, muscle mass, or nutritional status, or are non- or non-. According to the National Kidney Foundation, irrespective of diagnosis, the stage of the disease is based on the level of kidney function: Stage Description GFR(mL/min/1.73 m(2)) 1 Kidney damage with normal or decreased GFR 90 2 Kidney damage with mild decrease in GFR 60-89 3 Moderate decrease in GFR 30-59 4 Severe decrease in GFR 15-29 5 Kidney failure <15 (or dialysis) 12 Acute inflammation: >10.00 13 [id number] 14 Because ethnic data is not always readily available, this report includes an eGFR for both -Americans and non- Americans. The National Kidney Disease Education Program (NKDEP) does not endorse the use of the MDRD equation for patients that are not between the ages of 18 and 70, are , have extremes of body size, muscle mass, or nutritional status, or are non- or non-. According to the National Kidney Foundation, irrespective of diagnosis, the stage of the disease is based on the level of kidney function: Stage Description GFR(mL/min/1.73 m(2)) 1 Kidney damage with normal or decreased GFR 90 2 Kidney damage with mild decrease in GFR 60-89 3 Moderate decrease in GFR 30-59 4 Severe decrease in GFR 15-29 5 Kidney failure <15 (or dialysis) 15 Acute inflammation: >10.00 16 [id number] Because ethnic data is not always readily available, this report includes an eGFR for both -Americans and non- Americans. The National Kidney Disease Education Program (NKDEP) does not endorse the use of the MDRD equation for patients that are not between the ages of 18 and 70, are , have extremes of body size, muscle mass, or nutritional status, or are non- or non-. According to the National Kidney Foundation, irrespective of diagnosis, the stage of the disease is based on the level of kidney function: Stage Description GFR(mL/min/1.73 m(2)) 1 Kidney damage with normal or decreased GFR 90 2 Kidney damage with mild decrease in GFR 60-89 3 Moderate decrease in GFR 30-59 4 Severe decrease in GFR 15-29 5 Kidney failure <15 (or dialysis) 18 Acute inflammation: >10.00 19 [id number] 20 Because ethnic data is not always readily available, this report includes an eGFR for both -Americans and non- Americans. The National Kidney Disease Education Program (NKDEP) does not endorse the use of the MDRD equation for patients that are not between the ages of 18 and 70, are , have extremes of body size, muscle mass, or nutritional status, or are non- or non-. According to the National Kidney Foundation, irrespective of diagnosis, the stage of the disease is based on the level of kidney function: Stage Description GFR(mL/min/1.73 m(2)) 1 Kidney damage with normal or decreased GFR 90 2 Kidney damage with mild decrease in GFR 60-89 3 Moderate decrease in GFR 30-59 4 Severe decrease in GFR 15-29 5 Kidney failure <15 (or dialysis) 21 Acute inflammation: >10.00 22 Therapeutic target for the treatment of diabetes Mellitus patients is <7% HBA1C, and in selective patients <6.0%.Please refer to [place] [employer] Diabetic care guidelines for further information. 23 Because ethnic data is not always readily available, this report includes an eGFR for both -Americans and non- Americans. The National Kidney Disease Education Program (NKDEP) does not endorse the use of the MDRD equation for patients that are not between the ages of 18 and 70, are , have extremes of body size, muscle mass, or nutritional status, or are non- or non-. According to the National Kidney Foundation, irrespective of diagnosis, the stage of the disease is based on the level of kidney function: Stage Description GFR(mL/min/1.73 m(2)) 1 Kidney damage with normal or decreased GFR 90 2 Kidney damage with mild decrease in GFR 60-89 3 Moderate decrease in GFR 30-59 4 Severe decrease in GFR 15-29 5 Kidney failure <15 (or dialysis) 24 SEE RESULT BELOW Name: ILYA KAM Andie : [address]: Tone Kamara MD Acct: [id number] Unit: [id number] AGE: 55 Location: WOUND Re02/16/16 SEX: M Status: REG REF SPEC: [id number] DESIRAE: 02/16/160905 [facility] DR: Tone Kamara MD REQ: [id number] RECD: 02/16/16 STATUS: [facility] DR: Emiliano Clark MD _ SOURCE: FOOT,RIGHT SPDESC: ORDERED: Culture Stain QUERIES: Specimen Description RIGHT FOOT WOUND Procedure Result Reported Site Wound/Misc Gram Stain Final 02/16/16- 1049 ML 1+ Epithelial Cells No Neutrophils Observed 1+ Gram Negative Bacilli 1+ Gram Positive Bacilli 2+ Gram Positive Cocci Wound/Misc Culture Final 02/19/16- 0909 ML Organism 1 STREP AGALACTIAE - (GROUP B) Quantity 1+ Organism 2 CORYNEBACTERIUM XEROSIS Quantity 1+ * This is a corrected result. * A prior result that was reported as final has been changed. 1. STREP AGALACTIAE - (GROUP B) M.I.C. RX --------- ------ Ampicillin <=0.25 S Penicillin <=0.12 S Clindamycin S Erythromycin <=0.25 S Gentamicin 2 S Levofloxacin 1 S CONTINUED ON NEXT PAGE * ML=Testing performed at Main Lab DEPARTMENT OF PATHOLOGY, [address] [place] [address] Gamal Zaldivar M.D. Director [facility] # [id number] Patient: KAMILYA [id number] (Continued) Specimen: [id number] Collected: 02/16/16 Received: 02/16/16 (Continued) Procedure Result Reported Site Wound/Misc Culture Final (continued) 02/19/16908 1. STREP AGALACTIAE - (GROUP B) (continued) M.I.C. RX --------- ------ Linezolid 1 S * Moxifloxacin <=0.25 S Nitrofurantoin <=16 S Oxacillin <=0.25 S * Quinupristin/Dalfopristin <=0.25 S Rifampin <=0.5 S Tetracycline <=1 S Doxycycline - Deduced S * Minocycline - Deduced S Tigecycline <=0.12 S Trimethoprim/Sulfamethoxazole 20 S Vancomycin <=0.5 S Imipenem-Deduced S * Ampicillin/Sulbactam-Deduced S Cefazolin-Deduced S * These antibiotics are not available in the [facility] Formulary Contact the Microbiology Department for any additional antibiotic reporting. * ML - MAIN LAB ([facility]) . END OF REPORT * ML=Testing performed at Main Lab DEPARTMENT OF PATHOLOGY, [address] [place] [address] Gamal Zaldivar M.D. Director [facility] # [id number] 25 Because ethnic data is not always readily available, this report includes an eGFR for both -Americans and non- Americans. The National Kidney Disease Education Program (NKDEP) does not endorse the use of the MDRD equation for patients that are not between the ages of 18 and 70, are , have extremes of body size, muscle mass, or nutritional status, or are non- or non-. According to the National Kidney Foundation, irrespective of diagnosis, the stage of the disease is based on the level of kidney function: Stage Description GFR(mL/min/1.73 m(2)) 1 Kidney damage with normal or decreased GFR 90 2 Kidney damage with mild decrease in GFR 60-89 3 Moderate decrease in GFR 30-59 4 Severe decrease in GFR 15-29 5 Kidney failure <15 (or dialysis) 26 Because ethnic data is not always readily available, this report includes an eGFR for both -Americans and non- Americans. The National Kidney Disease Education Program (NKDEP) does not endorse the use of the MDRD equation for patients that are not between the ages of 18 and 70, are , have extremes of body size, muscle mass, or nutritional status, or are non- or non-. According to the National Kidney Foundation, irrespective of diagnosis, the stage of the disease is based on the level of kidney function: Stage Description GFR(mL/min/1.73 m(2)) 1 Kidney damage with normal or decreased GFR 90 2 Kidney damage with mild decrease in GFR 60-89 3 Moderate decrease in GFR 30-59 4 Severe decrease in GFR 15-29 5 Kidney failure <15 (or dialysis) Procedures Date Code Description Status 03/15/2018 02424 EKG Tracing & Interpretation Completed 08/31/2017 82192 EKG Tracing & Interpretation Completed 05/09/2017 27169 Debridement Skin,& sq Tissue Completed 05/02/2017 82424 Debridement Skin,& sq Tissue Completed 03/27/2017 93957 EKG, Interpretation Only Completed 03/23/2017 26306 Incision Leg/Ankle Completed 03/23/2017 22127 Incision Leg/Ankle Completed 03/23/2017 78677 I&D deep abscess,bursa or hematoma thigh or knee region Completed 03/20/2017 08829 EKG, Interpretation Only Completed 07/04/2016 91380 EKG Tracing & Interpretation Completed 06/24/2016 44626 Amputation Leg Through Tibia & Fibula Completed 06/24/2016 91238 Amputation Leg Through Tibia & Fibula Completed 06/24/2016 93190 Amputation Leg Through Tibia & Fibula Completed 06/20/2016 75262 EKG, Interpretation Only Completed 06/09/2016 81368 Removal Devitalization Tissue Wound Less Than Equal 20 Completed Square CM 06/09/2016 47291 Debridement Skin,& sq Tissue Completed 05/31/2016 24748 Removal Devitalization Tissue Wound Less Than Equal 20 Completed Square CM 05/31/2016 89005 Debridement Skin,& sq Tissue Completed 05/18/2016 01110 Removal Devitalization Tissue Wound Less Than Equal [address] Square CM 05/18/2016 72996 Debridement Skin,& sq Tissue Completed 05/03/2016 76113 Debridement Skin,& sq Tissue Completed 04/21/2016 57136 Removal Devitalization Tissue Wound Less Than Equal 20 Completed Square CM 04/14/2016 14079 Removal Devitalization Tissue Wound Less Than Equal [address] Square CM 04/14/2016 56442 Debridement Skin,& sq Tissue Completed 03/31/2016 37068 Removal Devitalization Tissue Wound Less Than Equal [address] Square CM 03/24/2016 39710 Removal Devitalization Tissue Wound Less Than Equal [address] Square CM 03/17/2016 79865 Removal Devitalization Tissue Wound Less Than Equal [address] Square CM 03/17/2016 44539 Debridement Skin,& sq Tissue Completed 03/08/2016 99271 Removal Devitalization Tissue Wound Less Than Equal 20 [address] Square CM 03/01/2016 85889 Removal Devitalization Tissue Wound Less Than Equal 20 Completed Square CM 02/23/2016 48154 Revascularization,Endovascular W/Transluminal Angioplasty Completed 02/16/2016 12691 Removal Devitalization Tissue Wound Less Than Equal 20 Completed Square CM 02/16/2016 31223 Angio Extremity, Bilateral Completed 02/16/2016 25207 Catheter Placement Arterial System Addtl 2ND/3RD Ord Completed Abdom/Pelv 02/16/2016 56465 Common Femoral, Bilat Completed 02/16/2016 74841 Debridement Skin,& sq Tissue Completed 02/09/2016 42803 Removal Devitalization Tissue Wound Less Than Equal 20 Completed Square CM 02/02/2016 04455 Removal Devitalization Tissue Wound Less Than Equal 20 Completed Square CM 01/26/2016 94909 Mobile Cardiovascular Telemetry Over 24 HR Up To 30 Days Completed 01/26/2016 66166 Removal Devitalization Tissue Wound Less Than Equal 20 Completed Square CM 01/19/2016 47808 Removal Devitalization Tissue Wound Less Than Equal 20 Completed Square CM 01/19/2016 75105 Debridement Skin,& sq Tissue Completed 01/14/2016 28499 Apply Total Contact Leg Cast Completed 01/12/2016 16063 Apply Total Contact Leg Cast Completed 06/17/2015 47121 EKG Tracing & Interpretation Completed 06/07/2015 38322 EKG, Interpretation Only Completed 06/06/2015 50402 EKG, Interpretation Only Completed 06/05/2015 57773 EKG, Interpretation Only Completed 06/04/2015 66409 Left Heart Cath. 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 tibia and fibula Office Visit 08/31/2017 [facility] Brown Condon I25.2 Old myocardial 9:20a Cardiology Of MD Laura, infarction Cat Tender AT [facility] Office Visit 08/10/2017 Orth[facility] Paco Tolbert Subacute 10:30a Services Of Deja Lewis osteomyelitis, right C.M.A. tibia and fibula Office Visit 07/04/2017 [facility] Paco Tolbert Subacute 10:15a Services Of Deja Lewis osteomyelitis, right C.M.A. tibia and fibula Office Visit 04/25/2017 [facility] Oziel Nash M86.261 Subacute 10:30a For Infectious [place], osteomyelitis, right Diseases M.D. tibia and fibula Z89.511 Acquired absence of right leg below knee E10.40 Type 1 diabetes mellitus with diabetic neuropathy, unsp B95.61 Methicillin suscep staph infct causing dis classd elswhr E10.69 Type 1 diabetes mellitus with other specified complication Office Visit 04/04/2017 [facility] Oziel Nash M86.261 Subacute 11:30a For Infectious Deja Cadena osteomyelitis, Diseases right tibia and fibula Z89.511 Acquired absence of right leg below knee E10.40 Type 1 diabetes mellitus with diabetic neuropathy, unsp E10.69 Type 1 diabetes mellitus with other specified complication Office Visit 03/24/2017 [facility] Oziel D. E11.69 Type 2 diabetes 11:14a For Infectious Radha Cadena. mellitus with Diseases other specified complication M86.661 Other chronic osteomyelitis, right tibia and fibula E11.628 Type 2 diabetes mellitus with other skin complications L02.415 Cutaneous abscess of right lower limb Office Visit 03/22/2017 [facility] Oziel Nash E11.69 Type 2 diabetes 10:33a For Infectious Radha Cadena. mellitus with Diseases other specified complication M86.161 Other acute osteomyelitis, right tibia and fibula E11.622 Type 2 diabetes mellitus with other skin ulcer L97.819 Non-pressure chronic ulcer oth prt r low leg w unsp severity L03.115 Cellulitis of right lower limb L02.415 Cutaneous abscess of right lower limb E11.51 Type 2 diabetes w diabetic peripheral angiopath w/o gangrene E11.40 Type 2 diabetes mellitus with diabetic neuropathy, unsp Office Visit 03/22/2017 11:27a Orthopedic Paco T87.89 Other complications Services Of Deja Lewis of amputation stump C.M.A. E10.622 Type 1 diabetes mellitus with other skin ulcer L03.115 Cellulitis of right lower limb Office Visit 03/21/2017 Orthopedic Royce Joshua M86.261 Subacute 9:07a Services Of osteomyelitis, C.M.A. right tibia and fibula Z89.511 Acquired absence of right leg below knee T87.43 Infection of amputation stump, right lower extremity Office Visit 01/16/2017 8:40a [facility] Brown Condon I25.2 Old myocardial Of [facility]ender [place] [facility] [place] Laura, infarction FACC, FSCAI I73.9 Peripheral vascular disease, unspecified Office Visit 07/04/2016 9:40a [facility] Brown Condon I25.2 Old myocardial Of [facility]ender AT [facility] MD Laura, infarction FAC, FSCAI I73.9 Peripheral vascular disease, unspecified Office Visit 06/22/2016 8:28a [facility] Oziel Nash E10.40 Type 1 diabetes For Infectious Deja Cadena mellitus with Diseases diabetic neuropathy, unsp Z89.511 Acquired absence of right leg below knee R79.82 Elevated C-reactive protein (CRP) Z86.19 Personal history of other infectious and parasitic diseases Office Visit 06/20/2016 8:02a [facility] Oziel Nash E10.40 Type 1 diabetes For Infectious Deja Cadena mellitus with Diseases diabetic neuropathy, unsp 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 E10.52 Type 1 diabetes w diabetic peripheral angiopathy w gangrene L03.031 Cellulitis of right toe E10.69 Type 1 diabetes mellitus with other specified complication M86.671 Other chronic osteomyelitis, right ankle and foot Office Visit 06/19/2016 9:25a Orthopedic Paco Lewis, I96 Gangrene, not Services Of Lluvia Short elsewhere classified L97.529 Non-pressure chronic ulcer oth prt left foot w unsp severity [facility] Type 1 10:18a Assoc,marco Kam, [employer] diabetes Hospitalists mellitus with foot ulcer L97.519 Non-prs chronic ulcer oth prt right foot w unsp severity I10 Essential (primary) hypertension Office Visit 02/10/2016 3:20p [facility] Brown Condon L97.512 Non-prs Of [facility] MD Laura, chronic ulcer FACC, FSCAI oth prt right foot w fat layer exposed 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 R00.2 Palpitations Office Visit 01/12/2016 8:46a Wound Care Tone Chou E10.621 Type 1 diabetes Center AT [facility] Deja Kamara mellitus with foot ulcer M14.671 Charcot's joint, right ankle and foot L97.511 Non-prs chronic ulcer oth prt r foot limited to brkdwn skin Office Visit 08/17/2015 9:40a [facility] Brown Condon I21.21 Stemi involving Of Cat Tender [facility] [place] Laura, left circumflex [facility] coronary artery I49.01 Ventricular fibrillation 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 Office Visit 06/17/2015 3:40p [facility] Brown Condon I21.21 Stemi involving Of Cat Tender AT [facility] MD Laura, left circumflex FACC, FSCAI coronary artery 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 E78.5 Hyperlipidemia, unspecified I49.01 Ventricular fibrillation Office Visit 06/08/2015 [facility] Cristopher Stefek, I21.21 Stemi involving 11:42a Of [facility] AT [facility] Deja, FACC, left circumflex FSCAI coronary artery Office Visit 06/07/2015 [facility] Brown Condon I21.21 Stemi involving 2:25p Of Cat Tender AT [facility] MD Laura, left circumflex FACC, [facility] coronary artery Office Visit 06/06/2015 [facility] Brown Condon I21.21 Stemi involving 2:24p Of Cat Tender AT [facility] MD Laura, left circumflex FACC, [facility] coronary artery Office Visit 06/05/2015 [facility] Brown Condon I21.21 Stemi involving 2:22p Of Cat Tender AT [facility] MD Laura, left circumflex FACC, [facility] coronary artery Office Visit 06/04/2015 [facility] Brown Condon I21.21 Stemi involving 2:24p Of [facility] Tender AT [facility] MD Laura, left circumflex FACC, [facility] coronary artery Office Visit 10/02/2013 [facility] 250.80 Diabetes W/ Other 4:36p Assoc,pc Wilfrido, N.P. Spec Manifestations Hospitalists Type II Controlled 730.07 Osteomyelitis Acute Ankle & Foot 250.60 Diabetes W/ Neurological Manifestations Type II Controlled 244.9 Hypothyroidism Other Unspec Plan of Treatment Future Appointment(s):06/07/2018 8:45 am - Paco Lewis M.D. at [facility]05/24/2018 - Paco Lewis M.D.M86.261 Subacute osteomyelitis, right tibia and fibulaFollow up:2 weeks
--- NOTE | 2018-06-18 12:26 | ED ---
Lower Extremity - HPI Summary HPI Summary: Patient is a 58 y/o male who presents to the ED c/o RLE wound. 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 Since his last surgical intervention last year, hes had a chronic wound on his RLE. Patient has been taking Keflex for the past 3 weeks, and also was taking 1 week of an unknown antibiotic. His last Keflex dose was this morning. This morning patient removed his bandage and noticed viscous yellow discharge from the wound. He was sent here by Dr. Lewis for further evaluation. Patient reports pain below his knee rated a 1/10 in severity, and fatigue. - History of Current Complaint Chief Complaint: EDExtremityLower Stated Complaint: RIGHT LEG INFECTION PER PT Time Seen by Provider: 06/18/18 12:06 Hx Obtained From: Patient Mechanism Of Injury: Other - No injury Onset/Duration: Still Present Severity Currently: Mild Pain Intensity: 1 Pain Scale Used: 0-10 Numeric Timing: Constant Location: Is Discrete @ - RLE amputation wound Related History: Other - right BKA, DM - Allergies/Home Medications Allergies/Adverse Reactions: Allergies Allergy/AdvReac Type Severity Reaction Status Date / Time atorvastatin AdvReac Fatigue Verified 06/18/18 11:16 PMH/Surg Hx/FS Hx/Imm Hx Endocrine/Hematology History: Reports: Hx Diabetes - DM I, Hx Anemia Cardiovascular History: Reports: Hx Peripheral Vascular Disease Denies: Hx Pacemaker/ICD Comment Only: Hx Hypertension - on medication Respiratory History: Reports: Hx Pneumonia, Other Respiratory Problems/ Disorders - PNA GI History: Denies: Hx Jaundice History: Denies: Hx Dialysis, Hx Renal Disease Musculoskeletal History: Reports: Other Musculoskeletal History - right foot amputation 2013, Left figer amputation as teenager Sensory History: Reports: Hx Contacts or Glasses Denies: Hx Hearing Aid Opthamlomology History: Reports: Hx Contacts or Glasses Neurological History: Reports: Hx Headaches Psychiatric History: Denies: Hx Panic Disorder - Surgical History Surgery Procedure, Year, and Place: Right ankle fusion. left leg pinning. Partial right foot amputation. Left index finger partial amputation. cardiac stent. below knee amputation right leg Hx Anesthesia Reactions: No Infectious Disease History: No Infectious Disease History: Reports: Hx of Known/Suspected MRSA Denies: Traveled Outside the [place] in Last 30 Days - Family History Known Family History: Negative: Other - gastrointestinal malignancy - Social History Alcohol Use: None Alcohol Amount: socially Hx Substance Use: No Substance Use Type: Reports: None Hx Tobacco Use: Yes Smoking Status (MU): Former Smoker Type: Cigarettes Length of Time of Smoking/Using Tobacco: 25 years Have You Smoked in the Last Year: Yes Review of Systems Positive: Fatigue Positive: Other - wound on RLE with yellow discharge All Other Systems Reviewed And Are Negative: Yes Physical Exam - Summary Physical Exam Summary: Appearance: Well appearing, no pain distress Skin: warm, dry, reflects adequate perfusion, wound on lateral aspect of RLE stump with yellowish discharge Head/face: normal Eyes: EOMI, CLEMENTE ENT: normal Neck: supple, non-tender Respiratory: CTA, breath sounds present Cardiovascular: RRR, pulses symmetrical Abdomen: non-tender, soft Musculoskeletal: strength/ROM intact, right BKA Neuro: normal, sensory motor intact, A&Ox3 Triage Information Reviewed: Yes Vital Signs On Initial Exam: Initial Vitals Temp Pulse Resp BP Pulse Ox 98.8 F 74 16 125/75 98 06/18/18 11:13 06/18/18 11:13 06/18/18 11:13 06/18/18 11:13 06/18/18 11:13 Vital Signs Reviewed: Yes Diagnostics - Vital Signs Vital Signs Temp Pulse Resp BP Pulse Ox 06/18/18 11:13 98.8 F 74 16 125/75 98 - Laboratory Result Diagrams: 06/18/18 12:20 06/18/18 12:20 Lab Statement: Any lab studies that have been ordered have been reviewed, and results considered in the medical decision making process. - Radiology Knee XR Radiology Interpretation Completed By: Radiologist Summary of Radiographic Findings: No definite evidence of osteomyelitis is noted. Postoperative changes noted. ED physician reviewed radiology report. Lower Extremity Course/Dx - Course Course Of Treatment: Patient is a 58 y/o male who presents to the ED c/o fatigue and yellow discharge to his right BKA. Patient has been taking Keflex for the past 3 weeks, and also was taking 1 week of an unknown antibiotic. A physical exam revealed right BKA and wound on lateral aspect of RLE stump with yellowish discharge. A knee XR revealed No definite evidence of osteomyelitis is noted. Postoperative changes noted. Bloodwork obtained. Final dx is infection of below knee amputation stump of right leg. Dr. Lewis accepts patient for admission. He is agreeable with this plan. - Diagnoses Differential Diagnosis/HQI/PQRI: Positive: Cellulitis, Infection, Other - abscess rt stump Provider Diagnoses: Infection of amputation stump, right lower extremity - Physician Notifications Discussed Care Of Patient With: Paco Lewis Time Discussed With Above Provider: 13:45 Instructed by Provider To: MD Will See In ED - Dr. Lewis arrives to the ED. He accepts the pt for admission. Discharge - Sign-Out/Discharge Documenting (check all that apply): Patient Departure - Admit Patient Received Moderate/Deep Sedation with Procedure: No - Discharge Plan Condition: Stable Disposition: ADMITTED TO [facility] Referrals: Emiliano Clark MD [Primary Care Provider] - - Billing Disposition and Condition Condition: STABLE Disposition: Admitted to [facility] - Attestation Statements Document Initiated by Frances: Yes Documenting Scribe: Nettie Asencio Provider For Whom Braxtone is Documenting (Include Credential): Guicho Gallegos MD Scribe Attestation: Nettie Castorena scribed for Guicho Gallegos MD on 06/18/18 at 1432. Scribe Documentation Reviewed: Yes Provider Attestation: The documentation as recorded by the Nettie khan accurately reflects the service I personally performed and the decisions made by , Guicho Gallegos MD Status of Scribe Document: Viewed
[2018-06-18 12:30] LABS: ABS Basophils 0 10^3/ul (0-0.2); ABS Eosinophils 0.4 10^3/ul (0-0.6); ABS Lymphocytes 1.5 10^3/ul (1.0-4.8); ABS Monocytes 0.5 10^3/ul (0-0.8); ABS Neutrophils 6.2 10^3/ul (1.5-7.7); ABS Nucleated RBC 0 10^3/ul; Eosinophil % 4.2 %; Hematocrit 42 % (36-46); Hemoglobin 14.2 g/dL (14.0-18.0); Lymphocyte % 17.1 %; Mean Corpuscular HGB Conc 34 g/dL (31-36); Mean Corpuscular Hemoglobin 31 pg (27-31); Mean Corpuscular Volume 89 fL (80-94); Mean Platelet Volume 9.2 fL (7.4-10.4); Nucleated Red Blood Cells % 0; Platelet Count 210 10^3/uL (150-450); Red Blood Count 4.67 10^6 /uL (4.18-5.48); Red Cell Distribution Width 14 % (10.5-15); White Blood Count 8.6 10^3/uL (3.5-10.8)
[2018-06-18 12:49] LABS: Potassium 4.1 mmol/L (3.5-5.0)
[2018-06-18 12:50] LABS: Albumin 3.8 g/dL (3.2-5.2); Albumin/Globulin Ratio 1.5 (1-3); C Reactive Protein 17.63 mg/L (<8.01); Calcium 9.2 mg/dL (8.6-10.3); EGFR African American 67.1 (>60); EGFR Non-African American 55.4 (>60); Globulin 2.5 g/dL (2-4); Total Bilirubin 0.6 mg/dL (0.2-1.0); Total Protein 6.3 g/dL (6.4-8.9)
[2018-06-18 13:22] LABS: Activated Partial Thrombo Time 36.3 seconds (26.0-36.3); INR 0.99 (0.82-1.09)
[2018-06-18] MEDS ORDERED: Ondansetron INJ* 2 MG/ML VIAL IV PRN (13:58)
[2018-06-18] MEDS ORDERED: Vancomycin(*) 1,000 MG in NS 0.9% 250 ML* 250 ML IVPB ONE (14:05)
[2018-06-18] MEDS ORDERED: Nitroglycerin TAB 0.4 MG* 0.4 MG TAB SL PRN (14:05)
[2018-06-18] MEDS ORDERED: Dextrose 50% Syringe 50 ML* 25 GM/50 ML SYRINGE IV PUSH PRN (14:10)
[2018-06-18] MEDS ORDERED: Vancomycin(*) 0 MG in NS 0.9% 250 ML* 250 ML IVPB SCH (15:00)
[2018-06-18] MEDS ORDERED: Vancomycin per Pharmacy* NOTE FOLLOW UP PRN (15:00)
[2018-06-18] MEDS ORDERED: Cefepime 1 GM in Dextrose(*) 1 GM/50 ML BAG IV SCH (15:00)
[2018-06-18] MEDS ORDERED: Lactated Ringers 1000 ML Bag* 1,000 ML IV SCH (15:00)
[2018-06-18] MEDS ORDERED: Vancomycin(*) 1,500 MG in NS 0.9% 250 ML* 250 ML IVPB ONE (15:01)
--- NOTE | 2018-06-18 15:01 | CONS ---
ER CONSULTATION REPORT: DATE OF CONSULT: 06/18/18 HISTORY OF PRESENT ILLNESS: Brody is a 58-year-old pleasant diabetic with some neuropathy right lower extremity, he had chronic osteomyelitis and had a below-knee amputation 4 years ago. He has had 1 episode of breakdown with the lateral wound approximately a year ago, which required debridement and antibiotics. Recently, he has had a small area below the knee laterally that was not healing with the 1-cm wound and small cavity underneath. This healed up on its own with some Betadine and packing, and then recently over the last few days, he has had a drainage now from that area. He is admitted for evaluation and cellulitis treatment. PAST MEDICAL HISTORY: Brody has a history of type 1 diabetes. He has a history of some peripheral vascular disease. He has a history of some hypertension. He has a history of pneumonia in the past. MEDICATIONS: His medications are outlined in the chart. SOCIAL HISTORY: He has not been smoking for 25 years now. He uses occasional alcohol. He has been feeling well recently except for some mild fatigue. He has not had significant headache, cough, chest pain, chills, shortness of breath , diarrhea, vomiting, dizziness. PHYSICAL EXAM: His examination shows him to be alert, oriented, in no acute distress. He is afebrile. He is normotensive. He displays on the right lower extremity a warm leg with a below-knee transverse incision where he had his previous amputation. He is able to move his knee freely without pain. There is a 2-cm wound laterally just below the fibular head area, which is draining some yellowish serous fluid. The stump itself appears slightly erythematous, not foul smelling. DIAGNOSTIC STUDIES: His radiographs show what may be a soft tissue fluid collection around the end of the transtibial amputation site. I do not see any obvious lytic changes within the bone of the fibula or other tibia. IMPRESSION AND PLAN: Brody with the recurrent abscess now, right below-knee amputation stump. He needs to be admitted hopefully to the Medical Service and get started on some IV antibiotics. There is some fluid to be cultured draining from the wound. When the erythema is slightly improved, then he could have a debridement of this wound. [id number]/[facility] #: [id number] SARA
[2018-06-18] MEDS: Heparin VIAL(*) 5000 UNITS/ML VIAL (FIVE THOUSAND) SUBCUT SCH ×2 (15:03→22:40)
[2018-06-18] MEDS ORDERED: Insulin LISPRO* 1 UNITS UNIT SUBCUT SCH (16:30)
--- NOTE | 2018-06-18 16:40 | HP ---
CC: Dr. Emiliano Clark; Dr. Paco Lewis * ADMISSION HISTORY AND PHYSICAL: DATE OF ADMISSION: 06/18/18 PRIMARY CARE PROVIDER: Dr. Emiliano Clark. MY ATTENDING WHILE IN THE HOSPITAL: Dr. Trish Humphrey.* (DICTATED BY TAO HOLLEY) CONSULTING ORTHOPEDIST: Dr. Paco Lewis. CHIEF COMPLAINT: Purulent drainage from right lower extremity x1 day. HISTORY OF PRESENT ILLNESS: Mr. Kam is a 58-year-old male with past medical history of diabetes mellitus type 1 since he was a child with difficult to control blood sugars and diabetic complications including diabetic retinopathy, peripheral neuropathy, Charcot joints; peripheral vascular disease; and ST- segment myocardial infarction in 2016, status post PCI. The patient has been having chronic issues with wound healing on his right lower extremity related to a previous below-the- knee amputation done by Dr. Paco Lewis, Orthopedics. The patient had a large abscess at one point, which was drained, treated with wound care and then was able to be healed; however, the patient over the 3 weeks has been noticing worsening malaise and more difficult to control blood sugars. This got worse over the last 3 days. The patient has been on Keflex for 3 weeks and has not noticed any improvement in his status on this medication. The patient has had no subjective fevers or chills. No nausea or vomiting. The patient has not had any changes to his sliding scale. The patient this morning took dressing off of his lower extremity wound and noticed large amount of yellow viscous fluid. It was not malodorous. The patient has peripheral neuropathy, but has continued sensation in his leg and has not noticed any significant increase in pain. The patient denies chest pain or shortness of breath. The patient was evaluated and sent in to the emergency department by Dr. Lewis, who saw the patient in consultation, recommended IV antibiotics and a washout of the wound. Due to concern for right lower extremity ongoing wound infection, we were asked to evaluate the patient for admission to the hospital. PAST MEDICAL HISTORY: Diabetes mellitus type 1; Charcot foot on the right side ; diabetic retinopathy, status post photocoagulation; peripheral neuropathy; STEMI in 2016, status post PCI; peripheral vascular disease; hyperlipidemia; hypothyroidism; hypertension; chronic kidney disease, stage 3. PAST SURGICAL HISTORY: Right [id number]-ora-[id number] amputation, PCI, ORIF of left tib- fib, ankle fusion on the right side. MEDICATIONS: 1. Levothyroxine 225 mcg p.o. daily. 2. Insulin glargine 60 units subcutaneous q.p.m. 3. Brilinta 90 mg p.o. b.i.d. 4. Lipitor 80 mg p.o. daily. 5. Nitroglycerin 0.4 mg sublingual q.5 minutes as needed. 6. Lisinopril 10 mg p.o. daily. 7. Aspirin 81 mg p.o. daily. 8. Humalog sliding scale subcutaneous t.i.d. ALLERGIES: SIMVASTATIN. FAMILY HISTORY: The patient's mother is alive and has diabetes mellitus type 2 and Parkinson's disease. The patient's father of complications of a stroke and had hypertension. The patient has several siblings with type 2 diabetes mellitus. SOCIAL HISTORY: The patient smoked on and off for 20 years. The patient does still smoke very infrequently when he drinks. The patient drinks occasional alcohol, but does not always smoke when he drinks. The patient denies illicit drug use. The patient is disabled. The patient used to work at [employer] as "blue-collar jobs." The patient is from his and has a son. The patient's surrogate decision maker will be his , sana, Maribel Kam, phone number [phone]. REVIEW OF SYSTEMS: A 14-point review of systems was reviewed with the patient and is negative except as above in the HPI. PHYSICAL EXAMINATION GENERAL: The patient is a 58-year-old male, who appears stated age and sitting comfortably in bed, in no acute distress. VITAL SIGNS: At the time of evaluation, temperature 98.8, pulse rate 72, respiratory rate 16, oxygen saturation 98% on room air, blood pressure 130/79. HEENT: Head: Normocephalic, atraumatic. Sclerae anicteric. No conjunctival injection. Nasal mucosa moist. Oral mucosa moist. No pharyngeal erythema, discharge, or exudate. NECK: Supple, nontender. No lymphadenopathy. No carotid bruits auscultated. No JVD. RESPIRATORY: Clear to auscultation bilaterally. No wheezes, rales, or rhonchi. Good air exchange bilaterally. CARDIAC: Regular rate and rhythm. No clicks, murmurs, gallops, or rubs. Pulses are 2+ in the bilateral popliteal areas. Pulses are 1+ in the left- sided posterior tibialis and dorsalis pedis areas. No bilateral lower extremity edema noted. ABDOMEN: Soft, nontender, nondistended. Bowel sounds present and normoactive in all 4 quadrants. No hepatosplenomegaly. No abdominal bruits auscultated. No hepatojugular reflux. GENITOURINARY: No suprapubic or CVA tenderness. NEURO: Cranial nerves II through XII intact. Peripheral neuropathy in the left lower extremity. Normal strength. No other focal deficits. PSYCHIATRIC: Pleasant and cooperative. SKIN: Small open area actively draining pus from the lateral aspect of the remnant of right lower extremity. Wound on the left parker not visualized. No other rashes or ulcers. DIAGNOSTIC STUDIES/LAB DATA: White blood cell count 8.6, hemoglobin 14.2, platelet count 210. INR of 0.99, APTT of 36.3. Sodium 136, potassium 4.1, chloride 104, carbon dioxide 26, anion gap 6, BUN 24, creatinine 1.33, glucose 216, lactic acid 0.9, and calcium 9.2. Bilirubin 0.6, AST 17, ALT 26, alkaline phosphatase 93. CRP 17.63. Protein 6.3, albumin 3.8, globulin 2.5. Studies: Knee x-ray shows no definite evidence of osteomyelitis, postoperative changes including [id number]-zib-[id number] amputation. ASSESSMENT AND PLAN: Impression: Mr. Kam is a 58-year-old male with past medical history significant for complicated type 1 diabetes with complications including diabetic retinopathy, peripheral neuropathy, Charcot joint and chronic kidney disease. The patient recently developed recurrence of wound infection on his right lower extremity where he had a [id number] amputation. The patient will be admitted to the hospital for IV antibiotics and surgical intervention on his abscess. 1. Right lower extremity abscess. The patient has a history of an abscess in the same site, which until this morning seemed healed, though the patient did have vague systemic symptoms including more difficult to control diabetes and malaise over the past several weeks. The patient has been on Keflex with no change in his symptoms. This indicates a possibility of methicillin-resistant Staphylococcus aureus infection given the purulence and lack of response to Keflex. The patient will be started on vancomycin and cefepime. Blood cultures have been drawn. Wound culture will be drawn. The patient is not septic. The patient, however, has kidney function above baseline. We will give the patient gentle fluids. The patient will be n.p.o. after midnight for a washout in the morning. The patient has been seen in consultation by Dr. Paco Lewis of Orthopedics, who recommended against an MRI. The patient will also be seen in consultation by Infectious Disease when available. Further imaging will be based on surgical and clinical course. 2. Diabetes mellitus type 1. The patient has difficulty to control diabetes. The patient is currently hyperglycemic, though this is not a fasting exam. The patient is on 55 units of insulin glargine daily. This will be decreased to 40 units given the patient's n.p.o. after midnight status. The patient will have fingersticks a.c. and h.s. with blood glucose coverage with an attempt at tighter glucose coverage to help increase wound healing. The patient will have sliding scale insulin per protocol. The patient will have his care taken over by Dr. Clark of Endocrinology tomorrow, who will further adjust his insulin based on his blood glucoses. 3. History of ST-elevation myocardial infarction in 2016. The patient is still on dual antiplatelet therapy from his ST-elevation myocardial infarction in 2016. It was greater than 12 months after the patient had his PCI. The patient is currently asymptomatic. We will get an EKG to assess for any ischemic changes; however, the patient's aspirin and Brilinta will be held tomorrow for surgery, but will be resumed as soon as possible postoperatively. 4. Hyperlipidemia. Continue the patient's Lipitor at home dose. 5. Hypothyroidism. Continue the patient's home Synthroid. 6. DVT prophylaxis: The patient will have 2 doses of heparin and this will be held for surgery as well. This should be resumed postoperatively. The patient will have SCDs. 7. FEN: The patient will have lactated Ringer's at slow rate for hydration as his kidney function is decreased below baseline. 8. Chronic kidney disease. The patient's creatinine is decreased below baseline. We will trial fluids. This may just be a progression of diabetic kidney disease. 9. Code status: The patient would like to be a full code. 10. Disposition: The patient is admitted inpatient to the hospital. TIME SPENT: Approximately 60 minutes was spent on the admission of this patient , 30 of which was spent [id number] with the patient obtaining history and physical and discussing treatment plan. This plan was discussed with my attending, Dr. Trish Humphrey, and she is in agreement. TAO HOLLEY [id number]/[facility] #: [id number] SARA
[2018-06-18] MEDS: Insulin LISPRO* 1 UNITS UNIT SUBCUT SCH ×2 (17:24→22:41)
[2018-06-18 17:43] LABS: Urine Appearance Clear; Urine Bacteria Absent (Absent); Urine Bilirubin Negative (Negative); Urine Blood 1+ (Negative); Urine Color Yellow; Urine Glucose 1+(50 mg/dL) (Negative); Urine Ketones Negative (Negative); Urine Nitrite Negative (Negative); Urine Protein 1+(30 mg/dL) (Negative); Urine Red Blood Cell 2+(6-10/hpf) (Absent); Urine Specific Gravity 1.018 (1.010-1.030); Urine Urobilinogen Negative (Negative); Urine White Blood Cell Trace(0-5/hpf) (Absent)
[2018-06-18] MEDS ORDERED: Insulin GLARGINE(*) 1 UNITS UNIT SUBCUT SCH ×3 (18:00)
[2018-06-18] MEDS: Cefepime 1 GM in Dextrose(*) 1 GM/50 ML BAG IV SCH (18:03)
[2018-06-18] MEDS: oxyCODONE TAB* 5 MG TAB PO PRN (20:27)
[2018-06-18] MEDS: Acetaminophen TAB* 325 MG PO PRN (20:27)
[2018-06-19] MEDS: Vancomycin(*) 1,000 MG in NS 0.9% 250 ML* 250 ML IVPB SCH ×3 (00:30→17:37)
[2018-06-19] MEDS: Levothyroxine TAB* 25 MCG TAB PO SCH (04:50)
[2018-06-19] MEDS: Levothyroxine TAB* 100 MCG TAB PO SCH (04:50)
[2018-06-19] MEDS: Cefepime 1 GM in Dextrose(*) 1 GM/50 ML BAG IV SCH ×2 (05:36→19:54)
[2018-06-19 06:46] LABS: ABS Basophils 0.1 10^3/ul (0-0.2); ABS Eosinophils 0.4 10^3/ul (0-0.6); ABS Lymphocytes 0.9 10^3/ul (1.0-4.8); ABS Monocytes 0.5 10^3/ul (0-0.8); ABS Neutrophils 4.2 10^3/ul (1.5-7.7); ABS Nucleated RBC 0 10^3/ul; Hematocrit 40 % (36-46); Hemoglobin 13.3 g/dL (14.0-18.0); Lymphocyte % 14.7 %; Mean Corpuscular HGB Conc 33 g/dL (31-36); Mean Corpuscular Hemoglobin 30 pg (27-31); Mean Corpuscular Volume 90 fL (80-94); Mean Platelet Volume 9.1 fL (7.4-10.4); Nucleated Red Blood Cells % 0; Platelet Count 170 10^3/uL (150-450); Red Blood Count 4.43 10^6 /uL (4.18-5.48); Red Cell Distribution Width 14 % (10.5-15)
[2018-06-19 06:50] LABS: Calcium 8.9 mg/dL (8.6-10.3); Potassium 3.7 mmol/L (3.5-5.0)
[2018-06-19 06:56] LABS: BUN/Creatinine Ratio 19.6 (8-20); C Reactive Protein 13.79 mg/L (<8.01); EGFR African American 64.3 (>60); EGFR Non-African American 53.1 (>60)
--- NOTE | 2018-06-19 07:48 | PN ---
Subjective - Subjective Reason for Note: Progress Note History: I have reviewed with Brody Kam and the EMR his presentation. He has a collection in the incision line of his right amputation revision that became infected and drained. He has been on cephalexin as an outpatient. He is due for surgical debridement of this wound today. His health has been stable otherwise recently. He has had 2 episodes of hypoglycemia overnight - he is NPO. 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, uncontrolled (Chronic ) E10.49, E10.65 Current Medications: Current Medications Acetaminophen (Tylenol Tab*) 650 mg PO Q6H PRN PRN Reason: FEVER/PAIN Last Admin: 06/18/18 20:27 Dose: 650 mg Dextrose (D50w Syringe 50 Ml*) 12.5 gm IV PUSH .FOR FS < 60 - SS PRN PRN Reason: FS < 60 Last Admin: 06/19/18 07:04 Dose: 12.5 gm Lactated Ringer's (Lactated Ringers 1000 Ml Bag*) 1,000 mls @ 75 mls/hr IV PER RATE [facility] Last Admin: 06/18/18 16:02 Dose: 75 mls/hr Vancomycin HCl 1,000 mg/ (Sodium Chloride) 250 mls @ 166.667 mls/hr IVPB Q8H [facility] Last Admin: 06/19/18 00:30 Dose: 166.667 mls/hr Cefepime HCl (Maxipime 1 Gm In Dextrose Duplex (*)) 1 gm in 50 mls @ 100 mls/ hr IV Q12HR@0600,1800 [facility] Last Admin: 06/19/18 05:36 Dose: 100 mls/hr Insulin Glargine (Lantus(*)) 40 units SUBCUT QPM [facility] Last Admin: 06/18/18 18:02 Dose: 40 units Levothyroxine Sodium (Synthroid Tab*) 200 mcg PO DAILY@0600 [facility] Last Admin: 06/19/18 04:50 Dose: Not Given Levothyroxine Sodium (Synthroid Tab*) 25 mcg PO DAILY@0600 [facility] Last Admin: 06/19/18 04:50 Dose: Not Given Morphine Sulfate (Morphine Inj (Syringe))*) 1 mg IV Q4H PRN PRN Reason: PAIN - MODERATE TO SEVERE Nitroglycerin (Nitroglycerin Tab 0.4 Mg*) 0.4 mg SL Q5M PRN PRN Reason: ANGINA Ondansetron HCl (Zofran Inj*) 4 mg IV Q6H PRN PRN Reason: NAUSEA Oxycodone HCl (Roxycodone Tab*) 5 mg PO Q6H PRN PRN Reason: PAIN - MILD TO MODERATE Last Admin: 06/18/18 20:27 Dose: 5 mg Pharmacy Consult (Vancomycin Per Pharmacy*) 1 note FOLLOW UP . PRN PRN Reason: PER PROTOCOL Pharmacy Profile Note (Vancomycin Trough Check) 1 note FOLLOW UP 1530 ONE Stop: 06/19/18 15:31 - Review of Systems Constitutional Symptoms: No: Fatigue, Fever, Night Sweats Pulmonary: Negative: Cough, Sputum, Respiratory Distress Cardiology: Negative: Chest Pain, Shortness of Breath, Palpitations, Swelling of Ankles, Proximal NocturnalDyspnea, Orthopnoea Gastroenterology: Negative: Abdominal Pain, Nausea, Vomiting, Change in Bowel Habits Home Medications: Home Medications Medication Instructions Recorded Confirmed Type Insulin Glargine,Hum.rec.anlog 60 unit SUBCUT QPM #0 06/04/15 06/18/18 History [Lantus] Atorvastatin* [Lipitor 80 MG*] 80 mg PO DAILY #30 tab 06/07/15 06/18/18 Rx Lisinopril TAB* [Prinivil TAB 10 10 mg PO DAILY tab 06/07/15 06/18/18 Rx MG*] Nitroglycerin TAB 0.4 MG* 0.4 mg SL Q5M PRN #20 tab 06/07/15 06/18/18 Rx Ticagrelor* [Brilinta 90 MG*] 90 mg PO BID #60 tab 06/07/15 06/18/18 Rx Aspirin EC TAB* [Ecotrin EC Low 81 mg PO DAILY 02/15/16 06/18/18 History Dose 81 MG*] Insulin Lispro [Humalog] 0 - 100 units SUBCUT TID 02/15/16 06/18/18 History Levothyroxine TAB* [Synthroid 100 200 mcg PO DAILY 06/17/16 06/18/18 History MCG TAB*] Levothyroxine TAB* [Synthroid 25 25 mcg PO DAILY 06/17/16 06/18/18 History MCG TAB*] Allergies: Allergies Allergy/AdvReac Type Severity Reaction Status Date / Time atorvastatin AdvReac Fatigue Verified 06/18/18 11:16 Objective - Vital Signs Vital Signs: Vital Signs 06/18/18 06/18/18 06/18/18 11:13 12:44 12:45 Temperature 98.8 F Pulse Rate 74 72 73 Respiratory 16 Rate Blood Pressure 125/75 150/79 (mmHg) O2 Sat by Pulse 98 97 96 Oximetry 06/18/18 06/18/18 06/18/18 13:01 13:15 13:45 Temperature Pulse Rate 71 72 71 Respiratory Rate Blood Pressure 138/79 150/83 (mmHg) O2 Sat by Pulse 95 98 96 Oximetry 06/18/18 06/18/18 06/18/18 14:15 14:45 14:58 Temperature Pulse Rate 72 Respiratory Rate Blood Pressure 138/77 117/76 (mmHg) O2 Sat by Pulse 96 Oximetry 06/18/18 06/18/18 06/18/18 15:00 15:15 15:47 Temperature 98.1 F Pulse Rate 70 69 69 Respiratory 16 Rate Blood Pressure 149/78 149/78 (mmHg) O2 Sat by Pulse 96 96 96 Oximetry 06/18/18 06/18/18 06/18/18 15:50 16:15 20:10 Temperature 98.3 F 97.9 F Pulse Rate 71 69 Respiratory 18 18 18 Rate Blood Pressure 128/75 151/77 (mmHg) O2 Sat by Pulse 97 96 Oximetry 06/18/18 06/18/18 06/18/18 20:20 20:27 22:35 Temperature Pulse Rate Respiratory 18 18 18 Rate Blood Pressure (mmHg) O2 Sat by Pulse Oximetry 06/18/18 06/19/18 23:21 04:08 Temperature 98.3 F 98.0 F Pulse Rate 71 70 Respiratory 17 17 Rate Blood Pressure 121/58 99/58 (mmHg) O2 Sat by Pulse 91 94 Oximetry - Intake and Output Intake and Output: Intake & Output 06/16/18 06/17/18 06/18/18 06/19/18 11:59 11:59 11:59 11:59 Intake Total 470 Output Total 350 Balance 120 Weight 195 lb 195 lb Intake: IVPB 260 ABX - VANCOMYCIN 260 Oral 210 Output: Urine 350 Other: Estimated Void Large # Voids 1 ADLs: Meal Record Start: 06/18/18 15: 41 Freq: Status: Active Protocol: Created 06/18/18 15:41 System (Rec: 06/18/18 15:41 System [id number]) Intake and Output Start: 06/18/18 11: 15 Freq: Status: Active Protocol: Created 06/18/18 11:16 System (Rec: 06/18/18 11:16 System [id number]) Intake and Output Start: 06/18/18 15: 41 Freq: DAILY@0600,1400,2200 Status: Active Protocol: Created 06/18/18 15:41 System (Rec: 06/18/18 15:41 System [id number]) Document 06/18/18 22:11 [id number] (Rec: 06/18/18 22:11 [id number]) Document 06/19/18 05:09 [id number] (Rec: 06/19/18 05:10 [id number]) Document 06/19/18 06:15 [id number] (Rec: 06/19/18 06:15 [id number]) - Physical Exam General Physical Exam Comment: He has a dressing over the draining area below his lateral right knee above the ampuation stump. He has an abrasion on his left parker. His left foot has no ulcers, callouses or infections. He has pedal pulses intact on the left foot General: No Cyanosis, No Anemia, No Jaundice, No Clubbing Lungs and Chest: Yes: Chest Expansion Full, Chest Expansion Symetrica, Percussion Note Resonant, Vessicular Breath Sounds. No: Crackles, Wheezes Heart Rate and Rhythm: Regular Additional Cardiovascular: Yes: Normal Heart Sounds. No: Heart Murmur, Pedal Edema Abdominal Exam: Yes: Soft, Bowel Sounds Present. No: Distention, Rigidity, Abdominal Tenderness Results - Results Lab Results: Laboratory Results - last 24 hr 06/18/18 06/18/18 06/18/18 12:20 12:20 12:20 WBC 8.6 RBC 4.67 Hgb 14.2 Hct 42 MCV 89 MCH 31 MCHC 34 RDW 14 Plt Count 210 MPV 9.2 Neut % (Auto) 71.9 Lymph % (Auto) 17.1 [place] % (Auto) 6.3 Eos % (Auto) 4.2 Baso % (Auto) 0.5 Absolute Neuts (auto) 6.2 Absolute Lymphs (auto) 1.5 Absolute Monos (auto) 0.5 Absolute Eos (auto) 0.4 Absolute Basos (auto) 0 Absolute Nucleated RBC 0 Nucleated RBC % 0 INR (Anticoag Therapy) APTT Sodium 136 Potassium 4.1 Chloride 104 Carbon Dioxide 26 Anion Gap 6 BUN 24 Creatinine 1.33 H Est GFR ( Amer) 67.1 Est GFR (Non-Af Amer) 55.4 BUN/Creatinine Ratio 18.0 Glucose 216 H POC Glucose (mg/dL) Glucose Meter Confirm Lactic Acid 0.9 Calcium 9.2 Magnesium Total Bilirubin 0.60 AST 17 ALT 23 Alkaline Phosphatase 93 C-Reactive Protein 17.63 H Total Protein 6.3 L Albumin 3.8 Globulin 2.5 Albumin/Globulin Ratio 1.5 Urine Color Urine Appearance Urine pH Ur Specific [place] Urine Protein Urine Ketones Urine Blood Urine Nitrate Urine Bilirubin Urine Urobilinogen Ur Leukocyte Esterase Urine WBC (Auto) Urine RBC (Auto) Urine Bacteria Urine Glucose Blood Type Antibody Screen 06/18/18 06/18/18 06/18/18 12:47 12:47 16:19 WBC RBC Hgb Hct MCV MCH MCHC RDW Plt Count MPV Neut % (Auto) Lymph % (Auto) [place] % (Auto) Eos % (Auto) Baso % (Auto) Absolute Neuts (auto) Absolute Lymphs (auto) Absolute Monos (auto) Absolute Eos (auto) Absolute Basos (auto) Absolute Nucleated RBC Nucleated RBC % INR (Anticoag Therapy) 0.99 APTT 36.3 Sodium Potassium Chloride Carbon Dioxide Anion Gap BUN Creatinine Est GFR ( Amer) Est GFR (Non-Af Amer) BUN/Creatinine Ratio Glucose POC Glucose (mg/dL) 123 H Glucose Meter Confirm Lactic Acid Calcium Magnesium Total Bilirubin AST ALT Alkaline Phosphatase C-Reactive Protein Total Protein Albumin Globulin Albumin/Globulin Ratio Urine Color Urine Appearance Urine pH Ur Specific [place] Urine Protein Urine Ketones Urine Blood Urine Nitrate Urine Bilirubin Urine Urobilinogen Ur Leukocyte Esterase Urine WBC (Auto) Urine RBC (Auto) Urine Bacteria Urine Glucose Blood Type O Positive Antibody Screen Negative 06/18/18 06/19/18 06/19/18 17:00 06:05 06:05 WBC 6.0 RBC 4.43 Hgb 13.3 L Hct 40 MCV 90 MCH 30 MCHC 33 RDW 14 Plt Count 170 MPV 9.1 Neut % (Auto) 69.6 Lymph % (Auto) 14.7 [place] % (Auto) 8.5 Eos % (Auto) 6.0 Baso % (Auto) 1.2 Absolute Neuts (auto) 4.2 Absolute Lymphs (auto) 0.9 L Absolute Monos (auto) 0.5 Absolute Eos (auto) 0.4 Absolute Basos (auto) 0.1 Absolute Nucleated RBC 0 Nucleated RBC % 0 INR (Anticoag Therapy) APTT Sodium 139 Potassium 3.7 Chloride 109 Carbon Dioxide 27 Anion Gap 3 BUN 27 H Creatinine 1.38 H Est GFR ( Amer) 64.3 Est GFR (Non-Af Amer) 53.1 BUN/Creatinine Ratio 19.6 Glucose 62 L POC Glucose (mg/dL) Glucose Meter Confirm Lactic Acid Calcium 8.9 Magnesium 2.0 Total Bilirubin AST ALT Alkaline Phosphatase C-Reactive Protein 13.79 H Total Protein Albumin Globulin Albumin/Globulin Ratio Urine Color Yellow Urine Appearance Clear Urine pH 5.0 Ur Specific [place] 1.018 Urine Protein 1+(30 mg/dl) A Urine Ketones Negative Urine Blood 1+ A Urine Nitrate Negative Urine Bilirubin Negative Urine Urobilinogen Negative Ur Leukocyte Esterase Negative Urine WBC (Auto) Trace(0-5/hpf) Urine RBC (Auto) 2+(6-10/hpf) A Urine Bacteria Absent Urine Glucose 1+(50 mg/dl) A Blood Type Antibody Screen 06/19/18 07:00 WBC RBC Hgb Hct MCV MCH MCHC RDW Plt Count MPV Neut % (Auto) Lymph % (Auto) [place] % (Auto) Eos % (Auto) Baso % (Auto) Absolute Neuts (auto) Absolute Lymphs (auto) Absolute Monos (auto) Absolute Eos (auto) Absolute Basos (auto) Absolute Nucleated RBC Nucleated RBC % INR (Anticoag Therapy) APTT Sodium Potassium Chloride Carbon Dioxide Anion Gap BUN Creatinine Est GFR ( Amer) Est GFR (Non-Af Amer) BUN/Creatinine Ratio Glucose POC Glucose (mg/dL) Glucose Meter Confirm 44 L* Lactic Acid Calcium Magnesium Total Bilirubin AST ALT Alkaline Phosphatase C-Reactive Protein Total Protein Albumin Globulin Albumin/Globulin Ratio Urine Color Urine Appearance Urine pH Ur Specific [place] Urine Protein Urine Ketones Urine Blood Urine Nitrate Urine Bilirubin Urine Urobilinogen Ur Leukocyte Esterase Urine WBC (Auto) Urine RBC (Auto) Urine Bacteria Urine Glucose Blood Type Antibody Screen Radiology Results: Patient Name: BRODY KAM Medical Record#: [id number] Ordering Physician: Guicho Gallegos MD Acct.#: [id number] : 1960 Age: 58 Sex: M Location: EMERGENCY DEPARTMENT Exam Date: 06/18/18 1245 ADM Status: REG ER Order Information: KNEE RIGHT 1-2 VWS Accession Number: [id number] CPT: 89730 Indication: Evaluate for stone osteomyelitis. 2 views of the right knee are reviewed. Comparison is made with previous exam dated May 10, 2018. The patient is status post [id number] amputation. The remnant of the stump appears to be intact with no evidence of osteopenia. No other lucency is noted. Soft tissue swelling appears to be decreased. IMPRESSION: No definite evidence of osteomyelitis is noted. Postoperative changes noted. <Electronically signed by Therese Marks MD in [place]> 06/18/18 1308 Dictated By: Therese Marks MD Dictated Date/Time: 06/18/18 1308 Transcribed Date/Time: 06/18/18 1308 Copy to: EKG Report: Rate 70 ND 153 QTc 426 QRS axis 57 Normal sinus rhythm. 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 Comorbidities History of diabetic retinopathy (Chronic) His eyes are stable. 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
[2018-06-19] MEDS ORDERED: Dextrose 50% Syringe 50 ML* 25 GM/50 ML SYRINGE IV PUSH PRN (07:59)
[2018-06-19] MEDS ORDERED: D5LR 1000 ML BAG* 1,000 ML IV SCH ×2 (08:00)
[2018-06-19] MEDS: Insulin LISPRO* 1 UNITS UNIT SUBCUT SCH ×5 (08:49→22:10)
[2018-06-19] MEDS ORDERED: fentaNYL* 50 MCG/ML 2 ML VIAL (100 MCG VIAL) ONE (12:55)
[2018-06-19] MEDS ORDERED: Lidocaine 2% PF * 5 ML VIAL ONE ×2 (12:55→13:00)
[2018-06-19] MEDS ORDERED: Ondansetron INJ* 2 MG/ML VIAL ONE (12:55)
[2018-06-19] MEDS ORDERED: Propofol* 10 MG/ML 20 ML BTL ONE (12:55)
[2018-06-19] MEDS ORDERED: Midazolam* 1 MG/ML 10 ML VIAL (10 MG) ONE (12:55)
[2018-06-19] MEDS ORDERED: Bupivacaine 0.5%* 50 ML VIAL ONE (12:59)
[2018-06-19] MEDS ORDERED: Scopolamine 1.5 mg* PATCH ONE (13:10)
[2018-06-19] MEDS ORDERED: Lidocaine 1% INJ* 10 MG/ML 30 ML SDV ONE (13:48)
[2018-06-19] MEDS ORDERED: EPHEDrine (Pressors)* 50 MG/ML VIAL ONE (13:51)
[2018-06-19] MEDS ORDERED: DiMENhydriNATE IV* 50 MG/ML VIAL ONE (13:52)
[2018-06-19] MEDS ORDERED: Naloxone* 0.4 MG/ML 1 ML VIAL IV PRN (14:15)
[2018-06-19] MEDS ORDERED: fentaNYL* 50 MCG/ML 2 ML VIAL (100 MCG VIAL) IV PRN (14:15)
[2018-06-19] MEDS ORDERED: Ondansetron INJ* 2 MG/ML VIAL IV PRN (14:15)
[2018-06-19] MEDS ORDERED: Vancomycin Trough Check NOTE FOLLOW UP ONE (15:30)
[2018-06-19] MEDS: oxyCODONE TAB* 5 MG TAB PO PRN (17:33)
[2018-06-19] MEDS: Acetaminophen TAB* 325 MG PO PRN (17:37)
[2018-06-19] MEDS ORDERED: Insulin GLARGINE(*) 1 UNITS UNIT SUBCUT SCH (18:00)
[2018-06-19] MEDS: Morphine INJ* 2 MG/ML 1 ML SYRINGE (TWO MG - NEW SYRINGE VERSION) IV PRN (19:35)
--- NOTE | 2018-06-19 22:17 | OP ---
DATE OF OPERATION: 06/19/18 - ROOM #[id number] DATE OF : 62 SURGEON: Dr. Paco Lewis. PRE-OP DIAGNOSIS: Recurrent abscess, right proximal lateral calf. POST-OP DIAGNOSIS: Recurrent abscess, right proximal lateral calf. OPERATIVE PROCEDURE: Excision of abscess bursa, right calf. DESCRIPTION OF PROCEDURE: The patient was taken to the operating room where a thigh tourniquet was inflated. We cultured the purulent material that was draining from a 1-cm ulcer in the lateral proximal calf. I incised longitudinally following the bursa underneath which was approximately 6 cm in length. I excised the entire bursa with a bridge of skin, probably 1 to 2 cm on each side using a 10 blade. The bursa sac and the cultures were sent to Pathology. The tourniquet was then dropped after 3 L pulsatile lavage and I controlled hemostasis with electrocautery. I closed the wound with deep 0 Monocryl sutures and abraham for the skin, and a compression dressing and plaster splint were applied. [id number]/CPS #: [id number] SARA
[2018-06-20] MEDS: Vancomycin(*) 1,000 MG in NS 0.9% 250 ML* 250 ML IVPB SCH ×4 (00:07→23:49)
[2018-06-20] MEDS: oxyCODONE TAB* 5 MG TAB PO PRN ×3 (00:08→13:51)
[2018-06-20] MEDS: Acetaminophen TAB* 325 MG PO PRN ×3 (00:09→13:52)
[2018-06-20] MEDS: Morphine INJ* 2 MG/ML 1 ML SYRINGE (TWO MG - NEW SYRINGE VERSION) IV PRN ×3 (04:51→18:29)
[2018-06-20] MEDS: Levothyroxine TAB* 100 MCG TAB PO SCH (06:13)
[2018-06-20] MEDS: Levothyroxine TAB* 25 MCG TAB PO SCH (06:13)
[2018-06-20] MEDS: Cefepime 1 GM in Dextrose(*) 1 GM/50 ML BAG IV SCH (06:15)
[2018-06-20 08:02] LABS: BUN/Creatinine Ratio 14.4 (8-20); Calcium 8.7 mg/dL (8.6-10.3); EGFR African American 67.6 (>60); EGFR Non-African American 55.9 (>60); Potassium 4.1 mmol/L (3.5-5.0)
[2018-06-20] MEDS: Insulin LISPRO* 1 UNITS UNIT SUBCUT SCH ×8 (08:10→21:42)
--- NOTE | 2018-06-20 08:20 | PN ---
Progress Note - Progress Note Date of Service: 06/20/18 SOAP: Subjective: []Pt seen at bedside. He feels well without fever or chills. Denies CP, SOB, dizziness, nausea. Objective: []General: Appears well, NAD RLE: Splint CDI, no erythema proximally. Left calf supple and nontender Assessment: []POD 1 sp excision of abscessed bursa right calf Plan: [] May switch to doxycycline 100 mg PO BID for 2 weeks Ready for DC from ortho standpoint Keep dressing. Splint CDI until FU visit F/U Dr Lewis in 10-14 days On heparin in house, needs to be on lovenox or aspirin at discharge for DVT prophylaxis for duration of LE immobilization Vital Signs Temp 98.1 F 06/20/18 07:19 Pulse 72 06/20/18 07:19 Resp 16 06/20/18 13:41 BP 134/61 06/20/18 07:19 Pulse Ox 94 06/20/18 07:45 Intake & Output 06/19/18 06/20/18 06/20/18 18:59 06:59 18:59 Intake Total 900 1781 360 Output Total 930 800 Balance 900 851 -440 Intake: IV Fluids 900 1421 ABX - CEFEPIME 53 ABX - VANCOMYCIN 859 D5W LR 454 LR 900 NS (0.9%) 55 Oral 360 360 Output: Urine 930 800 Other: Estimated Void Large # Bowel Movements 0 # Voids 1 Laboratory Last Values WBC 6.0 10^3/uL (3.5-10.8) 06/19/18 06:05 RBC 4.43 10^6 /uL (4.18-5.48) 06/19/18 06:05 Hgb 13.3 g/dL (14.0-18.0) L 06/19/18 06:05 Hct 40 % (36-46) 06/19/18 06:05 MCV 90 fL (80-94) 06/19/18 06:05 MCH 30 pg (27-31) 06/19/18 06:05 MCHC 33 g/dL (31-36) 06/19/18 06:05 RDW 14 % (10.5-15) 06/19/18 06:05 Plt Count 170 10^3/uL (150-450) 06/19/18 06:05 MPV 9.1 fL (7.4-10.4) 06/19/18 06:05 Neut % (Auto) 69.6 % 06/19/18 06:05 Lymph % (Auto) 14.7 % 06/19/18 06:05 [place] % (Auto) 8.5 % 06/19/18 06:05 Eos % (Auto) 6.0 % 06/19/18 06:05 Baso % (Auto) 1.2 % 06/19/18 06:05 Absolute Neuts (auto) 4.2 10^3/ul (1.5-7.7) 06/19/18 06:05 Absolute Lymphs (auto) 0.9 10^3/ul (1.0-4.8) L 06/19/18 06:05 Absolute Monos (auto) 0.5 10^3/ul (0-0.8) 06/19/18 06:05 Absolute Eos (auto) 0.4 10^3/ul (0-0.6) 06/19/18 06:05 Absolute Basos (auto) 0.1 10^3/ul (0-0.2) 06/19/18 06:05 Absolute Nucleated RBC 0 10^3/ul 06/19/18 06:05 Nucleated RBC % 0 06/19/18 06:05 INR (Anticoag Therapy) 0.99 (0.82-1.09) 06/18/18 12:47 APTT 36.3 seconds (26.0-36.3) 06/18/18 12:47 Sodium 140 mmol/L (135-145) 06/20/18 06:43 Potassium 4.1 mmol/L (3.5-5.0) 06/20/18 06:43 Chloride 107 mmol/L (101-111) 06/20/18 06:43 Carbon Dioxide 30 mmol/L (22-32) 06/20/18 06:43 Anion Gap 3 mmol/L (2-11) 06/20/18 06:43 BUN 19 mg/dL (6-24) 06/20/18 06:43 Creatinine 1.32 mg/dL (0.67-1.17) H 06/20/18 06:43 Est GFR ( Amer) 67.6 (>60) 06/20/18 06:43 Est GFR (Non-Af Amer) 55.9 (>60) 06/20/18 06:43 BUN/Creatinine Ratio 14.4 (8-20) 06/20/18 06:43 Glucose 84 mg/dL (70-100) 06/20/18 06:43 POC Glucose (mg/dL) 144 mg/dL (70-100) H 06/20/18 12:46 Glucose Meter Confirm 44 mg/dL (70-100) L* 06/19/18 07:00 Lactic Acid 0.9 mmol/L (0.5-2.0) 06/18/18 12:20 Calcium 8.7 mg/dL (8.6-10.3) 06/20/18 06:43 Magnesium 2.0 mg/dL (1.9-2.7) 06/19/18 06:05 Total Bilirubin 0.60 mg/dL (0.2-1.0) 06/18/18 12:20 AST 17 U/L (13-39) 06/18/18 12:20 ALT 23 U/L (7-52) 06/18/18 12:20 Alkaline Phosphatase 93 U/L (34-104) 06/18/18 12:20 C-Reactive Protein 13.79 mg/L (<8.01) H 06/19/18 06:05 Total Protein 6.3 g/dL (6.4-8.9) L 06/18/18 12:20 Albumin 3.8 g/dL (3.2-5.2) 06/18/18 12:20 Globulin 2.5 g/dL (2-4) 06/18/18 12:20 Albumin/Globulin Ratio 1.5 (1-3) 06/18/18 12:20 Urine Color Yellow 06/18/18 17:00 Urine Appearance Clear 06/18/18 17:00 Urine pH 5.0 (5-9) 06/18/18 17:00 Ur Specific [place] 1.018 (1.010-1.030) 06/18/18 17:00 Urine Protein 1+(30 mg/dl) (Negative) A 06/18/18 17:00 Urine Ketones Negative (Negative) 06/18/18 17:00 Urine Blood 1+ (Negative) A 06/18/18 17:00 Urine Nitrate Negative (Negative) 06/18/18 17:00 Urine Bilirubin Negative (Negative) 06/18/18 17:00 Urine Urobilinogen Negative (Negative) 06/18/18 17:00 Ur Leukocyte Esterase Negative (Negative) 06/18/18 17:00 Urine WBC (Auto) Trace(0-5/hpf) (Absent) 06/18/18 17:00 Urine RBC (Auto) 2+(6-10/hpf) (Absent) A 06/18/18 17:00 Urine Bacteria Absent (Absent) 06/18/18 17:00 Urine Glucose 1+(50 mg/dl) (Negative) A 06/18/18 17:00 Vancomycin Trough 19.0 mcg/mL 06/19/18 15:47 Blood Type O Positive 06/18/18 12:47 Antibody Screen Negative 06/18/18 12:47
--- NOTE | 2018-06-20 08:25 | PN ---
Subjective - Subjective Reason for Note: Progress Note History: He has coped with the debridement yesterday, though feels mentally not completely back to baseline. He ran hyperglycemic yesterday - a rebound from the hypoglycemia early + D5LR. This morning his glucose is on target. He has reasonable pain control. He is eating and drinking. 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, uncontrolled (Chronic ) E10.49, E10.65 Current Medications: Current Medications Acetaminophen (Tylenol Tab*) 650 mg PO Q6H PRN PRN Reason: FEVER/PAIN Last Admin: 06/20/18 06:13 Dose: 650 mg Dextrose (D50w Syringe 50 Ml*) 12.5 gm IV PUSH .FOR FS < 60 - SS PRN PRN Reason: FS < 60 Last Admin: 06/19/18 07:04 Dose: 12.5 gm Vancomycin HCl 1,000 mg/ (Sodium Chloride) 250 mls @ 166.667 mls/hr IVPB Q8H [facility] Last Admin: 06/20/18 08:12 Dose: 166.667 mls/hr Cefepime HCl 1 gm/ Sodium (Chloride) 50 mls @ 100 mls/hr IVPB Q12HR@0600,1800 [facility] Insulin Glargine (Lantus(*)) 30 units SUBCUT QPM [facility] Last Admin: 06/19/18 17:48 Dose: 30 units Insulin Human Lispro (Humalog*) 0 units SUBCUT AC [facility]; Protocol Last Admin: 06/19/18 18:37 Dose: Not Given Insulin Human Lispro (Humalog*) 0 units SUBCUT ACHS [facility]; Protocol Last Admin: 06/20/18 08:11 Dose: Not Given Levothyroxine Sodium (Synthroid Tab*) 200 mcg PO DAILY@0600 [facility] Last Admin: 06/20/18 06:13 Dose: 200 mcg Levothyroxine Sodium (Synthroid Tab*) 25 mcg PO DAILY@0600 [facility] Last Admin: 06/20/18 06:13 Dose: 25 mcg Morphine Sulfate (Morphine Inj (Syringe))*) 1 mg IV Q4H PRN PRN Reason: PAIN - MODERATE TO SEVERE Last Admin: 06/20/18 04:51 Dose: 1 mg Nitroglycerin (Nitroglycerin Tab 0.4 Mg*) 0.4 mg SL Q5M PRN PRN Reason: ANGINA Ondansetron HCl (Zofran Inj*) 4 mg IV Q6H PRN PRN Reason: NAUSEA Oxycodone HCl (Roxycodone Tab*) 5 mg PO Q6H PRN PRN Reason: PAIN - MILD TO MODERATE Last Admin: 06/20/18 06:13 Dose: 5 mg Pharmacy Consult (Vancomycin Per Pharmacy*) 1 note FOLLOW UP . PRN PRN Reason: PER PROTOCOL Pharmacy Profile Note (Scopolamine Patch Remove*) 1 note PATCH OFF Q72H ONE Stop: 06/22/18 14:42 - Review of Systems Pulmonary: Negative: Cough, Sputum, Respiratory Distress Cardiology: Negative: Chest Pain, Palpitations, Swelling of Ankles Gastroenterology: Negative: Abdominal Pain, Nausea, Vomiting, Anorexia, Change in Bowel Habits Home Medications: Home Medications Medication Instructions Recorded Confirmed Type Insulin Glargine,Hum.rec.anlog 60 unit SUBCUT QPM #0 06/04/15 06/18/18 History [Lantus] Atorvastatin* [Lipitor 80 MG*] 80 mg PO DAILY #30 tab 06/07/15 06/18/18 Rx Lisinopril TAB* [Prinivil TAB 10 10 mg PO DAILY tab 06/07/15 06/18/18 Rx MG*] Nitroglycerin TAB 0.4 MG* 0.4 mg SL Q5M PRN #20 tab 06/07/15 06/18/18 Rx Ticagrelor* [Brilinta 90 MG*] 90 mg PO BID #60 tab 06/07/15 06/18/18 Rx Aspirin EC TAB* [Ecotrin EC Low 81 mg PO DAILY 02/15/16 06/18/18 History Dose 81 MG*] Insulin Lispro [Humalog] 0 - 100 units SUBCUT TID 02/15/16 06/18/18 History Levothyroxine TAB* [Synthroid 100 200 mcg PO DAILY 06/17/16 06/18/18 History MCG TAB*] Levothyroxine TAB* [Synthroid 25 25 mcg PO DAILY 06/17/16 06/18/18 History MCG TAB*] Allergies: Allergies Allergy/AdvReac Type Severity Reaction Status Date / Time atorvastatin AdvReac Fatigue Verified 06/18/18 11:16 Objective - Vital Signs Vital Signs: Vital Signs 06/19/18 06/19/18 06/19/18 11:13 14:40 14:45 Temperature 97.7 F 97.9 F Pulse Rate 68 85 85 Respiratory 17 10 14 Rate Blood Pressure 129/67 150/77 147/72 (mmHg) O2 Sat by Pulse 94 97 96 Oximetry 06/19/18 06/19/18 06/19/18 15:00 15:31 16:00 Temperature 97.3 F Pulse Rate 80 77 Respiratory 13 16 Rate Blood Pressure 142/68 123/68 (mmHg) O2 Sat by Pulse 93 94 94 Oximetry 06/19/18 06/19/18 06/19/18 16:14 17:27 17:33 Temperature 97.3 F 97.7 F Pulse Rate 77 80 Respiratory 16 14 18 Rate Blood Pressure 123/66 134/58 (mmHg) O2 Sat by Pulse 94 95 Oximetry 06/19/18 06/19/18 06/19/18 19:33 19:35 19:41 Temperature 98.6 F Pulse Rate 86 Respiratory 15 20 20 Rate Blood Pressure 146/63 (mmHg) O2 Sat by Pulse 93 Oximetry 06/19/18 06/19/18 06/20/18 22:02 22:09 00:08 Temperature Pulse Rate Respiratory 18 18 20 Rate Blood Pressure (mmHg) O2 Sat by Pulse Oximetry 06/20/18 06/20/18 06/20/18 00:23 04:28 04:35 Temperature 98.6 F 97.8 F Pulse Rate 77 75 Respiratory 18 20 Rate Blood Pressure 121/59 130/64 (mmHg) O2 Sat by Pulse 93 94 93 Oximetry 06/20/18 06/20/18 04:51 06:13 Temperature Pulse Rate Respiratory 20 18 Rate Blood Pressure (mmHg) O2 Sat by Pulse Oximetry - Intake and Output Intake and Output: Intake & Output 06/17/18 06/18/18 06/19/18 06/20/18 11:59 11:59 11:59 11:59 Intake Total 470 2681 Output Total 350 930 Balance 120 1751 Weight 195 lb 195 lb Intake: IV Fluids 2321 ABX - CEFEPIME 53 ABX - VANCOMYCIN 859 D5W LR 454 LR 900 NS (0.9%) 55 IVPB 260 ABX - VANCOMYCIN 260 Oral 210 360 Output: Urine 350 930 Other: Estimated Void Large # Bowel Movements 0 # Voids 1 ADLs: Meal Record Start: 06/18/18 15: 41 Freq: Status: Active Protocol: Created 06/18/18 15:41 System (Rec: 06/18/18 15:41 System [id number]) Intake and Output Start: 06/18/18 11: 15 Freq: Status: Active Protocol: Created 06/18/18 11:16 System (Rec: 06/18/18 11:16 System [id number]) Intake and Output Start: 06/18/18 15: 41 Freq: DAILY@0600,1400,2200 Status: Active Protocol: Created 06/18/18 15:41 System (Rec: 06/18/18 15:41 System [id number]) Document 06/18/18 22:11 [id number] (Rec: 06/18/18 22:11 [id number] [id number]) Document 06/19/18 05:09 [id number] (Rec: 06/19/18 05:10 [id number] [id number]) Document 06/19/18 06:15 [id number] (Rec: 06/19/18 06:15 [id number] SSU-L02) Document 06/19/18 20:50 [id number] (Rec: 06/19/18 20:51 [id number] SSU-M13) Document 06/19/18 23:02 [id number] (Rec: 06/19/18 23:02 [id number] SSU-C19) Document 06/20/18 02:32 [id number] (Rec: 06/20/18 02:33 [id number] SSU-C19) Document 06/20/18 05:53 [id number] (Rec: 06/20/18 05:54 [id number] SSU-L02) Results - Results Lab Results: Laboratory Results - last 24 hr 0406/19/18 06/19/18 22:34 06:25 07:36 Sodium Potassium Chloride Carbon Dioxide Anion Gap BUN Creatinine Est GFR ( Amer) Est GFR (Non-Af Amer) BUN/Creatinine Ratio Glucose POC Glucose (mg/dL) 341 H 42 L 52 L Calcium Vancomycin Trough 06/19/18 06/19/18 06/19/18 08:37 11:49 14:42 Sodium Potassium Chloride Carbon Dioxide Anion Gap BUN Creatinine Est GFR ( Amer) Est GFR (Non-Af Amer) BUN/Creatinine Ratio Glucose POC Glucose (mg/dL) 133 H 127 H 125 H Calcium Vancomycin Trough 06/19/18 06/19/18 06/19/18 15:47 17:43 21:59 Sodium Potassium Chloride Carbon Dioxide Anion Gap BUN Creatinine Est GFR ( Amer) Est GFR (Non-Af Amer) BUN/Creatinine Ratio Glucose POC Glucose (mg/dL) 309 H 354 H Calcium Vancomycin Trough 19.0 06/20/18 06/20/18 06:43 07:56 Sodium 140 Potassium 4.1 Chloride 107 Carbon Dioxide 30 Anion Gap 3 BUN 19 Creatinine 1.32 H Est GFR ( Amer) 67.6 Est GFR (Non-Af Amer) 55.9 BUN/Creatinine Ratio 14.4 Glucose 84 POC Glucose (mg/dL) 81 Calcium 8.7 Vancomycin Trough Assessment - Problem List Assessment: Patient Problems Abscess of right leg (Acute) CKD stage 3 due to type 1 diabetes mellitus (Acute) Hypoglycemia (Acute) History of diabetic retinopathy (Chronic) History of myocardial infarction (Chronic) Hypercholesterolemia (Chronic) Peripheral neuropathy (Chronic) Presence of stent in coronary artery (Chronic) Primary hypothyroidism (Chronic) Status post below knee amputation of right lower extremity (Chronic) 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 He is requiring active pain management and is not feeling at this point that he is back to baseline so that he can manage his usual chronic medical issues - in particular labile T1D. I will keep in the hospital 1 extra night, but mobilize him today with the help of OT/PT. Dr. Lewis will decide about antibacterial therapy - whether he will feel we can change him to oral agents vs- home IV antibacterials - vs discontinuing altogether.
[2018-06-20] MEDS ORDERED: Heparin VIAL(*) 5000 UNITS/ML VIAL (FIVE THOUSAND) SUBCUT SCH (14:00)
[2018-06-20] MEDS: Cefepime ADVAN(*) 1 GM in NS 0.9% 50 ML* 50 ML IVPB SCH (18:35)
[2018-06-20] MEDS ORDERED: Insulin GLARGINE(*) 1 UNITS UNIT SUBCUT SCH (21:00)
[2018-06-20] MEDS: Ticagrelor* 90 MG TAB PO SCH (21:40)
--- NOTE | 2018-06-20 22:53 | CONS ---
CONSULTATION REPORT: DATE OF CONSULT: 06/20/18 PRIMARY CARE PROVIDER: Dr. Emiliano Clark. PROVIDER REQUESTING CONSULT: TAO Garcia. CONSULTING SERVICE: Infectious Disease. ATTENDING PROVIDER: Dr. Oziel Hightower* (dictated by Ni Kam NP). REASON FOR CONSULT: History of chronic osteomyelitis with now presents with a bursa abscess. IMPRESSION: 1. Right lower extremity bursa abscess, status post excision of abscess, by Dr. Paco Lewis on 06/19/18. Blood cultures with no growth. Preliminary skin and soft tissue cultures showing MRSA negative and MSSA negative, 4+ epithelial cells, 2+ neutrophils, 4+ gram-positive cocci. Final wound culture is pending at this time. The patient has been on Keflex for a few weeks at home. So, the Keflex may have suppressed bacterial growth enough that he may have no growth in his cultures. We will continue to follow them. Anaerobic cultures preliminary results showing no growth. He is currently on cefepime and vancomycin. 2. Diabetes mellitus, type 1 with diabetic retinopathy and peripheral neuropathy. 3. Coronary artery disease, status post cardiac catheterization. 4. Chronic kidney disease stage III. 5. Hypothyroidism. 6. Peripheral vascular disease. PLAN/RECOMMENDATIONS: Continue cefepime and vancomycin while in the hospital. If Orthopedics does not feel that the patient needs to continue IV antibiotics , IV antibiotics can be discontinued and he can be transitioned to doxycycline 100 mg twice daily by mouth for 2 weeks. HISTORY OF PRESENT ILLNESS: Mr. Kam is a 58-year-old male with past medical history significant for diabetes mellitus type 1, Charcot foot on the right, diabetic retinopathy, peripheral neuropathy, coronary artery disease, peripheral vascular disease, hyperlipidemia, hypothyroidism, and chronic kidney disease stage III, who has been having chronic issues with wound healing on his right lower extremity. He follows with Orthopedic Surgery. In the past, he was treated for osteomyelitis of that leg and an abscess, and the wound healed. According to the patient, a few weeks ago, he noticed worsening malaise and having more difficulty controlling his blood sugars. He had been on Keflex for 3 weeks and had not noticed any improvement. He denied any subjective fevers or chills, nausea, vomiting, diarrhea. He removed the dressing on the morning of 06/18/18 and noticed a large amount of yellow purulent drainage from a wound on his right leg. Due to his symptoms, he was evaluated in the emergency room. It was recommended he be admitted for IV antibiotics, washout and he was admitted to the hospital by the hospitalist service. During his hospitalization, he underwent an exploration of abscess of his right calf bursa by Dr. Lewis on 06/19/18. He has no leukocytosis. He has been afebrile. Blood cultures with no growth on day 2. He had an abnormal urinalysis, but had no growth in his urine culture. He had soft tissue cultures showing MRSA and MSSA negative with the final wound culture pending. Denies fevers, chills, fatigue, shortness of breath, joint pain, muscle pain, rash, diarrhea, constipation; urinary symptoms such as urgency, frequency, dysuria; and recent travel. PAST MEDICAL HISTORY: 1. Diabetes mellitus, type 1. 2. Right Charcot foot. 3. Diabetic retinopathy. 4. Peripheral neuropathy. 5. Coronary artery disease, status post STEMI. 6. Peripheral vascular disease. 7. Hyperlipidemia. 8. Hypothyroidism. 9. Chronic kidney disease stage III. PAST SURGICAL HISTORY: 1. Status post right BKA. 2. Status post cardiac catheterization. 3. Status post ORIF of the left tib-fib. 4. Status post right ankle fusion. HOME MEDICATIONS: 1. Levothyroxine 200 mcg by mouth daily. 2. Lispro insulin 0 to 100 units subcutaneously 3 times daily, sliding scale. 3. Lantus insulin 60 units subcutaneous every evening. 4. Atorvastatin 80 mg by mouth daily. 5. Aspirin 81 mg by mouth daily. 6. Brilinta 90 mg by mouth twice daily. 7. Nitroglycerin 0.4 mg sublingual every 5 minutes as needed for chest pain. 8. Lisinopril 10 mg by mouth daily. 9. Levothyroxine 25 mcg by mouth daily. HOSPITAL MEDICATIONS: 1. Acetaminophen 650 mg by mouth every four hours as needed for fever and pain. 2. Aspirin 81 mg by mouth daily. 3. Cefepime 1 g intravenous every 12 hours. 4. Dextrose 12.5 g IV push for glucose less than 60 sliding scale. 5. Lantus 30 units subcutaneous at bedtime, carb counting. 6. Humalog insulin, sliding scale subcutaneous with meals and at bedtime. 7. Levothyroxine 225 mcg by mouth daily. 8. Morphine sulfate 1 mg IV every 4 hours as needed for pain. 9. Nitroglycerin 0.4 mg sublingual every 5 minutes as needed for chest pain. 10. Zofran 4 mg IV every 6 hours as needed for nausea. 11. Oxycodone 5 mg by mouth every 6 hours as needed for pain. 12. Brilinta 90 mg by mouth twice daily. 13. Vancomycin 1000 mg IV every 8 hours. ALLERGIES: ATORVASTATIN. FAMILY HISTORY: Denies any family history of recurrent infections. Father passed from CVA. Mother with a history of parkinsonism and diabetes. Siblings with a history of diabetes. SOCIAL HISTORY: Occasionally drinks alcohol. Denies recreational drug use. He reports being a former smoker, smoking on and off for the last 5 years. REVIEW OF SYSTEMS: I performed a 10-point review of systems. All the pertinent positives and negatives are mentioned in the history of present illness. The remaining review of systems is negative. PHYSICAL EXAM: Vital Signs: Temperature 98.4, heart rate 73, respiratory rate 18, O2 sat 93% on room air, blood pressure 130/64. General Appearance: He is alert, pleasant, appears to be in no acute distress. HEENT: Normocephalic, atraumatic. Pupils are equal and reactive to light. Extraocular movements are intact. Mucous membranes are moist. No thrush or lesions noted. Neck: Supple. No lymphadenopathy. Neurological: Alert and oriented x4. Cranial nerves II through XII are grossly intact. Cardiovascular: Regular rate and rhythm. S1 and S2 present. No murmurs, rubs, or gallops heard. Respiratory: No accessory muscle use. Lungs are clear to auscultation bilateral. Abdomen: Bowel sounds are present. Abdomen is soft, nontender, nondistended. Extremities: No lower extremity edema. DP pulses are 1+ on the left, unable to palpate popliteal pulse on the right due to splint. Musculoskeletal: No clubbing or cyanosis noted. The patient exhibits good strength in all extremities. He has a right BKA. Psychological: Calm and cooperative. Skin: No rashes or abnormalities seen. He has a surgical dressing to his right lower extremity. DIAGNOSTIC STUDIES/LABORATORY DATA: CBC from 06/19/18, white blood cell 8.0, hemoglobin 13.3, hematocrit 40, platelet count 170. Labs from today, sodium 139 , potassium 3.7, chloride 109, CO2 of 27, BUN 27, creatinine 1.39, glucose 62. Please see impressions and recommendations outlined above. Thank you for asking us to see Mr. Kam in consultation. TIME SPENT: Time spent for this consultation was approximately 45 minutes; greater than half of that was spent with the patient discussing medications, past medical history, the events leading to his arrival today, and performing a physical examination. The case has been reviewed with the attending, Dr. Hightower, who agrees with the plan of care. Reviewed by MARIAM VERA 06/24/18 1118 [id number]/[facility] #: [id number] [facility]
[2018-06-21] MEDS: Cefepime ADVAN(*) 1 GM in NS 0.9% 50 ML* 50 ML IVPB SCH (06:06)
[2018-06-21] MEDS: Levothyroxine TAB* 100 MCG TAB PO SCH (06:06)
[2018-06-21] MEDS: Levothyroxine TAB* 25 MCG TAB PO SCH (06:07)
[2018-06-21] MEDS: Acetaminophen TAB* 325 MG PO PRN (06:13)
--- NOTE | 2018-06-21 07:22 | PN ---
Subjective - Subjective Reason for Note: Discharge Note History: See discharge summary. He is feeling much better now he has stopped the opioids. He is managing mobility with crutches. He is eating, drinking and defecating normally. 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, uncontrolled (Chronic ) E10.49, E10.65 Current Medications: Current Medications Acetaminophen (Tylenol Tab*) 650 mg PO Q6H PRN PRN Reason: FEVER/PAIN Last Admin: 06/21/18 06:13 Dose: 650 mg Aspirin (Aspirin Tab*) 81 mg PO DAILY [facility] Dextrose (D50w Syringe 50 Ml*) 12.5 gm IV PUSH .FOR FS < 60 - SS PRN PRN Reason: FS < 60 Last Admin: 06/19/18 07:04 Dose: 12.5 gm Vancomycin HCl 1,000 mg/ (Sodium Chloride) 250 mls @ 166.667 mls/hr IVPB Q8H [facility] Last Admin: 06/20/18 23:49 Dose: 166.667 mls/hr Cefepime HCl 1 gm/ Sodium (Chloride) 50 mls @ 100 mls/hr IVPB Q12HR@0600,1800 [facility] Last Admin: 06/21/18 06:06 Dose: 100 mls/hr Insulin Glargine (Lantus(*)) 30 units SUBCUT BEDTIME [facility] Last Admin: 06/20/18 21:43 Dose: 30 unit Insulin Human Lispro (Humalog*) 0 units SUBCUT AC [facility]; Protocol Last Admin: 06/20/18 18:22 Dose: 3 units Insulin Human Lispro (Humalog*) 0 units SUBCUT ACHS [facility]; Protocol Last Admin: 06/20/18 21:42 Dose: 3 unit Levothyroxine Sodium (Synthroid Tab*) 200 mcg PO DAILY@0600 [facility] Last Admin: 06/21/18 06:06 Dose: 200 mcg Levothyroxine Sodium (Synthroid Tab*) 25 mcg PO DAILY@0600 [facility] Last Admin: 06/21/18 06:07 Dose: 25 mcg Morphine Sulfate (Morphine Inj (Syringe))*) 1 mg IV Q4H PRN PRN Reason: PAIN - MODERATE TO SEVERE Last Admin: 06/20/18 18:29 Dose: 1 mg Nitroglycerin (Nitroglycerin Tab 0.4 Mg*) 0.4 mg SL Q5M PRN PRN Reason: ANGINA Ondansetron HCl (Zofran Inj*) 4 mg IV Q6H PRN PRN Reason: NAUSEA Oxycodone HCl (Roxycodone Tab*) 5 mg PO Q6H PRN PRN Reason: PAIN - MILD TO MODERATE Last Admin: 06/20/18 13:51 Dose: 5 mg Pharmacy Consult (Vancomycin Per Pharmacy*) 1 note FOLLOW UP . PRN PRN Reason: PER PROTOCOL Pharmacy Profile Note (Scopolamine Patch Remove*) 1 note PATCH OFF Q72H ONE Stop: 06/22/18 14:42 Ticagrelor (Brilinta*) 90 mg PO BID [facility] Last Admin: 06/20/18 21:40 Dose: 90 mg Home Medications: Home Medications Medication Instructions Recorded Confirmed Type Insulin Glargine,Hum.rec.anlog 60 unit SUBCUT QPM #0 06/04/15 06/18/18 History [Lantus] Atorvastatin* [Lipitor 80 MG*] 80 mg PO DAILY #30 tab 06/07/15 06/18/18 Rx Lisinopril TAB* [Prinivil TAB 10 10 mg PO DAILY tab 06/07/15 06/18/18 Rx MG*] Nitroglycerin TAB 0.4 MG* 0.4 mg SL Q5M PRN #20 tab 06/07/15 06/18/18 Rx Ticagrelor* [Brilinta 90 MG*] 90 mg PO BID #60 tab 06/07/15 06/18/18 Rx Aspirin EC TAB* [Ecotrin EC Low 81 mg PO DAILY 02/15/16 06/18/18 History Dose 81 MG*] Insulin Lispro [Humalog] 0 - 100 units SUBCUT TID 02/15/16 06/18/18 History Levothyroxine TAB* [Synthroid 100 200 mcg PO DAILY 06/17/16 06/18/18 History MCG TAB*] Levothyroxine TAB* [Synthroid 25 25 mcg PO DAILY 06/17/16 06/18/18 History MCG TAB*] Allergies: Allergies Allergy/AdvReac Type Severity Reaction Status Date / Time atorvastatin AdvReac Fatigue Verified 06/18/18 11:16 Objective - Vital Signs Vital Signs: Vital Signs 06/20/18 06/20/18 06/20/18 07:45 08:22 10:12 Temperature Pulse Rate Respiratory 16 16 18 Rate Blood Pressure (mmHg) O2 Sat by Pulse 94 Oximetry 06/20/18 06/20/18 06/20/18 11:41 13:41 13:51 Temperature 98.4 F Pulse Rate 73 Respiratory 18 16 14 Rate Blood Pressure 130/64 (mmHg) O2 Sat by Pulse 93 Oximetry 06/20/18 06/20/18 06/20/18 15:54 16:00 16:54 Temperature 98.7 F Pulse Rate 76 Respiratory 18 18 Rate Blood Pressure 141/64 (mmHg) O2 Sat by Pulse 94 94 Oximetry 06/20/18 06/20/18 06/20/18 18:29 19:30 20:04 Temperature 98.4 F Pulse Rate 77 Respiratory 18 18 18 Rate Blood Pressure 100/53 (mmHg) O2 Sat by Pulse 92 Oximetry 06/20/18 06/20/18 06/21/18 20:16 23:27 03:30 Temperature 98.6 F 99.2 F Pulse Rate 78 78 Respiratory 18 16 16 Rate Blood Pressure 142/47 139/60 (mmHg) O2 Sat by Pulse 97 90 Oximetry - Intake and Output Intake and Output: Intake & Output 06/18/18 06/19/18 06/20/18 06/21/18 11:59 11:59 11:59 11:59 Intake Total 470 3041 2243 Output Total 674 345 9312 Balance 120 2111 -1137 Weight 195 lb 195 lb Intake: IV Fluids 2321 1323 ABX - CEFEPIME 53 106 ABX - VANCOMYCIN 859 1055 D5W LR 454 LR 900 NS (0.9%) 55 162 IVPB 260 ABX - VANCOMYCIN 260 Oral 210 720 920 Output: Urine 119 793 2147 Other: Estimated Void Large # Bowel Movements 0 0 Estimated Stool Amount Large # Voids 1 ADLs: Meal Record Start: 06/18/18 15: 41 Freq: Status: Active Protocol: Created 06/18/18 15:41 System (Rec: 06/18/18 15:41 System [id number]) Document 06/20/18 10:00 [id number] (Rec: 06/20/18 10:27 [id number] SSU-C02) Intake and Output Start: 06/18/18 11: 15 Freq: Status: Active Protocol: Created 06/18/18 11:16 System (Rec: 06/18/18 11:16 System [id number]) Document 06/20/18 10:27 [id number] (Rec: 06/20/18 10:27 [id number] SSU-C02) Intake and Output Start: 06/18/18 15: 41 Freq: DAILY@0600,1400,2200 Status: Active Protocol: Created 06/18/18 15:41 System (Rec: 06/18/18 15:41 System [id number]) Document 06/18/18 22:11 [id number] (Rec: 06/18/18 22:11 [id number] SSU-M17) Document 06/19/18 05:09 [id number] (Rec: 06/19/18 05:10 [id number] SSU-L02) Document 06/19/18 06:15 [id number] (Rec: 06/19/18 06:15 [id number] SSU-L02) Document 06/19/18 20:50 [id number] (Rec: 06/19/18 20:51 [id number] SSU-M13) Document 06/19/18 23:02 [id number] (Rec: 06/19/18 23:02 [id number] SSU-C19) Document 06/20/18 02:32 [id number] (Rec: 06/20/18 02:33 [id number] SSU-C19) Document 06/20/18 05:53 [id number] (Rec: 06/20/18 05:54 [id number] SSU-L02) Document 06/20/18 12:05 [id number] (Rec: 06/20/18 12:07 [id number] SSU-C02) Document 06/20/18 15:04 [id number] (Rec: 06/20/18 15:05 [id number] SSU-C02) Document 06/20/18 18:52 [id number] (Rec: 06/20/18 18:52 [id number] SSU-M17) Document 06/20/18 22:10 [id number] (Rec: 06/20/18 22:11 [id number] SSU-M17) Document 06/21/18 03:30 [id number] (Rec: 06/21/18 04:09 [id number] SSU-C03) Document 06/21/18 05:55 [id number] (Rec: 06/21/18 05:58 [id number] SSU-C03) - Physical Exam General Physical Exam Comment: Amputation/wound site bandaged. Warm, well perfused, in no distress and conversational General: No Cyanosis, No Jaundice, No Clubbing Lungs and Chest: Yes: Chest Expansion Full, Chest Expansion Symetrica, Percussion Note Resonant, Vessicular Breath Sounds. No: Crackles, Wheezes Heart Rate and Rhythm: Regular Additional Cardiovascular: No: Normal Heart Sounds, Heart Murmur Abdominal Exam: Yes: Soft. No: Distention, Abdominal Tenderness Results - Results Lab Results: Laboratory Results - last 24 hr 06/20/18 06/20/18 06/20/18 06:43 07:56 12:46 Sodium 140 Potassium 4.1 Chloride 107 Carbon Dioxide 30 Anion Gap 3 BUN 19 Creatinine 1.32 H Est GFR ( Amer) 67.6 Est GFR (Non-Af Amer) 55.9 BUN/Creatinine Ratio 14.4 Glucose 84 POC Glucose (mg/dL) 81 144 H Calcium 8.7 06/20/18 06/20/18 17:03 21:34 Sodium Potassium Chloride Carbon Dioxide Anion Gap BUN Creatinine Est GFR ( Amer) Est GFR (Non-Af Amer) BUN/Creatinine Ratio Glucose POC Glucose (mg/dL) 287 H 255 H Calcium Assessment - Problem List Assessment: Patient Problems Abscess of right leg (Acute) CKD stage 3 due to type 1 diabetes mellitus (Acute) Hypoglycemia (Acute) History of diabetic retinopathy (Chronic) History of myocardial infarction (Chronic) Hypercholesterolemia (Chronic) Peripheral neuropathy (Chronic) Presence of stent in coronary artery (Chronic) Primary hypothyroidism (Chronic) Status post below knee amputation of right lower extremity (Chronic) 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 I will discharge him home on doxycycline. He understands the management plan.
[2018-06-21] MEDS: Vancomycin(*) 1,000 MG in NS 0.9% 250 ML* 250 ML IVPB SCH (08:11)
[2018-06-21] MEDS: Insulin LISPRO* 1 UNITS UNIT SUBCUT SCH ×2 (08:12→09:20)
[2018-06-21 08:20] VITALS: BP 126/63
[2018-06-21] MEDS ORDERED: Aspirin TAB* 325 MG PO SCH (09:00)
[2018-06-21] MEDS: Ticagrelor* 90 MG TAB PO SCH (10:18)
[2018-06-21] MEDS ORDERED: Aspirin EC TAB* 81 MG TAB.EC PO SCH (10:30)
--- NOTE | 2018-06-21 10:32 | DS ---
CC: Dr. Paco Lewis; Dr. Oziel Hightower* DISCHARGE SUMMARY: DATE OF ADMISSION: 06/18/18 DATE OF DISCHARGE: 06/21/18 DISCHARGE DIAGNOSIS: Recurrent abscess, right proximal lateral calf and infected bursa. PROCEDURE: 06/19/18, excision of abscess bursa, right calf, performed by Dr. Paco Lewis. COMORBIDITIES: Type 1 diabetes mellitus, labile. SECONDARY DIAGNOSES: 1. History of right below-knee amputation and revision of right below-knee amputation. 2. Recurrent abscess under suture line of prior procedures. 3. Type 1 diabetes mellitus, labile control, complicated by stage 3 chronic renal disease, diabetic retinopathy, diabetic peripheral neuropathy, and macrovascular disease. 4. Coronary artery disease with a previous history of myocardial infarction. 5. Peripheral vascular disease. 6. Primary hypothyroidism. 7. Hypercholesterolemia. 8. History of smoking. HISTORY: Brody Kam is a 58-year-old primary care patient of MD Lingo who I have looked after for 25 years. He has had poor control of his type 1 diabetes and multiple complications resulting. His presentation is documented in detail in TAO Garcia's admitting history and physical. He has had a draining infection of his right abnaw-ezy-urxv amputation stump. This is being treated for 3 weeks with oral cephalexin. This was not improving and hence he came to the emergency room. Dr. Paco Lewis suggested that he requires drainage of this collection. EXAMINATION AT PRESENTATION: Temperature 98.8, pulse rate 72, respirations 16, oxygen saturation 98% on room air, blood pressure 130/79. Skin: A small open area actively draining from the lateral aspect of the remnants of the right lower extremity. Rest of his examination was benign. INITIAL INVESTIGATIONS: White count 8.6, hemoglobin 14.2, platelet count 210. Electrolytes were normal. BUN 24, creatinine 1.33, glucose 216, lactic acid 0.9. CRP 17.63. Knee x-ray showed no evidence of osteomyelitis. He was admitted to the hospital for surgical management of this infected collection. INVESTIGATIONS: EKG showed normal sinus rhythm, rate 70, SD 153, QTc 426, QRS 57 degrees. PROCEDURE: 06/19/18; provider, Dr. Paco Lewis, report is per the electronic records, procedure was excision of abscess bursa, right calf. HOSPITAL COURSE: The patient tolerated the surgery. He had labile glycemic control with some hyperglycemia and hypoglycemia, which is not atypical for his usual management. He was given parenteral cefepime and vancomycin during his hospital stay. On the day of discharge, he is feeling back to his normal self, having stopped opioids. He is eating and drinking. He has had normal bowel movements. He has been able to mobilize using crutches. REVIEW OF SYSTEMS: He has no fevers or sweats. Cardiovascular System: Pulse regular, normal character and volume. Heart sounds were normal. No added sounds or murmurs. Respiratory System: Chest was clear. Abdomen: Soft, nontender. No masses or organomegaly. Nervous System: Alert and oriented x3. Conversational. Cranial nerves II through XII intact. Arms and legs moving normally. MICROBIOLOGY: Cultures negative. Staph aureus negative on PCR from wound. ASSESSMENT AND PLAN: 1. Abscess and bursitis, right below-knee amputation, prior suture line. This has been drained. We are transferring him on to oral doxycycline on the advisement of Ni Butler for Infectious Diseases. The patient understands this management plan and will follow up for his wound with Dr. Lewis. 2. Type 1 diabetes mellitus, labile control. We discussed short-term and long - term fixes. He will be more careful while he is healing and he is going to look into the starting a 670G hybrid closed-loop insulin pump system as an outpatient. 3. Pain control. This is adequate with acetaminophen. DISCHARGE MEDICATIONS: 1. Doxycycline 100 mg twice a day for 3 weeks. 2. Glargine insulin 30 to 40 units q.p.m. 3. Ticagrelor 90 mg twice daily. 4. Atorvastatin 80 mg daily. 5. Nitroglycerin 0.4 mg sublingually every 5 minutes as needed. 6. Lisinopril 10 mg daily. 7. Aspirin 81 mg daily. 8. Lispro insulin per carbohydrate counting. 9. Levothyroxine 225 mcg a day. FOLLOWUP: He will follow up as an outpatient within a week. [id number]/[facility] #: [id number] MTDD
[2018-06-22] MEDS ORDERED: Scopolamine PATCH Remove* 1 NOTE MISC PATCH OFF ONE (14:41)
== END 2018-06-21 12:35 | disposition home or self-care (01) ==
LOC: ED 11:07 → INTOOBSV 13:58 → SSU 13:58
PROVIDERS: ADMIT Internal Medicine; ATTEND Internal Medicine
DX: L02.415 Cutaneous abscess of right lower limb (principal); M71.161 Other infective bursitis, right knee; Z89.511 Acquired absence of right leg below knee; E10.22 Type 1 diabetes mellitus with diabetic chronic kidney disease; E10.319 Type 1 diabetes mellitus with unspecified diabetic retinopathy without macular edema; E10.42 Type 1 diabetes mellitus with diabetic polyneuropathy; E10.49 Type 1 diabetes mellitus with other diabetic neurological complication; I12.9 Hypertensive chronic kidney disease with stage 1 through stage 4 chronic kidney disease, or unspecified chronic kidney disease; N18.3 Chronic kidney disease, stage 3 (moderate); I25.10 Atherosclerotic heart disease of native coronary artery without angina pectoris; I25.2 Old myocardial infarction; I73.9 Peripheral vascular disease, unspecified; E03.9 Hypothyroidism, unspecified; Z79.82 Long term (current) use of aspirin; Z79.899 Other long term (current) drug therapy; Z87.891 Personal history of nicotine dependence; E78.00 Pure hypercholesterolemia, unspecified; E16.2 Hypoglycemia, unspecified; Z86.39 Personal history of other endocrine, nutritional and metabolic disease; Z95.5 Presence of coronary angioplasty implant and graft
CPT/HCPCS: 36415; 80048; 80053; 80202; 81003; 81015; 82947; 83605; 83735; 85025; 85610; 85730; 86140; 86850; 86900; 86901; 87040; 87070; 87073; 87077; 87086; 87186; 87205; 87640; 87641; 88304; 93005; 96372; 96374; 96375; 99284; A9270-GY; G0378; J0692; J1240; J1644; J2250; J2270; J2405; J2704; J3010; J3370; J3490

== ENCOUNTER → 2018-06-29 01:34 | Emergency (ER) | payer OTHER ==
[~2018-06-29 01:34] MED LIST: oxyCODONE/Acetamin 5/325 MG* TAB PO ONE
--- NOTE | 2018-06-29 02:08 | ED ---
Lower Extremity - HPI Summary HPI Summary: 58 year old male presents to the emergency department for evaluation of swelling and pain on his right lateral knee. This problem has been present since 9pm tonight and is constant. Nothing makes the pain better or worse. The pt's right leg is amputated below the knee. The pt underwent surgery to remove an abscess on his lateral right knee on 06/19/[address] Lewis. He had IV antibiotics while he was in the hospital and has been taking oral doxyclycline as well. Pt had a follow up appointment with Dr. Lewis earlier in the morning for a follow up with no problems. He states he had the compression dressings and casts removed at that time. Pt denies fever, chills, N/V, diarrhea, SOB, and chest pain. Pt is a type I diabetic. He is not currently taking blood thinners. - History of Current Complaint Chief Complaint: EDGeneral Stated Complaint: "PAIN AFTER SURGERY" PER PT Time Seen by Provider: 06/29/18 01:53 Hx Obtained From: Patient Pain Intensity: 8 - Allergies/Home Medications Allergies/Adverse Reactions: Allergies Allergy/AdvReac Type Severity Reaction Status Date / Time atorvastatin AdvReac Fatigue Verified 06/18/18 11:16 PMH/Surg Hx/FS Hx/Imm Hx Previously Healthy: No - Type I DM Endocrine/Hematology History: Reports: Hx Diabetes - DM I Denies: Hx Anemia Cardiovascular History: Reports: Hx Peripheral Vascular Disease Denies: Hx Pacemaker/ICD Comment Only: Hx Hypertension - on medication Respiratory History: Reports: Hx Pneumonia, Other Respiratory Problems/ Disorders - PNA GI History: Denies: Hx Jaundice History: Denies: Hx Dialysis, Hx Renal Disease Musculoskeletal History: Reports: Other Musculoskeletal History - right foot amputation 2014, Left finger amputation as teenager Sensory History: Reports: Hx Contacts or Glasses Denies: Hx Hearing Aid Opthamlomology History: Reports: Hx Contacts or Glasses Neurological History: Reports: Hx Headaches Psychiatric History: Denies: Hx Panic Disorder - Surgical History Surgery Procedure, Year, and Place: Right ankle fusion. left leg pinning. Partial right foot amputation. Left index finger partial amputation. cardiac stent. below knee amputation right leg Hx Anesthesia Reactions: No Infectious Disease History: No Infectious Disease History: Reports: Hx of Known/Suspected MRSA Denies: Traveled Outside the [place] in Last 30 Days - Family History Known Family History: Negative: Other - gastrointestinal malignancy - Social History Alcohol Use: None Alcohol Amount: socially Hx Substance Use: No Substance Use Type: Reports: None Hx Tobacco Use: Yes Smoking Status (MU): Former Smoker Type: Cigarettes Length of Time of Smoking/Using Tobacco: 25 years Have You Smoked in the Last Year: Yes Review of Systems Constitutional: Negative Negative: Fever, Chills, Skin Diaphoresis Cardiovascular: Negative Negative: Palpitations, Chest Pain Respiratory: Negative Negative: Shortness Of Breath Gastrointestinal: Negative Negative: Vomiting, Diarrhea, Nausea Positive: Edema. Negative: Decreased ROM Skin: Negative Negative: Weakness, Paresthesia, Numbness All Other Systems Reviewed And Are Negative: Yes Physical Exam Triage Information Reviewed: Yes Vital Signs On Initial Exam: Initial Vitals Temp Pulse Resp BP Pulse Ox 98 F 85 20 121/75 98 06/29/18 01:38 06/29/18 01:38 06/29/18 01:38 06/29/18 01:38 06/29/18 01:38 Vital Signs Reviewed: Yes Appearance: Positive: Well-Appearing, No Pain Distress, Well-Nourished Skin: Positive: Warm, Skin Color Reflects Adequate Perfusion, Dry, Other - Red leg amputation below the knee is with dark red, discoloration around distal 1/3 of surgical site on the lateral leg and softness to underside of amputation site. No drainage or redness. Area is slightly warm to touch, Head/Face: Positive: Normal Head/Face Inspection Eyes: Positive: Normal, EOMI ENT: Positive: Normal ENT inspection, Hearing grossly normal Neck: Positive: Supple Respiratory/Lung Sounds: Positive: Clear to Auscultation, Breath Sounds Present Cardiovascular: Positive: Normal, RRR, Pulses are Symmetrical in both Upper and Lower Extremities Abdomen Description: Positive: Nontender Bowel Sounds: Positive: Present Musculoskeletal: Positive: Normal, Strength/ROM Intact Neurological: Positive: Normal, Sensory/Motor Intact, Alert, Oriented to Person Place, Time Psychiatric: Positive: Normal, Affect/Mood Appropriate Procedures - Procedure Summary Procedure Summary: Fluid aspiration: Bedside ultrasound visualized fluid around distal 1/3 of surgical site and posterior knee. The area was prepped with rubbing alcohol and 3 cc of 1% lidocaine was injected to swollen area 1 cm medially to distal 1/3 of surgical site. Approximately 4 cc of watery blood was aspirated from the site. Pt was dressed with gauze and josh wrap. He tolerated the procedure well. Diagnostics - Vital Signs Vital Signs Temp Pulse Resp BP Pulse Ox 06/29/18 01:38 98 F 85 20 121/75 98 - Laboratory Result Diagrams: 06/29/18 03:07 06/29/18 03:07 Lab Statement: Any lab studies that have been ordered have been reviewed, and results considered in the medical decision making process. Lower Extremity Course/Dx - Course Course Of Treatment: Pt presents with pain and swelling to his right lateral leg after having surgical drainage of an abscess on 06/19/18. He denies fever, chills, and draining. Pt had a follow up with his surgeon earlier today to remove compression dressings and cast. Bedside ultrasound reveals fluid accumulation at the distal 1/3 of the surgical site and posterior knee. Approximately 4 cc of watery blood aspirated from the swollen area. The surgical site was wrapped with josh bandage. Pt instructed to follow up with surgeon the next day and return with any fever, draining, or new/worsening symptoms. Assessment/Plan: Patient with recent abscess drainage/removal in the stump of his right BKA. He presents with acute pain and some soft swelling. There is no drainage from the surgical site. It appears under ultrasound that there is complex area of fluid which looks like hematoma. An aspiration was performed which showed no purulent material but rather all sanguinous/serous sanguinous fluid. Patient's pain was controlled without any treatment here. An Josh wrap was applied and he will follow up closely with his orthopedist. Patient was seen in conjunction with the physician assistant professor sculpture student. All history, physical exam findings and medical decision making represent my work. - Diagnoses Differential Diagnosis/HQI/PQRI: Positive: Cellulitis, Infection, Osteomyelitis , Other - Hematoma Provider Diagnoses: Postoperative hematoma Discharge - Sign-Out/Discharge Documenting (check all that apply): Patient Departure Patient Received Moderate/Deep Sedation with Procedure: No - Discharge Plan Condition: Stable Disposition: HOME Patient Education Materials: Hematoma (ED) Referrals: Emiliano Clark MD [Primary Care Provider] - Paco Lewis MD [Medical Doctor] - Additional Instructions: Call Dr. Lewis's office in the morning to schedule follow up. Keep josh wrap on. Return with any fever, draining from surgical site, and any worsening symptoms. - Billing Disposition and Condition Condition: STABLE Disposition: Home - Attestation Statements Document Initiated by Scribe: No
[2018-06-29 03:14] LABS: ABS Basophils 0.2 10^3/ul (0-0.2); ABS Eosinophils 0.3 10^3/ul (0-0.6); ABS Lymphocytes 1.6 10^3/ul (1.0-4.8); ABS Neutrophils 13.2 10^3/ul (1.5-7.7); Eosinophil % 1.9 %; Hematocrit 38 % (42-52); Hemoglobin 12.6 g/dL (14.0-18.0); Lymphocyte % 9.7 %; Mean Corpuscular HGB Conc 33 g/dL (31-36); Mean Corpuscular Hemoglobin 30 pg (27-31); Mean Corpuscular Volume 90 fL (80-94); Mean Platelet Volume 8.5 fL (7.4-10.4); Platelet Count 222 10^3/uL (150-450); Red Cell Distribution Width 14 % (10.5-15); White Blood Count 16.3 10^3/uL (3.5-10.8)
--- OUTSIDE RECORDS SUMMARY | 2018-06-29 03:27 | XMS REPORT | Continuity of Care Document ---
:1960 External Reference #:[id number] Author Name Susanne Ware Care Team Providers Name Role Phone Emiliano Clark MD Primary Care Physician Unavailable Payers Date Identification Numbers Payment Provider Subscriber Policy Number: [id number] [employer] Maribel Kam Group Number: [id number] [address] Group Name: [place] [address] PayID: [id number] Expires: 2018 Policy Number: [id number] Of CLARENCE Kam PayID: [id number] [address] [address] [place] [address] Advance Directives Description No Information Available Problems Active Problems Provider Date Ulcer of foot Brown Sanchez MD, [facility]IN [facility], [facility] Onset: 02/10/2016 Acute myocardial infarction Brown Sanchez MD, NATASHA, [facility] Onset: 2015 Old myocardial infarction Brown Sanchez MD, FACC [facility] Onset: 07/04/2016 Peripheral vascular disease [facility] Onset: 2016 Family History Date Family Member(s) Observation Comments General Diabetes Social History Type Date Description Comments Sex Unknown Lives With Alone Occupation Disabled Tobacco Use Start: Unknown End: Former Cigarette Smoker Unknown Smoking Status Reviewed: 06/28/18 Former Cigarette Smoker ETOH Use Denies alcohol use Tobacco Use Start: Unknown End: Patient is a former quit 06/04/15, smoked Unknown smoker on and off since age 17yrs, less than 1PPD Recreational Drug Use Denies Drug Use Exercise Type/Frequency Does not exercise Allergies, Adverse Reactions, Alerts Active Allergies Reaction Severity Comments Date Simvastatin 06/17/2015 Medications Active Medications SIG Qnty Indications Ordering Date Provider Atenolol 1 by mouth every 90tabs Roberto Feliciano, 06/06/2018 50mg Tablets day DO FAC Levaquin Take 1 tab per 7tabs Paco Lewis, 05/24/2018 500mg Tablets day x 1 week. M.D. Cephalexin take 1 by mouth 63tabs Paco Lewis, 05/10/2018 500mg Tablets 3 times a day x M.D. 3 weeks Brilinta 1 tab by mouth 180tabs Roberto Feliciano, 01/24/2017 60mg Tablets twice a day DO FAC Humalog sliding scale Unknown 100Unit/ML Solution Lantus 60 units subcut Unknown 100Unit/ML qPM Solution Levothyroxine Sodium 1 by mouth every Unknown day 200mcg Tablets Metoprolol Succinate 1 by mouth every 90tabs Roberto Feliciano, ER day DO FACC 100mg Tablets ER 24HR Lisinopril 1 by mouth every 90tabs Roberto Feliciano, 10mg Tablets day DO [facility]IN [facility] Nitrostat one sl q5min up 30tabs Brown T. 0.4mg Tablets to 3 doses as MD Laura, Sub needed [facility]ATED [facility]IN [facility], [facility] Atorvastatin Calcium 1 by mouth every 90tabs Roberto Feliciano, 80mg day DO FACC Tablets Aspirin 1 by mouth every 90tabs Roberto Feliciano, 81mg Tablets DR day DO FACC History Medications Gabapentin 1 by mouth twice 30caps Paco Lewis, 07/01/2016 - 300mg Capsules a day M.D. 07/30/2016 Percocet take 1 tab po bid 20tabs Paco Lewis, 07/01/2016 - 5-325mg Tablets prn pain M.D. 07/30/2016 Brilinta 1 tab by mouth 180tabs Brown Condon - 90mg Tablets twice a day MD Laura, 01/24/2017 [facility], [facility] Nicotine as directed Unknown - 06/16/2015 Acetaminophen-Codeine prn Unknown - 05/04/2016 Levothyroxine Sodium 1 by mouth every Unknown - 25mcg day 01/15/2017 Tablets Bactrim DS 1 by mouth twice 28tabs Paco Lewis, - 800-160mg a day M.D. 07/03/2016 Tablets Dilaudid 1-2 tabs by mouth Unknown - 2mg Tablets every 6 hours as 07/30/2016 needed pain Cefazolin Sodium IV q 8 hrs Unknown - 2gm through 05/04/17 05/05/2017 Solution Rec [facility] home infusion Immunizations Description No Information Available Vital Signs Date Vital Result Comment 06/28/2018 9:24am Height 74 inches 6'2" Heart Rate 80 /min BP Systolic 136 mmHg BP Diastolic 84 mmHg Respiratory Rate 18 /min Body Temperature 97.0 F Pain Level 0 06/07/2018 8:49am Height 74 inches 6'2" Weight 195.00 lb patient stated Heart Rate 78 /min BP Systolic 116 mmHg BP Diastolic 72 mmHg Respiratory Rate 12 /min Pain Level 0 BMI (Body Mass Index) 25.0 kg/m2 05/24/2018 8:46am Height 74 inches 6'2" Weight [...] Test Result H/L Range Note Wound 05/10/2018 [facility] Wound/Misc SEE RESULT 1, 2 Culture/Sensi [address] [place] [address] Stain [phone] Laboratory test 09/21/2017 [facility] Erythrocyte Sed 16 mm/Hr N 0-[address] Rate [place], [place] [id number] [phone] C Reactive Protein 7.04 mg/L N <8.01 Iron & Iron Binding 05/12/2017 [facility] Iron 65 g/dL N 50- [address] [place], [place] [id number] [phone] Unsaturated Iron Binding 183 g/dL Total Iron Binding Capacity 248 g/dL Low 250-450 Transferrin 177 mg/dL Low 203-362 % Iron Saturation 26 % N 15-55 Laboratory test 05/12/2017 [facility] Ferritin 114.7 ng/mL N 24-[address] [place] [address] [phone] Folic Acid (Folate) > 20.00 ng/mL >3.99 5 Vitamin B12 474 pg/mL N 180-914 6 Comp Metabolic Panel 05/01/2017 [facility] Sodium 138 mmol/L N 133-[address] [place] [address] [phone] Potassium 4.0 mmol/L N 3.5-5.0 Chloride 106 [...] Egfr 111.2 >60 8 Laboratory test 05/01/2017 [facility] C Reactive 7.99 mg/L High < 5.[address] [place] [address] [phone] CBC Auto Diff 05/01/2017 [facility] White Blood 5.7 N 3.5- 10.[address] Count 10^3/[place] [address] [phone] Red Blood Count 3.71 10^6/uL Low 4.0-5.4 [...] Cells % 0 CBC Auto Diff 04/24/2017 [facility] White Blood 6.7 10^3/uL N 3.5-10.[address] [place] [address] [phone] Red Blood Count 3.69 10^6/uL Low 4.0-5.4 [...] Cells % 0 Comp Metabolic Panel 04/24/2017 [facility] Sodium 138 mmol/L N 133-[address] [place] [address] [phone] Potassium 4.4 mmol/L N 3.5-5.0 Chloride 105 [...] Egfr 122.0 >60 11 Laboratory test 04/24/2017 [facility] C Reactive 3.59 mg/L N < 5.00 [address] [place] [address] [phone] CBC Auto Diff 04/17/2017 [facility] White Blood 6.2 N 3.5- 10.[address] Count 10^3/[place] [address] [phone] Red Blood Count 3.55 10^6/uL Low 4.0-5.4 [...] Cells % 0.1 Comp Metabolic Panel 04/17/2017 [facility] Sodium 138 mmol/L N 133-145 [address] [place] [address] [phone] Potassium 4.2 mmol/L N 3.5-5.0 Chloride 106 [...] Egfr 136.9 >60 14 Laboratory test 04/17/2017 [facility] C Reactive 2.44 mg/L N < 5.00 15 finding [address] [facility] [place] [place] [address] [phone] Comp Metabolic 04/10/2017 [facility] Sodium 140 mmol/L N 133- 145 16 Panel [address] [place] [address] [phone] Potassium 4.4 mmol/L N 3.5-5.0 Chloride 109 [...] Egfr 129.1 >60 17 Laboratory test 04/10/2017 [facility] C Reactive 4.99 mg/L N < 5.00 [address] [place] [address] [phone] CBC Auto Diff 04/10/2017 [facility] White Blood 8.2 N 3.5- 10.[address] Count 10^3/[place] [address] [phone] Red Blood Count 3.00 10^6/uL Low 4.0-5.4 [...] Blood Cells % 0.1 Comp Metabolic Panel 04/03/2017 [facility] Sodium 134 mmol/L N 133-[address] [place] [address] [phone] Potassium 4.7 mmol/L N 3.5-5.0 Chloride 105 [...] Non- 86.5 >60 Egfr 111.2 >60 20 CBC Auto Diff 04/03/2017 [facility] White Blood 8.9 10^3/uL N 3.5-10.[address] [place] [address] [phone] Red Blood Count 2.82 10^6/uL Low 4.0-5.4 [...] Red Blood Cells % 0.1 Laboratory test 04/03/2017 [facility] C Reactive 32.87 High < 5.00 [address] Protein mg/[place] [address] [phone] Laboratory test 04/14/2016 [facility] Hemoglobin A1c 10.8 % High Less [address] (Glyco HGB) than 6.0 [place] [address] [phone] CBC Auto Diff 02/20/2016 [facility] White Blood 8.6 N 3.5- 10.[address] Count 10^3/[place] [address] [phone] Red Blood Count 5.12 10^6/uL N 4.0-5.4 [...] Nucleated Red Blood Cells % 0 N Basic Metabolic Panel 02/20/2016 [facility] Sodium 138 mmol/L N 133-[address] [place] [address] [phone] Potassium 4.0 mmol/L N 3.5-5.0 Chloride 106 mmol/L N 101-111 Co2 Carbon Dioxide 28 mmol/L N 22-32 Anion Gap 4 mmol/L N 2-11 Glucose 156 mg/dL High 70-100 Blood Urea Nitrogen 18 mg/dL N 6-24 Creatinine 1.02 mg/dL N 0.67-1.17 BUN/Creatinine Ratio 17.6 N 8-20 Calcium 9.2 mg/dL N 8.6-10.3 Egfr Non- 76.1 N >60 Egfr 97.9 N >60 23 Wound 02/16/2016 [facility] Wound/Misc SEE RESULT 24 Culture/Sensi [address] [place] [address] Stain [phone] Basic Metabolic 02/09/2016 [facility] Sodium 138 mmol/L N 133 - Panel [address] [place] [address] [phone] Potassium 4.0 mmol/L N 3.5-5.0 Chloride 107 mmol/L N 101-111 Co2 Carbon Dioxide 28 mmol/L N 22-32 Anion Gap 3 mmol/L N 2-11 Glucose 160 mg/dL High 70-100 Blood Urea Nitrogen 17 mg/dL N 6-24 Creatinine 1.07 mg/dL N 0.67-1.17 BUN/Creatinine Ratio 15.9 N 8-20 Calcium 9.3 mg/dL N 8.6-10.3 Egfr Non- 72.0 N >60 Egfr 92.6 N >60 25 Creatinine 02/05/2016 [facility] Creatinine 1.07 mg/dL N 0.67- 1.[address] [place] [address] [phone] Egfr Non- 72.0 N >60 Egfr 92.6 N >60 26 1 [id number] 2 SEE RESULT BELOW Name: ILYA KAM : [address]: Garry BURGER Acct: [id number] Unit: [id number] AGE: 57 Location: [facility] Re05/10/18 SEX: M Status: REG REF SPEC: [id number] DESIRAE: 05/10/18-[address]: Garry BURGER REQ: [id number] RECD: 05/10/18 STATUS: COMP _ S[place]: [facility] SPDESC: ORDERED: Culture Stain COMMENTS: [id number] QUERIES: Specimen Description WOUND Procedure Result Reported Site Wound/Misc Gram Stain Final 05/11/18- 15 ML No Neutrophils Observed 4+ Epithelial Cells 4+ Gram Positive Bacilli 3+ Gram Positive Cocci Wound/Misc Culture Final 05/13/18- 56 ML Organism 1 NORMAL EDE Quantity 3+ * ML - Main Lab . END OF REPORT DEPARTMENT OF PATHOLOGY, [address] [place] [address] Gamal Zaldivar M.D. Director [facility] # [id number] 3 [id number] 4 [id number] 5 [id number] 6 Normal Range 180 to 914 Indeterminate Range 145 to 180 Deficient Range <145 7 [id number] 8 Because ethnic data is not always [...] (or dialysis) 9 Acute inflammation: >10.00 10 [id number] 11 Because ethnic data is not always [...] (or dialysis) 12 Acute inflammation: >10.00 13 [id number] 14 Because ethnic data is not always [...] (or dialysis) 15 Acute inflammation: >10.00 16 [id number] 17 Because ethnic data is not always [...] (or dialysis) 18 Acute inflammation: >10.00 19 [id number] 20 Because ethnic data is not always [...] and in selective patients <6.0%.Please refer to [place] [employer] Diabetic care guidelines for further [...] (or dialysis) 24 SEE RESULT BELOW Name: JANET KAMALLISON Chaves : [address]: Tone Kamara MD Acct: [id number] Unit: [id number] AGE: 55 Location: [facility] Re02/16/16 SEX: M Status: REG REF SPEC: [id number] DESIREA: 02/16/[address]: Tone Kamara MD REQ: [id number] RECD: 02/16/16 STATUS: SALONI SEGOVIA DR: Emiliano Clark MD _ SOURCE: FOOT,RIGHT [...] performed at Main Lab DEPARTMENT OF PATHOLOGY, [address] [place] [address] Gamal Zaldivar M.D. Director [facility] # [id number] Patient: ILYA KAM [id number] (Continued) Specimen: [id number] Collected: 02/16/16 Received: 02/16/16 (Continued) Procedure Result Reported Site Wound/Misc Culture Final (continued) 02/19/16- 908 1. STREP AGALACTIAE - (GROUP B) (continued) [...] These antibiotics are not available in the [facility] Formulary Contact the Microbiology Department for any additional antibiotic reporting. * ML - MAIN LAB ([facility]) . END OF REPORT * ML=Testing performed at Main Lab DEPARTMENT OF PATHOLOGY, [address] [place] [address] Gamal Zaldivar M.D. Director [facility] # [id number] 25 Because ethnic data is not always [...] (or dialysis) Procedures Date Code Description Status 06/18/2018 77312 I & D Infected Bursa Leg Or Ankle Completed 03/15/2018 00598 EKG Tracing & Interpretation Completed 08/31/2017 58573 EKG Tracing & Interpretation Completed 05/09/2017 50644 Debridement Skin,& sq Tissue Completed 05/02/2017 44476 Debridement Skin,& sq Tissue Completed 03/27/2017 04445 EKG, Interpretation Only Completed 03/23/2017 61950 Incision Leg/Ankle Completed 03/23/2017 50834 Incision Leg/Ankle Completed 03/23/2017 77028 I&D deep abscess,bursa or hematoma thigh or knee region Completed 03/20/2017 68377 EKG, Interpretation Only Completed 07/04/2016 14770 EKG Tracing & Interpretation Completed 06/24/2016 29166 Amputation Leg Through Tibia & Fibula Completed 06/24/2016 26842 Amputation Leg Through Tibia & Fibula Completed 06/24/2016 44785 Amputation Leg Through Tibia & Fibula Completed 06/20/2016 60505 EKG, Interpretation Only Completed 06/09/2016 99461 Removal Devitalization Tissue Wound Less Than Equal 20 Completed Square CM 06/09/2016 91713 Debridement Skin,& sq Tissue Completed 05/31/2016 34625 Removal Devitalization Tissue Wound Less Than Equal [address] Square CM 05/31/2016 41635 Debridement Skin,& sq Tissue Completed 05/18/2016 23282 Removal Devitalization Tissue Wound Less Than Equal [address] Square CM 05/18/2016 30823 Debridement Skin,& sq Tissue Completed 05/03/2016 33567 Debridement Skin,& sq Tissue Completed 04/21/2016 92297 Removal Devitalization Tissue Wound Less Than Equal [address] CM 04/14/2016 38387 Removal Devitalization Tissue Wound Less Than Equal [address] CM 04/14/2016 25796 Debridement Skin,& sq Tissue Completed 03/31/2016 44678 Removal Devitalization Tissue Wound Less Than Equal [address] Square CM 03/24/2016 24472 Removal Devitalization Tissue Wound Less Than Equal [address] CM 03/17/2016 63408 Removal Devitalization Tissue Wound Less Than Equal [address] CM 03/17/2016 48171 Debridement Skin,& sq Tissue Completed 03/08/2016 38428 Removal Devitalization Tissue Wound Less Than Equal [address] Square CM 03/01/2016 74569 Removal Devitalization Tissue Wound Less Than Equal 20 [address] Square CM 02/23/2016 80282 Revascularization,Endovascular W/Transluminal Angioplasty Completed 02/16/2016 29994 Removal Devitalization Tissue Wound Less Than Equal 20 Completed Square CM 02/16/2016 86017 Angio Extremity, Bilateral Completed 02/16/2016 43370 Catheter Placement Arterial System Addtl 2ND/3RD Ord Completed Abdom/Pelv 02/16/2016 08175 Common Femoral, Bilat Completed 02/16/2016 30348 Debridement Skin,& sq Tissue Completed 02/09/2016 57242 Removal Devitalization Tissue Wound Less Than Equal 20 Completed Square CM 02/02/2016 39394 Removal Devitalization Tissue Wound Less Than Equal 20 Completed Square CM 01/26/2016 61439 Mobile Cardiovascular Telemetry Over 24 HR Up To 30 Days Completed 01/26/2016 65444 Removal Devitalization Tissue Wound Less Than Equal 20 Completed Square CM 01/19/2016 78543 Removal Devitalization Tissue Wound Less Than Equal 20 Completed Square CM 01/19/2016 91797 Debridement Skin,& sq Tissue Completed 01/14/2016 23301 Apply Total Contact Leg Cast Completed 01/12/2016 87709 Apply Total Contact Leg Cast Completed 06/17/2015 64456 EKG Tracing & Interpretation Completed 06/07/2015 39571 EKG, Interpretation Only Completed 06/06/2015 08346 EKG, Interpretation Only Completed 06/05/2015 87085 EKG, Interpretation Only Completed 06/04/2015 85704 Left Heart Cath. Incl S/I Coronaries, Angio S/I V Gram If Completed Done 06/04/2015 85275 EKG, Interpretation Only Completed 06/04/2015 29562 Revascularization Acute Total/Subtotal Occlusion Completed Encounters Type Date Location Provider Dx Diagnosis Office Visit 06/18/2018 [facility] Jude Katia, Jeffy02.415 Cutaneous 10:10a Assoc,pc [place] abscess of right Hospitalists lower limb E10.65 Type 1 diabetes mellitus with hyperglycemia Office Visit 06/07/2018 [facility] Paco Tolbert Subacute 8:45a Services Of Deja Lewis osteomyelitis, right C.M.A. tibia and fibula Office Visit 05/24/2018 Lexus Tolbert Subacute 9:00a Services Of Deja Lewis osteomyelitis, right C.M.A. tibia and fibula Office Visit 03/15/2018 Amanda Aceves I25.2 Old myocardial 11:45a Cardiology Of DO derrick Feliciano [facility] FAC E10.69 Type 1 diabetes mellitus with other specified complication F17.201 Nicotine dependence, unspecified, in remission R07.9 Chest pain, unspecified I25.6 Silent myocardial ischemia I73.9 Peripheral vascular disease, unspecified I10 Essential (primary) hypertension E78.5 Hyperlipidemia, unspecified Office Visit 09/21/2017 [facility] Paco Tolbert Subacute 9:00a Services Of Deja Lewis osteomyelitis, right C.M.A. tibia and fibula Office Visit 08/31/2017 Amanda Condon I25.2 Old myocardial 9:20a Cardiology Of MD Laura, infarction [facility] FAC, FSCAI Office Visit 08/10/2017 [facility] Paco Tolbert Subacute 10:30a Services Of Joshua, M.D. osteomyelitis, right C.M.A. tibia and fibula Office Visit 07/04/2017 Orthopedic Paco M86.261 Subacute 10:15a Services Of Deja Lewis osteomyelitis, right C.M.A. tibia and fibula Office Visit 04/25/2017 [facility] Oziel D. M86.261 Subacute 10:30a For Infectious Macqueen, osteomyelitis, right Diseases M.D. tibia and fibula Z89.511 Acquired absence of right leg below knee E10.40 Type 1 diabetes mellitus with diabetic neuropathy, unsp B95.61 Methicillin suscep staph infct causing dis classd elswhr E10.69 Type 1 diabetes mellitus with other specified complication Office Visit 04/04/2017 [facility] Oziel D. M86.261 Subacute 11:30a For Infectious [place], M.D. osteomyelitis, Diseases right tibia and fibula Z89.511 Acquired absence of right leg below knee E10.40 Type 1 diabetes mellitus with diabetic neuropathy, unsp E10.69 Type 1 diabetes mellitus with other specified complication Office Visit 03/24/2017 [facility] Oziel D. E11.69 Type 2 diabetes 11:14a For Infectious [place], M.D. mellitus with Diseases other specified complication M86.661 Other chronic osteomyelitis, right tibia and fibula E11.628 Type 2 diabetes mellitus with other skin complications L02.415 Cutaneous abscess of right lower limb Office Visit 03/22/2017 [facility] Oziel D. E11.69 Type 2 diabetes 10:33a For Infectious [place], M.D. 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, right lower extremity Office Visit 01/16/2017 8:40a [facility] Brown Condon I25.2 Old myocardial Of [facility] MD Laura, infarction FAC, FSCAI I73.9 Peripheral vascular disease, unspecified Office Visit 07/04/2016 9:40a [facility] Brown Condon I25.2 Old myocardial Of [facility] Consult[facility] MD Luara, infarction FAC, FSCAI I73.9 Peripheral vascular disease, unspecified Office Visit 06/22/2016 8:28a [facility] Oziel Nash E10.40 Type 1 diabetes For Infectious Deja Cadena mellitus with Diseases diabetic neuropathy, unsp Z89.511 Acquired absence of right leg below knee R79.82 Elevated C-reactive protein (CRP) Z86.19 Personal history of other infectious and parasitic diseases Office Visit 06/20/2016 8:02a [facility] Oziel Nash E10.40 Type 1 diabetes [...] foot w unsp severity Office Visit 06/17/2016 [facility] Ni Bingham E10.621 Type 1 10:18a Assoc,marco Kam NP diabetes Hospitalists mellitus with foot ulcer L97.519 Non-prs chronic ulcer oth prt right foot w unsp severity I10 Essential (primary) hypertension Office Visit 02/10/2016 3:20p [facility] Brown Condon L97.512 Non-prs Of [facility] MD Laura, chronic ulcer FAC, FSCAI oth prt right foot w fat [...] to brkdwn skin Office Visit 08/17/2015 9:40a [facility] Brown Condon I21.21 Stemi involving Of [employer] Consult[facility] MD Laura, left circumflex FACC, [facility] coronary artery I49.01 Ventricular fibrillation 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 Office Visit 06/17/2015 3:40p [facility] Brown Condon I21.21 Stemi involving Of Cl[facility] Consultant AT [facility] MD Laura, left circumflex FACC, [facility] coronary artery 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 E78.5 Hyperlipidemia, unspecified I49.01 Ventricular fibrillation Office Visit 06/08/2015 [facility] Cristopher Ochoa, I21.21 Stemi involving 11:42a Of [employer] Deja, FACC, left circumflex [facility] coronary artery Office Visit 06/07/2015 [facility] Brown Condon I21.21 Stemi involving 2:25p Of Clothing Consultant AT [facility] MD Laura, left circumflex FACC, [facility] coronary artery Office Visit 06/06/2015 [facility] Brown Condon I21.21 Stemi involving 2:24p Of Clothing Consultant AT [facility] MD Laura, left circumflex FACC, [facility] coronary artery Office Visit 06/05/2015 [facility] Brown Condon I21.21 Stemi involving 2:22p Of Clothing Consultant AT [facility] MD Laura, left circumflex FACC, [facility] coronary artery Office Visit 06/04/2015 [facility] Brown Condon I21.21 Stemi involving 2:24p Of Clothing Consultant AT [facility] MD Laura, left circumflex FACC, [facility] coronary artery Office Visit 10/02/2013 [facility] 250.80 Diabetes W/ Other 4:36p Assoc,pc Wilfrido, N.P. Spec Manifestations Hospitalists Type II Controlled 730.07 Osteomyelitis Acute Ankle & Foot 250.60 Diabetes W/ Neurological Manifestations Type II Controlled 244.9 Hypothyroidism Other Unspec Plan of Treatment 06/28/2018 - Paco Lewis M.D.M86.461 Chronic osteomyelitis with draining sinus, right tibia and fFollow up:1 week
[2018-06-29 03:34] LABS: BUN/Creatinine Ratio 18.7 (8-20); C Reactive Protein 7.46 mg/L (<8.01); Calcium 9.2 mg/dL (8.6-10.3); EGFR African American 63.7 (>60); EGFR Non-African American 52.7 (>60); Potassium 3.7 mmol/L (3.5-5.0)
[2018-06-29 03:39] LABS: Rapid HIV 1 Nonreactive (Nonreactive)
[2018-06-29 03:56] VITALS: BP 118/68
== END | disposition home or self-care (01) ==
LOC: ED 01:34
DX: L76.32 Postprocedural hematoma of skin and subcutaneous tissue following other procedure (principal); Y83.8 Other surgical procedures as the cause of abnormal reaction of the patient, or of later complication, without mention of misadventure at the time of the procedure; Z87.891 Personal history of nicotine dependence; E10.8 Type 1 diabetes mellitus with unspecified complications; I73.9 Peripheral vascular disease, unspecified; I10 Essential (primary) hypertension
CPT/HCPCS: 10060; 36415; 80048; 85025; 86140; 86703; 99283; A9270-GY

== ENCOUNTER 2018-09-03 10:32 | Inpatient (IN) | payer OTHER ==
[2018-09-03] MEDS ORDERED: Buffered Lidocaine 1% SYRIN* 1 ML/SYRINGE INTRADERM ONE ×2 (10:47→12:56)
[2018-09-03] MEDS ORDERED: ceFAZolin 2 GM in NS PREMIX(*) 2 GM/100 ML BAG IVPB ONE (10:47)
[2018-09-03] MEDS ORDERED: Midazolam* 1 MG/ML 2 ML VIAL (2 MG) ONE (11:23)
[2018-09-03] MEDS ORDERED: Lidocaine 2% w/ EPI 1:200,000* 20 ML VIAL ONE (11:37)
[2018-09-03] MEDS ORDERED: Bupivacaine 0.5%* 50 ML VIAL ONE (11:37)
[2018-09-03] MEDS ORDERED: Lidocaine 2% PF* 10 ML AMP ONE (11:38)
[2018-09-03] MEDS ORDERED: Lidocaine 2% PF * 5 ML VIAL ONE (11:42)
[2018-09-03] MEDS ORDERED: Propofol* 10 MG/ML 20 ML BTL ONE (11:42)
[2018-09-03] MEDS ORDERED: Insulin REGULAR(*) 1 UNITS UNIT ONE (11:47)
[2018-09-03] MEDS ORDERED: Naloxone* 0.4 MG/ML 1 ML VIAL IV PRN (12:17)
[2018-09-03] MEDS ORDERED: Acetaminophen TAB* 325 MG PO PRN (12:17)
[2018-09-03] MEDS ORDERED: DiMENhydriNATE IV* 50 MG/ML VIAL IV PUSH PRN (12:17)
[2018-09-03] MEDS ORDERED: Ketorolac INJ* 30 MG/ML 1 ML VIAL ONE (12:18)
[2018-09-03] MEDS ORDERED: Dexamethasone IV* 4 MG/ML 1 ML (4 MG) ONE (12:18)
[2018-09-03] MEDS ORDERED: Ondansetron INJ* 2 MG/ML VIAL ONE (12:18)
[2018-09-03] MEDS ORDERED: Metoclopramide IV* 5 MG/ML 2 ML VIAL ONE (12:18)
[2018-09-03] MEDS ORDERED: fentaNYL* 50 MCG/ML 2 ML VIAL (100 MCG VIAL) ONE (12:41)
[2018-09-03] MEDS ORDERED: Lactated Ringers 1000 ML Bag* 1,000 ML IV SCH ×2 (13:00→14:00)
[2018-09-03] MEDS ORDERED: HYDROmorphone INJ1* 1 MG/ML SYRINGE ONE ×2 (13:16→13:35)
[2018-09-03] MEDS: HYDROmorphone INJ1* 1 MG/ML SYRINGE IV PRN ×5 (13:17→14:22)
[2018-09-03] MEDS ORDERED: oxyCODONE TAB* 5 MG TAB ONE ×2 (13:27→14:05)
[2018-09-03] MEDS: oxyCODONE TAB* 5 MG TAB PO PRN ×4 (13:28→22:20)
[2018-09-03] MEDS ORDERED: Magnesium Hydroxide LIQ* 30 ML UDC PO PRN (13:31)
[2018-09-03] MEDS ORDERED: diPHENhydraMINE PO* 25 MG PO PRN (13:31)
[2018-09-03] MEDS ORDERED: diPHENhydraMINE IV* 50 MG/ML 1 ml VIAL (BENADRYL) IV PRN (13:31)
[2018-09-03] MEDS ORDERED: Docusate CAP* 100 MG PO PRN (13:31)
[2018-09-03] MEDS ORDERED: Nitroglycerin TAB 0.4 MG* 0.4 MG TAB SL PRN (13:37)
[2018-09-03] MEDS ORDERED: Dextrose 50% Syringe 50 ML* 25 GM/50 ML SYRINGE IV PUSH PRN (13:44)
[2018-09-03] MEDS ORDERED: oxyCODONE TAB* 5 MG TAB PO PRN (13:52)
[2018-09-03] MEDS ORDERED: Acetaminophen TAB* 325 MG ONE (13:52)
[2018-09-03] MEDS ORDERED: Vancomycin per Pharmacy* NOTE FOLLOW UP SCH (14:00)
[2018-09-03] MEDS ORDERED: ceFAZolin 1 GM ADVAN(*) 1 GM in NS 0.9% 50 ML* 50 ML IVPB SCH ×4 (14:00)
[2018-09-03] MEDS ORDERED: D5W 1/2 NS 1000 ML BAG* 1,000 ML IV SCH (14:00)
[2018-09-03] MEDS: Acetaminophen TAB* 325 MG PO SCH ×2 (15:28→21:10)
[2018-09-03] MEDS: Morphine INJ* 2 MG/ML 1 ML SYRINGE (TWO MG - NEW SYRINGE VERSION) IV PRN ×4 (15:45→23:27)
[2018-09-03] MEDS ORDERED: Vancomycin(*) 1,500 MG in NS 0.9% 250 ML* 250 ML IVPB ONE (16:00)
[2018-09-03] MEDS ORDERED: INSULIN LISPRO SUBCUT SCH (17:00)
[2018-09-03] MEDS ORDERED: Aspirin EC TAB* 81 MG TAB.EC PO SCH (18:00)
[2018-09-03] MEDS ORDERED: Insulin GLARGINE(*) 1 UNITS UNIT SUBCUT SCH (18:00)
[2018-09-03] MEDS: Atorvastatin* 80 MG TAB PO SCH (18:23)
[2018-09-03] MEDS: Atenolol TAB* 50 MG PO SCH (18:23)
[2018-09-03] MEDS: Lisinopril TAB* 10 MG PO SCH (18:23)
[2018-09-03] MEDS: Insulin LISPRO* 1 UNITS UNIT SUBCUT SCH (18:25)
[2018-09-03] MEDS: CMC:Ticagrelor (NF) 60 MG TAB PO SCH (20:11)
[2018-09-03] MEDS ORDERED: Insulin LISPRO* 1 UNITS UNIT SUBCUT ONE (22:00)
[2018-09-04] MEDS: Morphine INJ* 2 MG/ML 1 ML SYRINGE (TWO MG - NEW SYRINGE VERSION) IV PRN ×4 (03:53→22:46)
[2018-09-04 05:13] LABS: Hematocrit 34 % (42-52); Hemoglobin 11.6 g/dL (14.0-18.0); Mean Platelet Volume 9.1 fL (7.4-10.4); Platelet Count 174 10^3/uL (150-450)
[2018-09-04 05:29] LABS: BUN/Creatinine Ratio 18.2 (8-20); Calcium 8.4 mg/dL (8.6-10.3); EGFR African American 64.8 (>60); EGFR Non-African American 53.6 (>60); Potassium 4.1 mmol/L (3.5-5.0)
[2018-09-04] MEDS: Levothyroxine TAB* 100 MCG TAB PO SCH (05:30)
[2018-09-04] MEDS: Acetaminophen TAB* 325 MG PO SCH ×3 (05:30→22:46)
[2018-09-04] MEDS: Vancomycin(*) 1,250 MG in NS 0.9% 250 ML* 250 ML IVPB SCH ×2 (05:30→17:42)
[2018-09-04] MEDS: oxyCODONE TAB* 5 MG TAB PO PRN ×4 (05:33→19:36)
--- NOTE | 2018-09-04 07:52 | PN ---
Subjective - Subjective Reason for Note: Progress Note History: He is 1 day post-operative after surgical resection of infected right below knee amputation bursa and fibula. He tolerated the procedure - he was hyperglycemic and this has resolved overnight. He is anxious that he is ultimately going to require an above knee amputation and would like his medical team to decide upon the best next approach to preventing this outcome. He has pain in the operation site - he would like to bring down his dose of opioids and stop by the time of discharge. He continues to smoke "occasionally" Active Problems: Active Problems Type 1 diabetes mellitus with hyperglycemia (Chronic) E10.65 Current Medications: Current Medications Acetaminophen (Tylenol Tab*) 975 mg PO Q8H [facility] Last Admin: 09/04/18 05:30 Dose: 975 mg Aspirin (Aspirin Ec Tab*) 81 mg PO QPM [facility] Last Admin: 09/03/18 18:23 Dose: 81 mg Atenolol (Tenormin Tab*) 50 mg PO QPM [facility] Last Admin: 09/03/18 18:23 Dose: 50 mg Atorvastatin Calcium (Lipitor*) 80 mg PO QPM [facility] Last Admin: 09/03/18 18:23 Dose: 80 mg Dextrose (D50w Syringe 50 Ml*) 12.5 gm IV PUSH .FOR FS < 60 - SS PRN PRN Reason: FS < 60 Diphenhydramine HCl (Benadryl Iv*) 25 mg IV Q6H PRN PRN Reason: itching Diphenhydramine HCl (Benadryl Po*) 25 mg PO Q6H PRN PRN Reason: itching Docusate Sodium (Colace Cap*) 100 mg PO BID PRN PRN Reason: CONSTIPATION Dextrose/Sodium Chloride (D5w 1/2 Ns 1000 Ml Bag*) 1,000 mls @ 100 mls/hr IV PER RATE [facility] Last Admin: 09/03/18 15:44 Dose: 100 mls/hr Vancomycin HCl 1,250 mg/ (Sodium Chloride) 250 mls @ 166.667 mls/hr IVPB Q12H [facility] Last Admin: 09/04/18 05:30 Dose: 166.667 mls/hr Insulin Glargine (Lantus(*)) 60 units SUBCUT QPM [facility] Last Admin: 09/03/18 18:24 Dose: 60 unit Insulin Human Lispro (Humalog*) 0 units SUBCUT AC [facility]; Protocol Last Admin: 09/03/18 18:25 Dose: 2 units Levothyroxine Sodium (Synthroid Tab*) 200 mcg PO 0600 [facility] Last Admin: 09/04/18 05:30 Dose: 200 mcg Lisinopril (Prinivil Tab*) 10 mg PO QPM [facility] Last Admin: 09/03/18 18:23 Dose: 10 mg Magnesium Hydroxide (Milk Of Magnesia Liq*) 30 ml PO BID PRN PRN Reason: CONSTIPATION Morphine Sulfate (Morphine Inj (Syringe))*) 2 mg IV Q2H PRN PRN Reason: PAIN - BREAKTHROUGH Last Admin: 09/04/18 03:53 Dose: 2 mg Nitroglycerin (Nitroglycerin Tab 0.4 Mg*) 0.4 mg SL Q5M PRN PRN Reason: ANGINA Oxycodone HCl (Roxycodone Tab*) 10 mg PO Q4H PRN PRN Reason: PAIN - SEVERE Last Admin: 09/04/18 05:33 Dose: 10 mg Oxycodone HCl (Roxycodone Tab*) 5 mg PO Q4H PRN PRN Reason: PAIN - MODERATE Pharmacy Consult (Vancomycin Per Pharmacy*) 1 note FOLLOW UP .VANC PER PHARMACY [facility]; Protocol Ticagrelor (Brilinta (Nf)) 60 mg PO BID [facility] Last Admin: 09/03/18 20:11 Dose: 60 mg - Review of Systems Constitutional Symptoms: No: Fatigue, Fever, Night Sweats Pulmonary: Positive: Cough Negative: Sputum, Shortness of Breath Cardiology: Negative: Chest Pain, Shortness of Breath, Palpitations, Swelling of Ankles - left ankle Gastroenterology: Negative: Abdominal Pain, Nausea, Vomiting, Change in Bowel Habits Genital - Urinary: Negative: Dysuria, Hematuria Home Medications: Home Medications Medication Instructions Recorded Confirmed Type Insulin Glargine,Hum.rec.anlog 60 unit SUBCUT QPM #0 06/04/15 09/03/18 History [Lantus] Nitroglycerin TAB 0.4 MG* 0.4 mg SL Q5M PRN #20 tab 06/07/15 09/03/18 Rx Aspirin EC TAB* [Ecotrin EC Low 81 mg PO QPM 02/15/16 09/03/18 History Dose 81 MG*] Insulin Lispro [Humalog] 0 - 100 units SUBCUT TID WITH MEALS 02/15/16 09/03/18 History Levothyroxine TAB* [Synthroid 100 200 mcg PO QAM 06/17/16 09/03/18 History MCG TAB*] Atenolol TAB* [Tenormin TAB* 50 MG] 50 mg PO QPM 08/29/18 09/03/18 History Atorvastatin* [Lipitor 80 MG*] 80 mg PO QPM 08/29/18 09/03/18 History Cephalexin CAP* [Keflex CAP*] 500 mg PO TID 08/29/18 09/03/18 History Lisinopril TAB* [Prinivil TAB 10 10 mg PO QPM 08/29/18 09/03/18 History MG*] Ticagrelor* [Brilinta 90 MG*] 60 mg PO BID 08/29/18 09/03/18 History Allergies: Allergies Allergy/AdvReac Type Severity Reaction Status Date / Time Adhesive Tape [Paper Tape] Allergy See Comment Verified 09/03/18 11:00 simvastatin Allergy Rash Verified 09/03/18 11:00 Objective - Vital Signs Vital Signs: Vital Signs 09/03/18 09/03/18 09/03/18 11:04 13:03 13:04 Temperature 97.7 F 97.7 F Pulse Rate 70 67 Respiratory 18 16 Rate Blood Pressure 161/92 136/78 (mmHg) O2 Sat by Pulse 98 100 Oximetry 09/03/18 09/03/18 09/03/18 13:05 13:10 13:16 Temperature Pulse Rate 66 65 65 Respiratory Rate Blood Pressure 138/74 135/84 147/63 (mmHg) O2 Sat by Pulse 100 100 100 Oximetry 09/03/18 09/03/18 09/03/18 13:17 13:20 13:25 Temperature Pulse Rate 65 65 Respiratory 14 Rate Blood Pressure 158/82 167/82 (mmHg) O2 Sat by Pulse 100 100 Oximetry 09/03/18 09/03/18 09/03/18 13:30 13:35 13:41 Temperature Pulse Rate 65 64 Respiratory 16 Rate Blood Pressure 162/90 165/75 (mmHg) O2 Sat by Pulse 100 100 Oximetry 09/03/18 09/03/18 09/03/18 13:46 14:00 14:01 Temperature Pulse Rate 63 64 Respiratory 14 Rate Blood Pressure 167/76 155/76 (mmHg) O2 Sat by Pulse 97 98 Oximetry 09/03/18 09/03/18 09/03/18 14:03 14:15 14:22 Temperature Pulse Rate 63 Respiratory 14 14 Rate Blood Pressure 166/84 (mmHg) O2 Sat by Pulse 98 Oximetry 09/03/18 09/03/18 09/03/18 14:31 14:54 15:14 Temperature 97.6 F Pulse Rate 65 65 65 Respiratory 12 Rate Blood Pressure 159/85 169/90 171/84 (mmHg) O2 Sat by Pulse 97 99 100 Oximetry 09/03/18 09/03/18 09/03/18 15:20 15:45 16:15 Temperature 97.7 F Pulse Rate 65 Respiratory 16 12 16 Rate Blood Pressure 160/75 (mmHg) O2 Sat by Pulse 98 Oximetry 09/03/18 09/03/18 09/03/18 17:02 17:15 18:22 Temperature 97.4 F Pulse Rate 66 Respiratory 12 16 16 Rate Blood Pressure 151/72 (mmHg) O2 Sat by Pulse 98 Oximetry 09/03/18 09/03/18 09/03/18 19:07 19:15 19:20 Temperature 97.6 F Pulse Rate 78 Respiratory 17 17 17 Rate Blood Pressure 140/56 (mmHg) O2 Sat by Pulse 96 Oximetry 09/03/18 09/03/18 09/03/18 19:32 20:12 20:24 Temperature Pulse Rate Respiratory 17 17 17 Rate Blood Pressure (mmHg) O2 Sat by Pulse Oximetry 09/03/18 09/03/18 09/03/18 21:11 22:19 22:20 Temperature 98.8 F Pulse Rate 86 Respiratory 16 17 17 Rate Blood Pressure 153/78 (mmHg) O2 Sat by Pulse 100 Oximetry 09/03/18 09/03/18 09/04/18 23:20 23:27 03:39 Temperature 98.6 F 97.5 F Pulse Rate 80 72 Respiratory 18 18 16 Rate Blood Pressure 114/64 119/58 (mmHg) O2 Sat by Pulse 93 96 Oximetry 09/04/18 09/04/18 09/04/18 03:53 03:54 05:33 Temperature Pulse Rate Respiratory 16 16 18 Rate Blood Pressure (mmHg) O2 Sat by Pulse Oximetry - Intake and Output Intake and Output: Intake & Output 09/01/18 09/02/18 09/03/18 09/04/18 11:59 11:59 11:59 11:59 Intake Total 2538 Output Total 500 Balance 8 Weight 196 lb 3.2 oz Intake: IV Fluids 832 D5W 1/2 NS 332 LR 450 NS 50ML, Cefazolin 2G 50 IVPB 276 ABX - VANCOMYCIN 276 Oral 1430 Output: Urine 500 Other: # Bowel Movements 0 ADLs: Meal Record Start: 09/03/18 15: 23 Freq: Status: Active Protocol: Created 09/03/18 15:23 System (Rec: 09/03/18 15:23 System [id number]) Document 09/03/18 18:13 [id number] (Rec: 09/03/18 18:15 [id number]) Intake and Output Start: 09/03/18 13: 31 Freq: 06,14,2200 Status: Active Protocol: Created 09/03/18 13:39 [id number] (Rec: 09/03/18 13:39 BKG [id number]) Document 09/03/18 18:13 [id number] (Rec: 09/03/18 18:15 [id number] [id number]) Document 09/03/18 20:00 [id number] (Rec: 09/03/18 20:02 [id number] SSU-M17) Document 09/03/18 21:16 [id number] (Rec: 09/03/18 21:16 [id number] SSU-M17) Document 09/03/18 21:46 [id number] (Rec: 09/03/18 21:48 [id number] SSU-M17) Document 09/04/18 06:55 [id number] (Rec: 09/04/18 06:55 [id number] SSU-M15) Intake and Output Start: 09/03/18 15: 23 Freq: DAILY@0600,1400,2200 Status: Active Protocol: Created 09/03/18 15:23 System (Rec: 09/03/18 15:23 System [id number]) Document 09/03/18 21:46 [id number] (Rec: 09/03/18 21:48 [id number] SSU-M17) Document 09/04/18 06:55 [id number] (Rec: 09/04/18 06:55 [id number] [id number]) - Physical Exam General Physical Exam Comment: He is fully awake and oriented - he is fully engaged in his current medical management. His right stump is dressed and there is an ice pack attached. Left parker - there is an abrasion - no surrounding erythema. His left foot has no ulcers, callouses, infection. General: No Cyanosis, Yes Anemia, No Jaundice, No Clubbing Lungs and Chest: Yes: Chest Expansion Full, Chest Expansion Symetrica, Percussion Note Resonant, Vessicular Breath Sounds. No: Crackles, Wheezes Heart Rate and Rhythm: Regular JVP: Not Elevated Additional Cardiovascular: Yes: Normal Heart Sounds. No: Heart Murmur, Pedal Edema Abdominal Exam: Yes: Soft, Bowel Sounds Present. No: Distention, Abdominal Tenderness Results - Results Lab Results: Laboratory Results - last 24 hr 09/03/18 09/03/18 09/03/18 11:16 13:14 17:06 Hgb Hct Plt Count MPV Sodium Potassium Chloride Carbon Dioxide Anion Gap BUN Creatinine Est GFR ( Amer) Est GFR (Non-Af Amer) BUN/Creatinine Ratio Glucose POC Glucose (mg/dL) 201 H 178 H 191 H Calcium 09/03/18 09/03/18 09/04/18 21:11 21:23 04:48 Hgb 11.6 L Hct 34 L Plt Count 174 MPV 9.1 Sodium Potassium Chloride Carbon Dioxide Anion Gap BUN Creatinine Est GFR ( Amer) Est GFR (Non-Af Amer) BUN/Creatinine Ratio Glucose 457 H POC Glucose (mg/dL) > 444 H* Calcium 09/04/18 04:48 Hgb Hct Plt Count MPV Sodium 136 Potassium 4.1 Chloride 106 Carbon Dioxide 26 Anion Gap 4 BUN 25 H Creatinine 1.37 H Est GFR ( Amer) 64.8 Est GFR (Non-Af Amer) 53.6 BUN/Creatinine Ratio 18.2 Glucose 157 H POC Glucose (mg/dL) Calcium 8.4 L Radiology Results: Patient Name: ILYA BAIN Medical Record#: [id number] Ordering Physician: Tyrese BURGER Acct.#: [id number] : 1960 Age: 58 Sex: M Location: IMAGING Exam Date: 08/31/18 ADM Status: REG REF Order Information: MRI LOWER EXTREMITY RIGHT W/O Accession Number: [id number] CPT: 15545 Indication: Chronic osteomyelitis with draining sinus. Image Sequences: Sagittal, coronal and axial T1, STIR images, as well as axial T2 fat sat images were obtained. Comparison is made with previous exam dated March 21, 2017. The patient is status post below the knee amputation. Persistent fibular head edema is noted. Persistent edema in the anterior tibia is noted. The extent of this is unchanged from previous exam. The anterior tibialis muscle, especially near the tibiofibular joint appears to be edematous. This is unchanged from previous exam. Previously identified fluid just lateral to the fibular head appears to be improved since previous exam. Superficial to the anterior tibial parker, there is now a fluid collection irregular shaped measuring 3.2 x 2.8 x 1.1 cm. This is just anterior to the stump level. Subcutaneous edema is noted inferior stump region. IMPRESSION: 1. Fluid collection lateral to the fibula is diminished since 2018, although there is a new collection at the anterior aspect of the stump measuring 3.2 x 2.8 x 1.1 cm. Subcutaneous edema is noted in the inferior aspect of the stump. 2. Bone marrow edema in the proximal fibula and anterior tibia is not significantly changed since March 21, 2017. 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 The culture and sensitivities are pending. I will contact Dr. Oziel Hightower to decide upon next steps with antibacterial management Type 1 diabetes mellitus with hyperglycemia (Chronic) He is on a basal/bolus regimen - basaglar 50 units qhs and novolog 2 units for every 50 mg/dl > 150 mg/ dl. For carb coverage "I wing it". In the hospital he may have lower glucose levels owing to compliance with diet. 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) He has diabetic nephropathy History of diabetic retinopathy (Chronic) Type 1 diabetes mellitus with neurological manifestations, uncontrolled (Chronic) stable History of myocardial infarction (Chronic) stable Hypercholesterolemia (Chronic) continue current Rx Hypoglycemia (Chronic) I will try and avoid this Peripheral neuropathy (Chronic) opngoing Presence of stent in coronary artery (Chronic) status Primary hypothyroidism (Chronic) continue current Rd Status post below knee amputation of right lower extremity (Chronic) I discussed the above with the patient and agrees with the management plan
[2018-09-04] MEDS ORDERED: Dextrose 50% Syringe 50 ML* 25 GM/50 ML SYRINGE IV PUSH PRN (08:08)
[2018-09-04] MEDS ORDERED: traMADol TAB* 50 MG PO PRN (08:09)
[2018-09-04] MEDS: Insulin LISPRO* 1 UNITS UNIT SUBCUT SCH ×9 (08:16→18:09)
[2018-09-04] MEDS: CMC:Ticagrelor (NF) 60 MG TAB PO SCH ×2 (08:45→22:46)
--- NOTE | 2018-09-04 10:05 | PN ---
Progress Note - Progress Note Date of Service: 09/04/18 SOAP: Subjective: []Saw Brody at bedside today POD 1 sp resection of R infected bursa and fibula. He is in good spirits today, no feeling of fever or chills. RLE pain is well controlled. Denies CP, SOB, dizziness or nausea. Right side of his tongue is swollen, he is unsure what from, denies hx pcn allergy. Denies any other airway swelling, difficulty breathing, rash or itching. Objective: []General: Appears well, NAD R side of tongue swollen, no lip or throat swelling observed RLE: Stump dressing CDI, thigh is soft and no erythema proximal to splint. Assessment: []POD 1 sp resection of infected bursa and fibula Dr Lewis 09/03/18 Plan: []NWB RLE OOB w PT/OT Dressing CDI Benadryl for right side tongue swelling, nursing also made aware, patient knows to report any new sx or worsening Dr Clark and infectious disease comanaging On vanco, follow cultures DVT proph: on brilinta, asa and SCDs Vital Signs Temp 98.8 F 09/04/18 07:59 Pulse 71 09/04/18 07:59 Resp 18 09/04/18 09:46 BP 115/59 09/04/18 07:59 Pulse Ox 100 09/04/18 08:00 Intake & Output 09/03/18 09/04/18 09/04/18 18:59 06:59 18:59 Intake Total 1040 1498 Output Total 500 Balance 1040 998 Weight 196 lb 3.2 oz Intake: IV Fluids 500 332 D5W 1/2 NS 332 LR 450 NS 50ML, Cefazolin 2G 50 IVPB 276 ABX - VANCOMYCIN 276 Oral 540 890 Output: Urine 500 Other: # Bowel Movements 0 Laboratory Last Values Hgb 11.6 g/dL (14.0-18.0) L 09/04/18 04:48 Hct 34 % (42-52) L 09/04/18 04:48 Plt Count 174 10^3/uL (150-450) 09/04/18 04:48 MPV 9.1 fL (7.4-10.4) 09/04/18 04:48 Sodium 136 mmol/L (135-145) 09/04/18 04:48 Potassium 4.1 mmol/L (3.5-5.0) 09/04/18 04:48 Chloride 106 mmol/L (101-111) 09/04/18 04:48 Carbon Dioxide 26 mmol/L (22-32) 09/04/18 04:48 Anion Gap 4 mmol/L (2-11) 09/04/18 04:48 BUN 25 mg/dL (6-24) H 09/04/18 04:48 Creatinine 1.37 mg/dL (0.67-1.17) H 09/04/18 04:48 Est GFR ( Amer) 64.8 (>60) 09/04/18 04:48 Est GFR (Non-Af Amer) 53.6 (>60) 09/04/18 04:48 BUN/Creatinine Ratio 18.2 (8-20) 09/04/18 04:48 Glucose 157 mg/dL (70-100) H 09/04/18 04:48 POC Glucose (mg/dL) > 444 mg/dL (70-100) H* 09/03/18 21:11 Calcium 8.4 mg/dL (8.6-10.3) L 09/04/18 04:48
[2018-09-04] MEDS ORDERED: Enoxaparin(*) 40 MG/0.4 ML SYR SUBCUT SCH (14:00)
[2018-09-04 14:15] LABS: ABS Eosinophils 0.3 10^3/ul (0-0.6); ABS Lymphocytes 0.4 10^3/ul (1.0-4.8); ABS Monocytes 0.3 10^3/ul (0-0.8); ABS Neutrophils 6.7 10^3/ul (1.5-7.7); Activated Partial Thrombo Time 38.5 seconds (26.0-38.0); Hematocrit 35 % (42-52); Hemoglobin 11.9 g/dL (14.0-18.0); INR 1.05 (0.82-1.09); Lymphocyte % 5.6 %; Mean Corpuscular HGB Conc 34 g/dL (31-36); Mean Corpuscular Hemoglobin 32 pg (27-31); Mean Corpuscular Volume 93 fL (80-94); Mean Platelet Volume 8.9 fL (7.4-10.4); Platelet Count 165 10^3/uL (150-450); Red Blood Count 3.77 10^6 /uL (4.18-5.48); Red Cell Distribution Width 15 % (10-15); White Blood Count 7.8 10^3/uL (3.5-10.8)
[2018-09-04 14:25] LABS: EGFR Non-African American 59.5 (>60)
[2018-09-04] MEDS: Heparin VIAL(*) 5000 UNITS/ML VIAL (FIVE THOUSAND) SUBCUT SCH ×2 (14:42→22:47)
--- NOTE | 2018-09-04 15:36 | CONS ---
CONSULTATION REPORT: DATE OF CONSULT: 09/04/18 REQUESTING PHYSICIAN: Dr. Clark. CONSULTING SERVICE: Infectious Disease. REASON FOR CONSULT: Right leg nonhealing wound at previous [id number] amputation site. IMPRESSION: 1. History of right lymre-shx-ozwz amputation and then a bursitis with Staph epidermidis abscess, which was drained by Dr. Lewis in May. The wound had opened and closed intermittently, and because of increasing drainage, he had an MRI on 08/31/18 that showed collection at the anterior aspect of the stump which was 3 x 3 x 1 cm and some subcutaneous edema, marrow edema in the proximal fibula, anterior tibia not changed since February 2017. There is no notation provided by the radiologist on T2 and T1 weighted changes. 2. Status post I and D of the right amputation stump site and resection of proximal fibula. 3. Type 1 diabetes mellitus with peripheral neuropathy and retinopathy. 4. Coronary artery disease and history of percutaneous coronary intervention. 5. Chronic kidney disease. 5. Peripheral vascular disease. RECOMMENDATIONS: Continue vancomycin, goal trough 15 to 20, while we await his cultures which are so far negative at 24 hours. The Gram stain from surgery showed gram-positive cocci. The Staph aureus and MRSA PCR were negative. He could have a coag-negative staph again. He could have strep or enterococcus. We will await those culture results. HISTORY OF PRESENT ILLNESS: This is a 58-year-old male with diabetes and history of a right ksbrt-pkb-[id number] amputation and then large abscess in the lateral lower leg proximal to the amputation site of course. In February, he had an abscess at the amputation site which was drained and grew Staph aureus and Staph lugdunensis. He had a prolonged course of antibiotics at that time and then has had difficulty healing and off and on has had some more debridements including most recently in May when the operative culture grew Staph epi. He has been on Keflex for about the last 2 weeks because of increasing serous drainage without significant redness around the open area of the wound. He does not have fevers, chills, or sweats and has felt pretty well. PAST MEDICAL HISTORY: 1. Type 1 diabetes complicated by neuropathy and retinopathy as well as nephropathy. 2. Chronic kidney disease, stage 3. 3. Charcot foot on the right, status post [id number] amputation. 4. Coronary artery disease and history of STEMI in 2016, treated with PCI. 5. Peripheral vascular disease. 6. Hyperlipidemia. 7. Hypothyroidism. 8. Hypertension. 9. Status post open reduction internal fixation of the left tibia and fibula. ALLERGIES: SIMVASTATIN. MEDICATIONS: 1. Tylenol. 2. Aspirin. 3. Atenolol. 4. Atorvastatin. 5. Docusate. 6. Heparin subcutaneous injection. 7. Insulin glargine. 8. Insulin lispro. 9. Levothyroxine. 10. Lisinopril. 11. Magnesium. 12. Morphine as needed. 13. Oxycodone as needed. 14. Brilinta. 15. Tramadol as needed. 16. Vancomycin 1250 mg IV every 12 hours. SOCIAL HISTORY: He lives in [place]. He is a past smoker. Does drink alcohol occasionally. He is on disability, previously had worked at [employer]. FAMILY HISTORY: Mother is alive with diabetes and Parkinson's. Father from a stroke. REVIEW OF SYSTEMS: A 12-point review was all negative except as noted above in history of present illness. PHYSICAL EXAM: Vital Signs: Temperature is 37, heart rate 70, respiratory rate 16, blood pressure 120/60, oxygen saturation 100% on 3 L via nasal cannula. In general, he is awake, not in distress. Neurologic: He is oriented x3. Follows all commands. HEENT: There is no conjunctival hemorrhage. Oropharynx without lesions. Neck is supple without mass. Heart is regular rate and rhythm without murmurs, rubs, or gallops. Lungs are clear to auscultation bilaterally. Abdomen: Soft, nontender, nondistended. There are bowel sounds present. Skin: There is no rash or splinter hemorrhage. Musculoskeletal: Right leg absent below the knee. Incision at the amputation site is bandaged. There is no proximal erythema or tenderness. LABORATORY DATA: White blood cell count 7.8, hemoglobin 11.9, platelets 165. Creatinine 1.3. Please see impression and recommendations outlined above. Thanks for asking me to see Mr. Kam in consultation. [id number]/[facility] #: [id number] SARA
[2018-09-04] MEDS ORDERED: Aspirin EC TAB* 81 MG TAB.EC PO SCH (18:00)
[2018-09-04] MEDS ORDERED: Insulin GLARGINE(*) 1 UNITS UNIT SUBCUT SCH (18:00)
[2018-09-04] MEDS: Atorvastatin* 80 MG TAB PO SCH (18:07)
[2018-09-04] MEDS: Lisinopril TAB* 10 MG PO SCH (18:07)
[2018-09-04] MEDS: Aspirin 81 mg CHEW TAB* 81 MG TAB.CHEW PO SCH (18:07)
[2018-09-04] MEDS: Atenolol TAB* 50 MG PO SCH (18:07)
[2018-09-05 04:52] LABS: ABS Eosinophils 0.6 10^3/ul (0-0.6); ABS Monocytes 0.5 10^3/ul (0-0.8); Hematocrit 36 % (42-52); Hemoglobin 12.4 g/dL (14.0-18.0); Lymphocyte % 16.1 %; Mean Corpuscular HGB Conc 34 g/dL (31-36); Mean Corpuscular Hemoglobin 31 pg (27-31); Mean Corpuscular Volume 92 fL (80-94); Mean Platelet Volume 8.7 fL (7.4-10.4); Nucleated Red Blood Cells % 0.1; Platelet Count 184 10^3/uL (150-450); Red Blood Count 3.96 10^6 /uL (4.18-5.48); Red Cell Distribution Width 15 % (10-15); White Blood Count 6.2 10^3/uL (3.5-10.8)
[2018-09-05 05:16] LABS: BUN/Creatinine Ratio 15.9 (8-20); C Reactive Protein 26.98 mg/L (<8.01); Calcium 8.6 mg/dL (8.6-10.3); EGFR African American 64.3 (>60); EGFR Non-African American 53.1 (>60); Potassium 3.4 mmol/L (3.5-5.0)
[2018-09-05 05:26] LABS: Vancomycin Trough 22.2 mcg/mL
[2018-09-05] MEDS ORDERED: Dextrose 50% VIAL 50 ml IV PUSH PRN (05:55)
[2018-09-05] MEDS: oxyCODONE TAB* 5 MG TAB PO PRN ×4 (06:15→21:55)
[2018-09-05] MEDS: Levothyroxine TAB* 100 MCG TAB PO SCH (06:15)
[2018-09-05] MEDS: Acetaminophen TAB* 325 MG PO SCH ×3 (06:17→21:48)
[2018-09-05] MEDS: Vancomycin(*) 1,250 MG in NS 0.9% 250 ML* 250 ML IVPB SCH (06:18)
[2018-09-05] MEDS: Heparin VIAL(*) 5000 UNITS/ML VIAL (FIVE THOUSAND) SUBCUT SCH ×3 (06:19→21:51)
--- NOTE | 2018-09-05 08:32 | PN ---
Subjective - Subjective Reason for Note: Progress Note History: Endocrinology: He had a hypoglycemic episode overnight despite reducing his glargine/lantus insulin. I have reviewed Dr. Oziel Hightower's note. Active Problems: Active Problems Tobacco abuse (Acute) Z72.0 Tobacco abuse (Chronic) Z72.0 Type 1 diabetes mellitus with hyperglycemia (Chronic) E10.65 Current Medications: Current Medications Acetaminophen (Tylenol Tab*) 975 mg PO Q8H [facility] Last Admin: 09/05/18 06:17 Dose: 975 mg Aspirin (Aspirin 81 Mg Chew Tab*) 81 mg PO Q24H [facility] Last Admin: 09/04/18 18:07 Dose: 81 mg Atenolol (Tenormin Tab*) 50 mg PO QPM [facility] Last Admin: 09/04/18 18:07 Dose: 50 mg Atorvastatin Calcium (Lipitor*) 80 mg PO QPM [facility] Last Admin: 09/04/18 18:07 Dose: 80 mg Dextrose (Dextrose 50% Vial 50 Ml*) 12.5 ml IV PUSH .FOR FS < 60 - SS PRN PRN Reason: FS < 60 Last Admin: 09/05/18 06:07 Dose: 12.5 ml Diphenhydramine HCl (Benadryl Iv*) 25 mg IV Q6H PRN PRN Reason: itching Diphenhydramine HCl (Benadryl Po*) 25 mg PO Q6H PRN PRN Reason: itching Docusate Sodium (Colace Cap*) 100 mg PO BID PRN PRN Reason: CONSTIPATION Heparin Sodium (Porcine) (Heparin Vial(*)) 5,000 units SUBCUT Q8HR [facility] Last Admin: 09/05/18 06:19 Dose: 5,000 units Dextrose/Sodium Chloride (D5w 1/2 Ns 1000 Ml Bag*) 1,000 mls @ 100 mls/hr IV PER RATE [facility] Last Admin: 09/03/18 15:44 Dose: 100 mls/hr Vancomycin HCl 750 mg/ Sodium (Chloride) 250 mls @ 166.667 mls/hr IVPB 0000, 1200 [facility] Insulin Glargine (Lantus(*)) 40 units SUBCUT QPM [facility] Last Admin: 09/04/18 18:07 Dose: 40 units Insulin Human Lispro (Humalog*) 0 units SUBCUT AC [facility]; Protocol Last Admin: 09/04/18 18:08 Dose: 4 units Insulin Human Lispro (Humalog*) 0 units SUBCUT AC [facility]; Protocol Last Admin: 09/04/18 18:09 Dose: 8 units Levothyroxine Sodium (Synthroid Tab*) 200 mcg PO 0600 [facility] Last Admin: 09/05/18 06:15 Dose: 200 mcg Lisinopril (Prinivil Tab*) 10 mg PO QPM [facility] Last Admin: 09/04/18 18:07 Dose: 10 mg Magnesium Hydroxide (Milk Of Magnesia Liq*) 30 ml PO BID PRN PRN Reason: CONSTIPATION Morphine Sulfate (Morphine Inj (Syringe))*) 2 mg IV Q2H PRN PRN Reason: PAIN - BREAKTHROUGH Last Admin: 09/04/18 22:46 Dose: 2 mg Nitroglycerin (Nitroglycerin Tab 0.4 Mg*) 0.4 mg SL Q5M PRN PRN Reason: ANGINA Oxycodone HCl (Roxycodone Tab*) 10 mg PO Q4H PRN PRN Reason: PAIN - SEVERE Last Admin: 09/05/18 06:15 Dose: 10 mg Oxycodone HCl (Roxycodone Tab*) 5 mg PO Q4H PRN PRN Reason: PAIN - MODERATE Pharmacy Consult (Vancomycin Per Pharmacy*) 1 note FOLLOW UP .VANC PER PHARMACY [facility]; Protocol Pharmacy Profile Note (Vancomycin Trough Check) 1 note FOLLOW UP 1200 ONE Stop: 09/07/18 12:01 Ticagrelor (Brilinta (Nf)) 60 mg PO BID [facility] Last Admin: 09/04/18 22:46 Dose: 60 mg Tramadol HCl (Ultram*) 50 mg PO Q4H PRN PRN Reason: PAIN - MILD TO MODERATE Home Medications: Home Medications Medication Instructions Recorded Confirmed Type Insulin Glargine,Hum.rec.anlog 60 unit SUBCUT QPM #0 06/04/15 09/03/18 History [Lantus] Nitroglycerin TAB 0.4 MG* 0.4 mg SL Q5M PRN #20 tab 06/07/15 09/03/18 Rx Aspirin EC TAB* [Ecotrin EC Low 81 mg PO QPM 02/15/16 09/03/18 History Dose 81 MG*] Insulin Lispro [Humalog] 0 - 100 units SUBCUT TID WITH MEALS 02/15/16 09/03/18 History Levothyroxine TAB* [Synthroid 100 200 mcg PO QAM 06/17/16 09/03/18 History MCG TAB*] Atenolol TAB* [Tenormin TAB* 50 MG] 50 mg PO QPM 08/29/18 09/03/18 History Atorvastatin* [Lipitor 80 MG*] 80 mg PO QPM 08/29/18 09/03/18 History Cephalexin CAP* [Keflex CAP*] 500 mg PO TID 08/29/18 09/03/18 History Lisinopril TAB* [Prinivil TAB 10 10 mg PO QPM 08/29/18 09/03/18 History MG*] Ticagrelor* [Brilinta 90 MG*] 60 mg PO BID 08/29/18 09/03/18 History Allergies: Allergies Allergy/AdvReac Type Severity Reaction Status Date / Time Adhesive Tape [Paper Tape] Allergy See Comment Verified 09/03/18 11:00 simvastatin Allergy Rash Verified 09/03/18 11:00 Objective - Vital Signs Vital Signs: Vital Signs 09/04/18 09/04/18 09/04/18 09:44 09:46 11:59 Temperature 98.6 F Pulse Rate 73 Respiratory 18 18 16 Rate Blood Pressure 119/61 (mmHg) O2 Sat by Pulse 100 Oximetry 09/04/18 09/04/18 09/04/18 12:26 14:45 15:35 Temperature 98.1 F Pulse Rate 76 Respiratory 18 20 20 Rate Blood Pressure 129/54 (mmHg) O2 Sat by Pulse 93 Oximetry 09/04/18 09/04/18 09/04/18 17:37 17:44 19:15 Temperature Pulse Rate Respiratory 18 18 18 Rate Blood Pressure (mmHg) O2 Sat by Pulse Oximetry 09/04/18 09/04/18 09/04/18 19:20 19:36 19:41 Temperature 98.6 F Pulse Rate 66 Respiratory 16 17 17 Rate Blood Pressure 130/45 (mmHg) O2 Sat by Pulse 95 Oximetry 09/04/18 09/04/18 09/04/18 22:46 22:48 23:35 Temperature 98.3 F Pulse Rate 67 Respiratory 17 17 17 Rate Blood Pressure 117/48 (mmHg) O2 Sat by Pulse 98 Oximetry 09/05/18 09/05/18 09/05/18 03:27 04:20 06:15 Temperature 98.4 F Pulse Rate 71 Respiratory 16 17 Rate Blood Pressure 136/50 (mmHg) O2 Sat by Pulse 99 99 Oximetry 09/05/18 09/05/18 09/05/18 06:17 07:15 07:56 Temperature 98.5 F Pulse Rate 73 Respiratory 17 14 18 Rate Blood Pressure 123/46 (mmHg) O2 Sat by Pulse 99 Oximetry 09/05/18 08:02 Temperature Pulse Rate Respiratory 18 Rate Blood Pressure (mmHg) O2 Sat by Pulse Oximetry - Intake and Output Intake and Output: Intake & Output 09/02/18 09/03/18 09/04/18 09/05/18 11:59 11:59 11:59 11:59 Intake Total 2538 1800 Output Total 500 200 Balance 2038 1600 Weight 196 lb 3.2 oz Intake: IV Fluids 832 260 ABX - VANCOMYCIN 260 D5W 1/2 NS 332 LR 450 NS 50ML, Cefazolin 2G 50 IVPB 276 ABX - VANCOMYCIN 276 Oral 1430 1540 Output: Urine 500 200 Other: Estimated Void Medium # Bowel Movements 0 0 # Voids 1 ADLs: Meal Record Start: 09/03/18 15: 23 Freq: Status: Active Protocol: Created 09/03/18 15:23 System (Rec: 09/03/18 15:23 System [id number]) Document 09/03/18 18:13 [id number] (Rec: 09/03/18 18:15 [id number] [facility] Document 09/04/18 18:00 [id number] (Rec: 09/04/18 18:01 [id number] [facility] Intake and Output Start: 09/03/18 13: 31 Freq: 06,14,2200 Status: Active Protocol: Created 09/03/18 13:39 [id number] (Rec: 09/03/18 13:39 BKG [id number]) Document 09/03/18 18:13 [id number] (Rec: 09/03/18 18:15 [id number] [facility]17) Document 09/03/18 20:00 [id number] (Rec: 09/03/18 20:02 [id number] [facility]17) Document 09/03/18 21:16 [id number] (Rec: 09/03/18 21:16 [id number] [facility]-M17) Document 09/03/18 21:46 [id number] (Rec: 09/03/18 21:48 [id number] [facility]-M17) Document 09/04/18 06:55 [id number] (Rec: 09/04/18 06:55 [id number] [facility]-M15) Document 09/04/18 14:33 [id number] (Rec: 09/04/18 14:33 [id number] [facility]-C01) Document 09/04/18 16:29 [id number] (Rec: 09/04/18 16:30 [id number] [facility]-M18) Document 09/04/18 21:58 [id number] (Rec: 09/04/18 22:05 [id number] [facility]-M18) Document 09/05/18 05:20 [id number] (Rec: 09/05/18 05:22 [id number] [facility]-L03) Document 09/05/18 05:58 [id number] (Rec: 09/05/18 05:58 [id number] [facility]-L03) Intake and Output Start: 09/03/18 15: 23 Freq: DAILY@0600,1400,2200 Status: Active Protocol: Created 09/03/18 15:23 System (Rec: 09/03/18 15:23 System [facility]-M16) Document 09/03/18 21:46 [id number] (Rec: 09/03/18 21:48 [id number] [facility]-M17) Document 09/04/18 06:55 [id number] (Rec: 09/04/18 06:55 [id number] [facility]-M15) Document 09/04/18 14:33 [id number] (Rec: 09/04/18 14:33 [id number] [facility]-C01) Document 09/05/18 05:20 [id number] (Rec: 09/05/18 05:22 [id number] [facility]-L03) Document 09/05/18 05:58 [id number] (Rec: 09/05/18 05:58 [id number] [facility]-L03) - Physical Exam General: No Cyanosis, Yes Anemia, No Jaundice, No Clubbing Lungs and Chest: Yes: Chest Expansion Full, Chest Expansion Symetrica, Percussion Note Resonant, Vessicular Breath Sounds. No: Crackles, Wheezes Heart Rate and Rhythm: Regular Additional Cardiovascular: Yes: Normal Heart Sounds. No: Heart Murmur, Pedal Edema Abdominal Exam: No: Distention, Soft, Abdominal Mass, Abdominal Tenderness Results - Results Lab Results: Laboratory Results - last 24 hr 09/04/18 09/04/18 09/04/18 11:59 13:48 13:48 WBC 7.8 RBC 3.77 L Hgb 11.9 L Hct 35 L MCV 93 MCH 32 H MCHC 34 RDW 15 Plt Count 165 MPV 8.9 Neut % (Auto) 85.7 Lymph % (Auto) 5.6 [place] % (Auto) 4.3 Eos % (Auto) 4.0 Baso % (Auto) 0.4 Absolute Neuts (auto) 6.7 Absolute Lymphs (auto) 0.4 L Absolute Monos (auto) 0.3 Absolute Eos (auto) 0.3 Absolute Basos (auto) 0.0 Absolute Nucleated RBC 0.0 Nucleated RBC % 0.0 INR (Anticoag Therapy) APTT Sodium Potassium Chloride Carbon Dioxide Anion Gap BUN Creatinine Est GFR ( Amer) Est GFR (Non-Af Amer) BUN/Creatinine Ratio Glucose POC Glucose (mg/dL) 144 H Glucose Meter Confirm Hemoglobin A1c 10.0 H Calcium C-Reactive Protein Vancomycin Trough 09/04/18 09/04/18 09/04/18 13:48 13:48 14:50 WBC RBC Hgb Hct MCV MCH MCHC RDW Plt Count MPV Neut % (Auto) Lymph % (Auto) Hughes % (Auto) Eos % (Auto) Baso % (Auto) Absolute Neuts (auto) Absolute Lymphs (auto) Absolute Monos (auto) Absolute Eos (auto) Absolute Basos (auto) Absolute Nucleated RBC Nucleated RBC % INR (Anticoag Therapy) 1.05 APTT 38.5 H Sodium Potassium Chloride Carbon Dioxide Anion Gap BUN 25 H Creatinine 1.25 H Est GFR ( Amer) 72.0 Est GFR (Non-Af Amer) 59.5 BUN/Creatinine Ratio Glucose POC Glucose (mg/dL) 253 H Glucose Meter Confirm Hemoglobin A1c Calcium C-Reactive Protein Vancomycin Trough 09/04/18 09/04/18 09/05/18 16:56 22:46 04:41 WBC 6.2 RBC 3.96 L Hgb 12.4 L Hct 36 L MCV 92 MCH 31 MCHC 34 RDW 15 Plt Count 184 MPV 8.7 Neut % (Auto) 64.8 Lymph % (Auto) 16.1 Hughes % (Auto) 8.5 Eos % (Auto) 10.0 Baso % (Auto) 0.6 Absolute Neuts (auto) 4.0 Absolute Lymphs (auto) 1.0 Absolute Monos (auto) 0.5 Absolute Eos (auto) 0.6 Absolute Basos (auto) 0.0 Absolute Nucleated RBC 0.0 Nucleated RBC % 0.1 INR (Anticoag Therapy) APTT Sodium Potassium Chloride Carbon Dioxide Anion Gap BUN Creatinine Est GFR ( Amer) Est GFR (Non-Af Amer) BUN/Creatinine Ratio Glucose POC Glucose (mg/dL) 332 H 172 H Glucose Meter Confirm Hemoglobin A1c Calcium C-Reactive Protein Vancomycin Trough 09/05/18 09/05/18 09/05/18 04:41 05:46 06:07 WBC RBC Hgb Hct MCV MCH MCHC RDW Plt Count MPV Neut % (Auto) Lymph % (Auto) Hughes % (Auto) Eos % (Auto) Baso % (Auto) Absolute Neuts (auto) Absolute Lymphs (auto) Absolute Monos (auto) Absolute Eos (auto) Absolute Basos (auto) Absolute Nucleated RBC Nucleated RBC % INR (Anticoag Therapy) APTT Sodium 141 Potassium 3.4 L Chloride 110 Carbon Dioxide 28 Anion Gap 3 BUN 22 Creatinine 1.38 H Est GFR ( Amer) 64.3 Est GFR (Non-Af Amer) 53.1 BUN/Creatinine Ratio 15.9 Glucose 37 L* POC Glucose (mg/dL) 37 L* Glucose Meter Confirm 132 H Hemoglobin A1c Calcium 8.6 C-Reactive Protein 26.98 H Vancomycin Trough 22.2 09/05/18 09/05/18 06:24 07:53 WBC RBC Hgb Hct MCV MCH MCHC RDW Plt Count MPV Neut % (Auto) Lymph % (Auto) Hughes % (Auto) Eos % (Auto) Baso % (Auto) Absolute Neuts (auto) Absolute Lymphs (auto) Absolute Monos (auto) Absolute Eos (auto) Absolute Basos (auto) Absolute Nucleated RBC Nucleated RBC % INR (Anticoag Therapy) APTT Sodium Potassium Chloride Carbon Dioxide Anion Gap BUN Creatinine Est GFR ( Amer) Est GFR (Non-Af Amer) BUN/Creatinine Ratio Glucose POC Glucose (mg/dL) 150 H 244 H Glucose Meter Confirm Hemoglobin A1c Calcium C-Reactive Protein Vancomycin Trough Assessment - Problem List Assessment: Patient Problems Tobacco abuse (Acute) Tobacco abuse (Chronic) Type 1 diabetes mellitus with hyperglycemia (Chronic) Abscess of right leg (Acute) 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) History of diabetic retinopathy (Chronic) History of myocardial infarction (Chronic) Hypercholesterolemia (Chronic) Hypoglycemia (Chronic) Peripheral neuropathy (Chronic) Presence of stent in coronary artery (Chronic) Primary hypothyroidism (Chronic) Status post below knee amputation of right lower extremity (Chronic) Type 1 diabetes mellitus with neurological manifestations, uncontrolled (Chronic ) Plan: Type 1 diabetes mellitus with hyperglycemia (Chronic) Hypoglycemia (Chronic) History of diabetic retinopathy (Chronic) Type 1 diabetes mellitus with neurological manifestations, uncontrolled (Chronic) He had an episode of hypoglycemia. I will cut back his lantus insulin some more. His A1c is 10%. I explained (once again) that the reason he is not healing is due to the chronic hyperglycemia. I put to him (again) strongly that he should be using a [employer] [id number] hybrid closed loop system - he is finally beginning to appreciate the idea. I note he has an 11 year old son and this is a motivation for [facility] improved control Tobacco abuse - counseled Abscess of right leg (Acute) 2 days post surgery. I spoke with microbiology - nothing yet. Dr. Oziel Hightower to decide upon [facility] antibiotic plan 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) stable secondary diagnoses: History of myocardial infarction (Chronic) Hypercholesterolemia (Chronic) Peripheral neuropathy (Chronic) Presence of stent in coronary artery (Chronic) Primary hypothyroidism (Chronic) Status post below knee amputation of right lower extremity (Chronic) I discussed the above with the patient.
[2018-09-05] MEDS: Insulin LISPRO* 1 UNITS UNIT SUBCUT SCH ×7 (09:30→18:13)
[2018-09-05] MEDS: CMC:Ticagrelor (NF) 60 MG TAB PO SCH ×2 (09:31→21:48)
--- NOTE | 2018-09-05 10:05 | PN ---
Progress Note - Progress Note Date of Service: 09/05/18 SOAP: Subjective: CC: Right LE nonhealing wound HPI: Mr. Kam is a 58 yo male with PMH significant for DM1, peripheral neuropathy, hx right BKA, CKD 3, CAD, PVD, HLD, and HTN. Denies fever, chills, nausea, vomiting, diarrhea, constipation, or urinary symptoms. Reports his appetite is ok and he is tolerating a diet. Objective: Vital Signs - 8 hr 09/05/18 09/05/18 09/05/18 03:27 04:20 06:15 Temperature 98.4 F Pulse Rate 71 Respiratory 16 17 Rate Blood Pressure 136/50 (mmHg) O2 Sat by Pulse 99 99 Oximetry 09/05/18 09/05/18 09/05/18 06:17 07:15 07:56 Temperature 98.5 F Pulse Rate 73 Respiratory 17 14 18 Rate Blood Pressure 123/46 (mmHg) O2 Sat by Pulse 99 Oximetry Physical Exam: Neurological: Alert and Oriented x4 HEENT: Moist MM, no thrush Cardiovascular: Heart rate regular, no murmur Respiratory: Lung sounds clear Abdominal: Bowel sounds present; ABD soft, non tender and non distended Skin: Surgical dressing to right stump, no erythema extending above the dressing. No rash Laboratory Last Values WBC 6.2 10^3/uL (3.5-10.8) 09/05/18 04:41 RBC 3.96 10^6 /uL (4.18-5.48) L 09/05/18 04:41 Hgb 12.4 g/dL (14.0-18.0) L 09/05/18 04:41 Hct 36 % (42-52) L 09/05/18 04:41 MCV 92 fL (80-94) 09/05/18 04:41 MCH 31 pg (27-31) 09/05/18 04:41 MCHC 34 g/dL (31-36) 09/05/18 04:41 RDW 15 % (10-15) 09/05/18 04:41 Plt Count 184 10^3/uL (150-450) 09/05/18 04:41 MPV 8.7 fL (7.4-10.4) 09/05/18 04:41 Neut % (Auto) 64.8 % 09/05/18 04:41 Lymph % (Auto) 16.1 % 09/05/18 04:41 [place] % (Auto) 8.5 % 09/05/18 04:41 Eos % (Auto) 10.0 % 09/05/18 04:41 Baso % (Auto) 0.6 % 09/05/18 04:41 Absolute Neuts (auto) 4.0 10^3/ul (1.5-7.7) 09/05/18 04:41 Absolute Lymphs (auto) 1.0 10^3/ul (1.0-4.8) 09/05/18 04:41 Absolute Monos (auto) 0.5 10^3/ul (0-0.8) 09/05/18 04:41 Absolute Eos (auto) 0.6 10^3/ul (0-0.6) 09/05/18 04:41 Absolute Basos (auto) 0.0 10^3/ul (0-0.2) 09/05/18 04:41 Absolute Nucleated RBC 0.0 10^3/ul 09/05/18 04:41 Nucleated RBC % 0.1 09/05/18 04:41 INR (Anticoag Therapy) 1.05 (0.82-1.09) 09/04/18 13:48 APTT 38.5 seconds (26.0-38.0) H 09/04/18 13:48 Sodium 141 mmol/L (135-145) 09/05/18 04:41 Potassium 3.4 mmol/L (3.5-5.0) L 09/05/18 04:41 Chloride 110 mmol/L (101-111) 09/05/18 04:41 Carbon Dioxide 28 mmol/L (22-32) 09/05/18 04:41 Anion Gap 3 mmol/L (2-11) 09/05/18 04:41 BUN 22 mg/dL (6-24) 09/05/18 04:41 Creatinine 1.38 mg/dL (0.67-1.17) H 09/05/18 04:41 Est GFR ( Amer) 64.3 (>60) 09/05/18 04:41 Est GFR (Non-Af Amer) 53.1 (>60) 09/05/18 04:41 BUN/Creatinine Ratio 15.9 (8-20) 09/05/18 04:41 Glucose 37 mg/dL (70-100) L* 09/05/18 04:41 POC Glucose (mg/dL) 244 mg/dL (70-100) H 09/05/18 07:53 Glucose Meter Confirm 132 mg/dL (70-100) H 09/05/18 06:07 Hemoglobin A1c 10.0 % (4.0-5.6) H 09/04/18 13:48 Calcium 8.6 mg/dL (8.6-10.3) 09/05/18 04:41 C-Reactive Protein 26.98 mg/L (<8.01) H 09/05/18 04:41 Vancomycin Trough 22.2 mcg/mL 09/05/18 04:41 Microbiology 09/03/18 12:35 Anaerobic Culture - Preliminary Wound - Right Leg No Growth Day 2 09/03/18 12:35 Skin and Soft Tissue MRSA/MSSA (PCR - Final Leg Right Mrsa Negative S.aureus Negative Gram Stain - Final Wound Culture - Preliminary No Growth Day 2 Assessment: 1. Right stump nonhealing wound. S/P I+D of infected bursa and distal fibula, POD #2. Wound cultures from surgery initially showing gram + cocci, with no growth on day 2. Afebrile and no leukocytosis. 2. DM1 with peripheral neuropathy and retinopathy. 3. CKD, stage 3. 4. PVD. Plan: Continue vancomycin, trough goal 15-20.
--- NOTE | 2018-09-05 12:52 | PN ---
Progress Note - Progress Note Date of Service: 09/05/18 SOAP: Subjective: []Pt seen at bedside. He feels well, no complaints. Denies CP, SOB, dizziness, nausea. RLE pain well controlled. Objective: [] General: Appears well, NAD RLE: Stump dressing CDI, thigh is soft and no erythema proximal to splint. Left calf supple and nontender without erythema or edema. Assessment: []POD 2 sp resection of infected bursa and fibula Dr Lewis 09/03/18 Plan: []NWB RLE OOB w PT/OT Dressing CDI Dr Clark and infectious disease comanaging On vanco, will continue to follow cultures- no growth so far DVT proph: on heparin, brilinta, asa 81mg and SCDs Vital Signs Temp 99.3 F 09/05/18 11:13 Pulse 76 09/05/18 11:13 Resp 19 09/05/18 12:16 BP 146/72 09/05/18 11:13 Pulse Ox 95 09/05/18 11:13 Intake & Output 09/04/18 09/05/18 09/05/18 18:59 06:59 18:59 Intake Total 860 940 480 Output Total 200 Balance 860 740 480 Intake: IV Fluids 260 ABX - VANCOMYCIN 260 Oral 860 680 480 Output: Urine 200 Other: Estimated Void Medium Medium # Bowel Movements 0 # Voids 3 1 Laboratory Last Values WBC 6.2 10^3/uL (3.5-10.8) 09/05/18 04:41 RBC 3.96 10^6 /uL (4.18-5.48) L 09/05/18 04:41 Hgb 12.4 g/dL (14.0-18.0) L 09/05/18 04:41 Hct 36 % (42-52) L 09/05/18 04:41 MCV 92 fL (80-94) 09/05/18 04:41 MCH 31 pg (27-31) 09/05/18 04:41 MCHC 34 g/dL (31-36) 09/05/18 04:41 RDW 15 % (10-15) 09/05/18 04:41 Plt Count 184 10^3/uL (150-450) 09/05/18 04:41 MPV 8.7 fL (7.4-10.4) 09/05/18 04:41 Neut % (Auto) 64.8 % 09/05/18 04:41 Lymph % (Auto) 16.1 % 09/05/18 04:41 [place] % (Auto) 8.5 % 09/05/18 04:41 Eos % (Auto) 10.0 % 09/05/18 04:41 Baso % (Auto) 0.6 % 09/05/18 04:41 Absolute Neuts (auto) 4.0 10^3/ul (1.5-7.7) 09/05/18 04:41 Absolute Lymphs (auto) 1.0 10^3/ul (1.0-4.8) 09/05/18 04:41 Absolute Monos (auto) 0.5 10^3/ul (0-0.8) 09/05/18 04:41 Absolute Eos (auto) 0.6 10^3/ul (0-0.6) 09/05/18 04:41 Absolute Basos (auto) 0.0 10^3/ul (0-0.2) 09/05/18 04:41 Absolute Nucleated RBC 0.0 10^3/ul 09/05/18 04:41 Nucleated RBC % 0.1 09/05/18 04:41 INR (Anticoag Therapy) 1.05 (0.82-1.09) 09/04/18 13:48 APTT 38.5 seconds (26.0-38.0) H 09/04/18 13:48 Sodium 141 mmol/L (135-145) 09/05/18 04:41 Potassium 3.4 mmol/L (3.5-5.0) L 09/05/18 04:41 Chloride 110 mmol/L (101-111) 09/05/18 04:41 Carbon Dioxide 28 mmol/L (22-32) 09/05/18 04:41 Anion Gap 3 mmol/L (2-11) 09/05/18 04:41 BUN 22 mg/dL (6-24) 09/05/18 04:41 Creatinine 1.38 mg/dL (0.67-1.17) H 09/05/18 04:41 Est GFR ( Amer) 64.3 (>60) 09/05/18 04:41 Est GFR (Non-Af Amer) 53.1 (>60) 09/05/18 04:41 BUN/Creatinine Ratio 15.9 (8-20) 09/05/18 04:41 Glucose 37 mg/dL (70-100) L* 09/05/18 04:41 POC Glucose (mg/dL) 244 mg/dL (70-100) H 09/05/18 07:53 Glucose Meter Confirm 132 mg/dL (70-100) H 09/05/18 06:07 Hemoglobin A1c 10.0 % (4.0-5.6) H 09/04/18 13:48 Calcium 8.6 mg/dL (8.6-10.3) 09/05/18 04:41 C-Reactive Protein 26.98 mg/L (<8.01) H 09/05/18 04:41 Vancomycin Trough 22.2 mcg/mL 09/05/18 04:41
[2018-09-05] MEDS: Vancomycin(*) 750 MG in NS 0.9% 250 ML* 250 ML IVPB SCH ×2 (13:01→23:49)
[2018-09-05] MEDS: traMADol TAB* 50 MG PO PRN ×2 (13:46→18:03)
[2018-09-05] MEDS ORDERED: Insulin GLARGINE(*) 1 UNITS UNIT SUBCUT SCH (18:00)
[2018-09-05] MEDS: Atorvastatin* 80 MG TAB PO SCH (18:03)
[2018-09-05] MEDS: Atenolol TAB* 50 MG PO SCH (18:04)
[2018-09-05] MEDS: Lisinopril TAB* 10 MG PO SCH (18:04)
[2018-09-05] MEDS: Aspirin 81 mg CHEW TAB* 81 MG TAB.CHEW PO SCH (18:04)
[2018-09-05] MEDS: CLINDAMYCIN IV 300 MG in D5W IV SCH (23:45)
[2018-09-06 04:51] LABS: Hematocrit 33 % (42-52); Mean Platelet Volume 8.7 fL (7.4-10.4); Platelet Count 155 10^3/uL (150-450)
[2018-09-06] MEDS: Acetaminophen TAB* 325 MG PO SCH (06:09)
[2018-09-06] MEDS: Levothyroxine TAB* 100 MCG TAB PO SCH (06:10)
[2018-09-06] MEDS: Heparin VIAL(*) 5000 UNITS/ML VIAL (FIVE THOUSAND) SUBCUT SCH (06:11)
[2018-09-06] MEDS: oxyCODONE TAB* 5 MG TAB PO PRN (06:14)
[2018-09-06] MEDS: Insulin LISPRO* 1 UNITS UNIT SUBCUT SCH ×2 (07:50→09:21)
--- NOTE | 2018-09-06 08:43 | PN ---
Subjective - Subjective Reason for Note: Progress Note History: Brody Kam had a side effect of vancomycin that occurred last time - he developed dysuria and exfoliation of his glans penis. I stopped vancomycin and changed him to clindamycin. He was hypoglycemic again this morning. Otherwise , no new medical problems. 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, uncontrolled (Chronic ) E10.49, E10.65 Current Medications: Current Medications Acetaminophen (Tylenol Tab*) 975 mg PO Q8H [facility] Last Admin: 09/06/18 06:09 Dose: 975 mg Aspirin (Aspirin 81 Mg Chew Tab*) 81 mg PO Q24H [facility] Last Admin: 09/05/18 18:04 Dose: 81 mg Atenolol (Tenormin Tab*) 50 mg PO QPM [facility] Last Admin: 09/05/18 18:04 Dose: 50 mg Atorvastatin Calcium (Lipitor*) 80 mg PO QPM [facility] Last Admin: 09/05/18 18:03 Dose: 80 mg Dextrose (Dextrose 50% Vial 50 Ml*) 12.5 ml IV PUSH .FOR FS < 60 - SS PRN PRN Reason: FS < 60 Last Admin: 09/05/18 06:07 Dose: 12.5 ml Diphenhydramine HCl (Benadryl Iv*) 25 mg IV Q6H PRN PRN Reason: itching Diphenhydramine HCl (Benadryl Po*) 25 mg PO Q6H PRN PRN Reason: itching Docusate Sodium (Colace Cap*) 100 mg PO BID PRN PRN Reason: CONSTIPATION Heparin Sodium (Porcine) (Heparin Vial(*)) 5,000 units SUBCUT Q8HR [facility] Last Admin: 09/06/18 06:11 Dose: 5,000 units Dextrose/Sodium Chloride (D5w 1/2 Ns 1000 Ml Bag*) 1,000 mls @ 100 mls/hr IV PER RATE [facility] Last Admin: 09/03/18 15:44 Dose: 100 mls/hr Vancomycin HCl 750 mg/ Sodium (Chloride) 250 mls @ 166.667 mls/hr IVPB 0000, 1200 [facility] Last Admin: 09/05/18 23:49 Dose: Not Given Clindamycin HCl/Dextrose (Cleocin 300 Mg Ivpemix(*)) 300 mg in 50 mls @ 200 mls /hr IV TID [facility] Last Admin: 09/05/18 23:45 Dose: 200 mls/hr Insulin Glargine (Lantus(*)) 30 units SUBCUT QPM [facility] Last Admin: 09/05/18 18:07 Dose: 30 unit Insulin Human Lispro (Humalog*) 0 units SUBCUT [facility]; Protocol Last Admin: 09/06/18 07:50 Dose: Not Given Insulin Human Lispro (Humalog*) 0 units SUBCUT [facility]; Protocol Last Admin: 09/05/18 18:12 Dose: 1 units Levothyroxine Sodium (Synthroid Tab*) 200 mcg PO 0600 [facility] Last Admin: 09/06/18 06:10 Dose: 200 mcg Lisinopril (Prinivil Tab*) 10 mg PO QPM [facility] Last Admin: 09/05/18 18:04 Dose: 10 mg Magnesium Hydroxide (Milk Of Magnesia Liq*) 30 ml PO BID PRN PRN Reason: CONSTIPATION Morphine Sulfate (Morphine Inj (Syringe))*) 2 mg IV Q2H PRN PRN Reason: PAIN - BREAKTHROUGH Last Admin: 09/04/18 22:46 Dose: 2 mg Nitroglycerin (Nitroglycerin Tab 0.4 Mg*) 0.4 mg SL Q5M PRN PRN Reason: ANGINA Oxycodone HCl (Roxycodone Tab*) 10 mg PO Q4H PRN PRN Reason: PAIN - SEVERE Last Admin: 09/06/18 06:14 Dose: 10 mg Oxycodone HCl (Roxycodone Tab*) 5 mg PO Q4H PRN PRN Reason: PAIN - MODERATE Pharmacy Consult (Vancomycin Per Pharmacy*) 1 note FOLLOW UP .VANC PER PHARMACY [facility]; Protocol Pharmacy Profile Note (Vancomycin Trough Check) 1 note FOLLOW UP 1200 ONE Stop: 09/07/18 12:01 Ticagrelor (Brilinta (Nf)) 60 mg PO BID [facility] Last Admin: 09/05/18 21:48 Dose: 60 mg Tramadol HCl (Ultram*) 50 mg PO Q4H PRN PRN Reason: PAIN - MILD TO MODERATE Last Admin: 09/05/18 18:03 Dose: 50 mg Home Medications: Home Medications Medication Instructions Recorded Confirmed Type Insulin Glargine,Hum.rec.anlog 60 unit SUBCUT QPM #0 06/04/15 09/03/18 History [Lantus] Nitroglycerin TAB 0.4 MG* 0.4 mg SL Q5M PRN #20 tab 06/07/15 09/03/18 Rx Aspirin EC TAB* [Ecotrin EC Low 81 mg PO QPM 02/15/16 09/03/18 History Dose 81 MG*] Insulin Lispro [Humalog] 0 - 100 units SUBCUT TID WITH MEALS 02/15/16 09/03/18 History Levothyroxine TAB* [Synthroid 100 200 mcg PO QAM 06/17/16 09/03/18 History MCG TAB*] Atenolol TAB* [Tenormin TAB* 50 MG] 50 mg PO QPM 08/29/18 09/03/18 History Atorvastatin* [Lipitor 80 MG*] 80 mg PO QPM 08/29/18 09/03/18 History Cephalexin CAP* [Keflex CAP*] 500 mg PO TID 08/29/18 09/03/18 History Lisinopril TAB* [Prinivil TAB 10 10 mg PO QPM 08/29/18 09/03/18 History MG*] Ticagrelor* [Brilinta 90 MG*] 60 mg PO BID 08/29/18 09/03/18 History Allergies: Allergies Allergy/AdvReac Type Severity Reaction Status Date / Time Adhesive Tape [Paper Tape] Allergy See Comment Verified 09/03/18 11:00 simvastatin Allergy Rash Verified 09/03/18 11:00 Objective - Vital Signs Vital Signs: Vital Signs 09/05/18 09/05/18 09/05/18 09:39 10:23 10:57 Temperature Pulse Rate Respiratory 18 18 18 Rate Blood Pressure (mmHg) O2 Sat by Pulse Oximetry 09/05/18 09/05/18 09/05/18 11:13 12:16 13:06 Temperature 99.3 F Pulse Rate 76 Respiratory 18 19 18 Rate Blood Pressure 146/72 (mmHg) O2 Sat by Pulse 95 Oximetry 09/05/18 09/05/18 09/05/18 13:35 13:46 14:24 Temperature Pulse Rate Respiratory 18 18 18 Rate Blood Pressure (mmHg) O2 Sat by Pulse Oximetry 09/05/18 09/05/18 09/05/18 14:26 15:16 15:31 Temperature 98.8 F Pulse Rate 73 Respiratory 18 17 18 Rate Blood Pressure 135/64 (mmHg) O2 Sat by Pulse 94 Oximetry 09/05/18 09/05/18 09/05/18 16:20 16:25 18:03 Temperature Pulse Rate Respiratory 18 19 20 Rate Blood Pressure (mmHg) O2 Sat by Pulse Oximetry 09/05/18 09/05/18 09/05/18 18:14 18:15 19:36 Temperature 98.0 F Pulse Rate 70 Respiratory 19 19 17 Rate Blood Pressure 149/76 (mmHg) O2 Sat by Pulse 97 Oximetry 09/05/18 09/05/18 09/05/18 20:00 20:31 21:55 Temperature Pulse Rate Respiratory 18 16 16 Rate Blood Pressure (mmHg) O2 Sat by Pulse Oximetry 09/05/18 09/05/18 09/06/18 23:15 23:52 00:00 Temperature 98.0 F Pulse Rate 71 Respiratory 17 17 Rate Blood Pressure 137/63 (mmHg) O2 Sat by Pulse 97 97 Oximetry 09/06/18 09/06/18 09/06/18 03:50 06:14 07:39 Temperature 98.0 F 98.1 F Pulse Rate 73 68 Respiratory 16 18 14 Rate Blood Pressure 141/69 143/77 (mmHg) O2 Sat by Pulse 98 96 Oximetry - Intake and Output Intake and Output: Intake & Output 09/03/18 09/04/18 09/05/18 09/06/18 11:59 11:59 11:59 11:59 Intake Total 2538 2280 1490 Output Total 500 200 0 Balance 8 0 1490 Weight 196 lb 3.2 oz Intake: IV Fluids 832 260 20 ABX - VANCOMYCIN 260 D5W 1/2 NS 332 LR 450 NS 20 NS 50ML, Cefazolin 2G 50 IVPB 276 270 ABX - VANCOMYCIN 276 270 Oral 1430 2020 1200 Output: Urine 500 200 0 Other: Estimated Void Medium Medium # Bowel Movements 0 0 0 # Voids 1 2 ADLs: Meal Record Start: 09/03/18 15: 23 Freq: Status: Active Protocol: Created 09/03/18 15:23 System (Rec: 09/03/18 15:23 System [id number]-M16) Document 09/03/18 18:13 [id number] (Rec: 09/03/18 18:15 [id number] SSU-M17) Document 09/04/18 18:00 [id number] (Rec: 09/04/18 18:01 [id number] SSU-M18) Document 09/05/18 10:58 [id number] (Rec: 09/05/18 10:58 [id number] SSU-C02) Intake and Output Start: 09/03/18 13: 31 Freq: 06,14,2200 Status: Active Protocol: Created 09/03/18 13:39 [id number] (Rec: 09/03/18 13:39 BKG [id number]) Document 09/03/18 18:13 [id number] (Rec: 09/03/18 18:15 [id number] SSU-M17) Document 09/03/18 20:00 [id number] (Rec: 09/03/18 20:02 [id number] SSU-M17) Document 09/03/18 21:16 [id number] (Rec: 09/03/18 21:16 [id number] SSU-M17) Document 09/03/18 21:46 [id number] (Rec: 09/03/18 21:48 [id number] SSU-M17) Document 09/04/18 06:55 [id number] (Rec: 09/04/18 06:55 [id number] SSU-M15) Document 09/04/18 14:33 [id number] (Rec: 09/04/18 14:33 [id number] SSU-C01) Document 09/04/18 16:29 [id number] (Rec: 09/04/18 16:30 [id number] SSU-M18) Document 09/04/18 21:58 [id number] (Rec: 09/04/18 22:05 [id number] SSU-M18) Document 09/05/18 05:20 [id number] (Rec: 09/05/18 05:22 [id number] SSU-L03) Document 09/05/18 05:58 [id number] (Rec: 09/05/18 05:58 [id number] SSU-L03) Document 09/05/18 10:58 [id number] (Rec: 09/05/18 10:58 [id number] SSU-C02) Document 09/05/18 14:04 [id number] (Rec: 09/05/18 14:04 [id number] SSU-C02) Document 09/05/18 18:25 [id number] (Rec: 09/05/18 18:26 [id number] SSU-C09) Document 09/05/18 22:06 [id number] (Rec: 09/05/18 22:07 [id number] SSU-L03) Document 09/06/18 05:23 [id number] (Rec: 09/06/18 05:24 [id number] SSU-L03) Intake and Output Start: 09/03/18 15: 23 Freq: Status: Complete Protocol: Created 09/03/18 15:23 System (Rec: 09/03/18 15:23 System SSU-M16) Document 09/03/18 21:46 [id number] (Rec: 09/03/18 21:48 [id number] SSU-M17) Document 09/04/18 06:55 [id number] (Rec: 09/04/18 06:55 [id number] SSU-M15) Document 09/04/18 14:33 [id number] (Rec: 09/04/18 14:33 [id number] SSU-C01) Document 09/05/18 05:20 [id number] (Rec: 09/05/18 05:22 [id number] SSU-L03) Document 09/05/18 05:58 [id number] (Rec: 09/05/18 05:58 [id number] SSU-L03) Document 09/05/18 14:04 [id number] (Rec: 09/05/18 14:04 [id number] SSU-C02) - Physical Exam General: No Cyanosis, No Anemia, No Jaundice, No Clubbing Lungs and Chest: Yes: Chest Expansion Full, Chest Expansion Symetrica, Percussion Note Resonant, Vessicular Breath Sounds. No: Crackles, Wheezes Heart Rate and Rhythm: Regular Additional Cardiovascular: Yes: Normal Heart Sounds. No: Heart Murmur Abdominal Exam: Yes: Soft, Bowel Sounds Present. 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 Dr. Oziel Hightower will determine if we can change him to po medication - and make the choice. 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
[2018-09-06] MEDS ORDERED: Lactobacillus Acidophilus* 1 TAB PO SCH (09:00)
--- NOTE | 2018-09-06 09:01 | PN ---
Progress Note - Progress Note Date of Service: 09/06/18 SOAP: Subjective: CC: Right LE nonhealing stump wound HPI: Mr. Kam is a 58 yo male with PMH significant for DM1, peripheral neuropathy, hx right BKA, CKD 3, CAD, PVD, HLD, and HTN. Reports not feeling well, he states that he feels it is a combination of the vancomycin and low blood sugars. He is starting to feel better now that the vancomycin has been discontinued. Denies fever, chills, nausea, vomiting, diarrhea, constipation, or urinary symptoms. Reports his appetite is ok and he is tolerating a diet. He reports peeling skin on his penis that started yesterday and discomfort with urination. Objective: Vital Signs - 8 hr 09/06/18 09/06/18 09/06/18 03:50 06:14 07:39 Temperature 98.0 F 98.1 F Pulse Rate 73 68 Respiratory 16 18 14 Rate Blood Pressure 141/69 143/77 (mmHg) O2 Sat by Pulse 98 96 Oximetry Physical Exam: General: NAD, sitting up on the side of the bed Neurological: Alert and Oriented x4 HEENT: Moist MM, no thrush Cardiovascular: Heart rate regular, no murmur Respiratory: Lung sounds clear Abdominal: Bowel sounds present, ABD soft, non tender and non distended Skin: No rash. There is superficial skin peeling to the glans of the penis with mild erythema. The lateral incision to the right stump is well approximated, no erythema. Laboratory Last Values WBC 6.2 10^3/uL (3.5-10.8) 09/05/18 04:41 RBC 3.96 10^6 /uL (4.18-5.48) L 09/05/18 04:41 Hgb 11.0 g/dL (14.0-18.0) L 09/06/18 04:39 Hct 33 % (42-52) L 09/06/18 04:39 MCV 92 fL (80-94) 09/05/18 04:41 MCH 31 pg (27-31) 09/05/18 04:41 MCHC 34 g/dL (31-36) 09/05/18 04:41 RDW 15 % (10-15) 09/05/18 04:41 Plt Count 155 10^3/uL (150-450) 09/06/18 04:39 MPV 8.7 fL (7.4-10.4) 09/06/18 04:39 Neut % (Auto) 64.8 % 09/05/18 04:41 Lymph % (Auto) 16.1 % 09/05/18 04:41 [place] % (Auto) 8.5 % 09/05/18 04:41 Eos % (Auto) 10.0 % 09/05/18 04:41 Baso % (Auto) 0.6 % 09/05/18 04:41 Absolute Neuts (auto) 4.0 10^3/ul (1.5-7.7) 09/05/18 04:41 Absolute Lymphs (auto) 1.0 10^3/ul (1.0-4.8) 09/05/18 04:41 Absolute Monos (auto) 0.5 10^3/ul (0-0.8) 09/05/18 04:41 Absolute Eos (auto) 0.6 10^3/ul (0-0.6) 09/05/18 04:41 Absolute Basos (auto) 0.0 10^3/ul (0-0.2) 09/05/18 04:41 Absolute Nucleated RBC 0.0 10^3/ul 09/05/18 04:41 Nucleated RBC % 0.1 09/05/18 04:41 INR (Anticoag Therapy) 1.05 (0.82-1.09) 09/04/18 13:48 APTT 38.5 seconds (26.0-38.0) H 09/04/18 13:48 Sodium 141 mmol/L (135-145) 09/05/18 04:41 Potassium 3.4 mmol/L (3.5-5.0) L 09/05/18 04:41 Chloride 110 mmol/L (101-111) 09/05/18 04:41 Carbon Dioxide 28 mmol/L (22-32) 09/05/18 04:41 Anion Gap 3 mmol/L (2-11) 09/05/18 04:41 BUN 22 mg/dL (6-24) 09/05/18 04:41 Creatinine 1.38 mg/dL (0.67-1.17) H 09/05/18 04:41 Est GFR ( Amer) 64.3 (>60) 09/05/18 04:41 Est GFR (Non-Af Amer) 53.1 (>60) 09/05/18 04:41 BUN/Creatinine Ratio 15.9 (8-20) 09/05/18 04:41 Glucose 37 mg/dL (70-100) L* 09/05/18 04:41 POC Glucose (mg/dL) 64 mg/dL (70-100) L 09/06/18 08:02 Glucose Meter Confirm 132 mg/dL (70-100) H 09/05/18 06:07 Hemoglobin A1c 10.0 % (4.0-5.6) H 09/04/18 13:48 Calcium 8.6 mg/dL (8.6-10.3) 09/05/18 04:41 C-Reactive Protein 26.98 mg/L (<8.01) H 09/05/18 04:41 Vancomycin Trough 22.2 mcg/mL 09/05/18 04:41 Microbiology 09/03/18 12:35 Anaerobic Culture - Preliminary Wound - Right Leg No Growth Day 2 09/03/18 12:35 Skin and Soft Tissue MRSA/MSSA (PCR - Final Leg Right Mrsa Negative S.aureus Negative Gram Stain - Final Wound Culture - Preliminary No Growth Day 2 Assessment: 1. Right stump nonhealing wound. S/P I+D of infected bursa and distal fibula, POD #3. Wound cultures from surgery with gram stain showing gram + cocci, with no growth on day 2. Afebrile and no leukocytosis. He was changed overnight from Vancomycin to Clindamycin after a possible drug reaction. 2. Nonspecific skin peeling to the genitals. Unclear cause. Vancomycin does not typically cause this type of reaction, but is possible. 3. DM1 with peripheral neuropathy and retinopathy. 4. CKD, stage 3. 5. PVD. Plan: Discontinue Clindamycin. Start Doxycycline 100 mg PO BID for 4 weeks. He should followup with ID outpatient in 2 weeks.
[2018-09-06] MEDS: CLINDAMYCIN IV 300 MG in D5W IV SCH (09:22)
[2018-09-06] MEDS: CMC:Ticagrelor (NF) 60 MG TAB PO SCH (09:30)
[2018-09-06] MEDS: traMADol TAB* 50 MG PO PRN (10:37)
--- NOTE | 2018-09-06 11:14 | DS ---
Orthopedic Discharge Summary - Discharge Summary Date of Admission:09/03/18 Date of Discharge: 09/06/18 Date of Surgery: 09/03/18 Attending Orthopedic Provider: Dr Lewis Pre-operative Diagnosis: Right stump infection Operative Procedure: Right stump excision of bursa and fibula Disposition of Patient: home Condition of Patient: stable History: ILYA BAIN is a 58 year old M with infection of his RLE stump requiring excision of bursa and fibula. Hospital Course: ILYA was admitted to [facility] on 09/03/18. Patient underwent an excision of right stump bursa and fibula without complication followed by a brief recovery in PACU and transfer to the Short Stay Surgical Unit in stable condition. Our hospitalist service, infectious disease, physical therapy also participated in this patients care. Throughout his stay, patient was alert and in no acute distress. Dressing was clean, dry and intact. 09/06 his dressing was changed prior to discharge, incision was clean , dry and intact without erythema and without discharge. He was on vancomycin during his stay. At discharge he was transitioned to doxycycline 100 mg po BID for 30 days. No culture growth to date at discharge. Patient was deemed to be medically and orthopedically stable for discharge. Physical therapy goals were met. Home Medications Medication Instructions Recorded Confirmed Type Insulin Glargine,Hum.rec.anlog 60 unit SUBCUT QPM #0 06/04/15 09/03/18 History [Lantus] Nitroglycerin TAB 0.4 MG* 0.4 mg SL Q5M PRN #20 tab 06/07/15 09/03/18 Rx Aspirin EC TAB* [Ecotrin EC Low 81 mg PO QPM 02/15/16 09/03/18 History Dose 81 MG*] Insulin Lispro [Humalog] 0 - 100 units SUBCUT TID WITH MEALS 02/15/16 09/03/18 History Levothyroxine TAB* [Synthroid 100 200 mcg PO QAM 06/17/16 09/03/18 History MCG TAB*] Atenolol TAB* [Tenormin TAB* 50 MG] 50 mg PO QPM 08/29/18 09/03/18 History Atorvastatin* [Lipitor 80 MG*] 80 mg PO QPM 08/29/18 09/03/18 History Lisinopril TAB* [Prinivil TAB 10 10 mg PO QPM 08/29/18 09/03/18 History MG*] Ticagrelor* [Brilinta 90 MG*] 60 mg PO BID 08/29/18 09/03/18 History Acetaminophen TAB* [Tylenol TAB*] 975 mg PO Q8H tab 09/06/18 Rx DOXYcycline CAP(*) [DOXYcycline 100 mg PO BID #60 cap 09/06/18 Rx 100MG CAP(*)] Docusate CAP* [Colace Cap*] 100 mg PO BID PRN #90 cap 09/06/18 Rx oxyCODONE TAB* [Roxycodone TAB 5 5 mg PO Q4H PRN #30 tab MDD 8 09/06/18 Rx mg*] Non-weightbearing right lower extremity May change dressing as needed, every other day. Cover with xeroform, sterile gauze and an sabas wrap. Otherwise keep dressing clean dry and intact Do not get dressing wet. Call Orthopedic office for: * Drainage * Redness * Increased pain * Fever Go to ER with shortness of breath or chest pain. Diet: * Regular home diet * Increase fluids and fiber to prevent constipation. * Continue to use stool softeners, call office if no bowel motion within 48 hours. Medications See Home Medication List in your packet for medications that you should take after discharge. DVT Prophylaxis: Continue brilinta and aspirin 81 mg daily. Reviewed with Dr Clark, recommends no additional DVT prophylaxis at discharge. Pain Control: oxycodone Dosin mg 1-2 tabs by mouth every 4-6 hours as needed for pain. Maximum of 8 tabs per day. hold for sedation Antibiotic: doxycycline 100 mg every 12 hours for 30 days. Take with a full glass of water, sit up for 30 minutes after taking, avoid prolonged sun exposure. FOLLOW UP: Follow up with [Joshua] Within 1 week, call for appointment. Call sooner with concerns Please call our office with any questions or concerns ([phone])
[2018-09-06 12:05] VITALS: BP 170/83
[2018-09-06] MEDS ORDERED: Insulin GLARGINE(*) 1 UNITS UNIT SUBCUT SCH (18:00)
[2018-09-06] MEDS ORDERED: DOXYcycline CAP(*) 100 MG PO SCH (21:00)
[2018-09-07] MEDS ORDERED: Vancomycin Trough Check NOTE FOLLOW UP ONE (12:00)
--- NOTE | 2018-10-01 15:42 | OP ---
DATE OF OPERATION: 09/03/18 - ROOM #331 DATE OF : 62 SURGEON: Paco Lewis MD PRE-OP DIAGNOSIS: Recurrent drainage, right below-knee amputation. POST-OP DIAGNOSIS: Recurrent drainage, right below-knee amputation. PRIMARY PROCEDURE: Excision of fibula, debridement, right below knee prosthesis site. DESCRIPTION OF PROCEDURE: Brody was taken to the operating room with thigh tourniquet inflated. We opened up the lateral longitudinal wound below the knee about 8 cm in length. There was a bursa there that was excised in its entirety, but also communication down to the fibula, which had somewhat of a grayish appearance and appeared possibly to be truly infected with the osteomyelitis. This was removed in total. Disarticulating proximally, the LCL ligament was then reattached to the surrounding fascia with some 0-Monocryl sutures. We thoroughly irrigated with pulsatile lavage and closed in layers with Monocryl and Prolene for the skin and compression dressing applied. [id number] #: [id number] [facility]ITAL[facility]enna
== END 2018-09-06 11:59 | disposition home health service (06) | DRG 857 ==
LOC: OR 10:32 → SSU 15:14
PROVIDERS: ADMIT Orthopaedic Surgery; ATTEND Orthopaedic Surgery
PROC: 0QBJ0ZZ Excision of Right Fibula, Open Approach (ICD-10-PCS; principal; 2018-09-03 12:15)
DX: T81.42XA Infection following a procedure, deep incisional surgical site, initial encounter (principal); L02.415 Cutaneous abscess of right lower limb; M86.461 Chronic osteomyelitis with draining sinus, right tibia and fibula; E10.22 Type 1 diabetes mellitus with diabetic chronic kidney disease; E10.40 Type 1 diabetes mellitus with diabetic neuropathy, unspecified; E10.51 Type 1 diabetes mellitus with diabetic peripheral angiopathy without gangrene; E10.65 Type 1 diabetes mellitus with hyperglycemia; I25.10 Atherosclerotic heart disease of native coronary artery without angina pectoris; N18.3 Chronic kidney disease, stage 3 (moderate); B96.89 Other specified bacterial agents as the cause of diseases classified elsewhere; I12.9 Hypertensive chronic kidney disease with stage 1 through stage 4 chronic kidney disease, or unspecified chronic kidney disease; E78.00 Pure hypercholesterolemia, unspecified; E78.5 Hyperlipidemia, unspecified; E03.9 Hypothyroidism, unspecified; R30.0 Dysuria; T36.8X5A Adverse effect of other systemic antibiotics, initial encounter; Y92.230 Patient room in hospital as the place of occurrence of the external cause; X58.XXXA Exposure to other specified factors, initial encounter; Z95.5 Presence of coronary angioplasty implant and graft; Z79.82 Long term (current) use of aspirin; Z79.4 Long term (current) use of insulin; Z79.899 Other long term (current) drug therapy; Z88.8 Allergy status to other drugs, medicaments and biological substances; Z91.048 Other nonmedicinal substance allergy status; Z89.511 Acquired absence of right leg below knee; I25.2 Old myocardial infarction; Z82.3 Family history of stroke; Z83.3 Family history of diabetes mellitus; Z87.891 Personal history of nicotine dependence
CPT/HCPCS: 36415; 80048; 80202; 82565; 82947; 83036; 84520; 85014; 85018; 85025; 85049; 85610; 85730; 86140; 87070; 87073; 87205; 87640; 87641; 88304; 88311; A9270-GY; J0690; J1100; J1170; J1644; J1885; J2001; J2250; J2270; J2405; J2704; J2765; J3010; J3370; J3490

== ENCOUNTER 2023-11-17 17:51 | Inpatient (IN) ==
[2023-11-17 20:09] LABS: ABS Basophils 0.1 10^3/uL (0.0-0.1); ABS Lymphocytes 1.5 10^3/uL (1.0-4.8); ABS Monocytes 1.3 10^3/uL (0.0-1.1); ABS Neutrophils 14.2 10^3/uL (1.5-7.6); Eosinophil % 0.2 %; Hematocrit 36.2 % (38-53); Lymphocyte % 8.7 %; Mean Corpuscular Hgb Conc 33.2 g/dL (31-36); Mean Corpuscular Volume 90.4 fL (80-97); Mean Platelet Volume 8.9 fL (7.5-11.2); Platelet Count 404 10^3/uL (150-450); Red Blood Count 4.01 10^6/uL (4.06-5.63); Red Cell Distribution Width 13.6 % (12-17); White Blood Count 17.2 10^3/uL (3.6-10.2)
[2023-11-17 20:11] LABS: Urine Appearance Clear; Urine Bilirubin Negative (Negative); Urine Blood Negative (Negative); Urine Color Yellow; Urine Glucose 3+ (>=300 mg/dL) (Negative); Urine Ketones 1+ (Negative); Urine Nitrite Negative (Negative); Urine Protein 1+ (>=30 mg/dL) (Negative); Urine Specific Gravity 1.024 (1.002-1.030); Urine Urobilinogen 1+ (Negative)
[2023-11-17 20:17] LABS: Activated Partial Thrombo Time 36.3 seconds (26.0-38.0); INR 1.26 (0.85-1.14)
[2023-11-17 20:22] LABS: Urine Bacteria Absent /HPF (Absent); Urine Granular Casts Present /LPF (Absent); Urine Red Blood Cell 1+(3-5/hpf) /HPF (0-Trace); Urine White Blood Cell Trace(0-5/hpf) /HPF (0-Trace)
[2023-11-17 20:47] LABS: Albumin/Globulin Ratio 1.1 (1-3); C Reactive Protein 194.41 mg/L (<8.01); Calcium 8.7 mg/dL (8.6-10.3); Creatinine, Serum 1.63 mg/dL (0.67-1.17); Globulin 2.8 g/dL (2-4); Potassium 4.7 mmol/L (3.5-5.0); Total Bilirubin 0.8 mg/dL (0.2-1.0); Total Protein 5.8 g/dL (6.4-8.9); eGFR CKD-EPI 47.3 (>60)
[2023-11-17 21:16] LABS: High Sensitivity Troponin 1 Hr 14 pg/mL (<20)
[2023-11-17] MEDS: Piperacillin/Tazobac 3.375 BAG 3.375 GM/100 ML BAG IV ONE (21:52)
[2023-11-17] MEDS: Vancomycin 1,500 MG in NS 0.9% 250 ml 250 ML IVPB ONE (22:20)
[2023-11-17] MEDS ORDERED: Morphine 2 MG/ML SYRINGE IV PRN (23:30)
[2023-11-17] MEDS ORDERED: Dextrose 50% Syringe 50 ml 25 GM/50 ML SYRINGE IV PUSH PRN (23:39)
[2023-11-17] MEDS ORDERED: Vancomycin per Pharmacy 1 EA NOTE FOLLOW UP SCH (23:45)
[2023-11-17] MEDS ORDERED: Zosyn per Pharmacy NOTE FOLLOW UP SCH (23:45)
[2023-11-17 23:52] LABS: Glucose Confirmatory 439 mg/dL (70-100)
[2023-11-18] MEDS: Piperacillin/Tazobac 3.375 BAG 3.375 GM/100 ML BAG IV ONE (00:02)
[2023-11-18] MEDS: Insulin GLARGINE 100 un/ml 10 ml VIAL SUBCUT SCH (00:17)
[2023-11-18] MEDS ORDERED: Dextrose 50% Syringe 50 ml 25 GM/50 ML SYRINGE IV PUSH PRN (01:04)
[2023-11-18] MEDS: Lactated Ringers 1000 ml BAG 1,000 ML IV SCH (01:09)
[2023-11-18] MEDS: Enoxaparin 40 MG/0.4 ML SYR SUBCUT SCH (01:48)
[2023-11-18] MEDS: ZOSYN 3.375 GM Q8H per EXTENDED INFUSION IV SCH ×2 (02:01→09:56)
[2023-11-18] MEDS: LACTATED RINGERS IV ONE (03:58)
[2023-11-18] MEDS ORDERED: Acetaminophen IV 1 GM/100ML 1,000 MG/100 ML BAG IV PRN (04:32)
[2023-11-18] MEDS ORDERED: Morphine 2 MG/ML SYRINGE IV PRN (04:51)
[2023-11-18] MEDS ORDERED: Piperacillin/Tazobac 3.375 BAG 3.375 GM/100 ML BAG IV ONE (05:00)
[2023-11-18] MEDS ORDERED: Senna TAB 8.6 mg TAB PO PRN (05:04)
[2023-11-18 07:45] LABS: ABS Basophils 0.1 10^3/uL (0.0-0.1); ABS Lymphocytes 0.5 10^3/uL (1.0-4.8); ABS Monocytes 0.7 10^3/uL (0.0-1.1); ABS Neutrophils 13.2 10^3/uL (1.5-7.6); Hemoglobin 10.6 g/dL (13.2-16.3); Lymphocyte % 3.7 %; Mean Corpuscular Hemoglobin 30.5 pg (27-33); Mean Corpuscular Hgb Conc 34.1 g/dL (31-36); Mean Corpuscular Volume 89.4 fL (80-97); Mean Platelet Volume 9.2 fL (7.5-11.2); Platelet Count 313 10^3/uL (150-450); Red Blood Count 3.46 10^6/uL (4.06-5.63); Red Cell Distribution Width 13.6 % (12-17); White Blood Count 14.5 10^3/uL (3.6-10.2)
[2023-11-18 08:16] LABS: Calcium 8.1 mg/dL (8.6-10.3); Creatinine, Serum 1.86 mg/dL (0.67-1.17); Magnesium 1.5 mg/dL (1.9-2.7); eGFR CKD-EPI 40.4 (>60)
[2023-11-18 08:37] LABS: Ferritin 364.8 ng/mL (24-336)
[2023-11-18 08:41] LABS: Folate 14.33 ng/mL (5.90-24.80)
[2023-11-18] MEDS: Polyethylene Glycol 3350 17 GM PACKET PO SCH (09:56)
[2023-11-18] MEDS: Magnesium Sulfate 2 gm BAG 2 GM/50 ML BAG IVPB ONE (09:56)
[2023-11-18] MEDS: Lactated Ringers 1000 ml BAG 1,000 ML IV ONE (09:56)
[2023-11-18] MEDS ORDERED: Zosyn per Pharmacy NOTE FOLLOW UP SCH (12:00)
[2023-11-18] MEDS: Vancomycin 1,500 MG in NS 0.9% 250 ml 250 ML IVPB SCH (17:52)
[2023-11-18] MEDS: Aspirin EC 81 mg TAB.EC (enteric coated) PO SCH (20:43)
[2023-11-19 07:00] LABS: ABS Basophils 0.1 10^3/uL (0.0-0.1); ABS Eosinophils 0.6 10^3/uL (0.0-0.5); ABS Lymphocytes 0.7 10^3/uL (1.0-4.8); ABS Monocytes 0.8 10^3/uL (0.0-1.1); ABS Neutrophils 11.1 10^3/uL (1.5-7.6); Eosinophil % 4.4 %; Hematocrit 31.7 % (38-53); Hemoglobin 10.9 g/dL (13.2-16.3); Lymphocyte % 5.5 %; Mean Corpuscular Hemoglobin 30.5 pg (27-33); Mean Corpuscular Hgb Conc 34.4 g/dL (31-36); Mean Corpuscular Volume 88.8 fL (80-97); Mean Platelet Volume 8.8 fL (7.5-11.2); Platelet Count 313 10^3/uL (150-450); Red Blood Count 3.57 10^6/uL (4.06-5.63); Red Cell Distribution Width 13.5 % (12-17); White Blood Count 13.3 10^3/uL (3.6-10.2)
[2023-11-19 07:21] LABS: Calcium 7.8 mg/dL (8.6-10.3); Creatinine, Serum 1.52 mg/dL (0.67-1.17); Magnesium 1.9 mg/dL (1.9-2.7); Potassium 3.8 mmol/L (3.5-5.0); eGFR CKD-EPI 51.5 (>60)
[2023-11-19] MEDS: Influenza Vaccine *TRI* 2024-25* 0.5 ML SYRINGE IM ONE (10:01)
[2023-11-19] MEDS: Insulin GLARGINE 100 un/ml 10 ml VIAL SUBCUT SCH ×2 (10:10→20:54)
[2023-11-19] MEDS: Gadoteridol (CONTRAST) 279.3 MG/ML 10 ML IV ONE (10:38)
[2023-11-20 05:53] LABS: ABS Eosinophils 0.4 10^3/uL (0.0-0.5); ABS Lymphocytes 0.7 10^3/uL (1.0-4.8); ABS Monocytes 0.4 10^3/uL (0.0-1.1); ABS Neutrophils 6.2 10^3/uL (1.5-7.6); Eosinophil % 5.2 %; Hematocrit 31.8 % (38-53); Hemoglobin 10.9 g/dL (13.2-16.3); Lymphocyte % 9.4 %; Mean Corpuscular Hemoglobin 30.6 pg (27-33); Mean Corpuscular Hgb Conc 34.1 g/dL (31-36); Mean Corpuscular Volume 89.6 fL (80-97); Mean Platelet Volume 8.8 fL (7.5-11.2); Platelet Count 306 10^3/uL (150-450); Red Blood Count 3.55 10^6/uL (4.06-5.63); Red Cell Distribution Width 13.5 % (12-17); White Blood Count 7.9 10^3/uL (3.6-10.2)
[2023-11-20 07:38] LABS: Calcium 7.7 mg/dL (8.6-10.3); Creatinine, Serum 1.29 mg/dL (0.67-1.17); Magnesium 1.8 mg/dL (1.9-2.7); Potassium 4.2 mmol/L (3.5-5.0); eGFR CKD-EPI 62.7 (>60)
[2023-11-20] MEDS: Insulin GLARGINE 100 un/ml 10 ml VIAL SUBCUT SCH (09:11)
[2023-11-20] MEDS: Magnesium Sulfate 2 gm BAG 2 GM/50 ML BAG IVPB ONE (09:19)
[2023-11-20] MEDS: Nystatin SUSPENSION 100,000 UNITS/ML UDC PO SCH (12:20)
[2023-11-20] MEDS: Vancomycin Trough Check NOTE FOLLOW UP ONE (18:44)
[2023-11-21 06:35] LABS: Hematocrit 32.1 % (38-53); Hemoglobin 10.8 g/dL (13.2-16.3); Mean Corpuscular Hemoglobin 29.9 pg (27-33); Mean Corpuscular Hgb Conc 33.7 g/dL (31-36); Mean Corpuscular Volume 88.8 fL (80-97); Mean Platelet Volume 8.9 fL (7.5-11.2); Platelet Count 330 10^3/uL (150-450); Red Blood Count 3.62 10^6/uL (4.06-5.63); Red Cell Distribution Width 13.4 % (12-17); White Blood Count 7.9 10^3/uL (3.6-10.2)
[2023-11-21 07:00] LABS: Calcium 7.7 mg/dL (8.6-10.3); Creatinine, Serum 1.28 mg/dL (0.67-1.17); Magnesium 1.9 mg/dL (1.9-2.7); Potassium 4.2 mmol/L (3.5-5.0); eGFR CKD-EPI 63.3 (>60)
[2023-11-21] MEDS: Dextrose 50% Syringe 50 ml 25 GM/50 ML SYRINGE IV PUSH PRN (07:05)
[2023-11-21] MEDS: Insulin GLARGINE 100 un/ml 10 ml VIAL SUBCUT SCH ×2 (09:45→10:09)
[2023-11-21 18:43] LABS: Creatinine, Serum 1.26 mg/dL (0.67-1.17); Vancomycin Random 18.6 mcg/mL; eGFR CKD-EPI 64.5 (>60)
[2023-11-21] MEDS: Vancomycin 1,000 MG in NS 0.9% 250 ml 250 ML IVPB SCH (19:47)
[2023-11-21] MEDS: Vancomycin Random Level NOTE FOLLOW UP ONE (19:50)
[2023-11-22 06:57] LABS: ABS Basophils 0.1 10^3/uL (0.0-0.1); ABS Eosinophils 0.3 10^3/uL (0.0-0.5); ABS Lymphocytes 0.9 10^3/uL (1.0-4.8); ABS Monocytes 0.8 10^3/uL (0.0-1.1); ABS Neutrophils 5.1 10^3/uL (1.5-7.6); Eosinophil % 4.8 %; Hematocrit 31.4 % (38-53); Hemoglobin 10.6 g/dL (13.2-16.3); Lymphocyte % 12.8 %; Mean Corpuscular Hemoglobin 30.2 pg (27-33); Mean Corpuscular Hgb Conc 33.9 g/dL (31-36); Mean Corpuscular Volume 89.2 fL (80-97); Mean Platelet Volume 8.7 fL (7.5-11.2); Nucleated Red Blood Cells % 0.1 %/100WBC (0.0-0.8); Platelet Count 297 10^3/uL (150-450); Red Blood Count 3.52 10^6/uL (4.06-5.63); Red Cell Distribution Width 13.5 % (12-17); White Blood Count 7.2 10^3/uL (3.6-10.2)
[2023-11-22 07:14] LABS: Calcium 7.9 mg/dL (8.6-10.3); Creatinine, Serum 1.28 mg/dL (0.67-1.17); Magnesium 1.9 mg/dL (1.9-2.7); Potassium 4.5 mmol/L (3.5-5.0); eGFR CKD-EPI 63.3 (>60)
[2023-11-23 05:28] LABS: Hematocrit 32.2 % (38-53); Hemoglobin 10.6 g/dL (13.2-16.3); Mean Corpuscular Hemoglobin 29.4 pg (27-33); Mean Corpuscular Hgb Conc 32.9 g/dL (31-36); Mean Corpuscular Volume 89.6 fL (80-97); Mean Platelet Volume 8.4 fL (7.5-11.2); Platelet Count 335 10^3/uL (150-450); Red Cell Distribution Width 13.7 % (12-17); White Blood Count 7.6 10^3/uL (3.6-10.2)
[2023-11-23 05:52] LABS: Calcium 8.1 mg/dL (8.6-10.3); Creatinine, Serum 1.18 mg/dL (0.67-1.17); Potassium 4.2 mmol/L (3.5-5.0); eGFR CKD-EPI 69.8 (>60)
[2023-11-23] MEDS ORDERED: Dexamethasone IV 4 MG/ML VIAL 1 ml VIAL ONE (10:59)
[2023-11-23] MEDS ORDERED: Rocuronium 50 mg VIAL 10 mg/ml 5 ml VIAL (50 mg) ONE ×2 (10:59→13:31)
[2023-11-23] MEDS ORDERED: Propofol 10 MG/ML 20 ML BTL ONE (10:59)
[2023-11-23] MEDS ORDERED: Ondansetron 4 mg VIAL 2 MG/ML 2 ml VIAL ONE (10:59)
[2023-11-23] MEDS ORDERED: Lidocaine 2% PF 5 ML VIAL ONE (11:00)
[2023-11-23] MEDS ORDERED: Midazolam 2 mg/2 ml VIAL 1 mg/ml 2 ml VIAL (2 mg) ONE (11:04)
[2023-11-23] MEDS ORDERED: fentaNYL 100 mcg/2 ml 50 MCG/ML VIAL ONE ×2 (11:04→15:24)
[2023-11-23] MEDS ORDERED: Metoclopramide 5 MG/ML VIAL (10 mg) IV PRN (11:52)
[2023-11-23] MEDS ORDERED: Ondansetron 4 mg VIAL 2 MG/ML 2 ml VIAL IV PRN (11:52)
[2023-11-23] MEDS ORDERED: Naloxone 0.4 mg VIAL 0.4 mg/ml 1 ml VIAL IV PRN (11:52)
[2023-11-23] MEDS ORDERED: Phenylephrine 40 mcg/mL 10mL (400mcg) SYRINGE ONE (12:55)
[2023-11-23] MEDS ORDERED: Bupivacaine 0.5% SDV PF 30ML VIAL ONE (13:09)
[2023-11-23] MEDS: fentaNYL 100 mcg/2 ml 50 MCG/ML VIAL IV PRN (15:25)
[2023-11-23] MEDS: Lactated Ringers 1000 ml BAG 1,000 ML IV SCH ×2 (18:23→18:26)
[2023-11-23] MEDS: D5LR 1000 ml BAG 1,000 ML IV SCH (18:25)
[2023-11-23] MEDS: Buffered Lidocaine 1% SYRIN 1 ml INTRADERM ONE (18:25)
[2023-11-23] MEDS: Acetaminophen IV 1 GM/100ML 1,000 MG/100 ML BAG IV ONE (18:25)
[2023-11-23 18:48] LABS: Creatinine, Serum 1.36 mg/dL (0.67-1.17); Vancomycin Trough 19.4 mcg/mL; eGFR CKD-EPI 58.8 (>60)
[2023-11-23] MEDS: Vancomycin Trough Check NOTE FOLLOW UP ONE (21:52)
[2023-11-24] MEDS ORDERED: Dextrose 50% Syringe 50 ml 25 GM/50 ML SYRINGE IV PUSH PRN (00:01)
[2023-11-24] MEDS: Insulin GLARGINE 100 un/ml 10 ml VIAL SUBCUT SCH (00:58)
[2023-11-24] MEDS: Morphine 2 MG/ML SYRINGE IV PRN (01:02)
[2023-11-24 06:48] LABS: Hematocrit 30.9 % (38-53); Hemoglobin 10.5 g/dL (13.2-16.3); Mean Corpuscular Hemoglobin 30.3 pg (27-33); Mean Corpuscular Hgb Conc 33.9 g/dL (31-36); Mean Corpuscular Volume 89.6 fL (80-97); Mean Platelet Volume 8.8 fL (7.5-11.2); Platelet Count 350 10^3/uL (150-450); Red Blood Count 3.45 10^6/uL (4.06-5.63); Red Cell Distribution Width 13.7 % (12-17); White Blood Count 10.9 10^3/uL (3.6-10.2)
[2023-11-24 07:09] LABS: Calcium 7.7 mg/dL (8.6-10.3); Creatinine, Serum 1.41 mg/dL (0.67-1.17); Potassium 4.9 mmol/L (3.5-5.0); eGFR CKD-EPI 56.3 (>60)
[2023-11-24] MEDS ORDERED: Insulin GLARGINE 100 un/ml 10 ml VIAL SUBCUT SCH (09:00)
[2023-11-24] MEDS: Insulin GLARGINE 100 un/ml 10 ml VIAL SUBCUT ONE (12:31)
[2023-11-24] MEDS: Enoxaparin 40 MG/0.4 ML SYR SUBCUT SCH (12:32)
[2023-11-24] MEDS: Vancomycin 750 MG in NS 0.9% 250 ML IVPB SCH (20:52)
[2023-11-24] MEDS: ZOSYN 3.375 GM Q8H per EXTENDED INFUSION IV SCH (22:36)
[2023-11-25] MEDS: Insulin GLARGINE 100 un/ml 10 ml VIAL SUBCUT SCH (21:09)
[2023-11-26 08:58] LABS: ABS Basophils 0.1 10^3/uL (0.0-0.1); ABS Eosinophils 0.2 10^3/uL (0.0-0.5); ABS Lymphocytes 1.6 10^3/uL (1.0-4.8); ABS Monocytes 0.8 10^3/uL (0.0-1.1); ABS Neutrophils 6.7 10^3/uL (1.5-7.6); Eosinophil % 2.1 %; Hematocrit 31.6 % (38-53); Hemoglobin 10.7 g/dL (13.2-16.3); Lymphocyte % 16.6 %; Mean Corpuscular Hemoglobin 30.2 pg (27-33); Mean Corpuscular Hgb Conc 33.8 g/dL (31-36); Mean Corpuscular Volume 89.5 fL (80-97); Mean Platelet Volume 8.3 fL (7.5-11.2); Platelet Count 442 10^3/uL (150-450); Red Blood Count 3.53 10^6/uL (4.06-5.63); Red Cell Distribution Width 13.9 % (12-17); White Blood Count 9.4 10^3/uL (3.6-10.2)
[2023-11-26 09:07] LABS: INR 1.04 (0.85-1.14)
[2023-11-26 09:34] LABS: Albumin 2.9 g/dL (3.2-5.2); Calcium 8.4 mg/dL (8.6-10.3); Creatinine, Serum 1.32 mg/dL (0.67-1.17); Globulin 2.8 g/dL (2-4); Total Bilirubin 0.3 mg/dL (0.2-1.0); Total Protein 5.7 g/dL (6.4-8.9)
[2023-11-26] MEDS: Insulin GLARGINE 100 un/ml 10 ml VIAL SUBCUT SCH (10:46)
[2023-11-27 09:47] VITALS: BP 127/67
[2023-11-27] MEDS ORDERED: Vancomycin Trough Check NOTE FOLLOW UP ONE (20:30)
== END 2023-11-27 14:00 | disposition home health service (06) | DRG 854 ==
LOC: EDHOLD 17:51 → ED 17:51 → MED 11-18 02:22 → SUATTDRO 11-18 12:07 → AA 11-23 12:14 → SSU 11-23 15:16
PROVIDERS: ADMIT Student in an Organized Health Care Education/Training Program; ATTEND Hospitalist
PROC: O.ORAMP (2023-11-23 12:45)